=== PATIENT | male | born 1990 | race African-American/Black ===

== ENCOUNTER 2016-12-14 23:54 | Emergency (ER) | payer MEDICAID ==
[~2016-12-14] VITALS: Ht 175.3 cm; Wt 76.9 kg
[~2016-12-14 23:54] MED LIST: DEXA4TAB PO; NO ROUTINE MEDS; PROC-14 PO
--- OUTSIDE RECORDS SUMMARY | 2016-12-14 23:59 | XMS REPORT | Referral Summary ---
Author Author Via Organization Via Address Unknown Phone Unavailable Care Team Providers Care Student Records Specialist Name Role Phone No PCP, Pt States Primary Care Physician [phone] Encounter [facility] [id number] Date(s): 01/26/16 - 01/26/16 [address], [place] [address] Discharge Diagnosis: Achilles tendon injury Discharge Disposition: 01-Home or Self Care Attending Physician: Lon Corea DO Admitting Physician: Lon Corea DO Vital Signs Most recent to 1 oldest [Reference Range]: Temperature Temporal 36.3 degC Artery [36.3-37.8 (01/26/16 2:42 PM) degC] Peripheral Pulse 110 bpm Rate [60-100 bpm] *HI* (01/26/16 2:42 PM) Respiratory Rate 16 br/min [14-20 br/min] (01/26/16 2:42 PM) Blood Pressure 132/82 mmHg [90-140/60-90 mmHg] (01/26/16 2:42 PM) SpO2 96 % (01/26/16 2:42 PM) Problem List Condition Effective Dates Status Health Status Informant Acute Active pain(Confirmed) Alteration in Active nutrition(Confirmed) 1 At risk for Active falls(Confirmed)2 Bowel Active dysfunction(Confirme d)3 Chronic abdominal Active patient pain(Confirmed) Crohn's disease of Active large bowel (disorder)(Confirmed ) Fluid Active imbalance(Confirmed) 4 Hip fracture, Active patient right(Confirmed) History of bowel Active patient resection(Confirmed) Tobacco Active patient user(Confirmed) 1Problem added automatically by system based on initiation of Alteration in Nutrition Plan of Care 2This problem was added by Discern Expert. 3Problem added automatically by system based on initiation of Bowel Dysfunction Plan of Care 4Problem added automatically by system based on initiation of Fluid Volume Imbalance Plan of Care Allergies, Adverse Reactions, Alerts Substance Reaction Severity Status heparin Difficulty breathing at rest Severe Active HYDROcodone Active Levsin Hives Medium Active metoclopramide Adverse Reaction Medium Active Itchy, hives morphine Ichy, hives Severe Active Adverse Reaction Severe nabumetone Adverse Reaction Medium Active Toradol Hives Medium Active traMADol Itching Active Swelling Medications Crutches (DME) DME Item ankle pain left ankle weight bearing as tolerated, See Instructions, # 1 Each, 0 Refill(s), Supply Start Date: 01/24/16 Status: Ordered Crutches (DME) DME Item 4 weeks, See Instructions, # 1 Each, 0 Refill(s), Supply Start Date: 01/23/16 Status: Ordered Crutches (DME) DME Item Until cleared to stop by orthopedics., See Instructions, # 1 Each, 0 Refill(s), Supply Start Date: 01/22/16 Status: Ordered HYDROcodone-acetaminophen 5 mg-325 mg oral tablet 1 tabs, Oral, QID, Pain Moderate (4-6), # 30 tabs, 0 Refill(s) Start Date: 01/09/16 Status: Ordered Naprosyn 500 mg oral tablet 500 mg 1 tabs, Oral, BID, as needed for pain, # 20 tabs, 0 Refill(s) Start Date: 01/24/16 Status: Ordered Naprosyn 500 mg oral tablet 500 mg 1 tabs, Oral, BID, as needed for pain, # 20 tabs, 0 Refill(s) Start Date: 01/09/16 Status: Ordered ondansetron 4 mg oral tablet, disintegrating See Instructions, 1 tabs Oral q6-8hrs prn nausea/vomiting, # 12 tabs, 0 Refill(s ) Start Date: 01/07/16 Stop Date: 01/06/17 Status: Ordered Percocet 5/325 oral tablet 1 tabs, Oral, q4hr, as needed for pain, # 12 tabs, 0 Refill(s) Start Date: 01/12/16 Stop Date: 01/11/17 Status: Ordered Percocet 5/325 oral tablet 1 tabs, Oral, q6hr, as needed for pain, # 12 tabs, 0 Refill(s) Start Date: 01/09/16 Status: Ordered predniSONE 10 mg oral tablet See Instructions, 4 tabs daily X3d; 3tabs daily X3d, 2tabs daily X3; 1 tab daily X 3, # 40 tabs, 0 Refill(s) Start Date: 11/24/15 Status: Ordered Zofran 4 mg oral tablet 4 mg 1 tabs, Oral, Once, # 3 tabs, 0 Refill(s) Start Date: 11/13/15 Status: Ordered Results No data available for this section Immunizations Vaccine Date Refusal Reason tetanus-diphth toxoids (Td) adult/adol 11/30/02 Procedures Procedure Date Related Diagnosis Body Site Colonoscopy Biopsy1 05/18/14 Esophagogastroduodenoscopy Biopsy2 05/18/14 Bowel Resection 2012 Bowel care3 Hip joint operations4 1auto-populated from documented surgical case 2auto-populated from documented surgical case 3bowel resection 4right side Social History Social History Type Response Smoking Status Current every day smoker; Tobacco use per day: 1 Pack Assessment and Plan No data available for this section
--- OUTSIDE RECORDS SUMMARY | 2016-12-14 23:59 | XMS REPORT | Referral Summary ---
Author Author Via [facility] Organization Via [facility] Address Unknown Phone Unavailable Care Team Providers Care Glaze Maker Name Role Phone No PCP, Pt States Primary Care Physician [phone] Encounter [facility] [id number] Date(s): 07/11/16 - 07/11/16 Via [facility] [address] [place], [place] [address] Discharge Diagnosis: Tachycardia Discharge Diagnosis: Acute abdominal pain Discharge Diagnosis: Rectal bleeding Discharge Diagnosis: Dehydration Discharge Diagnosis: Crohn's disease Discharge Disposition: [facility] Attending Physician: Tulio Shahid MD Admitting Physician: Tulio Shahid MD Vital Signs Most recent to 1 oldest [Reference Range]: Temperature Oral 37.2 degC [35.8-37.3 degC] (07/11/16 12:52 PM) Peripheral Pulse 101 bpm Rate [60-100 bpm] *HI* (07/11/16 12:52 PM) Respiratory Rate 18 br/min [14-20 br/min] (07/11/16 12:52 PM) Blood Pressure 122/83 mmHg [90-140/60-90 mmHg] (07/11/16 12:52 PM) SpO2 96 % (07/11/16 12:52 PM) Problem List Condition Effective Dates Status Health Status Informant Acute Active pain(Confirmed) Alteration in Active nutrition(Confirmed) 1 At risk for Active falls(Confirmed)2 Bowel Active dysfunction(Confirme d)3 Chronic abdominal Active patient pain(Confirmed) Crohn's disease of Active large bowel (disorder)(Confirmed ) Fluid Active imbalance(Confirmed) 4 Hip fracture, Active patient right(Confirmed) History of bowel Active patient resection(Confirmed) Knowledge Active deficit(Confirmed)5 1Problem added automatically by system based on initiation of Alteration in Nutrition Plan of Care 2This problem was added by Discern Expert. 3Problem added automatically by system based on initiation of Bowel Dysfunction Plan of Care 4Problem added automatically by system based on initiation of Fluid Volume Imbalance Plan of Care 5Problem added automatically by system based on initiation of Knowledge Deficit Plan of Care Allergies, Adverse Reactions, Alerts Substance Reaction Severity Status heparin Difficulty breathing at rest Severe Active HYDROcodone Active Levsin Hives Medium Active metoclopramide Adverse Reaction Medium Active Itchy, hives morphine Ichy, hives Severe Active Adverse Reaction Severe nabumetone Adverse Reaction Medium Active Toradol Hives Medium Active traMADol Itching Active Swelling Medications amLODIPine 5 mg oral tablet 5 mg 1 tabs, Oral, Daily, # 30 tabs, 0 Refill(s), Pharmacy: [id number], 1 tabs Oral Daily Start Date: 05/19/16 Status: Ordered Percocet 5/325 oral tablet See Instructions, as needed for pain, 1 tabs Oral q4hr, # 12 tabs, 0 Refill(s) Start Date: 06/23/16 Stop Date: 06/23/17 Status: Ordered Results No data available for this section Immunizations Given and Recorded Vaccine Date Status Refusal Reason tetanus-diphth toxoids (Td) adult/adol 11/30/02 Given Procedures Procedure Date Related Diagnosis Body Site Colonoscopy Biopsy1 05/18/14 Esophagogastroduodenoscopy Biopsy2 05/18/14 Bowel Resection 2012 Bowel care3 Hip joint operations4 1auto-populated from documented surgical case 2auto-populated from documented surgical case 3bowel resection 4right side Social History Social History Type Response Smoking Status Current every day smoker; Tobacco use per day: 1/2 pack or more Assessment and Plan No data available for this section
--- OUTSIDE RECORDS SUMMARY | 2016-12-14 23:59 | XMS REPORT | Continuity of Care Document ---
Author Author [facility] Organization [facility] Address Unknown Phone Unavailable Care Team Providers Care Laminator Hand Name Role Phone VERONA ADAME MD Primary Care Physician [phone] Insurance Providers Guarantor Laura Echeverria Address [address] [place] [address] Email DENIED/NO [facility] Number [id number] Subscriber's Name Laura Echeverria Relationship 18 Self Effective Date 15 Expiration Date 15 Chief Complaint and Reason for Visit Chief Complaint Abdominal Pain Reason for Visit Exacerbation of Crohn's disease Problems Active Problems Medical Problem Onset Date Status Acute abdominal pain Unknown Acute Bloody diarrhea Unknown Acute Crohns disease Unknown Acute Dehydration Unknown Acute Ileitis Unknown Acute Inflammatory bowel disease Unknown Acute Microcytic anemia Unknown Chronic Opiate dependence Unknown Acute Recurrent abdominal pain Unknown Acute Recurrent vomiting Unknown Acute Past Problems Medical Problem Onset Date Diarrhea Unknown Exacerbation of Crohn's disease Unknown Nausea & vomiting Unknown Medications Current Home Medications Medication Dose Units Route Directions Days Qty Instructions Start Date Dexamethasone 4 Mg Tablet 1 Tab Oral Twice A Day 3 Days 8 Tablet No Routine Meds 11/29/15 Prochlorperazine Maleate (Compazine) 10 Mg Tablet 10 Mg Oral Four Times Daily for Nausea &/Or Vomiting 20 Tablet Take 1 tablet, by mouth, 4 times a day. 11/29/15 Past Home Medications Medication Directions Ordered Status Ciprofloxacin Hcl (Cipro) 500 Mg Tablet, 500 Mg Oral Before Meals Twice A Day 06/18/15 Discontinued Metronidazole (Flagyl) 500 Mg Tablet, 500 Mg Oral Three Times A Day 06/18/15 Discontinued Ondansetron (Zofran Odt) 4 Mg Tablet, 4 Mg Oral Every 4 Hours as needed for Nausea &/Or Vomiting 06/18/15 Discontinued Oxycodone Hcl (Roxicodone) 5 Mg Tablet, 30 Mg Oral Every 4 Hours 06/18/15 Discontinued Prednisone 5 Mg Tablet, 0 Oral Taper Qd 06/18/15 Discontinued Sulfasalazine 500 Mg Tablet, 1000 Mg Oral Three Times A Day 06/18/15 Discontinued Social History Social History Problem Response Recorded Date/Time Onset Date Status Hx Alcohol Use No 11/29/2015 8:39pm Not Applicable Not Applicable Has the pt used tobacco in the last 12 months Yes 06/16/2015 12:54am Not Applicable Not Applicable Tobacco Usage smoke 06/17/2015 5:40pm Not Applicable Not Applicable Query Response Start Date Stop Date Smoking Status Current every day smoker Hospital Discharge Instructions No hospital discharge instructions. Plan of Care Discharge Date 11/29/15 11:32pm Disposition 01 DISCHARGED HOME, SELF-CARE Condition at Discharge Stable Instructions/Education Provided Crohn's Disease Prescriptions See Medication Section Referrals VERONA ADAME MD Address: [address] [phone] Additional Instructions/Education Take dexamethasone 4mg twice daily with food for the next 3 days, take with food. Take compazine 10mg every 6 hours as needed for nausea and vomiting. You may take OTC Tylenol for additional pain. Follow with your PCP Wednesday for re-evaluation. [facility] for [facility]-evaluation. Follow treatment plan. Care Plan and Goals Physician Care Plan Problem: Crohn's Exacerbation Goal: Follow up with primary care provider Instructions: Take medications and follow care plan as discussed/written Functional Status No functional status results. Allergies, Adverse Reactions, Alerts Allergen Type Severity Reaction Status Last Updated Morphine Allergy Unknown HIVES, ITCHING Active 07/07/15 Hydrocodone Allergy Unknown Active 07/07/15 Metoclopramide Allergy Unknown ITCHING Active 07/07/15 Ketorolac Allergy Unknown DYSPNEA Active 07/07/15 heparin Allergy Unknown SWELLING Active 07/07/15 Immunizations Query Response on File Recorded Date/Time Hx Influenza Vaccination No 06/16/15 12:54am Hx Pneumococcal Vaccination No 06/16/15 12:54am Hx Influenza Vaccination No 06/16/15 12:54am Vital Signs Acute Vital Signs Vital Response Date/Time Temperature (Fahrenheit) 98.8 deg F (96.8 - 99.1) 11/29/2015 8:25pm Temperature (Calculated Celsius) 37.88466 degrees C (36.0 - 37.3) 11/29/2015 8:25pm Pulse Rate (adult) 71 bpm (60 - 100) 11/29/2015 11:32pm Respiratory Rate 16 breaths/min (10 - 20) 11/29/2015 11:32pm O2 Sat by Pulse Oximetry 99 % (90 - 100) 11/29/2015 11:32pm Blood Pressure 147/84 mm Hg 11/29/2015 11:32pm Height (Feet) 5 feet 11/29/2015 8:41pm Height (Inches) 9.00 inches 11/29/2015 8:41pm Weight (Kilograms) 77.900 kg 11/29/2015 8:41pm Body Mass Index (BMI) 25.0 11/29/2015 8:41pm Results Laboratory Results Test Name Result Units Flags Reference Collection Date/Time Result Date/ Time Comments White Blood Count 10.7 T/MM3 4.5-11.0 11/29/2015 9:36pm 11/29/2015 9: 45pm Red Blood Count 4.55 M/MM3 4.50-5.90 11/29/2015 9:36pm 11/29/2015 9: 45pm Hemoglobin 11.7 GM/DL L 13.5-17.5 11/29/2015 9:36pm 11/29/2015 9:45pm Hematocrit 35.5 % L 41-53 11/29/2015 9:36pm 11/29/2015 9:45pm Mean Corpuscular Volume 78.0 UM3 L 80-100 11/29/2015 9:36pm 11/29/2015 9 :45pm Mean Corpuscular Hemoglobin 25.7 UUG L 26-34 11/29/2015 9:36pm 2015 9:45pm Mean Corpuscular Hemoglobin Concent 33.0 GM/DL 31-37 11/29/2015 9:36pm 11/29/2015 9:45pm RDW Standard Deviation 45.8 FL 36.9-50.2 11/29/2015 9:36pm 11/29/2015 9 :45pm Platelet Count 310 T/MM3 130-400 11/29/2015 9:36pm 11/29/2015 9:45pm Mean Platelet Volume 11.0 UM3 9.4-12.4 11/29/2015 9:36pm 11/29/2015 9: 45pm Neutrophils (%) (Auto) 71.6 % H 33-66 11/29/2015 9:36pm 11/29/2015 9: 45pm Lymphocytes (%) (Auto) 19.6 % L 23-45 11/29/2015 9:36pm 11/29/2015 9: 45pm Monocytes (%) (Auto) 7.6 % 0-9.0 11/29/2015 9:36pm 11/29/2015 9:45pm Eosinophils (%) (Auto) 0.8 % 0-4 11/29/2015 9:36pm 11/29/2015 9:45pm Basophils (%) (Auto) 0.2 % 0-2 11/29/2015 9:36pm 11/29/2015 9:45pm Immature Granulocyte % (Auto) 0.2 % 0.0-0.5 11/29/2015 9:36pm 2015 9:45pm Absolute Neutrophils (auto) 7.7 T/MM3 1.8-7.7 11/29/2015 9:36pm 2015 9:45pm Absolute Lymphocytes (auto) 2.1 T/MM3 1-4.8 11/29/2015 9:36pm 2015 9:45pm Absolute Monocytes (auto) 0.8 T/MM3 0-0.8 11/29/2015 9:36pm 11/29/2015 9:45pm Absolute Eosinophils (auto) 0.1 T/MM3 0-0.5 11/29/2015 9:36pm 2015 9:45pm Absolute Basophils (auto) 0.0 T/MM3 0-0.2 11/29/2015 9:36pm 11/29/2015 9:45pm Absolute Immature Granulocyte (auto 0.02 T/MM3 0.00-0.03 11/29/2015 9: 36pm 11/29/2015 9:45pm Icterus Index < 2 0-7 11/29/2015 9:3611/29/2015 10:15pm Chemistry Specimen Hemolysis 55 H 0-25 11/29/2015 9:36pm 11/29/2015 10 :15pm 26-70: Specimen Exhibited Slight Hemolysis - can falsely elevate K (Potassium) and Urine Protein. Turbidity < 20 0-20 11/29/2015 9:36pm 11/29/2015 10:15pm Sodium Level 141 MEQ/L 134-144 11/29/2015 9:36pm 11/29/2015 10:15pm Potassium Level 3.9 MEQ/L 3.6-5 11/29/2015 9:36pm 11/29/2015 10:15pm Chloride Level 105 MEQ/L 98-107 11/29/2015 9:36pm 11/29/2015 10:15pm Carbon Dioxide Level 28 MEQ/L 22-30 11/29/2015 9:36pm 11/29/2015 10: 15pm Anion Gap 8 MEQ/L 5-15 11/29/2015 9:36pm 11/29/2015 10:15pm Blood Urea Nitrogen 7.0 MG/DL L 9-11/29/2015 9:36pm 11/29/2015 10: 15pm Creatinine 0.7 MG/DL L 0.8-1.5 11/29/2015 9:36pm 11/29/2015 10:15pm BUN/Creatinine Ratio 10 RATIO 6-11/29/2015 9:36pm 11/29/2015 10: 15pm Glomerular Filtration Rate Calc 135 11/29/2015 9:36pm 11/29/2015 10 :15pm Glucose Level 94 MG/DL 75-110 11/29/2015 9:36pm 11/29/2015 10:15pm Calculated Osmolality 269 MOSM/KG 261-280 11/29/2015 9:36pm 11/29/2015 10:15pm Calcium Level 8.9 MG/DL 8.4-10.2 11/29/2015 9:36pm 11/29/2015 10:15pm Total Bilirubin 0.30 MG/DL 0.20-1.30 11/29/2015 9:36pm 11/29/2015 10: 15pm Alkaline Phosphatase 93 U/L 38-126 11/29/2015 9:36pm 11/29/2015 10: 15pm Total Protein 6.1 G/DL L 6.3-8.2 11/29/2015 9:36pm 11/29/2015 10:15pm Albumin 3.4 G/DL L 3.5-5.0 11/29/2015 9:36pm 11/29/2015 10:15pm Globulin 2.7 G/DL 2.4-3.6 11/29/2015 9:36pm 11/29/2015 10:15pm Albumin/Globulin Ratio 1.3 RATIO 1.1-2.2 11/29/2015 9:36pm 11/29/2015 10:15pm Aspartate Amino Transf (AST/SGOT) 18 U/L 17-59 11/29/2015 9:36pm 2015 10:15pm Alanine Aminotransferase (ALT/SGPT) 21 U/L 21-72 11/29/2015 9:36pm 10:15pm C-Reactive Protein 17.0 MG/L H 0-9 11/29/2015 9:38pm 11/29/2015 10:25pm Lipase 33 U/L 23-300 11/29/2015 9:36pm 11/29/2015 10:15pm Urine Collection Type VOIDED-NOT CC-MIDSTR 11/29/2015 10:0511/28 10:15pm Urine Color YELLOW YELLOW 11/29/2015 10:05pm 11/29/2015 10:15pm Urine Turbidity CLEAR CLEAR 11/29/2015 10:05pm 11/29/2015 10:15pm Urine Specific [place] 1.015 1.015-1.025 11/29/2015 10:05pm 2015 10:15pm Urine pH 6.5 5.0-8.0 11/29/2015 10:05pm 11/29/2015 10:15pm Urine Leukocyte Esterase NEGATIVE NEGATIVE 11/29/2015 10:052015 10:15pm Urine Nitrite NEGATIVE NEGATIVE 11/29/2015 10:05pm 11/29/2015 10: 15pm Urine Protein NEGATIVE NEGATIVE 11/29/2015 10:05pm 11/29/2015 10: 15pm Urine Glucose (UA) NEGATIVE NEGATIVE 11/29/2015 10:05pm 11/29/2015 10 :15pm Urine Ketones NEGATIVE NEGATIVE 11/29/2015 10:05pm 11/29/2015 10: 15pm Urine Urobilinogen 0.2 EU/DL NORMAL 11/29/2015 10:05pm 11/29/2015 10: 15pm Urine Bilirubin NEGATIVE NEGATIVE 11/29/2015 10:05pm 11/29/2015 10: 15pm Urine Blood NEGATIVE NEGATIVE 11/29/2015 10:05pm 11/29/2015 10:15pm Urinalysis Comment MICROSCOPIC NOT IND. 11/29/2015 10:05pm 2015 10:15pm Procedures No known history of procedures. Encounters Encounter Location Arrival/Admit Date Discharge/Depart Date Attending Provider Departed Emergency Room [facility] 11/29/15 8:17pm 11/29/15 11: 32pm JIMMY RESENDEZ MD Recent Diagnosis
--- OUTSIDE RECORDS SUMMARY | 2016-12-14 23:59 | XMS REPORT | Referral Summary ---
Author Author Via [facility] Organization [facility] Address Unknown Phone Unavailable Care Team Providers Care 4Th Grade Teacher Name Role Phone No PCP, Pt States Primary Care Physician [phone] Encounter [facility] Date(s): 03/04/15 - 03/04/15 [facility] [address] [place] [address] [phone] Discharge Diagnosis: Medical non-compliance Discharge Diagnosis: Abdominal pain, chronic, epigastric Discharge Diagnosis: Vomiting Final: ABDOMINAL PAIN, EPIGASTRIC Final: Other chronic pain Final: DIARRHEA Final: VOMITING ALONE Final: PERSONAL HISTORY OF NONCOMPLIANCE WITH MEDICAL TREATMENT, PRESENTING HAZARDS TO HEALTH Discharge Diagnosis: Diarrhea Discharge Disposition: 01-Home or Self Care Attending Physician: Patrice Rankin JR, MD Admitting Physician: Patrice Rankin JR, MD Vital Signs Most recent to 1 oldest [Reference Range]: Temperature Oral 37.0 degC [35.8-37.3 degC] (03/04/15 5:52 PM) Peripheral Pulse 67 bpm Rate [60-100 bpm] (03/04/15 9:30 PM) Heart Rate Monitored 60 bpm [60-100 bpm] (03/04/15 11:00 PM) Respiratory Rate 18 br/min [14-20 br/min] (03/04/15 11:00 PM) Blood Pressure 147/91 mmHg [90-140/60-90 mmHg] *HI* (03/04/15 11:00 PM) Mean Arterial 115 mmHg Pressure, Cuff (03/04/15 11:00 PM) SpO2 100 % (03/04/15 11:00 PM) Problem List Condition Effective Dates Status [...] Adverse Reactions, Alerts Substance Reaction Severity Status acetaminophen Hives Active acetaminophen-HYDROcodone Adverse Reaction Medium Active heparin Difficulty breathing at rest Severe Active Levsin Hives Medium Active metoclopramide Adverse Reaction Medium Active Itchy, hives morphine Ichy, hives Active Adverse Reaction nabumetone Adverse Reaction Medium Active Toradol Hives Medium Active traMADol Itching Active Swelling Medications No data available for this section Results Hematology Most recent to 1 oldest [Reference Range]: WBC [4.8-10.8 7.4 10*3/uL 10*3/uL] (03/04/15 9:16 PM) RBC [4.60-6.20 4.34 10*6/uL 10*6/uL] *LOW* (03/04/15 9:16 PM) Hgb [14.0-18.0 11.2 gm/dL gm/dL] *LOW* (03/04/15 9:16 PM) Hct [42.0-52.0 %] 33.9 % *LOW* (03/04/15 9:16 PM) MCV [82.0-99.0 fL] 78.1 fL *LOW* (03/04/15 9:16 PM) MCH [27.0-32.0 pg] 25.8 pg *LOW* (03/04/15 9:16 PM) MCHC [32.0-36.0 33.0 gm/dL gm/dL] (03/04/15 9:16 PM) RDW [11.5-14.5 %] 16.1 % *HI* (03/04/15 9:16 PM) Platelet [150-400 306 10*3/uL 10*3/uL] (03/04/15 9:16 PM) MPV [9.4-12.3 fL] 10.5 fL (03/04/15 9:16 PM) Immature 0.1 % Granulocytes (03/04/15 9:16 PM) [0.0-1.0 %] Neutrophils [51-75 69 % %] (03/04/15 9:16 PM) Lymphocytes [20-46 21 % %] (03/04/15 9:16 PM) Monocytes [4-11 %] 8 % (03/04/15 9:16 PM) Eosinophils [0-4 %] 2 % (03/04/15 9:16 PM) Basophils [0-2 %] 0 % (03/04/15 9:16 PM) Neutro Absolute 5.08 10*3 [1.90-7.00 10*3] (03/04/15 9:16 PM) Lymph Absolute 1.58 10*3 [0.80-3.30 10*3] (03/04/15 9:16 PM) Nance Absolute 0.60 10*3 [0.30-1.00 10*3] (03/04/15:16 PM) Eos Absolute 0.12 10*3 [0.00-0.50 10*3] (03/04/15 9:16 PM) Baso Absolute 0.02 10*3 [0.00-0.20 10*3] (03/04/15 9:16 PM) Nucleated RBC 0.0 /100 WBC Automated [0 /100 (03/04/15 9:16 PM) WBC] Chemistry Most recent to 1 oldest [Reference Range]: Sodium Lvl [136-144 142 mEq/L mEq/L] (03/04/15 8:20 PM) Potassium Lvl 3.3 mEq/L 1 [3.6-5.1 mEq/L] *LOW* (03/04/15 8:20 PM) Chloride [99-109 107 mEq/L mEq/L] (03/04/15 8:20 PM) CO2 [22-32 mEq/L] 28 mEq/L (03/04/15 8:20 PM) AGAP [3-20] 7 (03/04/15 8:20 PM) BUN [4-20 mg/dL] 4 mg/dL (03/04/15 8:20 PM) Glucose Lvl [70-100 88 mg/dL mg/dL] (03/04/15 8:20 PM) Creatinine Lvl 0.78 mg/dL [0.64-1.27 mg/dL] (03/04/15 8:20 PM) eGFR [>60] >60 2 (03/04/15 8:20 PM) Calcium Lvl 8.4 mg/dL [8.6-10.0 mg/dL] *LOW* (03/04/15 8:20 PM) Albumin Lvl [3.5-4.8 3.4 gm/dL gm/dL] *LOW* (03/04/15 8:20 PM) Total Protein 6.4 gm/dL [6.1-7.9 gm/dL] (03/04/15 8:20 PM) Globulin [1.9-4.3 3.0 gm/dL gm/dL] (03/04/15 8:20 PM) ALT [17-63 U/L] 17 U/L (03/04/15 8:20 PM) AST [15-41 U/L] 19 U/L (03/04/15 8:20 PM) Alk Phos [26-104 156 U/L U/L] *HI* (03/04/15 8:20 PM) Bili Total [0.2-1.2 0.6 mg/dL 3 mg/dL] (03/04/15 8:20 PM) Lipase Lvl [8-48 26 U/L U/L] (03/04/15 8:20 PM) 1Result Comment: Hemolyzed specimen. The following tests may be affected: ALT, AST, Ammonia, Iron, Potassium, LDH, Amylase, CPK, and Total Bilirubin. 2Result Comment: Multiply eGFR results by 1.21 for race. 3Result Comment: Naproxen, specifically the metabolite O-desmethylnaproxen, may cause spurious elevation in Total Bilirubin levels. Toxicology Most recent to 1 oldest [Reference Range]: U Amphetamine Scrn Negative (03/04/15 10:00 PM) U Cocaine Scrn Negative (03/04/15 10:00 PM) U Cannab Scrn Negative (03/04/15 10:00 PM) U Opiate Scrn Positive *ABN* (03/04/15 10:00 PM) U PCP Scrn Negative (03/04/15 10:00 PM) U Benzodiazepine Negative Scrn (03/04/15 10:00 PM) U Barbiturate Scrn Negative (03/04/15 10:00 PM) Methadone Lvl Negative (03/04/15 10:00 PM) Tricyclics Not Detected 1 (03/04/15 10:00 PM) 1Result Comment: Cut-off concentrations: Amphetamines: 1000 ng/mL Cocaine: 300 ng/mL Cannabinoid: 50 ng/mL Opiate: 300 ng/mL Phencyclidine (PCP): 25 ng/mL Benzodiazepine: 200 ng/mL Barbiturate: 200 ng/mL Methadone: 300 ng/mL Tricyclic: 300 ng/mL The urine drug screen assays are qualitative screens. A more specific GC/MS method must be performed to obtain a confirmed analytical result. Unconfirmed screening results must not be used for non-medical purposes(e.g. employment or legal testing) Urinalysis Most recent to 1 oldest [Reference Range]: UA Color Lt Yellow (03/04/15 10:00 PM) UA Appear Clear (03/04/15 10:00 PM) UA pH [5.0-8.0] 6.5 (03/04/15 10:00 PM) UA Leuk Est Negative [Negative] (03/04/15 10:00 PM) UA Nitrite Negative [Negative] (03/04/15 10:00 PM) UA Protein Negative [Negative] (03/04/15 10:00 PM) UA Glucose Negative [Negative] (03/04/15 10:00 PM) UA Ketones Negative [Negative] (03/04/15 10:00 PM) UA Urobilinogen Negative [<1.0] (03/04/15 10:00 PM) UA Bili [Negative] Negative (03/04/15 10:00 PM) UA Blood [Negative] Negative (03/04/15 10:00 PM) UA Spec Grav 1.009 [1.003-1.030] (03/04/15 10:00 PM) Type Clean Catch (03/04/15 10:00 PM) Immunizations Vaccine Date Refusal Reason tetanus-diphth toxoids (Td) adult/adol 11/30/02 Procedures Procedure Date Related Diagnosis Body Site Colonoscopy Biopsy1 05/18/14 Esophagogastroduodenoscopy Biopsy2 10/31/14 Bowel Resection 2012 Bowel care3 Hip joint operations4 1auto-populated from documented surgical case 2auto-populated from documented surgical case 3bowel resection 4right side Social History Social History Type Response Smoking Status Current every day smoker; Tobacco use per day: 1 Pack Assessment and Plan No data available for this section
--- OUTSIDE RECORDS SUMMARY | 2016-12-14 23:59 | XMS REPORT | Referral Summary ---
Author Author [facility] Organization [facility] Address Unknown Phone Unavailable Care Team Providers Care Director Of Medical Staff Services Name Role Phone No PCP, Pt States Primary Care Physician [phone] Encounter VC Date(s): 01/30/16 - 01/30/16 [facility] [address] [place] [address] [phone] Discharge Diagnosis: Dental caries Discharge Disposition: 01-Home or Self Care Attending Physician: Tulio Shahid MD Admitting Physician: Tulio Shahid MD Vital Signs Most recent to 1 oldest [Reference Range]: Temperature Oral 36.9 degC [35.8-37.3 degC] (01/30/16 6:40 PM) Peripheral Pulse 82 bpm Rate [60-100 bpm] (01/30/16 6:40 PM) Respiratory Rate 14 br/min [14-20 br/min] (01/30/16 6:40 PM) Blood Pressure 127/81 mmHg [90-140/60-90 mmHg] (01/30/16 6:40 PM) SpO2 97 % (01/30/16 6:40 PM) Problem List Condition Effective Dates Status [...] Date: 01/07/16 Stop Date: 01/06/17 Status: Ordered penicillin V potassium 500 mg oral tablet 500 mg 1 tabs, Oral, BID, X 10 days, # 20 tabs, 0 Refill(s) Start Date: 01/30/16 Stop Date: 02/09/16 Status: Ordered Percocet 5/325 oral tablet 1 [...]
--- OUTSIDE RECORDS SUMMARY | 2016-12-14 23:59 | XMS REPORT | Referral Summary ---
Author Author [facility] Organization [facility] Address Unknown Phone Unavailable Care Team Providers Care Quenching Car Operator Name Role Phone No PCP, Pt States Primary Care Physician [phone] Encounter VC Date(s): 05/03/16 - 05/03/16 [facility] [address] [place], [place] [address] Discharge Diagnosis: Left against medical advice Discharge Diagnosis: Chronic abdominal pain Discharge Disposition: Attending Physician: Fuentes Amador MD Admitting Physician: Fuentes Amador MD Vital Signs Most recent to 1 oldest [Reference Range]: Temperature Oral 37 degC [35.8-37.3 degC] (05/03/16 9:34 PM) Peripheral Pulse 94 bpm Rate [60-100 bpm] (05/03/16 9:34 PM) Respiratory Rate 18 br/min [14-20 br/min] (05/03/16 9:34 PM) Blood Pressure 135/82 mmHg [90-140/60-90 mmHg] (05/03/16 9:34 PM) SpO2 97 % (05/03/16 9:34 PM) Problem List Condition Effective Dates Status Health Status Informant Acute Active pain(Confirmed) Alteration in Active nutrition(Confirmed) 1 At risk for Active falls(Confirmed)2 Bowel Active dysfunction(Confirme d)3 Chronic abdominal Active patient pain(Confirmed) Crohn's disease of Active large bowel (disorder)(Confirmed ) Fluid Active imbalance(Confirmed) 4 Hip fracture, Active patient right(Confirmed) History of bowel Active patient resection(Confirmed) Knowledge Active deficit(Confirmed)5 Tobacco Active patient user(Confirmed) 1Problem added automatically [...] Medium Active traMADol Itching Active Swelling Medications Benadryl 50 mg, Oral, Bedtime (once a day), 0 Refill(s) Start Date: 03/29/16 Status: Ordered Delzicol 400 mg oral delayed release capsule 800 mg 2 caps, Oral, TID, 0 Refill(s) Start Date: 03/29/16 Status: Ordered Medrol Dosepak 4 mg oral tablet 1 packets, Oral, Once, as directed on package labeling, # 21 tabs, 0 Refill(s) Start Date: 03/29/16 Status: Ordered Results No data available for [...]
--- OUTSIDE RECORDS SUMMARY | 2016-12-15 | XMS REPORT | Referral Summary ---
Author Author [facility] Organization [facility] Address Unknown Phone Unavailable Care Team Providers Care Restaurant Hostess Name Role Phone No PCP, Pt States Primary Care Physician [phone] Encounter VC Date(s): 05/09/16 - 05/09/[address] [facility] [address] [place] [address] Discharge Diagnosis: Chronic abdominal pain Discharge Disposition: 01-Home or Self Care Attending Physician: Tulio Shahid MD Admitting Physician: Tulio Shahid MD Vital Signs Most recent to 1 oldest [Reference Range]: Temperature Oral 37.3 degC [35.8-37.3 degC] (05/09/16 9:32 PM) Respiratory Rate 18 br/min [14-20 br/min] (05/09/16 9:32 PM) Blood Pressure 138/87 mmHg [90-140/60-90 mmHg] (05/09/16 9:32 PM) SpO2 98 % (05/09/16 9:32 PM) Problem List Condition Effective Dates Status [...] Refill(s) Start Date: 03/29/16 Status: Ordered Results Chemistry Most recent to 1 oldest [Reference Range]: Sodium Venous 140 mEq/L [136-144 mEq/L] (05/09/16 10:20 PM) Potassium Venous 4.1 mEq/L 1 [3.6-5.1 mEq/L] (05/09/16 10:20 PM) Calcium Ionized 1.15 mmol/L Venous [1.19-1.41 *LOW* mmol/L] (05/09/16 10:20 PM) Total CO2 Venous 26 mEq/L [25-29 mEq/L] (05/09/16 10:20 PM) HGB Venous NPT 13.6 gm/dL [14.0-16.0 gm/dL] *LOW* (05/09/16 10:20 PM) HCT Venous 40.0 % [42.0-52.0 %] *LOW* (05/09/16 10:20 PM) Glucose Venous 95 mg/dL [70-100 mg/dL] (05/09/16 10:20 PM) BUN Venous [4-20] 8 (05/09/16 10:20 PM) Creatinine Venous 0.9 mg/dL [0.7-1.2 mg/dL] (05/09/16 10:20 PM) Venous CL [99-109 104 mEq/L mEq/L] (05/09/16 10:20 PM) Anion Gap, Jt 10 [3-20] (05/09/16 10:20 PM) 1Result Comment: This test was performed on a whole blood specimen. The presence or absence of hemolysis cannot be assessed. Hemolysis can falsely elevate potassium levels. Normals are for venous specimens only. Immunizations Vaccine Date Refusal Reason tetanus-diphth toxoids [...]
--- OUTSIDE RECORDS SUMMARY | 2016-12-15 | XMS REPORT | Referral Summary ---
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 Final: ISSUE OF REPEAT PRESCRIPTIONS Discharge Diagnosis: Encounter for medication refill Discharge Diagnosis: Status post surgery Discharge Disposition: 01-Home or Self Care Attending Physician: Stefano Nicholas JR, MD Admitting Physician: Stefano Nicholas JR, MD Vital Signs Most recent to 1 oldest [Reference Range]: Temperature Oral 36.8 degC [35.8-37.3 degC] (03/10/15 6:49 PM) Peripheral Pulse 68 bpm Rate [60-100 bpm] (03/10/15 7:53 PM) Respiratory Rate 18 br/min [14-20 br/min] (03/10/15 7:53 PM) Blood Pressure 165/98 mmHg [90-140/60-90 mmHg] *HI* (03/10/15 7:53 PM) SpO2 97 % (03/10/15 7:53 PM) Problem List Condition Effective Dates Status [...] No data available for this section Results No data available for this section [...]
--- OUTSIDE RECORDS SUMMARY | 2016-12-15 | XMS REPORT | Referral Summary ---
Author Author [facility] Organization [facility] Address Unknown Phone Unavailable Care Team Providers Care Warm In Worker Name Role Phone No PCP, Pt States Primary Care Physician [phone] Encounter VC Date(s): 04/21/15 - 04/21/15 [facility] [address] [place] [address] Discharge Diagnosis: Crohn's disease Discharge Diagnosis: Diarrhea Discharge Diagnosis: Nausea Discharge Diagnosis: Vomiting Discharge Disposition: 01-Home or Self Care Attending Physician: Stefano Nicholas JR, MD Admitting Physician: Stefano Nicholas JR, MD Vital Signs Most recent to 1 oldest [Reference Range]: Temperature Oral 36.9 degC [35.8-37.3 degC] (04/21/15 9:07 PM) Peripheral Pulse 83 bpm Rate [60-100 bpm] (04/21/15 10:24 PM) Respiratory Rate 18 br/min [14-20 br/min] (04/21/15 10:24 PM) Blood Pressure 146/82 mmHg [90-140/60-90 mmHg] *HI* (04/21/15 10:24 PM) SpO2 95 % (04/21/15 10:24 PM) Problem List Condition Effective Dates Status Health Status Informant Acute Active pain(Confirmed) Alteration in Active nutrition(Confirmed) 1 At risk for Active falls(Confirmed)2 Bowel Active dysfunction(Confirme d)3 Chronic abdominal Active patient pain(Confirmed) Crohn's disease of Active large bowel (disorder)(Confirmed ) Fluid Active imbalance(Confirmed) 4 Hip fracture, Active patient right(Confirmed) Tobacco Active patient user(Confirmed) 1Problem added automatically by system based on initiation of Alteration in Nutrition Plan of Care 2This problem was added by Discern Expert. 3Problem added automatically by system based on initiation of Bowel Dysfunction Plan of Care 4Problem added automatically by system based on initiation of Fluid Volume Imbalance Plan of Care Allergies, Adverse Reactions, Alerts Substance Reaction Severity Status acetaminophen-HYDROcodone Adverse Reaction Medium Active heparin Difficulty breathing at rest Severe Active Levsin Hives Medium Active metoclopramide Adverse Reaction Medium Active Itchy, hives nabumetone Adverse Reaction Medium Active Toradol Hives Medium Active Medications Lomotil 2.5 mg-0.025 mg oral tablet 2 tabs, Oral, QID, as needed for loose stool, One after each loose stool ,8/24h , # 10 tabs, 0 Refill(s) Start Date: 04/21/15 Stop Date: 04/24/15 Status: Ordered Ultram 50 mg oral tablet 50 mg 1 tabs, Oral, q12hr, as needed for pain, # 12 tabs, 0 Refill(s), SUPERVISING PHYS. DR. ARNOLD Start Date: 03/04/15 Stop Date: 03/04/16 Status: Ordered Zofran ODT 4 mg oral tablet, disintegrating 4 mg 1 tabs, Oral, q8hr, as needed for nausea/vomiting, # 10 tabs, 0 Refill(s) Start Date: 04/21/15 Stop Date: 04/25/15 Status: Ordered Results Chemistry Most recent to 1 oldest [Reference Range]: Sodium Venous 139 mEq/L [136-144 mEq/L] (04/21/15 10:09 PM) Potassium Venous 3.7 mEq/L 1 [3.6-5.1 mEq/L] (04/21/15 10:09 PM) Calcium Ionized 1.22 mmol/L Venous [1.19-1.41 (04/21/15 10:09 PM) mmol/L] Total CO2 Venous 24 mEq/L [25-29 mEq/L] *LOW* (04/21/15 10:09 PM) HGB Venous NPT 11.9 gm/dL [14.0-18.0 gm/dL] *LOW* (04/21/15 10:09 PM) HCT Venous 35.0 % [42.0-52.0 %] *LOW* (04/21/15 10:09 PM) Glucose Venous 96 mg/dL [70-100 mg/dL] (04/21/15 10:09 PM) BUN Venous [4-20] 10 (04/21/15 10:09 PM) Creatinine Venous 0.8 mg/dL [0.7-1.2 mg/dL] (04/21/15 10:09 PM) Venous CL [99-109 103 mEq/L mEq/L] (04/21/15 10:09 PM) Anion Gap, Jt 12 [3-20] (04/21/15 10:09 PM) Occult Blood, Stool Negative NPT [Negative] (04/21/15 10:10 PM) 1Result Comment: This test was performed [...] History Social History Type Response Smoking Status Former smoker; Type: Cigarettes1 1"Quit 3-4 months ago" Assessment and Plan No data available for this section
--- OUTSIDE RECORDS SUMMARY | 2016-12-15 | XMS REPORT | Referral Summary ---
Author Author [facility] Organization [facility] Address Unknown Phone Unavailable Care Team Providers Care Mastic Floor Layer Name Role Phone No PCP, Pt States Primary Care Physician [phone] Encounter VC Date(s): 07/06/16 - 07/06/16 [facility] [address] [place], [place] [address] Discharge Diagnosis: Left against medical advice Discharge Diagnosis: Diffuse abdominal pain Discharge Diagnosis: History of Crohn's disease Discharge Disposition: 01-Home or Self Care Attending Physician: Sandeep Tyson MD Admitting Physician: Sandeep Tyson MD Vital Signs Most recent to 1 oldest [Reference Range]: Temperature Temporal 36.8 degC Artery [36.3-37.8 (07/06/16 2:24 PM) degC] Peripheral Pulse 112 bpm Rate [60-100 bpm] *HI* (07/06/16 2:24 PM) Respiratory Rate 16 br/min [14-20 br/min] (07/06/16 2:24 PM) Blood Pressure 137/84 mmHg [90-140/60-90 mmHg] (07/06/16 2:24 PM) SpO2 97 % (07/06/16 2:24 PM) Problem List Condition Effective Dates Status [...] Daily, # 30 tabs, 0 Refill(s), Pharmacy: [id number], 1 tabs Oral Daily Start Date: 05/19/16 Status: Ordered Percocet 5/325 oral tablet See Instructions, as needed for pain, 1 tabs Oral q4hr, # 12 tabs, 0 Refill(s) Start Date: 06/23/16 Stop Date: 06/23/17 Status: Ordered predniSONE 20 mg oral tablet 60 mg 3 tabs, Oral, Daily, take as directed in comments, X 3 days, # 18 tabs, 0 Refill(s) Start Date: 07/06/16 Stop Date: 07/09/16 Status: Ordered Results No data available for [...]
--- OUTSIDE RECORDS SUMMARY | 2016-12-15 | XMS REPORT | Referral Summary ---
Author Organization Unknown Address Unknown Phone Unavailable Care Team Providers Care Kitchen Stewardess Name Role Phone No PCP, [facility] Primary Care Physician [phone] Encounter VC Date(s): 09/20/14 - 09/20/14 [facility] [address] [place] [address] Final: Other chronic pain Final: ABDOMINAL PAIN, UNSPECIFIED SITE Final: PERSON FEIGNING ILLNESS Final: TOBACCO USE DISORDER Discharge Diagnosis: Drug-seeking behavior Discharge Diagnosis: Chronic abdominal pain Discharge Diagnosis: Chronic pain Discharge Disposition: Home or Self Care Attending Physician: Luis Del Angel DO Admitting Physician: Luis Del Angel DO Vital Signs Most recent to 1 oldest [Reference Range]: Temperature Oral 36.9 degC [35.8-37.3 degC] (09/20/14 1:31 AM) Peripheral Pulse 82 bpm Rate [60-100 bpm] (09/20/14 3:20 AM) Respiratory Rate 16 br/min [14-20 br/min] (09/20/14 3:20 AM) Blood Pressure 143/86 mmHg [90-140/60-90 mmHg] *HI* (09/20/14 3:20 AM) Most recent to 1 oldest [Reference Range]: SpO2 96 % (09/20/14 1:31 AM) Problem List Condition Effective Dates Status Health Status Informant Acute Active pain(Confirmed) Alteration in Active nutrition(Confirmed) 1 At risk for Active falls(Confirmed)2 Bowel Active dysfunction(Confirme d)3 Crohn's disease of Active large bowel (disorder)(Confirmed ) Fluid Active imbalance(Confirmed) 4 1Problem added automatically by system based on [...] Medium Active Toradol Hives Medium Active Medications Naprosyn 500 mg oral tablet 1 tabs, Oral, BID, as needed for pain, # 14 tabs, 0 Refill(s), Pharmacy: [facility], 1 tabs Oral BID,PRN:as needed for pain Start Date: 09/18/14 Status: Ordered predniSONE 10 mg oral tablet 1 tabs, Oral, Daily, 60 MG X 2 DAYS, 50 MG X2 DAYS, 40 MG X2 DAYS, 30 MG X 2 DAYS, 20 MG X 2 DAYS AND 10 MG X 2 DAYS, # 42 tabs, 0 Refill(s), SUPERVISING PHYSCarly CR Special Instructions: 60 MG X 2 DAYS, 50 MG X2 DAYS, 40 MG X2 DAYS, 30 MG X 2 DAYS, 20 MG X 2 DAYS AND 10 MG X 2 DAYS Start Date: 09/11/14 Stop Date: 10/15/14 Status: Ordered Results No data available for this section Immunizations Vaccine Date Refusal Reason tetanus-diphth toxoids (Td) adult/adol 11/30/02 Procedures Procedure Date Related Diagnosis Body Site Colonoscopy Biopsy1 05/18/14 Esophagogastroduodenoscopy Biopsy2 05/18/14 Bowel Resection 2012 Bowel care3 1auto-populated from documented surgical case 2auto-populated from documented surgical case 3bowel resection Social History Social History Type Response Smoking Status Current every day smoker Assessment and Plan No data available for this section
--- OUTSIDE RECORDS SUMMARY | 2016-12-15 | XMS REPORT ---
Author Author [facility] - Organization Unknown Address Unknown Phone Unavailable Allergies, Adverse Reactions, Alerts * Lortab causes Adverse Reaction and Unknown Adverse Reaction. * Reglan causes Adverse Reaction. * Toradol causes Adverse Reaction. * Heparin Agents causes Adverse Reaction. * Morphine causes Moderate Adverse Reaction. * No Latex Allergy. * No IV Contrast Allergy. Problems * Abdominal Pain* Status:Active. * Diarrhea* Status:Active. * Nausea & Vomiting* Status:Active. Procedures No relevant procedures performed. Medication Medication reconciliation has not been performed. Results LAB--CHEMISTRY from 01/21/2013 12:18 AMAnion Gap 11 (3-20 ) Albumin 4.3 g/dL (3.5-4.8 g/dL) Alkaline Phosphatase 116 U/L H (26-104 U/L) ALT (SGPT) 16 U/L L (17-63 U/L) AST (SGOT) 27 U/L (15-41 U/L) Bilirubin Total 1.0 mg/dL (0.2-1.2 mg/dL) BUN 9 mg/dL (4-20 mg/dL) Calcium 9.3 mg/dL (8.6-10.0 mg/dL) Chloride 101 mEq/L (99-109 mEq/L) CO2 26 mEq/L (22-32 mEq/L) Creatinine 0.96 mg/dL (0.64-1.27 mg/dL) eGFR >60 (>60- ) Globulin 2.8 g/dL (1.9-4.3 g/dL) Glucose 89 mg/dL (70-100 mg/dL) Potassium 3.1 mEq/L L (3.6-5.1 mEq/L) Sodium 138 mEq/L (136-144 mEq/L) Protein 7.1 g/dL (6.1-7.9 g/dL) Lipase 41 U/L (8-48 U/L) LAB--HEMATOLOGY from 01/21/2013 12:18 AMAbsolute Basophils 0.00 THOUS (0.00-0.20 THOUS) Absolute Eosinophils 0.25 THOUS (0.00-0.50 THOUS) Absolute Lymphocytes 1.89 THOUS (0.80-3.30 THOUS) Absolute Monocytes 0.57 THOUS (0.30-1.00 THOUS) Absolute Neutrophils 3.59 THOUS (1.90-7.00 THOUS) HCT 44.0 % (42.0-52.0 %) HGB 14.8 g/dl (14.0-18.0 g/dl) MCH 26.7 pg L (27.0-32.0 pg) MCHC 33.6 g/dL (32.0-36.0 g/dL) MCV 79.3 fL L (82.0-99.0 fL) MPV 10.8 fL (9.4-12.3 fL) Platelet Count 198 K/uL (150-400 K/uL) RBC 5.55 M/uL (4.60-6.20 M/uL) RDW 16.1 % H (11.5-14.5 %) WBC 6.3 K/uL (4.8-10.8 K/uL) Bands 2 % (0-8 %) Basophils 0 % (0-2 %) Eosinophils 4 % (0-4 %) Lymphocytes 30 % (20-46 %) Monocytes 9 % (4-11 %) Nucleated RBC Automated 0.0 /100 WBC (0 /100 WBC) Differential Scanned Slide Neutrophils 55 % (51-75 %)
--- OUTSIDE RECORDS SUMMARY | 2016-12-15 | XMS REPORT | Referral Summary ---
Author Author [facility] Organization [facility] Address Unknown Phone Unavailable Care Team Providers Care Doctor Of Radiology Name Role Phone No PCP, Pt States Primary Care Physician [phone] Encounter VC Date(s): 12/06/14 - 12/06/14 [facility] [address] [place], [place] [address] Discharge Diagnosis: Crohn's disease Discharge Diagnosis: Hypertension Final: REGIONAL ENTERITIS OF UNSPECIFIED SITE Final: UNSPECIFIED ESSENTIAL HYPERTENSION Final: TOBACCO USE DISORDER Discharge Disposition: 01-Home or Self Care Attending Physician: Wild Ladd MD Admitting Physician: Wild Ladd MD Vital Signs Most recent to 1 oldest [Reference Range]: Temperature Oral 36.4 degC [35.8-37.3 degC] (12/06/14 6:22 AM) Peripheral Pulse 79 bpm Rate [60-100 bpm] (12/06/14 6:22 AM) Heart Rate Monitored 77 bpm [60-100 bpm] (12/06/14 8:24 AM) Respiratory Rate 16 br/min [14-20 br/min] (12/06/14 8:24 AM) Blood Pressure 142/86 mmHg [90-140/60-90 mmHg] *HI* (12/06/14 8:24 AM) Mean Arterial 104 mmHg Pressure, Cuff (12/06/14 8:24 AM) SpO2 98 % (12/06/14 8:24 AM) Problem List Condition Effective Dates Status [...] Medium Active traMADol Itching Active Swelling Medications predniSONE 20 mg oral tablet 60 mg 3 tabs, Oral, Daily, X 7 days, # 21 tabs, 0 Refill(s) Start Date: 06/14/15 Stop Date: 06/21/15 Status: Ordered promethazine 25 mg oral tablet 25 mg 1 tabs, Oral, q4hr, as needed for nausea/vomiting, # 10 tabs, 0 Refill(s) Start Date: 06/14/15 Status: Ordered Ultram 50 mg oral tablet 50 mg 1 tabs, Oral, q4hr, as needed for pain, # 60 tabs, 0 Refill(s) Start Date: 06/14/15 Status: Ordered Results Chemistry Most recent to 1 oldest [Reference Range]: Sodium Venous 139 mEq/L [136-144 mEq/L] (12/06/14 7:42 AM) Potassium Venous 3.7 mEq/L 1 [3.6-5.1 mEq/L] (12/06/14 7:42 AM) Calcium Ionized 1.01 mmol/L Venous [1.19-1.41 *LOW* mmol/L] (12/06/14 7:42 AM) Total CO2 Venous 26 mEq/L [25-29 mEq/L] (12/06/14 7:42 AM) HGB Venous NPT 13.6 gm/dL [14.0-18.0 gm/dL] *LOW* (12/06/14 7:42 AM) HCT Venous 40.0 % [42.0-52.0 %] *LOW* (12/06/14 7:42 AM) Glucose Venous 91 mg/dL [70-100 mg/dL] (12/06/14 7:42 AM) BUN Venous [4-20] 9 (12/06/14 7:42 AM) Creatinine Venous 0.8 mg/dL [0.7-1.2 mg/dL] (12/06/14 7:42 AM) Venous CL [99-109 102 mEq/L mEq/L] (12/06/14 7:42 AM) Anion Gap, Jt 11 [3-20] (12/06/14 7:42 AM) 1Result Comment: This test was performed on [...]
--- OUTSIDE RECORDS SUMMARY | 2016-12-15 | XMS REPORT | Referral Summary ---
Author Author [facility] Organization [facility] Address Unknown Phone Unavailable Care Team Providers Care Fabrication Department Supervisor Name Role Phone No PCP, Pt States Primary Care Physician [phone] Encounter VC Date(s): 04/28/16 - 04/28/16 [facility] [address] [place], [place] [address] Discharge Diagnosis: Chronic abdominal pain Discharge Disposition: 01-Home or Self Care Attending Physician: Sandepe Tyson MD Admitting Physician: Sandeep Tyson MD Vital Signs Most recent to 1 oldest [Reference Range]: Temperature Oral 37.1 degC [35.8-37.3 degC] (04/28/16 1:37 AM) Peripheral Pulse 114 bpm Rate [60-100 bpm] *HI* (04/28/16 1:37 AM) Respiratory Rate 18 br/min [14-20 br/min] (04/28/16 1:37 AM) Blood Pressure 139/86 mmHg [90-140/60-90 mmHg] (04/28/16 1:37 AM) SpO2 94 % (04/28/16 1:37 AM) Problem List Condition Effective Dates Status [...] Refill(s) Start Date: 03/29/16 Status: Ordered Results Hematology Most recent to 1 oldest [Reference Range]: WBC [4.8-10.8 9.2 10*3/uL 10*3/uL] (04/28/16 2:53 AM) RBC [4.60-6.20] 4.67 (04/28/16 2:53 AM) Hgb [14.0-18.0 12.3 gm/dL gm/dL] *LOW* (04/28/16 2:53 AM) Hct [42.0-52.0 %] 36.2 % *LOW* (04/28/16 2:53 AM) MCV [82.0-99.0 fL] 77.5 fL *LOW* (04/28/16 2:53 AM) MCH [27.0-32.0 pg] 26.3 pg *LOW* (04/28/16 2:53 AM) MCHC [32.0-36.0 34.0 gm/dL gm/dL] (04/28/16 2:53 AM) RDW [11.5-14.5 %] 19.3 % *HI* (04/28/16 2:53 AM) Platelet [150-400 317 10*3/uL 10*3/uL] (04/28/16 2:53 AM) MPV [9.4-12.3 fL] 10.6 fL (04/28/16 2:53 AM) Immature 0.1 % Granulocytes (04/28/16 2:53 AM) [0.0-1.0 %] Neutrophils [51-75 65 % %] (04/28/16 2:53 AM) Lymphocytes [20-46 24 % %] (04/28/16 2:53 AM) Monocytes [4-11 %] 9 % (04/28/16 2:53 AM) Eosinophils [0-4 %] 2 % (04/28/16 2:53 AM) Basophils [0-2 %] 0 % (04/28/16 2:53 AM) Neutro Absolute 5.96 10*3 [1.90-7.00 10*3] (04/28/16 2:53 AM) Lymph Absolute 2.22 10*3 [0.80-3.30 10*3] (04/28/16 2:53 AM) [place] Absolute 0.81 10*3 [0.30-1.00 10*3] (04/28/16 2:53 AM) Eos Absolute 0.19 10*3 [0.00-0.50 10*3] (04/28/16 2:53 AM) Baso Absolute 0.04 10*3 [0.00-0.20 10*3] (04/28/16 2:53 AM) Chemistry Most recent to 1 oldest [Reference Range]: Sodium Lvl [136-144 137 mEq/L mEq/L] (04/28/16 2:53 AM) Potassium Lvl 3.4 mEq/L [3.6-5.1 mEq/L] *LOW* (04/28/16 2:53 AM) Chloride [99-109 102 mEq/L mEq/L] (04/28/16 2:53 AM) CO2 [22-32 mEq/L] 24 mEq/L (04/28/16 2:53 AM) AGAP [3-20] 11 (04/28/16 2:53 AM) BUN [4-20 mg/dL] 8 mg/dL (04/28/16 2:53 AM) Glucose Lvl [70-100 94 mg/dL mg/dL] (04/28/16 2:53 AM) Creatinine Lvl 1.01 mg/dL [0.64-1.27 mg/dL] (04/28/16 2:53 AM) eGFR [>60] >60 1 (04/28/16 2:53 AM) Calcium Lvl 8.7 mg/dL [8.6-10.0 mg/dL] (04/28/16 2:53 AM) Albumin Lvl [3.5-4.8 4.0 gm/dL gm/dL] (04/28/16 2:53 AM) Total Protein 6.9 gm/dL [6.1-7.9 gm/dL] (04/28/16 2:53 AM) Globulin [1.9-4.3 2.9 gm/dL gm/dL] (04/28/16 2:53 AM) ALT [17-63 U/L] 71 U/L *HI* (04/28/16 2:53 AM) AST [15-41 U/L] 46 U/L *HI* (04/28/16 2:53 AM) Alk Phos [26-104 82 U/L U/L] (04/28/16 2:53 AM) Bili Total [0.2-1.2 0.5 mg/dL 2 mg/dL] (04/28/16 2:53 AM) Lipase Lvl [8-48 29 U/L U/L] (04/28/16 2:53 AM) 1Result Comment: Multiply eGFR results by 1.21 for race. 2Result Comment: Naproxen, specifically the metabolite O-desmethylnaproxen, may cause spurious elevation in Total Bilirubin levels. Immunizations Vaccine Date Refusal Reason tetanus-diphth toxoids (Td) adult/adol 11/30/02 Procedures Procedure Date Related Diagnosis Body Site Colonoscopy Biopsy1 05/18/14 Esophagogastroduodenoscopy Biopsy2 05/18/14 Bowel Resection 2012 Bowel care3 Hip joint operations4 1auto-populated from documented surgical case 2auto-populated from documented surgical case 3bowel resection 4right side Social History Social History Type Response Smoking Status Former smoker; Tobacco use per day: 1 Pack1 1Quit 3 weeks ago Assessment and Plan No data available for this section
--- OUTSIDE RECORDS SUMMARY | 2016-12-15 | XMS REPORT | Referral Summary ---
Author Organization Unknown Address Unknown Phone Unavailable Care Team Providers Care Personal Injury Litigation Paralegal Name Role Phone No PCP, [facility] Primary Care Physician [phone] Encounter VC Date(s): 09/01/14 - 09/01/[address] [id number] Discharge Disposition: Left Against Medical Advice Attending Physician: Sam Mendiola MD Admitting Physician: Sam Mendiola MD Vital Signs Most recent to 1 oldest [Reference Range]: Temperature Oral 36.9 degC [35.8-37.3 degC] (09/01/14 2:22 AM) Peripheral Pulse 71 bpm Rate [60-100 bpm] (09/01/14 3:04 AM) Heart Rate Monitored 65 bpm [60-100 bpm] (09/01/14 3:44 AM) Respiratory Rate 16 br/min [14-20 br/min] (09/01/14 3:44 AM) Blood Pressure 130/80 mmHg [90-140/60-90 mmHg] (09/01/14 3:44 AM) Mean Arterial 100 mmHg Pressure, Cuff (09/01/14 3:44 AM) Most recent to 1 oldest [Reference Range]: SpO2 100 % (09/01/14 3:44 AM) Problem List Condition Effective Dates Status [...] Medium Active Toradol Hives Medium Active Medications Pentasa 250 mg oral capsule, extended release 4 caps, Oral, QID, # 30 caps, 0 Refill(s) Start Date: 08/30/14 Status: Ordered Zofran ODT 4 mg oral tablet, disintegrating 1 tabs, Oral, Once, # 20 tabs, 0 Refill(s) Start Date: 08/30/14 Status: Ordered Results No data available for [...]
--- OUTSIDE RECORDS SUMMARY | 2016-12-15 | XMS REPORT | Referral Summary ---
Author Author [facility] Organization [facility] Address Unknown Phone Unavailable Care Team Providers Care Concrete Panel Installer Name Role Phone No PCP, Pt States Primary Care Physician [phone] Encounter VC Date(s): 01/21/16 - 01/22/16 [facility] [address] [place] [address] Discharge Diagnosis: Achilles rupture Discharge Disposition: 01-Home or Self Care Attending Physician: Lon Corea DO Admitting Physician: Tulio Shahid MD Vital Signs Most recent to 1 oldest [Reference Range]: Temperature Oral 37.0 degC [35.8-37.3 degC] (01/21/16 9:08 PM) Peripheral Pulse 85 bpm Rate [60-100 bpm] (01/21/16 9:08 PM) Heart Rate Monitored 77 bpm [60-100 bpm] (01/22/16 2:50 AM) Respiratory Rate 18 br/min [14-20 br/min] (01/22/16 2:50 AM) Blood Pressure 132/88 mmHg [90-140/60-90 mmHg] (01/22/16 2:50 AM) Mean Arterial 110 mmHg Pressure, Cuff (01/22/16 2:49 AM) SpO2 97 % (01/22/16 2:50 AM) Problem List Condition Effective Dates Status [...] Active Swelling Medications Crutches (DME) DME Item Until cleared to [...]
--- OUTSIDE RECORDS SUMMARY | 2016-12-15 | XMS REPORT | Referral Summary ---
Author Organization Unknown Address Unknown Phone Unavailable Care Team Providers Care Card Puncher Name Role Phone No PCP, States Primary Care Physician [phone] Encounter VC Date(s): 09/11/14 - 09/11/14 [facility] [address] [place] [address] [phone] Discharge Diagnosis: Vomiting Final: REGIONAL ENTERITIS OF UNSPECIFIED SITE Final: TOBACCO USE DISORDER Discharge Diagnosis: Abdominal pain Discharge Diagnosis: Nausea Discharge Diagnosis: Crohns disease Discharge Disposition: Home or Self Care Attending Physician: Corey Tijerina MD Admitting Physician: Corey Tijerina MD Vital Signs Most recent to 1 oldest [Reference Range]: Temperature Oral 36.2 degC [35.8-37.3 degC] (09/11/14 1:41 AM) Peripheral Pulse 78 bpm Rate [60-100 bpm] (09/11/14 5:18 AM) Heart Rate Monitored 72 bpm [60-100 bpm] (09/11/14 5:15 AM) Respiratory Rate 20 br/min [14-20 br/min] (09/11/14 5:18 AM) Blood Pressure 127/78 mmHg [90-140/60-90 mmHg] (09/11/14 5:18 AM) Mean Arterial 121 mmHg Pressure, Cuff (09/11/14 5:15 AM) Most recent to 1 oldest [Reference Range]: SpO2 90 % (09/11/14 5:30 AM) Problem List Condition Effective Dates Status [...] Medium Active Toradol Hives Medium Active Medications predniSONE 10 mg oral tablet 1 tabs, [...] 09/11/14 Stop Date: 10/15/14 Status: Ordered Results Chemistry Most recent to 1 oldest [Reference Range]: Sodium Venous 141 mEq/L [136-144 mEq/L] (09/11/14 4:12 AM) Potassium Venous 4.3 mEq/L 1 [3.6-5.1 mEq/L] (09/11/14 4:12 AM) Calcium Ionized 1.06 mmol/L Venous [1.19-1.41 *LOW* mmol/L] (09/11/14 4:12 AM) Total CO2 Venous 23 mEq/L [25-29 mEq/L] *LOW* (09/11/14 4:12 AM) HGB Venous NPT 12.9 gm/dL [14.0-16.0 gm/dL] *LOW* (09/11/14 4:12 AM) HCT Venous 38.0 % [42.0-52.0 %] *LOW* (09/11/14 4:12 AM) Glucose Venous 83 mg/dL [70-100 mg/dL] (09/11/14 4:12 AM) BUN Venous [4-20] 9 (09/11/14 4:12 AM) Creatinine Venous 1.0 mg/dL [0.7-1.2 mg/dL] (09/11/14 4:12 AM) Venous CL [99-109 102 mEq/L mEq/L] (09/11/14 4:12 AM) Anion Gap, Jt 16 [3-20] (09/11/14 4:12 AM) 1Result Comment: This test was performed [...]
--- OUTSIDE RECORDS SUMMARY | 2016-12-15 | XMS REPORT | Referral Summary ---
Author Author [facility] Organization [facility] Address Unknown Phone Unavailable Care Team Providers Care Management Professor Name Role Phone No PCP, Pt States Primary Care Physician [phone] Encounter VC Date(s): 06/13/15 - 06/14/15 [facility] [address] [place] [address] [phone] Discharge Diagnosis: Chronic generalized abdominal pain Discharge Diagnosis: Crohn's disease Discharge Disposition: 01-Home or Self Care Attending Physician: Tulio Shahid MD Admitting Physician: Tulio Shahid MD Vital Signs Most recent to 1 oldest [Reference Range]: Temperature Oral 37.2 degC [35.8-37.3 degC] (06/13/15 10:39 PM) Peripheral Pulse 80 bpm Rate [60-100 bpm] (06/14/15 3:00 AM) Heart Rate Monitored 80 bpm [60-100 bpm] (06/14/15 3:30 AM) Respiratory Rate 24 br/min [14-20 br/min] *HI* (06/14/15 3:30 AM) Blood Pressure 138/85 mmHg [90-140/60-90 mmHg] (06/14/15 3:30 AM) Mean Arterial 92 mmHg Pressure, Cuff (06/14/15 2:30 AM) SpO2 99 % (06/14/15 3:30 AM) Problem List Condition Effective Dates Status [...] Refill(s) Start Date: 06/14/15 Status: Ordered Results Hematology Most recent to 1 oldest [Reference Range]: WBC [4.8-10.8 6.4 10*3/uL 10*3/uL] (06/13/15 10:45 PM) RBC [4.60-6.20] 4.38 *LOW* (06/13/15 10:45 PM) Hgb [14.0-18.0 11.3 gm/dL gm/dL] *LOW* (06/13/15 10:45 PM) Hct [42.0-52.0 %] 34.6 % *LOW* (06/13/15 10:45 PM) MCV [82.0-99.0 fL] 79.0 fL *LOW* (06/13/15 10:45 PM) MCH [27.0-32.0 pg] 25.8 pg *LOW* (06/13/15 10:45 PM) MCHC [32.0-36.0 32.7 gm/dL gm/dL] (06/13/15 10:45 PM) RDW [11.5-14.5 %] 16.3 % *HI* (06/13/15 10:45 PM) Platelet [150-400 269 10*3/uL 10*3/uL] (06/13/15 10:45 PM) MPV [9.4-12.3 fL] 10.9 fL (06/13/15 10:45 PM) Immature 0.3 % Granulocytes (06/13/15 10:45 PM) [0.0-1.0 %] Neutrophils [51-75 59 % %] (06/13/15 10:45 PM) Lymphocytes [20-46 30 % %] (06/13/15 10:45 PM) Monocytes [4-11 %] 8 % (06/13/15 10:45 PM) Eosinophils [0-4 %] 3 % (06/13/15 10:45 PM) Basophils [0-2 %] 0 % (06/13/15 10:45 PM) Neutro Absolute 3.74 10*3 [1.90-7.00 10*3] (06/13/15 10:45 PM) Lymph Absolute 1.90 10*3 [0.80-3.30 10*3] (06/13/15 10:45 PM) Avery Absolute 0.51 10*3 [0.30-1.00 10*3] (06/13/15 10:45 PM) Eos Absolute 0.20 10*3 [0.00-0.50 10*3] (06/13/15 10:45 PM) Baso Absolute 0.02 10*3 [0.00-0.20 10*3] (06/13/15 10:45 PM) Nucleated RBC 0.0 /100 WBC Automated [0 /100 (06/13/15 10:45 PM) WBC] Sed Rate [0-15] 28 *HI* (06/14/15 1:34 AM) Chemistry Most recent to 1 oldest [Reference Range]: Sodium Lvl [136-144 137 mEq/L mEq/L] (06/13/15 10:45 PM) Potassium Lvl 3.2 mEq/L [3.6-5.1 mEq/L] *LOW* (06/13/15 10:45 PM) Chloride [99-109 104 mEq/L mEq/L] (06/13/15 10:45 PM) CO2 [22-32 mEq/L] 25 mEq/L (06/13/15 10:45 PM) AGAP [3-20] 8 (06/13/15 10:45 PM) BUN [4-20 mg/dL] 7 mg/dL (06/13/15 10:45 PM) Glucose Lvl [70-100 90 mg/dL mg/dL] (06/13/15 10:45 PM) Creatinine Lvl 0.85 mg/dL [0.64-1.27 mg/dL] (06/13/15 10:45 PM) eGFR [>60] >60 1 (06/13/15 10:45 PM) Calcium Lvl 9.0 mg/dL [8.6-10.0 mg/dL] (06/13/15 10:45 PM) Albumin Lvl [3.5-4.8 3.7 gm/dL gm/dL] (06/13/15 10:45 PM) Total Protein 6.9 gm/dL [6.1-7.9 gm/dL] (06/13/15 10:45 PM) Globulin [1.9-4.3 3.2 gm/dL gm/dL] (06/13/15 10:45 PM) ALT [17-63 U/L] 13 U/L *LOW* (06/13/15 10:45 PM) AST [15-41 U/L] 15 U/L (06/13/15 10:45 PM) Alk Phos [26-104 111 U/L U/L] *HI* (06/13/15 10:45 PM) Bili Total [0.2-1.2 0.4 mg/dL 2 mg/dL] (06/13/15 10:45 PM) Lipase Lvl [8-48 29 U/L U/L] (06/13/15 10:45 PM) 1Result Comment: Multiply eGFR results by 1.21 for race. 2Result Comment: Naproxen, specifically the metabolite O-desmethylnaproxen, may cause spurious elevation in Total Bilirubin levels. Urinalysis Most recent to 1 oldest [Reference Range]: UA Color Yellow (06/14/15 1:34 AM) UA Appear Clear (06/14/15 1:34 AM) UA pH [5.0-8.0] 7.0 (06/14/15 1:34 AM) UA Leuk Est Negative [Negative] (06/14/15 1:34 AM) UA Nitrite Negative [Negative] (06/14/15 1:34 AM) UA Protein Negative [Negative] (06/14/15 1:34 AM) UA Glucose Negative [Negative] (06/14/15 1:34 AM) UA Ketones Negative [Negative] (06/14/15 1:34 AM) UA Urobilinogen Negative [<1.0] (06/14/15 1:34 AM) UA Bili [Negative] Negative (06/14/15 1:34 AM) UA Blood [Negative] Negative (06/14/15 1:34 AM) UA Spec Grav 1.010 [1.003-1.030] (06/14/15 1:34 AM) Type Catheter (06/14/15 1:34 AM) Immunizations Vaccine Date Refusal Reason tetanus-diphth toxoids [...]
--- OUTSIDE RECORDS SUMMARY | 2016-12-15 | XMS REPORT | Referral Summary ---
Author Author [facility] Organization [facility] Address Unknown Phone Unavailable Care Team Providers Care Refrigeration Person Name Role Phone No PCP, Pt States Primary Care Physician [phone] Encounter VC Date(s): 11/24/15 - 11/24/15 [facility] [address] [place] [address] [place] Discharge Diagnosis: Abdominal pain Discharge Diagnosis: Acute Crohn's disease Discharge Disposition: -Home or Self Care Attending Physician: Sandeep Tyson MD Admitting Physician: Sandeep Tyson MD Vital Signs Most recent to 1 oldest [Reference Range]: Temperature Oral 37.4 degC [35.8-37.3 degC] *HI* (11/24/15 1:26 AM) Peripheral Pulse 104 bpm Rate [60-100 bpm] *HI* (11/24/15 1:26 AM) Respiratory Rate 18 br/min [14-20 br/min] (11/24/15 1:26 AM) Blood Pressure 124/81 mmHg [90-140/60-90 mmHg] (11/24/15 1:26 AM) SpO2 97 % (11/24/15 1:26 AM) Problem List Condition Effective Dates Status [...] Active traMADol Itching Active Swelling Medications predniSONE 10 mg oral tablet See Instructions, 4 tabs daily X3d; 3tabs daily X3d, 2tabs daily X3; 1 tab daily X 3, # 40 tabs, 0 Refill(s) Start Date: 11/24/15 Status: Ordered Zofran 4 mg oral tablet 4 mg 1 tabs, Oral, Once, # 3 tabs, 0 Refill(s) Start Date: 11/13/15 Status: Ordered Results Hematology Most recent to 1 oldest [Reference Range]: WBC [4.8-10.8 14.0 10*3/uL 10*3/uL] *HI* (11/24/15 2:58 AM) RBC [4.60-6.20] 4.48 *LOW* (11/24/15 2:58 AM) Hgb [14.0-18.0 11.6 gm/dL gm/dL] *LOW* (11/24/15 2:58 AM) Hct [42.0-52.0 %] 35.4 % *LOW* (11/24/15 2:58 AM) MCV [82.0-99.0 fL] 79.0 fL *LOW* (11/24/15 2:58 AM) MCH [27.0-32.0 pg] 25.9 pg *LOW* (11/24/15 2:58 AM) MCHC [32.0-36.0 32.8 gm/dL gm/dL] (11/24/15 2:58 AM) RDW [11.5-14.5 %] 16.2 % *HI* (11/24/15 2:58 AM) Platelet [150-400 308 10*3/uL 10*3/uL] (11/24/15 2:58 AM) MPV [9.4-12.3 fL] 10.9 fL (11/24/15 2:58 AM) Immature 0.2 % Granulocytes (11/24/15 2:58 AM) [0.0-1.0 %] Neutrophils [51-75 93 % %] *HI* (11/24/15 2:58 AM) Lymphocytes [20-46 5 % %] *LOW* (11/24/15 2:58 AM) Monocytes [4-11 %] 2 % *LOW* (11/24/15 2:58 AM) Eosinophils [0-4 %] 0 % (11/24/15 2:58 AM) Basophils [0-2 %] 0 % (11/24/15 2:58 AM) Neutro Absolute 13.01 10*3 [1.90-7.00 10*3] *HI* (11/24/15 2:58 AM) Lymph Absolute 0.68 10*3 [0.80-3.30 10*3] *LOW* (11/24/15 2:58 AM) Wake Absolute 0.27 10*3 [0.30-1.00 10*3] *LOW* (11/24/15 2:58 AM) Eos Absolute 0.01 10*3 [0.00-0.50 10*3] (11/24/15 2:58 AM) Baso Absolute 0.02 10*3 [0.00-0.20 10*3] (11/24/15 2:58 AM) Nucleated RBC 0.0 /100 WBC Automated [0 /100 (11/24/15 2:58 AM) WBC] Differential Scanned Slide (11/24/15 2:58 AM) Chemistry Most recent to 1 oldest [Reference Range]: Sodium Lvl [136-144 138 mEq/L mEq/L] (11/24/15 2:58 AM) Potassium Lvl 3.4 mEq/L [3.6-5.1 mEq/L] *LOW* (11/24/15 2:58 AM) Chloride [99-109 104 mEq/L mEq/L] (11/24/15 2:58 AM) CO2 [22-32 mEq/L] 26 mEq/L (11/24/15 2:58 AM) AGAP [3-20] 8 (11/24/15 2:58 AM) BUN [4-20 mg/dL] 12 mg/dL (11/24/15 2:58 AM) Glucose Lvl [70-100 124 mg/dL mg/dL] *HI* (11/24/15 2:58 AM) Creatinine Lvl 0.89 mg/dL [0.64-1.27 mg/dL] (11/24/15 2:58 AM) eGFR [>60] >60 1 (11/24/15 2:58 AM) Calcium Lvl 8.8 mg/dL [8.6-10.0 mg/dL] (11/24/15 2:58 AM) Lipase Lvl [8-48 28 U/L U/L] (11/24/15 2:58 AM) 1Result Comment: Multiply eGFR results by 1.21 for race. Urinalysis Most recent to 1 oldest [Reference Range]: UA Color Yellow (11/24/15 2:59 AM) UA Appear Clear (11/24/15 2:59 AM) UA pH [5.0-8.0] 5.0 (11/24/15 2:59 AM) UA Leuk Est Negative [Negative] (11/24/15 2:59 AM) UA Nitrite Negative [Negative] (11/24/15 2:59 AM) UA Protein Negative [Negative] (11/24/15 2:59 AM) UA Glucose Negative [Negative] (11/24/15 2:59 AM) UA Ketones Negative [Negative] (11/24/15 2:59 AM) UA Urobilinogen 2.0 mg/dL [<1.0 mg/dL] *ABN* (11/24/15 2:59 AM) UA Bili [Negative] Negative (11/24/15 2:59 AM) UA Blood [Negative] Negative (11/24/15 2:59 AM) UA Spec Grav 1.030 [1.003-1.030] (11/24/15 2:59 AM) Type Clean Catch (11/24/15 2:59 AM) Immunizations Vaccine Date Refusal Reason tetanus-diphth [...]
--- OUTSIDE RECORDS SUMMARY | 2016-12-15 00:01 | XMS REPORT | Referral Summary ---
Author Author [facility] Organization [facility] Address Unknown Phone Unavailable Care Team Providers Care Doll Wig Maker Name Role Phone No PCP, Pt States Primary Care Physician [phone] Encounter [facility] [id number] Date(s): 09/12/15 - 09/12/15 [facility] [address] [place] [address] Discharge Diagnosis: Chronic abdominal pain Discharge Diagnosis: Drug-seeking behavior Discharge Diagnosis: Crohn disease by hx Discharge Disposition: 01-Home or Self Care Attending Physician: Vance Renteria MD Admitting Physician: Vance Renteria MD Vital Signs Most recent to 1 oldest [Reference Range]: Temperature Oral 37.2 degC [35.8-37.3 degC] (09/12/15 8:34 AM) Peripheral Pulse 88 bpm Rate [60-100 bpm] (09/12/15 8:48 AM) Heart Rate Monitored 81 bpm [60-100 bpm] (09/12/15 12:30 PM) Respiratory Rate 14 br/min [14-20 br/min] (09/12/15 8:48 AM) Blood Pressure 122/73 mmHg [90-140/60-90 mmHg] (09/12/15 12:30 PM) Mean Arterial 84 mmHg Pressure, Cuff (09/12/15 12:30 PM) SpO2 100 % (09/12/15 12:30 PM) Problem List Condition Effective Dates Status [...] to 1 oldest [Reference Range]: WBC [4.8-10.8 5.6 10*3/uL 10*3/uL] (09/12/15 9:55 AM) RBC [4.60-6.20] 4.65 (09/12/15 9:55 AM) Hgb [14.0-18.0 12.2 gm/dL gm/dL] *LOW* (09/12/15 9:55 AM) Hct [42.0-52.0 %] 36.6 % *LOW* (09/12/15 9:55 AM) MCV [82.0-99.0 fL] 78.7 fL *LOW* (09/12/15 9:55 AM) MCH [27.0-32.0 pg] 26.2 pg *LOW* (09/12/15 9:55 AM) MCHC [32.0-36.0 33.3 gm/dL gm/dL] (09/12/15 9:55 AM) RDW [11.5-14.5 %] 16.8 % *HI* (09/12/15 9:55 AM) Platelet [150-400 222 10*3/uL 10*3/uL] (09/12/15 9:55 AM) MPV [9.4-12.3 fL] 10.5 fL (09/12/15 9:55 AM) Immature 0.4 % Granulocytes (09/12/15 9:55 AM) [0.0-1.0 %] Neutrophils [51-75 71 % %] (09/12/15 9:55 AM) Lymphocytes [20-46 17 % %] *LOW* (2/25/16 9:55 AM) Monocytes [4-11 %] 9 % (09/12/15 9:55 AM) Eosinophils [0-4 %] 2 % (09/12/15 9:55 AM) Basophils [0-2 %] 0 % (09/12/15 9:55 AM) Neutro Absolute 3.95 10*3 [1.90-7.00 10*3] (09/12/15 9:55 AM) Lymph Absolute 0.95 10*3 [0.80-3.30 10*3] (09/12/15 9:55 AM) Taliaferro Absolute 0.51 10*3 [0.30-1.00 10*3] (09/12/15 9:55 AM) Eos Absolute 0.11 10*3 [0.00-0.50 10*3] (09/12/15 9:55 AM) Baso Absolute 0.01 10*3 [0.00-0.20 10*3] (09/12/15 9:55 AM) Nucleated RBC 0.0 /100 WBC Automated [0 /100 (09/12/15 9:55 AM) WBC] Sed Rate [0-15] 8 (09/12/15 9:55 AM) Chemistry Most recent to 1 oldest [Reference Range]: Sodium Lvl [136-144 139 mEq/L mEq/L] (09/12/15 9:55 AM) Potassium Lvl 3.5 mEq/L [3.6-5.1 mEq/L] *LOW* (09/12/15 9:55 AM) Chloride [99-109 103 mEq/L mEq/L] (09/12/15 9:55 AM) CO2 [22-32 mEq/L] 28 mEq/L (09/12/15 9:55 AM) AGAP [3-20] 8 (09/12/15 9:55 AM) BUN [4-20 mg/dL] 4 mg/dL (09/12/15 9:55 AM) Glucose Lvl [70-100 97 mg/dL mg/dL] (09/12/15 9:55 AM) Creatinine Lvl 0.66 mg/dL [0.64-1.27 mg/dL] (09/12/15 9:55 AM) eGFR [>60] >60 1 (09/12/15 9:55 AM) Calcium Lvl 8.9 mg/dL [8.6-10.0 mg/dL] (09/12/15 9:55 AM) Albumin Lvl [3.5-4.8 3.8 gm/dL gm/dL] (09/12/15 9:55 AM) Total Protein 6.9 gm/dL [6.1-7.9 gm/dL] (09/12/15 9:55 AM) Globulin [1.9-4.3 3.1 gm/dL gm/dL] (09/12/15 9:55 AM) ALT [17-63 U/L] 17 U/L (09/12/15 9:55 AM) AST [15-41 U/L] 16 U/L (09/12/15 9:55 AM) Alk Phos [26-104 93 U/L U/L] (09/12/15 9:55 AM) Bili Total [0.2-1.2 0.4 mg/dL 2 mg/dL] (09/12/15 9:55 AM) Lipase Lvl [8-48 25 U/L U/L] (09/12/15 9:55 AM) 1Result Comment: Multiply eGFR results by 1.21 for race. 2Result Comment: Naproxen, specifically the metabolite O-desmethylnaproxen, may cause spurious elevation in Total Bilirubin levels. Toxicology Most recent to 1 oldest [Reference Range]: U Amphetamine Scrn Negative (09/12/15 12:14 PM) U Cocaine Scrn Negative (09/12/15 12:14 PM) U Cannab Scrn Negative (09/12/15 12:14 PM) U Opiate Scrn Positive *ABN* (09/12/15 12:14 PM) U PCP Scrn Negative (09/12/15 12:14 PM) U Benzodiazepine Negative Scrn (09/12/15 12:14 PM) U Barbiturate Scrn Negative (09/12/15 12:14 PM) Methadone Lvl Negative (09/12/15 12:14 PM) Tricyclics Not Detected 1 (09/12/15 12:14 PM) 1Result Comment: Cut-off concentrations: Amphetamines: 1000 [...] 1 oldest [Reference Range]: UA Color Yellow (09/12/15 12:14 PM) UA Appear Clear (09/12/15 12:14 PM) UA pH [5.0-8.0] 8.0 (09/12/15 12:14 PM) UA Leuk Est Negative [Negative] (09/12/15 12:14 PM) UA Nitrite Negative [Negative] (09/12/15 12:14 PM) UA Protein Negative [Negative] (09/12/15 12:14 PM) UA Glucose Negative [Negative] (09/12/15 12:14 PM) UA Ketones Negative [Negative] (09/12/15 12:14 PM) UA Urobilinogen 2.0 mg/dL [<1.0 mg/dL] *ABN* (09/12/15 12:14 PM) UA Bili [Negative] Negative (09/12/15 12:14 PM) UA Blood [Negative] Negative (09/12/15 12:14 PM) UA Spec Grav 1.010 [1.003-1.030] (09/12/15 12:14 PM) Type Voided (09/12/15 12:14 PM) Immunizations Vaccine Date Refusal Reason tetanus-diphth [...]
--- OUTSIDE RECORDS SUMMARY | 2016-12-15 00:01 | XMS REPORT | Referral Summary ---
Author Author [facility] Organization [facility] Address Unknown Phone Unavailable Care Team Providers Care Final Finisher Name Role Phone No PCP, Pt States Primary Care Physician [phone] Encounter [facility] Date(s): 11/12/15 - 11/13/15 [facility] [address] [place] [address] Discharge Diagnosis: N&V (nausea and vomiting) Discharge Diagnosis: Chronic abdominal pain Discharge Diagnosis: Crohn's disease Discharge Disposition: 01-Home or Self Care Attending Physician: Tulio Shahid MD Admitting Physician: Tulio Shahid MD Vital Signs Most recent to 1 oldest [Reference Range]: Temperature Oral 37.3 degC [35.8-37.3 degC] (11/12/15 7:02 PM) Peripheral Pulse 94 bpm Rate [60-100 bpm] (11/12/15 7:02 PM) Heart Rate Monitored 70 bpm [60-100 bpm] (11/13/15 12:18 AM) Respiratory Rate 20 br/min [14-20 br/min] (11/13/15 12:18 AM) Blood Pressure 143/101 mmHg [90-140/60-90 mmHg] *HI* (11/13/15 12:18 AM) Mean Arterial 113 mmHg Pressure, Cuff (11/13/15 12:00 AM) SpO2 95 % (11/13/15 12:18 AM) Problem List Condition Effective Dates Status [...] Medium Active traMADol Itching Active Swelling Medications Percocet 5/325 oral tablet 1 tabs, Oral, q6hr, as needed for pain, X 3 days, # 12 tabs, 0 Refill(s) Start Date: 11/13/15 Stop Date: 11/16/15 Status: Ordered predniSONE 20 mg oral tablet 40 mg 2 tabs, Oral, Daily, X 5 days, # 10 tabs, 0 Refill(s) Start Date: 11/11/15 Stop Date: 11/16/15 Status: Ordered Zofran 4 mg oral tablet 4 mg 1 tabs, Oral, Once, # 3 tabs, 0 Refill(s) Start Date: 11/13/15 Status: Ordered Results Chemistry Most recent to 1 oldest [Reference Range]: Sodium Venous 142 mEq/L [136-144 mEq/L] (11/12/15 7:25 PM) Potassium Venous 4.6 mEq/L 1 [3.6-5.1 mEq/L] (11/12/15 7:25 PM) Calcium Ionized 1.09 mmol/L Venous [1.19-1.41 *LOW* mmol/L] (11/12/15 7:25 PM) Total CO2 Venous 23 mEq/L [25-29 mEq/L] *LOW* (11/12/15 7:25 PM) HGB Venous NPT 13.3 gm/dL [14.0-16.0 gm/dL] *LOW* (11/12/15 7:25 PM) HCT Venous 39.0 % [42.0-52.0 %] *LOW* (11/12/15 7:25 PM) Glucose Venous 78 mg/dL [70-100 mg/dL] (11/12/15 7:25 PM) BUN Venous [4-20] 11 (11/12/15 7:25 PM) Creatinine Venous 1.1 mg/dL [0.7-1.2 mg/dL] (11/12/15 7:25 PM) Venous CL [99-109 105 mEq/L mEq/L] (11/12/15 7:25 PM) Anion Gap, Jt 14 [3-20] (11/12/15 7:25 PM) 1Result Comment: This test was performed on a whole blood specimen. The presence or absence of hemolysis cannot be assessed. Hemolysis can falsely elevate potassium levels. Normals are for venous specimens only. Urinalysis Most recent to 1 oldest [Reference Range]: UA Color Yellow (11/12/15 10:08 PM) UA Appear Clear (11/12/15 10:08 PM) UA pH [5.0-8.0] 6.0 (11/12/15 10:08 PM) UA Leuk Est Negative [Negative] (11/12/15 10:08 PM) UA Nitrite Negative [Negative] (11/12/15 10:08 PM) UA Protein Negative [Negative] (11/12/15 10:08 PM) UA Glucose Negative [Negative] (11/12/15 10:08 PM) UA Ketones Negative [Negative] (11/12/15 10:08 PM) UA Urobilinogen >=4.0 mg/dL [<1.0 mg/dL] (11/12/15 10:08 PM) UA Bili [Negative] Negative (11/12/15 10:08 PM) UA Blood [Negative] Negative (11/12/15 10:08 PM) UA Spec Grav 1.025 [1.003-1.030] (11/12/15 10:08 PM) Type Clean Catch (11/12/15 10:08 PM) Immunizations Vaccine Date Refusal Reason tetanus-diphth [...]
--- OUTSIDE RECORDS SUMMARY | 2016-12-15 00:01 | XMS REPORT | Referral Summary ---
Author Author [facility] Organization [facility] Address Unknown Phone Unavailable Care Team Providers Care Clothes Wringer Name Role Phone No PCP, Pt States Primary Care Physician [phone] Encounter [facility] [id number] Date(s): 07/23/16 - 07/23/16 [facility] [address] [place], [place] [address] Discharge Diagnosis: Acute gastritis Discharge Diagnosis: Hypokalemia Discharge Diagnosis: Palpitations Discharge Disposition: 01-Home or Self Care Attending Physician: Ede Lopez DO Admitting Physician: Ede Lopez DO Referring Physician: Self Referred, X Vital Signs Most recent to 1 oldest [Reference Range]: Temperature Oral 36.6 degC [35.8-37.3 degC] (07/23/16 9:04 PM) Peripheral Pulse 83 bpm Rate [60-100 bpm] (07/23/16 9:04 PM) Respiratory Rate 14 br/min [14-20 br/min] (07/23/16 9:04 PM) Blood Pressure 138/96 mmHg [90-140/60-90 mmHg] (07/23/16 9:04 PM) SpO2 98 % (07/23/16 9:04 PM) Problem List Condition Effective Dates Status [...] Daily, # 30 tabs, 0 Refill(s), Pharmacy: [id number], 1 tabs Oral Daily Start Date: 05/19/16 Status: Ordered Percocet 5/325 oral tablet See Instructions, as needed for pain, 1 tabs Oral q4hr, # 12 tabs, 0 Refill(s) Start Date: 06/23/16 Stop Date: 06/23/17 Status: Ordered potassium chloride 20 mEq oral tablet, extended release 20 mEq 1 tabs, Oral, Daily, # 5 tabs, 0 Refill(s) Start Date: 07/23/16 Status: Ordered Protonix 40 mg oral delayed release tablet 40 mg 1 tabs, Oral, Daily, # 30 tabs, 0 Refill(s) Start Date: 07/23/16 Status: Ordered Results Hematology Most recent to 1 oldest [Reference Range]: WBC [4.8-10.8 8.3 10*3/uL 10*3/uL] (07/23/16 9:59 PM) RBC [4.60-6.20] 4.53 *LOW* (07/23/16 9:59 PM) Hgb [14.0-18.0 11.9 gm/dL gm/dL] *LOW* (07/23/16 9:59 PM) Hct [42.0-52.0 %] 35.5 % *LOW* (07/23/16 9:59 PM) MCV [82.0-99.0 fL] 78.4 fL *LOW* (07/23/16 9:59 PM) MCH [27.0-32.0 pg] 26.3 pg *LOW* (07/23/16 9:59 PM) MCHC [32.0-36.0 33.5 gm/dL gm/dL] (07/23/16 9:59 PM) RDW [11.5-14.5 %] 16.2 % *HI* (07/23/16 9:59 PM) Platelet [150-400 260 10*3/uL 10*3/uL] (07/23/16 9:59 PM) MPV [9.4-12.3 fL] 11.2 fL (07/23/16 9:59 PM) Immature 0.1 % Granulocytes (07/23/16 9:59 PM) [0.0-1.0 %] Neutrophils [51-75 64 % %] (07/23/16 9:59 PM) Lymphocytes [20-46 24 % %] (07/23/16 9:59 PM) Monocytes [4-11 %] 9 % (07/23/16 9:59 PM) Eosinophils [0-4 %] 2 % (07/23/16 9:59 PM) Basophils [0-2 %] 1 % (07/23/16 9:59 PM) Neutro Absolute 5.32 [1.90-7.00] (07/23/16 9:59 PM) Lymph Absolute 1.96 [0.80-3.30] (07/23/16 9:59 PM) [place] Absolute 0.74 [0.30-1.00] (07/23/16 9:59 PM) Eos Absolute 0.18 [0.00-0.50] (07/23/16 9:59 PM) Baso Absolute 0.05 [0.00-0.20] (07/23/16 9:59 PM) Chemistry Most recent to 1 oldest [Reference Range]: Sodium Lvl [136-144 139 mEq/L mEq/L] (07/23/16 9:59 PM) Potassium Lvl 3.0 mEq/L [3.6-5.1 mEq/L] *LOW* (07/23/16 9:59 PM) Chloride [99-109 103 mEq/L mEq/L] (07/23/16 9:59 PM) CO2 [22-32 mEq/L] 27 mEq/L (07/23/16 9:59 PM) AGAP [3-20] 9 (07/23/16 9:59 PM) BUN [4-20 mg/dL] 7 mg/dL (07/23/16 9:59 PM) Glucose Lvl [70-100 95 mg/dL mg/dL] (07/23/16 9:59 PM) Creatinine Lvl 0.84 mg/dL [0.64-1.27 mg/dL] (07/23/16 9:59 PM) eGFR [>60] >60 1 (07/23/16 9:59 PM) Calcium Lvl 8.7 mg/dL [8.6-10.0 mg/dL] (07/23/16 9:59 PM) Albumin Lvl [3.5-4.8 3.4 gm/dL gm/dL] *LOW* (07/23/16 9:59 PM) Total Protein 5.8 gm/dL [6.1-7.9 gm/dL] *LOW* (07/23/16 9:59 PM) Globulin [1.9-4.3 2.4 gm/dL gm/dL] (07/23/16 9:59 PM) ALT [17-63 U/L] 34 U/L (07/23/16 9:59 PM) AST [15-41 U/L] 23 U/L (07/23/16 9:59 PM) Alk Phos [26-104 88 U/L U/L] (07/23/16 9:59 PM) Bili Total [0.2-1.2 0.5 mg/dL 2 mg/dL] (07/23/16 9:59 PM) Troponin [<0.06 <0.05 ng/mL ng/mL] (07/23/16 9:59 PM) Lipase Lvl [8-48 20 U/L U/L] (07/23/16 9:59 PM) 1Result Comment: Multiply eGFR results by 1.21 for race. 2Result Comment: Naproxen, specifically the metabolite O-desmethylnaproxen, may cause spurious elevation in Total Bilirubin levels. Immunizations Given and Recorded Vaccine Date Status [...]
--- OUTSIDE RECORDS SUMMARY | 2016-12-15 00:01 | XMS REPORT | Referral Summary ---
Author Author [facility] Organization [facility] Address Unknown Phone Unavailable Care Team Providers Care Contract Post Office Clerk Name Role Phone No PCP, Pt States Primary Care Physician [phone] Encounter [facility] Date(s): 04/05/16 - 04/05/16 [facility] [address] [place], [place] [address] Discharge Diagnosis: Abdominal pain Discharge Diagnosis: Colitis Discharge Disposition: 01-Home or Self Care Attending Physician: Sameer Alvarado MD Admitting Physician: Sameer Alvarado MD Vital Signs Most recent to 1 oldest [Reference Range]: Temperature Oral 36.9 degC [35.8-37.3 degC] (04/05/16 12:36 AM) Peripheral Pulse 102 bpm Rate [60-100 bpm] *HI* (04/05/16 12:36 AM) Respiratory Rate 18 br/min [14-20 br/min] (04/05/16 12:36 AM) Blood Pressure 160/91 mmHg [90-140/60-90 mmHg] *HI* (04/05/16 12:36 AM) SpO2 97 % (04/05/16 12:36 AM) Problem List Condition Effective Dates Status [...] to 1 oldest [Reference Range]: WBC [4.8-10.8 15.0 10*3/uL 10*3/uL] *HI* (04/05/16 1:42 AM) RBC [4.60-6.20] 4.63 (04/05/16 1:42 AM) Hgb [14.0-18.0 12.0 gm/dL gm/dL] *LOW* (04/05/16 1:42 AM) Hct [42.0-52.0 %] 36.7 % *LOW* (04/05/16 1:42 AM) MCV [82.0-99.0 fL] 79.3 fL *LOW* (04/05/16 1:42 AM) MCH [27.0-32.0 pg] 25.9 pg *LOW* (04/05/16 1:42 AM) MCHC [32.0-36.0 32.7 gm/dL gm/dL] (04/05/16 1:42 AM) RDW [11.5-14.5 %] 20.2 % *HI* (04/05/16 1:42 AM) Platelet [150-400 365 10*3/uL 10*3/uL] (04/05/16 1:42 AM) MPV [9.4-12.3 fL] 10.7 fL (04/05/16 1:42 AM) Immature 0.4 % Granulocytes (04/05/16 1:42 AM) [0.0-1.0 %] Neutrophils [51-75 93 % %] *HI* (04/05/16 1:42 AM) Lymphocytes [20-46 5 % %] *LOW* (04/05/16 1:42 AM) Monocytes [4-11 %] 2 % *LOW* (04/05/16 1:42 AM) Eosinophils [0-4 %] 0 % (04/05/16 1:42 AM) Basophils [0-2 %] 0 % (04/05/16 1:42 AM) Neutro Absolute 13.95 10*3 [1.90-7.00 10*3] *HI* (04/05/16 1:42 AM) Lymph Absolute 0.71 10*3 [0.80-3.30 10*3] *LOW* (04/05/16 1:42 AM) [place] Absolute 0.32 10*3 [0.30-1.00 10*3] (04/05/16 1:42 AM) Eos Absolute 0.00 10*3 [0.00-0.50 10*3] (04/05/16 1:42 AM) Baso Absolute 0.00 10*3 [0.00-0.20 10*3] (04/05/16 1:42 AM) Polychrom Occasional *ABN* (04/05/16 1:42 AM) Microcyte Present *ABN* (04/05/16 1:42 AM) Macrocyte Present *ABN* (04/05/16 1:42 AM) Nucleated RBC 0.0 /100 WBC Automated [0 /100 (04/05/16 1:42 AM) WBC] Differential Scanned Slide (04/05/16 1:42 AM) Chemistry Most recent to 1 oldest [Reference Range]: Sodium Lvl [136-144 138 mEq/L mEq/L] (04/05/16 1:42 AM) Potassium Lvl 4.0 mEq/L [3.6-5.1 mEq/L] (04/05/16 1:42 AM) Chloride [99-109 102 mEq/L mEq/L] (04/05/16 1:42 AM) CO2 [22-32 mEq/L] 27 mEq/L (04/05/16 1:42 AM) AGAP [3-20] 9 (04/05/16 1:42 AM) BUN [4-20 mg/dL] 11 mg/dL (04/05/16 1:42 AM) Glucose Lvl [70-100 108 mg/dL mg/dL] *HI* (04/05/16 1:42 AM) Creatinine Lvl 0.80 mg/dL [0.64-1.27 mg/dL] (04/05/16 1:42 AM) eGFR [>60] >60 1 (04/05/16 1:42 AM) Calcium Lvl 8.7 mg/dL [8.6-10.0 mg/dL] (04/05/16 1:42 AM) Albumin Lvl [3.5-4.8 3.5 gm/dL gm/dL] (04/05/16 1:42 AM) Total Protein 6.1 gm/dL [6.1-7.9 gm/dL] (04/05/16 1:42 AM) Globulin [1.9-4.3 2.6 gm/dL gm/dL] (04/05/16 1:42 AM) ALT [17-63 U/L] 44 U/L (04/05/16 1:42 AM) AST [15-41 U/L] 28 U/L (04/05/16 1:42 AM) Alk Phos [26-104 67 U/L U/L] (04/05/16 1:42 AM) Bili Total [0.2-1.2 0.2 mg/dL 2 mg/dL] (04/05/16 1:42 AM) Lipase Lvl [8-48 64 U/L U/L] *HI* (04/05/16 1:42 AM) 1Result Comment: Multiply eGFR results by 1.21 for race. 2Result Comment: Naproxen, specifically the metabolite O-desmethylnaproxen, may cause spurious elevation in Total Bilirubin levels. Urinalysis Most recent to 1 oldest [Reference Range]: UA Color Straw (04/05/16 1:42 AM) UA Appear Clear (04/05/16 1:42 AM) UA pH [5.0-8.0] 7.0 (04/05/16 1:42 AM) UA Leuk Est Negative [Negative] (04/05/16 1:42 AM) UA Nitrite Negative [Negative] (04/05/16 1:42 AM) UA Protein Negative [Negative] (04/05/16 1:42 AM) UA Glucose Negative [Negative] (04/05/16 1:42 AM) UA Ketones Negative [Negative] (04/05/16 1:42 AM) UA Urobilinogen Negative [<1.0] (04/05/16 1:42 AM) UA Bili [Negative] Negative (04/05/16 1:42 AM) UA Blood [Negative] Negative (04/05/16 1:42 AM) UA Spec Grav 1.010 [1.003-1.030] (04/05/16 1:42 AM) Type Clean Catch (04/05/16 1:42 AM) Immunizations Vaccine Date Refusal Reason tetanus-diphth [...]
--- OUTSIDE RECORDS SUMMARY | 2016-12-15 00:02 | XMS REPORT ---
Author Author [facility], [facility] - Organization Unknown Address Unknown Phone Unavailable [...] Medication reconciliation has not been performed. Results LAB--BEDSIDE TESTING from 02/05/2013 8:25 PMOccult Blood, Stool NPT Negative ( Negative ) LAB--CHEMISTRY from 02/05/2013 8:24 PMAnion Gap 11 (3-20 ) Albumin 3.7 g/dL (3.5-4.8 g/dL) Alkaline Phosphatase 92 U/L (26-104 U/L) ALT (SGPT) 36 U/L (17-63 U/L) AST (SGOT) 32 U/L (15-41 U/L) Bilirubin Total 0.3 mg/dL (0.2-1.2 mg/dL) BUN 8 mg/dL (4-20 mg/dL) Calcium 8.6 mg/dL (8.6-10.0 mg/dL) Chloride 103 mEq/L (99-109 mEq/L) CO2 25 mEq/L (22-32 mEq/L) Creatinine 0.96 mg/dL (0.64-1.27 mg/dL) eGFR >60 (>60- ) Globulin 2.5 g/dL (1.9-4.3 g/dL) Glucose 94 mg/dL (70-100 mg/dL) Potassium 3.9 mEq/L (3.6-5.1 mEq/L) Sodium 139 mEq/L (136-144 mEq/L) Protein 6.2 g/dL (6.1-7.9 g/dL) Lipase 18 U/L (8-48 U/L) LAB--HEMATOLOGY from 02/05/2013 8:24 PMAbsolute Basophils 0.02 THOUS (0.00-0.20 THOUS) Absolute Eosinophils 0.10 THOUS (0.00-0.50 THOUS) Absolute Lymphocytes 1.44 THOUS (0.80-3.30 THOUS) Absolute Monocytes 0.40 THOUS (0.30-1.00 THOUS) Absolute Neutrophils 5.28 THOUS (1.90-7.00 THOUS) HCT 39.7 % L (42.0-52.0 %) HGB 13.2 g/dl L (14.0-18.0 g/dl) MCH 26.3 pg L (27.0-32.0 pg) MCHC 33.2 g/dL (32.0-36.0 g/dL) MCV 79.2 fL L (82.0-99.0 fL) MPV 10.7 fL (9.4-12.3 fL) Platelet Count 270 K/uL (150-400 K/uL) RBC 5.01 M/uL (4.60-6.20 M/uL) RDW 16.4 % H (11.5-14.5 %) WBC 7.2 K/uL (4.8-10.8 K/uL) Basophils 0 % (0-2 %) Eosinophils 1 % (0-4 %) Immature Granulocytes 0.0 % (0.0-1.0 %) Lymphocytes 20 % (20-46 %) Monocytes 6 % (4-11 %) Nucleated RBC Automated 0.0 /100 WBC (0 /100 WBC) Neutrophils 73 % (51-75 %)
--- OUTSIDE RECORDS SUMMARY | 2016-12-15 00:02 | XMS REPORT | Referral Summary ---
Author Author [facility] Organization [facility] Address Unknown Phone Unavailable Care Team Providers Care Plate Driller Name Role Phone No PCP, Pt States Primary Care Physician [phone] Encounter [facility] Date(s): 04/04/15 - 04/04/15 [facility] [address] [place] [address] Final: REGIONAL ENTERITIS OF UNSPECIFIED SITE Discharge Diagnosis: Abdominal pain Discharge Diagnosis: Crohn disease Discharge Disposition: 01-Home or Self Care Attending Physician: Leta Quiroga MD Admitting Physician: Leta Quiroga MD Vital Signs Most recent to 1 oldest [Reference Range]: Temperature Oral 37.0 degC [35.8-37.3 degC] (04/04/15 12:30 PM) Peripheral Pulse 78 bpm Rate [60-100 bpm] (04/04/15 1:42 PM) Respiratory Rate 18 br/min [14-20 br/min] (04/04/15 1:42 PM) Blood Pressure 128/76 mmHg [90-140/60-90 mmHg] (04/04/15 1:42 PM) SpO2 98 % (04/04/15 1:42 PM) Problem List Condition Effective Dates Status [...] Medium Active traMADol Itching Active Swelling Medications oxyCODONE-acetaminophen 5 mg-325 mg oral tablet 1 tabs, Oral, q6hr, Pain, # 10 tabs, 0 Refill(s) Start Date: 10/14/15 Stop Date: 10/16/15 Status: Ordered predniSONE 20 mg oral tablet 20 mg 1 tabs, Oral, Daily, X 10 days, # 10 tabs, 0 Refill(s) Start Date: 10/14/15 Stop Date: 10/24/15 Status: Ordered Results Urinalysis Most recent to 1 oldest [Reference Range]: UA Color Yellow (04/04/15 12:36 PM) UA Appear Clear (04/04/15 12:36 PM) UA pH [5.0-8.0] 6.5 (04/04/15 12:36 PM) UA Leuk Est Negative [Negative] (04/04/15 12:36 PM) UA Nitrite Negative [Negative] (04/04/15 12:36 PM) UA Protein Negative [Negative] (04/04/15 12:36 PM) UA Glucose Negative [Negative] (04/04/15 12:36 PM) UA Ketones Negative [Negative] (04/04/15 12:36 PM) UA Urobilinogen Negative [<1.0] (04/04/15 12:36 PM) UA Bili [Negative] Negative (04/04/15 12:36 PM) UA Blood [Negative] Negative (04/04/15 12:36 PM) UA Spec Grav 1.026 [1.003-1.030] (04/04/15 12:36 PM) Type Clean Catch (04/04/15 12:36 PM) Immunizations Vaccine Date Refusal Reason tetanus-diphth [...]
--- OUTSIDE RECORDS SUMMARY | 2016-12-15 00:02 | XMS REPORT | Referral Summary ---
Author Author [facility] Organization [facility] Address Unknown Phone Unavailable Care Team Providers Care Recreation Engineer Name Role Phone No PCP, Pt States Primary Care Physician [phone] Encounter [facility] Date(s): 09/21/15 - 09/22/15 [facility] [address] [place] [address] [phone] Discharge Diagnosis: Crohn disease Discharge Diagnosis: Abdominal pain Discharge Disposition: 01-Home or Self Care Attending Physician: Tulio Shahid MD Admitting Physician: Tulio Shahid MD Vital Signs Most recent to 1 oldest [Reference Range]: Temperature Oral 36.9 degC [35.8-37.3 degC] (09/22/15 3:26 AM) Peripheral Pulse 89 bpm Rate [60-100 bpm] (09/22/15 3:26 AM) Heart Rate Monitored 71 bpm [60-100 bpm] (09/22/15 3:00 AM) Respiratory Rate 18 br/min [14-20 br/min] (09/22/15 3:26 AM) Blood Pressure 132/76 mmHg [90-140/60-90 mmHg] (09/22/15 3:26 AM) Mean Arterial 97 mmHg Pressure, Cuff (09/22/15 3:00 AM) SpO2 99 % (09/22/15 3:26 AM) Problem List Condition Effective Dates Status [...] Oral, q6hr, as needed for pain, X 4 days, # 16 tabs, 0 Refill(s) Start Date: 09/22/15 Stop Date: 09/26/15 Status: Ordered Results Hematology Most recent to 1 oldest [Reference Range]: WBC [4.8-10.8 9.7 10*3/uL 10*3/uL] (09/22/15 12:19 AM) RBC [4.60-6.20] 4.58 *LOW* (09/22/15 12:19 AM) Hgb [14.0-18.0 12.0 gm/dL gm/dL] *LOW* (09/22/15 12:19 AM) Hct [42.0-52.0 %] 36.1 % *LOW* (09/22/15 12:19 AM) MCV [82.0-99.0 fL] 78.8 fL *LOW* (09/22/15 12:19 AM) MCH [27.0-32.0 pg] 26.2 pg *LOW* (09/22/15 12:19 AM) MCHC [32.0-36.0 33.2 gm/dL gm/dL] (09/22/15 12:19 AM) RDW [11.5-14.5 %] 16.9 % *HI* (09/22/15 12:19 AM) Platelet [150-400 304 10*3/uL 10*3/uL] (09/22/15 12:19 AM) MPV [9.4-12.3 fL] 10.5 fL (09/22/15 12:19 AM) Immature 0.1 % Granulocytes (3/6/16 12:19 AM) [0.0-1.0 %] Neutrophils [51-75 65 % %] (09/22/15) Lymphocytes [20-46 25 % %] (09/22/15) Monocytes [4-11 %] 8 % (09/22/15 AM) Eosinophils [0-4 %] 2 % (09/22/15) Basophils [0-2 %] 0 % (09/22/15) Neutro Absolute 6.35 10*3 [1.90-7.00 10*3] (09/22/15 AM) Lymph Absolute 2.40 10*3 [0.80-3.30 10*3] (09/22/15 AM) [place] Absolute 0.75 10*3 [0.30-1.00 10*3] (09/22/15 AM) Eos Absolute 0.20 10*3 [0.00-0.50 10*3] (09/22/15 AM) Baso Absolute 0.02 10*3 [0.00-0.20 10*3] (09/22/15 AM) Nucleated RBC 0.0 /100 WBC Automated [0 /100 (09/22/15) WBC] Chemistry Most recent to 1 oldest [Reference Range]: Sodium Lvl [136-144 136 mEq/L mEq/L] (09/22/15 AM) Potassium Lvl 3.3 mEq/L [3.6-5.1 mEq/L] *LOW* (09/22/15) Chloride [99-109 100 mEq/L mEq/L] (09/22/15 AM) CO2 [22-32 mEq/L] 29 mEq/L (09/22/15 AM) AGAP [3-20] 7 (09/22/15 AM) BUN [4-20 mg/dL] 7 mg/dL (09/22/15 AM) Glucose Lvl [70-100 93 mg/dL mg/dL] (09/22/15 AM) Creatinine Lvl 0.88 mg/dL [0.64-1.27 mg/dL] (09/22/15 12:19 AM) eGFR [>60] >60 1 (09/22/15 12:19 AM) Calcium Lvl 8.7 mg/dL [8.6-10.0 mg/dL] (09/22/15 12:19 AM) Albumin Lvl [3.5-4.8 3.7 gm/dL gm/dL] (09/22/15:19 AM) Total Protein 6.7 gm/dL [6.1-7.9 gm/dL] (09/22/15 12:19 AM) Globulin [1.9-4.3 3.0 gm/dL gm/dL] (09/22/15 12:19 AM) ALT [17-63 U/L] 22 U/L (09/22/15 12:19 AM) AST [15-41 U/L] 24 U/L (09/22/15 12:19 AM) Alk Phos [26-104 97 U/L U/L] (09/22/15 12:19 AM) Bili Total [0.2-1.2 0.4 mg/dL 2 mg/dL] (09/22/15 12:19 AM) Lipase Lvl [8-48 20 U/L U/L] (09/22/15 12:19 AM) 1Result Comment: Multiply eGFR results by [...]
--- OUTSIDE RECORDS SUMMARY | 2016-12-15 00:02 | XMS REPORT | Referral Summary ---
Author Author [facility] Organization [facility] Address Unknown Phone Unavailable Care Team Providers Care Electric Blanket Packer Name Role Phone No PCP, Pt States Primary Care Physician [phone] Encounter VC Date(s): 10/13/15 - 10/13/[address] [facility] [address] [place] [address] [phone] Discharge Disposition: 07-Left Without Being Seen Vital Signs No data available for this section Problem List Condition Effective Dates Status Health [...]
--- OUTSIDE RECORDS SUMMARY | 2016-12-15 00:02 | XMS REPORT | Referral Summary ---
Author Organization Unknown Address Unknown Phone Unavailable Care Team Providers Care Finance Assistant Name Role Phone No PCP, States Primary Care Physician [phone] Encounter VC Date(s): 07/31/14 - 07/31/14 [facility] [address] [place] [address] [phone] Discharge Diagnosis: Crohn's disease Discharge Diagnosis: Chronic generalized abdominal pain Discharge Disposition: Home or Self Care Attending Physician: Fuentes Amador MD Admitting Physician: Fuentes Amador MD Referring Physician: Self Referred, X Vital Signs Most recent to 1 oldest [Reference Range]: Temperature Oral 36.4 degC [35.8-37.3 degC] (07/31/14 10:33 AM) Peripheral Pulse 87 bpm Rate [60-100 bpm] (07/31/14 12:23 PM) Respiratory Rate 20 br/min [14-20 br/min] (07/31/14 10:33 AM) Blood Pressure 145/88 mmHg [90-140/60-90 mmHg] *HI* (07/31/14 12:23 PM) Most recent to 1 oldest [Reference Range]: SpO2 98 % (07/31/14 12:23 PM) Problem List Condition Effective Dates Status [...] Medium Active Toradol Hives Medium Active Medications lisinopril 5 mg oral tablet 1 tabs, Oral, Daily, # 30 tabs, 0 Refill(s), 1 tabs Oral Daily Start Date: 07/27/14 Status: Ordered LORazepam 1 mg, Oral, Bedtime (once a day) Start Date: 07/25/14 Status: Ordered Pentasa 250 mg oral capsule, extended release 4 caps, Oral, QID, # 480 caps, 0 Refill(s), 4 caps Oral QID Start Date: 07/27/14 Status: Ordered Zofran ODT 4 mg oral tablet, disintegrating 1 tabs, Oral, TID, Nausea, # 90 tabs, 0 Refill(s), 1 tabs Oral TID,x30 days,PRN: Nausea Start Date: 07/27/14 Stop Date: 08/26/14 Status: Ordered Results Hematology Most recent to 1 oldest [Reference Range]: WBC [4.8-10.8 K/uL] 7.2 K/uL (07/31/14 11:00 AM) RBC [4.60-6.20 M/uL] 4.71 M/uL (07/31/14 11:00 AM) Hgb [14.0-18.0 12.8 gm/dL gm/dL] *LOW* (07/31/14 11:00 AM) Hct [42.0-52.0 %] 38.5 % *LOW* (07/31/14 11:00 AM) MCV [82.0-99.0 fL] 81.7 fL *LOW* (07/31/14 11:00 AM) MCH [27.0-32.0 pg] 27.2 pg (07/31/14 11:00 AM) MCHC [32.0-36.0 33.2 gm/dL gm/dL] (07/31/14 11:00 AM) RDW [11.5-14.5 %] 16.2 % *HI* (07/31/14 11:00 AM) Platelet [150-400 223 K/uL K/uL] (07/31/14 11:00 AM) MPV [9.4-12.3 fL] 11.1 fL (07/31/14 11:00 AM) Immature 0.6 % Granulocytes (07/31/14: AM) [0.0-1.0 %] Neutrophils [51-75 55 % %] (07/31/14: AM) Lymphocytes [20-46 33 % %] (07/31/14 AM) Monocytes [4-11 %] 7 % (07/31/14 AM) Eosinophils [0-4 %] 5 % *HI* (07/31/14 AM) Basophils [0-2 %] 0 % (07/31/14: AM) Neutro Absolute 3.92 THOUS [1.90-7.00 THOUS] (07/31/14: AM) Lymph Absolute 2.37 THOUS [0.80-3.30 THOUS] (07/31/14: AM) [place] Absolute 0.50 THOUS [0.30-1.00 THOUS] (07/31/14: AM) Eos Absolute 0.32 THOUS [0.00-0.50 THOUS] (07/31/14:00 AM) Baso Absolute 0.03 THOUS [0.00-0.20 THOUS] (07/31/14: AM) Nucleated RBC 0.0 /100 WBC Automated [0 /100 (07/31/14: AM) WBC] Chemistry Most recent to 1 oldest [Reference Range]: Sodium Lvl [136-144 141 mEq/L mEq/L] (07/31/14 AM) Potassium Lvl 3.3 mEq/L [3.6-5.1 mEq/L] *LOW* (07/31/14: AM) Chloride [99-109 104 mEq/L mEq/L] (07/31/14: AM) CO2 [22-32 mEq/L] 30 mEq/L (07/31/14: AM) AGAP [3-20] 7 (07/31/14:00 AM) BUN [4-20 mg/dL] 9 mg/dL (07/31/14:00 AM) Glucose Lvl [70-100 90 mg/dL mg/dL] (1/13/15 11:00 AM) Creatinine Lvl 0.90 mg/dL [0.64-1.27 mg/dL] (07/31/14 11:00 AM) eGFR [>60] >60 2 (07/31/14 11:00 AM) Calcium Lvl 8.6 mg/dL [8.6-10.0 mg/dL] (07/31/14 11:00 AM) Albumin Lvl [3.5-4.8 3.7 gm/dL gm/dL] (07/31/14 11:00 AM) Total Protein 6.1 gm/dL [6.1-7.9 gm/dL] (07/31/14 11:00 AM) Globulin [1.9-4.3 2.4 gm/dL gm/dL] (07/31/14 11:00 AM) ALT [17-63 unit/L] 21 unit/L (07/31/14 11:00 AM) AST [15-41 unit/L] 18 unit/L (07/31/14 11:00 AM) Alk Phos [26-104 71 unit/L unit/L] (07/31/14 11:00 AM) Bili Total [0.2-1.2 0.8 mg/dL 1 mg/dL] (07/31/14 11:00 AM) Lipase Lvl [8-48 32 unit/L unit/L] (07/31/14 11:00 AM) 1Result Comment: Naproxen, specifically the metabolite O-desmethylnaproxen, may cause spurious elevation in Total Bilirubin levels. 2Result Comment: Multiply eGFR results by 1.21 for race. Immunizations Vaccine Date Refusal Reason tetanus-diphth toxoids [...]
--- OUTSIDE RECORDS SUMMARY | 2016-12-15 00:02 | XMS REPORT | Referral Summary ---
Author Author [facility] Organization [facility] Address Unknown Phone Unavailable Care Team Providers Care Home Office Claims Examiner Name Role Phone No PCP, Pt States Primary Care Physician [phone] Encounter VC Date(s): 12/22/14 - 12/22/14 [facility] [address] [place] [address] [phone] Final: ABDOMINAL PAIN, UNSPECIFIED SITE Discharge Diagnosis: Abdominal pain Discharge Disposition: 01-Home or Self Care Attending Physician: Rafael Azul MD Admitting Physician: Rafael Azul MD Vital Signs Most recent to 1 oldest [Reference Range]: Temperature Oral 36.9 degC [35.8-37.3 degC] (12/22/14 1:16 AM) Peripheral Pulse 89 bpm Rate [60-100 bpm] (12/22/14 6:08 AM) Respiratory Rate 17 br/min [14-20 br/min] (12/22/14 6:08 AM) Blood Pressure 149/96 mmHg [90-140/60-90 mmHg] *HI* (12/22/14 6:08 AM) SpO2 98 % (12/22/14 6:08 AM) Problem List Condition Effective Dates Status [...] Swelling Medications predniSONE 10 mg oral tablet 10 mg 1 tabs, Oral, Daily, # 30 tabs, 0 Refill(s) Start Date: 06/22/15 Status: Ordered promethazine 25 mg oral tablet 25 mg 1 tabs, Oral, q4hr, as needed for nausea/vomiting, # 10 tabs, 0 Refill(s) Start Date: 06/14/15 Status: Ordered Ultram 50 mg oral tablet 50 mg 1 tabs, Oral, q4hr, as needed for pain, # 60 tabs, 0 Refill(s) Start Date: 06/14/15 Status: Ordered Results Hematology Most recent to 1 oldest [Reference Range]: WBC [4.8-10.8 7.2 10*3/uL 10*3/uL] (12/22/14 3:53 AM) RBC [4.60-6.20 4.72 10*6/uL 10*6/uL] (12/22/14 3:53 AM) Hgb [14.0-18.0 12.5 gm/dL gm/dL] *LOW* (12/22/14 3:53 AM) Hct [42.0-52.0 %] 37.1 % *LOW* (12/22/14 3:53 AM) MCV [82.0-99.0 fL] 78.6 fL *LOW* (12/22/14 3:53 AM) MCH [27.0-32.0 pg] 26.5 pg *LOW* (12/22/14 3:53 AM) MCHC [32.0-36.0 33.7 gm/dL gm/dL] (12/22/14 3:53 AM) RDW [11.5-14.5 %] 15.8 % *HI* (12/22/14 3:53 AM) Platelet [150-400 250 10*3/uL 10*3/uL] (12/22/14 3:53 AM) MPV [9.4-12.3 fL] 10.9 fL (12/22/14 3:53 AM) Immature 1.1 % Granulocytes *HI* [0.0-1.0 %] (12/22/14 3:53 AM) Neutrophils [51-75 68 % %] (12/22/14 3:53 AM) Lymphocytes [20-46 21 % %] (12/22/14 3:53 AM) Monocytes [4-11 %] 7 % (12/22/14 3:53 AM) Eosinophils [0-4 %] 2 % (12/22/14 3:53 AM) Basophils [0-2 %] 1 % (12/22/14 3:53 AM) Neutro Absolute 5.07 10*3 [1.90-7.00 10*3] (12/22/14 3:53 AM) Lymph Absolute 1.60 10*3 [0.80-3.30 10*3] (12/22/14 3:53 AM) [place] Absolute 0.51 10*3 [0.30-1.00 10*3] (12/22/14 3:53 AM) Eos Absolute 0.17 10*3 [0.00-0.50 10*3] (12/22/14 3:53 AM) Baso Absolute 0.07 10*3 [0.00-0.20 10*3] (12/22/14 3:53 AM) Nucleated RBC 0.0 /100 WBC Automated [0 /100 (12/22/14 3:53 AM) WBC] Chemistry Most recent to 1 oldest [Reference Range]: Sodium Lvl [136-144 142 mEq/L mEq/L] (12/22/14 3:53 AM) Potassium Lvl 3.4 mEq/L [3.6-5.1 mEq/L] *LOW* (12/22/14 3:53 AM) Chloride [99-109 110 mEq/L mEq/L] *HI* (12/22/14 3:53 AM) CO2 [22-32 mEq/L] 24 mEq/L (12/22/14 3:53 AM) AGAP [3-20] 8 (12/22/14 3:53 AM) BUN [4-20 mg/dL] 6 mg/dL (12/22/14 3:53 AM) Glucose Lvl [70-100 90 mg/dL mg/dL] (12/22/14 3:53 AM) Creatinine Lvl 0.70 mg/dL [0.64-1.27 mg/dL] (12/22/14 3:53 AM) eGFR [>60] >60 1 (12/22/14 3:53 AM) Calcium Lvl 9.0 mg/dL [8.6-10.0 mg/dL] (12/22/14 3:53 AM) Albumin Lvl [3.5-4.8 3.8 gm/dL gm/dL] (12/22/14 3:53 AM) Total Protein 7.0 gm/dL [6.1-7.9 gm/dL] (12/22/14 3:53 AM) Globulin [1.9-4.3 3.2 gm/dL gm/dL] (12/22/14 3:53 AM) ALT [17-63 U/L] 16 U/L *LOW* (12/22/14 3:53 AM) AST [15-41 U/L] 12 U/L *LOW* (12/22/14 3:53 AM) Alk Phos [26-104 130 U/L U/L] *HI* (12/22/14 3:53 AM) Bili Total [0.2-1.2 0.4 mg/dL 2 mg/dL] (12/22/14 3:53 AM) Lipase Lvl [8-48 19 U/L U/L] (12/22/14 3:53 AM) 1Result Comment: Multiply eGFR results by [...]
--- OUTSIDE RECORDS SUMMARY | 2016-12-15 00:02 | XMS REPORT | Referral Summary ---
Author Organization Unknown Address Unknown Phone Unavailable Care Team Providers Care Survival Equipment Repairer Name Role Phone No PCP, States Primary Care Physician [phone] Encounter VC Date(s): 09/18/14 - 09/18/14 [facility]3] [address] [place] [address] Discharge Diagnosis: Abdominal pain Discharge Diagnosis: Crohn's disease Discharge Diagnosis: Abdominal pain Discharge Diagnosis: Crohn's disease Discharge Disposition: Home or Self Care Attending Physician: Wild Ladd MD Admitting Physician: Wild Ladd MD Referring Physician: Self Referred, X Vital Signs Most recent to 1 oldest [Reference Range]: Temperature Oral 36.6 degC [35.8-37.3 degC] (09/18/14 2:24 PM) Peripheral Pulse 104 bpm Rate [60-100 bpm] *HI* (09/18/14 2:24 PM) Heart Rate Monitored 83 bpm [60-100 bpm] (09/18/14 6:40 PM) Respiratory Rate 16 br/min [14-20 br/min] (09/18/14 6:40 PM) Blood Pressure 138/77 mmHg [90-140/60-90 mmHg] (09/18/14 6:40 PM) Mean Arterial 99 mmHg Pressure, Cuff (09/18/14 6:40 PM) Most recent to 1 oldest [Reference Range]: SpO2 98 % (09/18/14 6:40 PM) Problem List Condition Effective Dates [...] pain, # 14 tabs, 0 Refill(s), [id number], 1 tabs Oral BID,PRN:as needed for pain Start Date: 09/18/14 Status: Ordered predniSONE 10 mg oral tablet 1 tabs, Oral, Daily, 60 MG X 2 DAYS, 50 MG X2 DAYS, 40 MG X2 DAYS, 30 MG X 2 DAYS, 20 MG X 2 DAYS AND 10 MG X 2 DAYS, # 42 tabs, 0 Refill(s), SUPERVISING PHYS. DR. CR Special Instructions: 60 MG X 2 DAYS, 50 MG X2 DAYS, 40 MG X2 DAYS, 30 MG X 2 DAYS, 20 MG X 2 DAYS AND 10 MG X 2 DAYS Start Date: 09/11/14 Stop Date: 10/15/14 Status: Ordered Results Hematology Most recent to 1 oldest [Reference Range]: WBC [4.8-10.8 K/uL] 7.1 K/uL (09/18/14 3:14 PM) RBC [4.60-6.20 M/uL] 4.92 M/uL (09/18/14 3:14 PM) Hgb [14.0-18.0 13.4 gm/dL gm/dL] *LOW* (09/18/14 3:14 PM) Hct [42.0-52.0 %] 39.7 % *LOW* (09/18/14 3:14 PM) MCV [82.0-99.0 fL] 80.7 fL *LOW* (09/18/14 3:14 PM) MCH [27.0-32.0 pg] 27.2 pg (09/18/14 3:14 PM) MCHC [32.0-36.0 33.8 gm/dL gm/dL] (09/18/14 3:14 PM) RDW [11.5-14.5 %] 15.5 % *HI* (09/18/14 3: PM) Platelet [150-400 262 K/uL K/uL] (09/18/14 PM) MPV [9.4-12.3 fL] 11.2 fL (09/18/14 3 PM) Immature 0.3 % Granulocytes (09/18/14 PM) [0.0-1.0 %] Neutrophils [51-75 60 % %] (09/18/14 PM) Lymphocytes [20-46 28 % %] (09/18/14 PM) Monocytes [4-11 %] 7 % (09/18/14 PM) Eosinophils [0-4 %] 3 % (09/18/14 PM) Basophils [0-2 %] 1 % (09/18/14 PM) Neutro Absolute 4.24 THOUS [1.90-7.00 THOUS] (09/18/14 PM) Lymph Absolute 2.00 THOUS [0.80-3.30 THOUS] (09/18/14 PM) [place] Absolute 0.52 THOUS [0.30-1.00 THOUS] (09/18/14 PM) Eos Absolute 0.23 THOUS [0.00-0.50 THOUS] (09/18/14 PM) Baso Absolute 0.05 THOUS [0.00-0.20 THOUS] (09/18/14: PM) Nucleated RBC 0.0 /100 WBC Automated [0 /100 (09/18/14 PM) WBC] Chemistry Most recent to 1 oldest [Reference Range]: Sodium Lvl [136-144 139 mEq/L mEq/L] (09/18/14 PM) Potassium Lvl 3.3 mEq/L [3.6-5.1 mEq/L] *LOW* (09/18/14 PM) Chloride [99-109 107 mEq/L mEq/L] (09/18/14 3 PM) CO2 [22-32 mEq/L] 25 mEq/L (09/18/14 PM) AGAP [3-20] 7 (09/18/14 3:14 PM) BUN [4-20 mg/dL] 10 mg/dL (09/18/14 3:14 PM) Glucose Lvl [70-100 100 mg/dL mg/dL] (09/18/14 3:14 PM) Creatinine Lvl 0.72 mg/dL [0.64-1.27 mg/dL] (09/18/14 3:14 PM) eGFR [>60] >60 2 (09/18/14 3:14 PM) Calcium Lvl 9.1 mg/dL [8.6-10.0 mg/dL] (09/18/14 3:14 PM) Albumin Lvl [3.5-4.8 4.0 gm/dL gm/dL] (09/18/14 3:14 PM) Total Protein 6.7 gm/dL [6.1-7.9 gm/dL] (09/18/14 3:14 PM) Globulin [1.9-4.3 2.7 gm/dL gm/dL] (09/18/14 3:14 PM) ALT [17-63 unit/L] 16 unit/L *LOW* (09/18/14 3:14 PM) AST [15-41 unit/L] 22 unit/L (09/18/14 3:14 PM) Alk Phos [26-104 117 unit/L unit/L] *HI* (09/18/14 3:14 PM) Bili Total [0.2-1.2 0.5 mg/dL 1 mg/dL] (09/18/14 3:14 PM) Lipase Lvl [8-48 21 unit/L unit/L] (09/18/14 3:14 PM) 1Result Comment: Naproxen, specifically the metabolite O-desmethylnaproxen, may cause spurious elevation in Total Bilirubin levels. 2Result Comment: Multiply eGFR results by 1.21 for race. Urinalysis Most recent to 1 oldest [Reference Range]: UA Color Lt Yellow (09/18/14 3:14 PM) UA Appear Clear (09/18/14 3:14 PM) UA pH [5.0-8.0] 5.0 (09/18/14 3:14 PM) UA Leuk Est Negative [Negative] (09/18/14 3:14 PM) UA Nitrite Negative [Negative] (09/18/14 3:14 PM) UA Protein Negative [Negative] (09/18/14 3:14 PM) UA Glucose Negative [Negative] (09/18/14 3:14 PM) UA Ketones Negative [Negative] (09/18/14 3:14 PM) UA Urobilinogen Negative [<1.0] (09/18/14 3:14 PM) UA Bili [Negative] Negative (09/18/14 3:14 PM) UA Blood [Negative] Negative (09/18/14 3:14 PM) UA Spec Grav 1.007 [1.003-1.030] (09/18/14 3:14 PM) Type Clean Catch (09/18/14 3:14 PM) Immunizations Vaccine Date Refusal Reason tetanus-diphth [...]
--- OUTSIDE RECORDS SUMMARY | 2016-12-15 00:02 | XMS REPORT | Referral Summary ---
Author Author [facility] Organization [facility] Address Unknown Phone Unavailable Care Team Providers Care Stone Setter Name Role Phone No PCP, Pt States Primary Care Physician [phone] Encounter VC Date(s): 04/28/16 - 04/28/16 [facility] [address] [place] [address] Discharge Disposition: 07-Left Without Being Seen Vital [...]
--- OUTSIDE RECORDS SUMMARY | 2016-12-15 00:02 | XMS REPORT | Referral Summary ---
Author Author [facility] Organization [facility] Address Unknown Phone Unavailable Care Team Providers Care Final Inspector Name Role Phone No PCP, Pt States Primary Care Physician [phone] Encounter VC Date(s): 04/13/16 - 04/14/16 [facility] [address] [place] [address] Discharge Diagnosis: Chest pain Discharge Disposition: 01-Home or Self Care Attending Physician: Tulio Shahid MD Admitting Physician: Tulio Shahid MD Vital Signs Most recent to 1 oldest [Reference Range]: Peripheral Pulse 91 bpm Rate [60-100 bpm] (04/14/16 12:55 AM) Respiratory Rate 18 br/min [14-20 br/min] (04/14/16 12:55 AM) Blood Pressure 148/88 mmHg [90-140/60-90 mmHg] *HI* (04/14/16 12:55 AM) SpO2 96 % (04/14/16 12:55 AM) Problem List Condition Effective Dates Status [...] Most recent to 1 oldest [Reference Range]: Troponin-POC Negative (04/14/16 12:03 AM) Immunizations Vaccine Date Refusal Reason tetanus-diphth [...]
--- OUTSIDE RECORDS SUMMARY | 2016-12-15 00:02 | XMS REPORT | Referral Summary ---
Author Author [facility] Organization [facility] Address Unknown Phone Unavailable Care Team Providers Care Occupational Health And Safety Manager Name Role Phone No PCP, Pt States Primary Care Physician [phone] Encounter VC Date(s): 01/24/16 - 01/24/16 [facility] [address] [place] [address] [phone] Discharge Diagnosis: Left ankle pain Discharge Disposition: 01-Home or Self Care Attending Physician: Sirisha Gutierrez APRN Admitting Physician: Sirisha Gutierrez APRN Vital Signs Most recent to 1 oldest [Reference Range]: Temperature Oral 36.9 degC [35.8-37.3 degC] (01/24/16 12:07 PM) Peripheral Pulse 92 bpm Rate [60-100 bpm] (01/24/16 1:02 PM) Respiratory Rate 18 br/min [14-20 br/min] (01/24/16 1:02 PM) Systolic Blood 124 mmHg Pressure [90-140 (01/24/16 1:02 PM) mmHg] Diastolic Blood 68 mmHg Pressure [60-90 (01/24/16 1:02 PM) mmHg] SpO2 99 % (01/24/16 1:02 PM) Problem List Condition Effective Dates Status [...] Date: 01/07/16 Stop Date: 01/06/17 Status: Ordered oxyCODONE-acetaminophen 5 mg-325 mg oral tablet 1 tabs, Oral, q6hr, Pain, X 3 days, # 12 tabs, 0 Refill(s) Start Date: 01/23/16 Stop Date: 01/26/16 Status: Ordered Percocet 5/325 oral tablet 1 [...]
--- OUTSIDE RECORDS SUMMARY | 2016-12-15 00:02 | XMS REPORT | Referral Summary ---
Author Author Via [facility] Organization [facility] Address Unknown Phone Unavailable Care Team Providers Care Roller Picker Name Role Phone No PCP, Pt States Primary Care Physician [phone] Encounter VC Date(s): 05/12/16 - 05/19/16 [facility] [address] [place] [address] Discharge Disposition: 01-Home or Self Care Attending Physician: Tanja Boyd DO Admitting Physician: Tanja Boyd DO Vital Signs Most recent to 1 oldest [Reference Range]: Temperature Oral 36.8 degC [35.8-37.3 degC] (05/19/16 11:46 AM) Peripheral Pulse 100 bpm Rate [60-100 bpm] (05/19/16 11:46 AM) Heart Rate Monitored 89 bpm [60-100 bpm] (05/16/16 3:59 AM) Respiratory Rate 18 br/min [14-20 br/min] (05/19/16 11:46 AM) Blood Pressure 122/74 mmHg [90-140/60-90 mmHg] (05/19/16 11:46 AM) Mean Arterial 105 mmHg Pressure, Cuff (05/18/16 6:00 AM) SpO2 96 % (05/19/16 11:46 AM) Problem List Condition Effective Dates Status [...] Daily, # 30 tabs, 0 Refill(s), Pharmacy: [facility] [id number], 1 tabs Oral Daily Start Date: 05/19/16 Status: Ordered oxyCODONE-acetaminophen 10 mg-325 mg oral tablet 1 tabs, Oral, q4hr, Pain Moderate (4-6), # 30 tabs, 0 Refill(s), other reason ( Rx) Start Date: 05/19/16 Stop Date: 05/26/16 Status: Ordered predniSONE 20 mg oral tablet See Instructions, 2 tabs Oral Daily X 3 days, then 1 tab oral daily for 3 days, then stop., # 9 tabs, 0 Refill(s), Pharmacy: [facility] [id number], 2 tabs Oral Daily X 3 days, then 1 tab oral daily for 3 days, then stop. Start Date: 05/19/16 Stop Date: 05/25/16 Status: Ordered Results Hematology Most recent to 1 oldest [Reference Range]: WBC [4.8-10.8 14.2 10*3/uL 10*3/uL] *HI* (05/19/16 11:23 AM) RBC [4.60-6.20] 4.65 (05/19/16 11:23 AM) Hgb [14.0-18.0 12.2 gm/dL gm/dL] *LOW* (05/19/16 11:23 AM) Hct [42.0-52.0 %] 36.8 % *LOW* (05/19/16 11:23 AM) MCV [82.0-99.0 fL] 79.1 fL *LOW* (05/19/16 11:23 AM) MCH [27.0-32.0 pg] 26.2 pg *LOW* (05/19/16 11:23 AM) MCHC [32.0-36.0 33.2 gm/dL gm/dL] (05/19/16 11:23 AM) RDW [11.5-14.5 %] 18.9 % *HI* (05/19/16 11:23 AM) Platelet [150-400 261 10*3/uL 10*3/uL] (05/19/16 11:23 AM) MPV [9.4-12.3 fL] 10.2 fL (05/19/16 11:23 AM) Immature 1.3 % Granulocytes *HI* [0.0-1.0 %] (05/19/16 11:23 AM) Neutrophils [51-75 75 % %] (05/19/16 11:23 AM) Band Man [0-8 %] 5 % (05/15/16 5:43 AM) Lymphocytes [20-46 13 % %] *LOW* (05/19/16 11:23 AM) Abn Lymph Man 1 % (05/15/16 5:43 AM) Monocytes [4-11 %] 10 % (05/19/16 11:23 AM) Eosinophils [0-4 %] 1 % (05/19/16 11:23 AM) Basophils [0-2 %] 0 % (05/19/16 11:23 AM) Neutro Absolute 10.62 10*3 [1.90-7.00 10*3] *HI* (05/19/16 11:23 AM) Lymph Absolute 1.83 10*3 [0.80-3.30 10*3] (05/19/16 11:23 AM) [place] Absolute 1.35 10*3 [0.30-1.00 10*3] *HI* (05/19/16 11:23 AM) Eos Absolute 0.18 10*3 [0.00-0.50 10*3] (05/19/16 11:23 AM) Baso Absolute 0.01 10*3 [0.00-0.20 10*3] (05/19/16 11:23 AM) Giant Platelets Occasional *ABN* (05/15/16 5:43 AM) Hypochrom Occasional *ABN* (05/15/16 5:43 AM) Polychrom Occasional *ABN* (05/15/16 5:43 AM) Microcyte Present *ABN* (05/14/16 6:10 AM) Nucleated RBC 0.0 /100 WBC Automated [0 /100 (05/19/16 11:23 AM) WBC] Differential Reviewed (05/15/16 5:43 AM) Sedimentation Rate 6 Manual [0-20] (05/13/16 12:15 PM) Chemistry Most recent to 1 oldest [Reference Range]: Sodium Lvl [136-144 137 mEq/L mEq/L] (05/19/16 11:23 AM) Potassium Lvl 3.4 mEq/L 1 [3.6-5.1 mEq/L] *LOW* (05/19/16 11:23 AM) Chloride [99-109 98 mEq/L mEq/L] *LOW* (05/19/16 11:23 AM) CO2 [22-32 mEq/L] 31 mEq/L (05/19/16 11:23 AM) AGAP [3-20] 8 (05/19/16 11:23 AM) BUN [4-20 mg/dL] 15 mg/dL (05/19/16 11:23 AM) Glucose Lvl [70-100 117 mg/dL mg/dL] *HI* (05/19/16 11:23 AM) Creatinine Lvl 0.81 mg/dL [0.64-1.27 mg/dL] (05/19/16 11:23 AM) eGFR [>60] >60 2 (05/19/16 11:23 AM) Calcium Lvl 8.5 mg/dL [8.6-10.0 mg/dL] *LOW* (05/19/16 11:23 AM) Magnesium Lvl 1.9 mg/dL [1.8-2.5 mg/dL] (05/18/16 6:59 AM) Sodium Venous 142 mEq/L [136-144 mEq/L] (05/13/16 12:47 AM) Potassium Venous 3.3 mEq/L 3 [3.6-5.1 mEq/L] *LOW* (05/13/16 12:47 AM) Calcium Ionized 1.15 mmol/L Venous [1.19-1.41 *LOW* mmol/L] (05/13/16 12:47 AM) Total CO2 Venous 26 mEq/L [25-29 mEq/L] (05/13/16 12:47 AM) HGB Venous NPT 13.3 gm/dL [14.0-16.0 gm/dL] *LOW* (05/13/16 12:47 AM) HCT Venous 39.0 % [42.0-52.0 %] *LOW* (05/13/16 12:47 AM) Glucose Venous 110 mg/dL [70-100 mg/dL] *HI* (05/13/16 12:47 AM) BUN Venous [4-20] 11 (05/13/16 12:47 AM) Creatinine Venous 0.9 mg/dL [0.7-1.2 mg/dL] (05/13/16 12:47 AM) Venous CL [99-109 103 mEq/L mEq/L] (05/13/16 12:47 AM) Anion Gap, Jt 13 [3-20] (05/13/16 12:47 AM) 1Result Comment: Hemolyzed specimen. The following test may be affected: Potassium. 2Result Comment: Multiply eGFR results by 1.21 for race. 3Result Comment: This test was performed on a [...]
--- OUTSIDE RECORDS SUMMARY | 2016-12-15 00:03 | XMS REPORT | Referral Summary ---
Author Author [facility] Organization [facility] Address Unknown Phone Unavailable Care Team Providers Care Senior Site Manager Name Role Phone No PCP, Pt States Primary Care Physician [phone] Encounter VC Date(s): 12/12/14 - 12/12/14 [facility] [address] [place], [place] [address] Discharge Diagnosis: Colitis Final: OTHER AND UNSPECIFIED NONINFECTIOUS GASTROENTERITIS AND COLITIS Final: TOBACCO USE DISORDER Discharge Diagnosis: Abdominal pain Discharge Disposition: 01-Home or Self Care Attending Physician: Sameer Alvarado MD Admitting Physician: Sameer Alvarado MD Vital Signs Most recent to 1 oldest [Reference Range]: Temperature Oral 36.4 degC [35.8-37.3 degC] (12/12/14 1:42 AM) Peripheral Pulse 84 bpm Rate [60-100 bpm] (12/12/14 1:42 AM) Respiratory Rate 20 br/min [14-20 br/min] (12/12/14 1:42 AM) Blood Pressure 149/88 mmHg [90-140/60-90 mmHg] *HI* (12/12/14 1:42 AM) SpO2 98 % (12/12/14 1:42 AM) Problem List Condition Effective Dates Status [...] Refill(s) Start Date: 06/14/15 Status: Ordered Results No data available for [...]
--- OUTSIDE RECORDS SUMMARY | 2016-12-15 00:03 | XMS REPORT | Referral Summary ---
Author Author [facility] Organization [facility] Address Unknown Phone Unavailable Care Team Providers Care Stripper Cutter Machine Name Role Phone No PCP, Pt States Primary Care Physician [phone] Encounter [facility] [id number] Date(s): 05/11/16 - 05/12/16 [facility] [address] [place], [place] [address] Discharge Diagnosis: Abdominal pain Discharge Disposition: 01-Home or Self Care Attending Physician: Gopal Mahoney DO Admitting Physician: Gopal Mahoney DO Vital Signs Most recent to 1 oldest [Reference Range]: Temperature Oral 37.4 degC [35.8-37.3 degC] *HI* (05/11/16 6:31 PM) Peripheral Pulse 81 bpm Rate [60-100 bpm] (05/11/16 9:00 PM) Heart Rate Monitored 64 bpm [60-100 bpm] (05/12/16 12:00 AM) Respiratory Rate 18 br/min [14-20 br/min] (05/12/16 12:00 AM) Blood Pressure 138/77 mmHg [90-140/60-90 mmHg] (05/12/16 12:00 AM) Mean Arterial 97 mmHg Pressure, Cuff (05/12/16 12:00 AM) SpO2 98 % (05/12/16 12:00 AM) Problem List Condition Effective Dates Status [...] to 1 oldest [Reference Range]: WBC [4.8-10.8 12.8 10*3/uL 10*3/uL] *HI* (05/11/16 9:49 PM) RBC [4.60-6.20] 4.43 *LOW* (05/11/16 9:49 PM) Hgb [14.0-18.0 11.5 gm/dL gm/dL] *LOW* (05/11/16 9:49 PM) Hct [42.0-52.0 %] 34.5 % *LOW* (05/11/16 9:49 PM) MCV [82.0-99.0 fL] 77.9 fL *LOW* (05/11/16 9:49 PM) MCH [27.0-32.0 pg] 26.0 pg *LOW* (05/11/16 9:49 PM) MCHC [32.0-36.0 33.3 gm/dL gm/dL] (05/11/16 9:49 PM) RDW [11.5-14.5 %] 19.2 % *HI* (05/11/16 9:49 PM) Platelet [150-400 374 10*3/uL 10*3/uL] (05/11/16 9:49 PM) MPV [9.4-12.3 fL] 10.5 fL (05/11/16 9:49 PM) Immature 0.4 % Granulocytes (05/11/16 9:49 PM) [0.0-1.0 %] Neutrophils [51-75 93 % %] *HI* (05/11/16 9:49 PM) Lymphocytes [20-46 5 % %] *LOW* (05/11/16 9:49 PM) Monocytes [4-11 %] 2 % *LOW* (05/11/16 9:49 PM) Eosinophils [0-4 %] 0 % (05/11/16 9:49 PM) Basophils [0-2 %] 0 % (05/11/16 9:49 PM) Neutro Absolute 11.90 10*3 [1.90-7.00 10*3] *HI* (05/11/16 9:49 PM) Lymph Absolute 0.69 10*3 [0.80-3.30 10*3] *LOW* (05/11/16 9:49 PM) [place] Absolute 0.19 10*3 [0.30-1.00 10*3] *LOW* (05/11/16 9:49 PM) Eos Absolute 0.00 10*3 [0.00-0.50 10*3] (05/11/16 9:49 PM) Baso Absolute 0.02 10*3 [0.00-0.20 10*3] (05/11/16 9:49 PM) Differential Scanned Slide (05/11/16 9:49 PM) Chemistry Most recent to 1 oldest [Reference Range]: Sodium Lvl [136-144 138 mEq/L mEq/L] (05/11/16 9:49 PM) Potassium Lvl 4.1 mEq/L [3.6-5.1 mEq/L] (05/11/16 9:49 PM) Chloride [99-109 106 mEq/L mEq/L] (05/11/16 9:49 PM) CO2 [22-32 mEq/L] 25 mEq/L (05/11/16 9:49 PM) AGAP [3-20] 7 (05/11/16 9:49 PM) BUN [4-20 mg/dL] 8 mg/dL (05/11/16 9:49 PM) Glucose Lvl [70-100 123 mg/dL mg/dL] *HI* (05/11/16 9:49 PM) Creatinine Lvl 1.01 mg/dL [0.64-1.27 mg/dL] (05/11/16 9:49 PM) eGFR [>60] >60 1 (05/11/16 9:49 PM) Calcium Lvl 8.8 mg/dL [8.6-10.0 mg/dL] (05/11/16 9:49 PM) Albumin Lvl [3.5-4.8 3.5 gm/dL gm/dL] (05/11/16 9:49 PM) Total Protein 6.2 gm/dL [6.1-7.9 gm/dL] (05/11/16 9:49 PM) Globulin [1.9-4.3 2.7 gm/dL gm/dL] (05/11/16 9:49 PM) ALT [17-63 U/L] 27 U/L (05/11/16 9:49 PM) AST [15-41 U/L] 22 U/L (05/11/16 9:49 PM) Alk Phos [26-104 71 U/L U/L] (05/11/16 9:49 PM) Bili Total [0.2-1.2 0.3 mg/dL 2 mg/dL] (05/11/16 9:49 PM) Lipase Lvl [8-48 37 U/L U/L] (05/11/16 9:49 PM) Sodium Venous 140 mEq/L [136-144 mEq/L] (05/11/16 9:55 PM) Potassium Venous 4.1 mEq/L 3 [3.6-5.1 mEq/L] (05/11/16 9:55 PM) Calcium Ionized 1.18 mmol/L Venous [1.19-1.41 *LOW* mmol/L] (05/11/16 9:55 PM) Total CO2 Venous 24 mEq/L [25-29 mEq/L] *LOW* (05/11/16 9:55 PM) HGB Venous NPT 11.9 gm/dL [14.0-18.0 gm/dL] *LOW* (05/11/16 9:55 PM) HCT Venous 35.0 % [42.0-52.0 %] *LOW* (05/11/16 9:55 PM) Glucose Venous 121 mg/dL [70-100 mg/dL] *HI* (05/11/16 9:55 PM) BUN Venous [4-20] 9 (10/24/16 9:55 PM) Creatinine Venous 0.9 mg/dL [0.7-1.2 mg/dL] (05/11/16 9:55 PM) Venous CL [99-109 105 mEq/L mEq/L] (05/11/16 9:55 PM) Anion Gap, Jt 11 [3-20] (05/11/16 9:55 PM) 1Result Comment: Multiply eGFR results by 1.21 for race. 2Result Comment: Naproxen, specifically the metabolite O-desmethylnaproxen, may cause spurious elevation in Total Bilirubin levels. 3Result Comment: This test was performed on a whole blood specimen. The presence or absence of hemolysis cannot be assessed. Hemolysis can falsely elevate potassium levels. Normals are for venous specimens only. Immunizations Vaccine Date Refusal Reason tetanus-diphth toxoids (Td) adult/adol 11/30/02 Procedures Procedure Date Related Diagnosis Body Site Collection of venous blood by venipuncture 05/11/16 Colonoscopy Biopsy1 05/18/14 Esophagogastroduodenoscopy Biopsy2 05/18/14 Bowel [...]
--- OUTSIDE RECORDS SUMMARY | 2016-12-15 00:03 | XMS REPORT | Referral Summary ---
Author Author [facility] Organization [facility] Address Unknown Phone Unavailable Care Team Providers Care Translation Director Name Role Phone No PCP, Pt States Primary Care Physician [phone] Encounter VC Date(s): 10/14/15 - 10/14/15 [facility] [address] [place] [address]- [place] Discharge Diagnosis: Crohns disease of small intestine Discharge Diagnosis: Abdominal pain Discharge Disposition: -Home or Self Care Attending Physician: Madonna Jeter MD Admitting Physician: Madonna Jeter MD Vital Signs Most recent to 1 oldest [Reference Range]: Temperature Oral 37.3 degC [35.8-37.3 degC] (10/14/15 11:19 AM) Peripheral Pulse 64 bpm Rate [60-100 bpm] (10/14/15 2:42 PM) Heart Rate Monitored 90 bpm [60-100 bpm] (10/14/15 12:52 PM) Respiratory Rate 16 br/min [14-20 br/min] (10/14/15 2:42 PM) Blood Pressure 140/80 mmHg [90-140/60-90 mmHg] (10/14/15 2:42 PM) Mean Arterial 105 mmHg Pressure, Cuff (10/14/15 12:52 PM) SpO2 98 % (10/14/15 2:42 PM) Problem List Condition Effective Dates [...] 10/14/15 Stop Date: 10/24/15 Status: Ordered Results Hematology Most recent to 1 oldest [Reference Range]: WBC [4.8-10.8 8.1 10*3/uL 10*3/uL] (10/14/15 11:41 AM) RBC [4.60-6.20] 4.64 (10/14/15 11:41 AM) Hgb [14.0-18.0 12.4 gm/dL gm/dL] *LOW* (10/14/15 11:41 AM) Hct [42.0-52.0 %] 36.6 % *LOW* (10/14/15 11:41 AM) MCV [82.0-99.0 fL] 78.9 fL *LOW* (10/14/15 11:41 AM) MCH [27.0-32.0 pg] 26.7 pg *LOW* (10/14/15 11:41 AM) MCHC [32.0-36.0 33.9 gm/dL gm/dL] (10/14/15 11:41 AM) RDW [11.5-14.5 %] 16.7 % *HI* (10/14/15 11:41 AM) Platelet [150-400 324 10*3/uL 10*3/uL] (10/14/15 11:41 AM) MPV [9.4-12.3 fL] 10.6 fL (10/14/15 11:41 AM) Immature 0.1 % Granulocytes (10/14/1541 AM) [0.0-1.0 %] Neutrophils [51-75 67 % %] (10/14/15 11:41 AM) Lymphocytes [20-46 20 % %] (10/14/1541 AM) Monocytes [4-11 %] 11 % (10/14/15 11:41 AM) Eosinophils [0-4 %] 2 % (10/14/1541 AM) Basophils [0-2 %] 0 % (10/14/15:41 AM) Neutro Absolute 5.48 10*3 [1.90-7.00 10*3] (10/14/15:41 AM) Lymph Absolute 1.60 10*3 [0.80-3.30 10*3] (10/14/15:41 AM) [place] Absolute 0.86 10*3 [0.30-1.00 10*3] (10/14/15:41 AM) Eos Absolute 0.16 10*3 [0.00-0.50 10*3] (10/14/15 11:41 AM) Baso Absolute 0.03 10*3 [0.00-0.20 10*3] (10/14/15 11:41 AM) Chemistry Most recent to 1 oldest [Reference Range]: Sodium Lvl [136-144 139 mEq/L mEq/L] (10/14/15 AM) Potassium Lvl 3.7 mEq/L [3.6-5.1 mEq/L] (10/14/15:41 AM) Chloride [99-109 104 mEq/L mEq/L] (10/14/15:41 AM) CO2 [22-32 mEq/L] 25 mEq/L (10/14/1541 AM) AGAP [3-20] 10 (10/14/15 11:41 AM) BUN [4-20 mg/dL] 7 mg/dL (10/14/15:41 AM) Glucose Lvl [70-100 80 mg/dL mg/dL] (10/14/15 11:41 AM) Creatinine Lvl 0.87 mg/dL [0.64-1.27 mg/dL] (10/14/15 11:41 AM) eGFR [>60] >60 1 (10/14/15 11:41 AM) Calcium Lvl 9.1 mg/dL [8.6-10.0 mg/dL] (10/14/15 11:41 AM) Albumin Lvl [3.5-4.8 3.8 gm/dL gm/dL] (10/14/15 11:41 AM) Total Protein 6.6 gm/dL [6.1-7.9 gm/dL] (10/14/15 11:41 AM) Globulin [1.9-4.3 2.8 gm/dL gm/dL] (10/14/15 11:41 AM) ALT [17-63 U/L] 25 U/L (10/14/15 11:41 AM) AST [15-41 U/L] 20 U/L (10/14/15 11:41 AM) Alk Phos [26-104 118 U/L U/L] *HI* (10/14/15 11:41 AM) Bili Total [0.2-1.2 0.4 mg/dL 2 mg/dL] (10/14/15 11:41 AM) Lipase Lvl [8-48 25 U/L U/L] (10/14/15 11:41 AM) 1Result Comment: Multiply eGFR results by [...]
--- OUTSIDE RECORDS SUMMARY | 2016-12-15 00:03 | XMS REPORT | Referral Summary ---
Author Author [facility] Organization [facility] Address Unknown Phone Unavailable Care Team Providers Care Vtc Technician Name Role Phone No PCP, Pt States Primary Care Physician [phone] Encounter VC FELIPA [id number] Date(s): 09/17/15 - 09/18/[address] [facility] [address] [place] [address]- [place] Discharge Disposition: Left Against Medical Advice Vital Signs Most recent to 1 oldest [Reference Range]: Temperature Oral 37.0 degC [35.8-37.3 degC] (09/17/15 11:25 PM) Peripheral Pulse 104 bpm Rate [60-100 bpm] *HI* (09/17/15 11:25 PM) Respiratory Rate 14 br/min [14-20 br/min] (09/17/15 11:25 PM) Blood Pressure 139/73 mmHg [90-140/60-90 mmHg] (09/17/15 11:25 PM) SpO2 99 % (09/17/15 11:25 PM) Problem List Condition Effective Dates Status [...]
--- OUTSIDE RECORDS SUMMARY | 2016-12-15 00:03 | XMS REPORT | Referral Summary ---
Author Author [facility] Organization [facility] Address Unknown Phone Unavailable Care Team Providers Care Mental Health Coordinator Name Role Phone No PCP, Pt States Primary Care Physician [phone] Encounter VC Date(s): 03/22/16 - 03/22/[address] [facility] [address] [place] [address] [phone] Discharge Disposition: Against Medical Advice Attending Physician: Will Paul MD Admitting Physician: Will Paul MD Vital Signs Most recent to 1 oldest [Reference Range]: Temperature Oral 36.2 degC [35.8-37.3 degC] (03/22/16 10:26 PM) Peripheral Pulse 117 bpm Rate [60-100 bpm] *HI* (03/22/16 10:26 PM) Respiratory Rate 16 br/min [14-20 br/min] (03/22/16 10:26 PM) Blood Pressure 129/84 mmHg [90-140/60-90 mmHg] (03/22/16 10:26 PM) SpO2 97 % (03/22/16 10:26 PM) Problem List Condition Effective Dates Status [...] Medium Active traMADol Itching Active Swelling Medications Bentyl 10 mg oral capsule 10 mg 1 caps, Oral, QID, Abdominal Cramping, # 40 caps, 0 Refill(s), Pharmacy: [id number], 1 caps Oral QID,x10 days,PRN:Abdominal Cramping Start Date: 03/03/16 Stop Date: 03/13/16 Status: Ordered Norvasc 5 mg oral tablet 5 mg 1 tabs, Oral, Daily, 0 Refill(s) Start Date: 02/21/16 Status: Ordered oxyCODONE 15 mg oral tablet 30 mg 2 tabs, Oral, q6hr, Pain Severe (7-10), 0 Refill(s) Start Date: 02/21/16 Status: Ordered predniSONE 10 mg oral tablet 10 mg 1 tabs, Oral, Daily, 4 tabs po daily for 3 days, then 3 tabs po daily for 3 days, then 2 tabs po daily for 3 days, then 1 tab po daily for 3 days., # 20 tabs, 0 Refill(s), other reason (Rx) Start Date: 02/21/16 Status: Ordered Protonix 40 mg oral delayed release tablet 40 mg 1 tabs, Oral, Before Breakfast, 0 Refill(s) Start Date: 02/21/16 Status: Ordered Zofran 4 mg oral tablet 4 mg 1 tabs, Oral, q6hr, Nausea or Vomiting, 0 Refill(s) Start Date: 02/21/16 Status: Ordered Results No data available for [...]
--- OUTSIDE RECORDS SUMMARY | 2016-12-15 00:03 | XMS REPORT | Referral Summary ---
Author Author [facility] Organization [facility] Address Unknown Phone Unavailable Care Team Providers Care Quarrying Manager Name Role Phone No PCP, Pt States Primary Care Physician [phone] Encounter VC Date(s): 10/27/15 - 10/27/[address] [facility] [address] [place] [address]- [place] Discharge Diagnosis: Hypokalemia Discharge Diagnosis: Abdominal pain Discharge Disposition: 01-Home or Self Care Attending Physician: Skinny Bloom MD Admitting Physician: Sandeep Tyson MD Vital Signs Most recent to 1 oldest [Reference Range]: Temperature Oral 37.5 degC [35.8-37.3 degC] *HI* (10/27/15 3:43 PM) Peripheral Pulse 92 bpm Rate [60-100 bpm] (10/27/15 5:07 PM) Heart Rate Monitored 79 bpm [60-100 bpm] (10/27/15 5:25 PM) Respiratory Rate 18 br/min [14-20 br/min] (10/27/15 5:07 PM) Blood Pressure 137/71 mmHg [90-140/60-90 mmHg] (10/27/15 5:25 PM) Mean Arterial 90 mmHg Pressure, Cuff (10/27/15 5:25 PM) SpO2 98 % (10/27/15 5:07 PM) Problem List Condition Effective Dates Status [...] predniSONE 10 mg oral tablet See Instructions, Take 40 mg by mouth daily 4 days;then take 30 mg by mouth daily 2 days;then take 20 mg by mouth daily 2 days; then take 10 mg by mouth daily 2 days, # 28 tabs, 0 Refill(s) Start Date: 10/28/15 Stop Date: 11/06/15 Status: Ordered predniSONE 20 mg oral tablet 40 mg 2 tabs, Oral, Daily, X 3 days, # 6 tabs, 0 Refill(s), Pharmacy: [id number], 2 tabs Oral Daily,x3 days Start Date: 10/27/15 Stop Date: 10/30/15 Status: Ordered Results Chemistry Most recent to 1 oldest [Reference Range]: Sodium Lvl [136-144 140 mEq/L mEq/L] (10/27/15 4:02 PM) Potassium Lvl 3.3 mEq/L [3.6-5.1 mEq/L] *LOW* (10/27/15 4:02 PM) Chloride [99-109 105 mEq/L mEq/L] (10/27/15 4:02 PM) CO2 [22-32 mEq/L] 27 mEq/L (10/27/15 4:02 PM) AGAP [3-20] 8 (10/27/15 4:02 PM) BUN [4-20 mg/dL] 4 mg/dL (10/27/15 4:02 PM) Glucose Lvl [70-100 112 mg/dL mg/dL] *HI* (10/27/15 4:02 PM) Creatinine Lvl 0.90 mg/dL [0.64-1.27 mg/dL] (10/27/15 4:02 PM) eGFR [>60] >60 1 (10/27/15 4:02 PM) Calcium Lvl 9.1 mg/dL [8.6-10.0 mg/dL] (10/27/15 4:02 PM) Albumin Lvl [3.5-4.8 4.0 gm/dL gm/dL] (10/27/15 4:02 PM) Total Protein 7.1 gm/dL [6.1-7.9 gm/dL] (10/27/15 4:02 PM) Globulin [1.9-4.3 3.1 gm/dL gm/dL] (10/27/15 4:02 PM) ALT [17-63 U/L] 18 U/L (10/27/15 4:02 PM) AST [15-41 U/L] 15 U/L (10/27/15 4:02 PM) Alk Phos [26-104 125 U/L U/L] *HI* (10/27/15 4:02 PM) Bili Total [0.2-1.2 0.7 mg/dL 2 mg/dL] (10/27/15 4:02 PM) 1Result Comment: Multiply eGFR results by 1.21 for race. 2Result Comment: Naproxen, specifically the metabolite O-desmethylnaproxen, may cause spurious elevation in Total Bilirubin levels. Urinalysis Most recent to 1 oldest [Reference Range]: Type Venous (10/27/15 4:00 PM) Immunizations Vaccine Date Refusal Reason tetanus-diphth [...]
--- OUTSIDE RECORDS SUMMARY | 2016-12-15 00:03 | XMS REPORT | Referral Summary ---
Author Author [facility] Organization [facility] Address Unknown Phone Unavailable Care Team Providers Care Credit Union Examiner Name Role Phone No PCP, Pt States Primary Care Physician [phone] Encounter VC Date(s): 12/01/14 - 12/01/14 [facility] [address] [place], [place] [address] Final: ABDOMINAL PAIN, UNSPECIFIED SITE Discharge Diagnosis: Abdominal pain Discharge Disposition: 01-Home or Self Care Attending Physician: Corey Tijerina MD Admitting Physician: Corey Tijerina MD Referring Physician: Self Referred, X Vital Signs Most recent to 1 oldest [Reference Range]: Temperature Oral 37.4 degC [35.8-37.3 degC] *HI* (12/01/14 3:19 PM) Peripheral Pulse 110 bpm Rate [60-100 bpm] *HI* (12/01/14 7:48 PM) Respiratory Rate 18 br/min [14-20 br/min] (12/01/14 7:48 PM) Blood Pressure 140/86 mmHg [90-140/60-90 mmHg] (12/01/14 7:48 PM) SpO2 96 % (12/01/14 7:48 PM) Problem List Condition Effective Dates Status [...] Medium Active Toradol Hives Medium Active Medications Medrol Dosepak 4 mg oral tablet 1 packets, Oral, Once, as directed on package labeling, # 21 tabs, 0 Refill(s) Start Date: 06/08/15 Status: Ordered Percocet 2.5/325 oral tablet 1 tabs, Oral, q6hr, as needed for pain, # 24 tabs, 0 Refill(s) Start Date: 04/25/15 Stop Date: 04/26/16 Status: Ordered Percocet 5/325 oral tablet 1 tabs, Oral, q4hr, as needed for pain, # 12 tabs, 0 Refill(s) Start Date: 06/08/15 Status: Ordered predniSONE 20 mg oral tablet 40 mg 2 tabs, Oral, Daily, # 10 tabs, 0 Refill(s) Start Date: 04/25/15 Stop Date: 04/26/16 Status: Ordered Results Hematology Most recent to 1 oldest [Reference Range]: WBC [4.8-10.8 8.6 10*3/uL 10*3/uL] (12/01/14 6:33 PM) RBC [4.60-6.20 5.08 10*6/uL 10*6/uL] (12/01/14 6:33 PM) Hgb [14.0-18.0 13.6 gm/dL gm/dL] *LOW* (12/01/14 6:33 PM) Hct [42.0-52.0 %] 39.8 % *LOW* (12/01/14 6:33 PM) MCV [82.0-99.0 fL] 78.3 fL *LOW* (12/01/14 6:33 PM) MCH [27.0-32.0 pg] 26.8 pg *LOW* (12/01/14 6:33 PM) MCHC [32.0-36.0 34.2 gm/dL gm/dL] (12/01/14 6:33 PM) RDW [11.5-14.5 %] 16.1 % *HI* (12/01/14 6:33 PM) Platelet [150-400 286 10*3/uL 10*3/uL] (12/01/14 6:33 PM) MPV [9.4-12.3 fL] 11.7 fL (12/01/14 6:33 PM) Immature 0.2 % Granulocytes (12/01/14 6:33 PM) [0.0-1.0 %] Neutrophils [51-75 77 % %] *HI* (12/01/14 6:33 PM) Lymphocytes [20-46 16 % %] *LOW* (12/01/14 6:33 PM) Monocytes [4-11 %] 7 % (12/01/14 6:33 PM) Eosinophils [0-4 %] 0 % (12/01/14 6:33 PM) Basophils [0-2 %] 0 % (12/01/14 6:33 PM) Neutro Absolute 6.61 10*3 [1.90-7.00 10*3] (12/01/14 6:33 PM) Lymph Absolute 1.33 10*3 [0.80-3.30 10*3] (12/01/14 6:33 PM) [place] Absolute 0.57 10*3 [0.30-1.00 10*3] (12/01/14 6:33 PM) Eos Absolute 0.03 10*3 [0.00-0.50 10*3] (12/01/14 6:33 PM) Baso Absolute 0.02 10*3 [0.00-0.20 10*3] (12/01/14 6:33 PM) Chemistry Most recent to 1 oldest [Reference Range]: Sodium Lvl [136-144 141 mEq/L mEq/L] (12/01/14 6:33 PM) Potassium Lvl 3.6 mEq/L [3.6-5.1 mEq/L] (12/01/14 6:33 PM) Chloride [99-109 106 mEq/L mEq/L] (12/01/14 6:33 PM) CO2 [22-32 mEq/L] 25 mEq/L (12/01/14 6:33 PM) AGAP [3-20] 10 (12/01/14 6:33 PM) BUN [4-20 mg/dL] 9 mg/dL (12/01/14 6:33 PM) Glucose Lvl [70-100 88 mg/dL mg/dL] (12/01/14 6:33 PM) Creatinine Lvl 0.84 mg/dL [0.64-1.27 mg/dL] (12/01/14 6:33 PM) eGFR [>60] >60 1 (12/01/14 6:33 PM) Calcium Lvl 9.0 mg/dL [8.6-10.0 mg/dL] (12/01/14 6:33 PM) Albumin Lvl [3.5-4.8 4.1 gm/dL gm/dL] (12/01/14 6:33 PM) Total Protein 7.4 gm/dL [6.1-7.9 gm/dL] (12/01/14 6:33 PM) Globulin [1.9-4.3 3.3 gm/dL gm/dL] (12/01/14 6:33 PM) ALT [17-63 U/L] 25 U/L (12/01/14 6:33 PM) AST [15-41 U/L] 27 U/L (12/01/14 6:33 PM) Alk Phos [26-104 143 U/L U/L] *HI* (12/01/14 6:33 PM) Bili Total [0.2-1.2 0.7 mg/dL 2 mg/dL] (12/01/14 6:33 PM) Lipase Lvl [8-48 22 U/L U/L] (12/01/14 6:33 PM) Occult Blood, Stool Positive NPT [Negative] *ABN* (12/01/14 5:56 PM) 1Result Comment: Multiply eGFR results by 1.21 for race. 2Result Comment: Naproxen, specifically the metabolite O-desmethylnaproxen, may cause spurious elevation in Total Bilirubin levels. Urinalysis Most recent to 1 oldest [Reference Range]: UA Color Yellow (12/01/14 6:33 PM) UA Appear Clear (12/01/14 6:33 PM) UA pH [5.0-8.0] 7.0 (5/16/15 6:33 PM) UA Leuk Est Negative [Negative] (12/01/14 6:33 PM) UA Nitrite Negative [Negative] (12/01/14 6:33 PM) UA Protein Negative [Negative] (12/01/14 6:33 PM) UA Glucose Negative [Negative] (12/01/14 6:33 PM) UA Ketones Negative [Negative] (12/01/14 6:33 PM) UA Urobilinogen Negative [<1.0] (12/01/14 6:33 PM) UA Bili [Negative] Negative (12/01/14 6:33 PM) UA Blood [Negative] Negative (12/01/14 6:33 PM) UA Spec Grav 1.020 [1.003-1.030] (12/01/14 6:33 PM) Type Clean Catch (12/01/14 6:33 PM) Immunizations Vaccine Date Refusal Reason tetanus-diphth [...]
--- OUTSIDE RECORDS SUMMARY | 2016-12-15 00:03 | XMS REPORT | Referral Summary ---
Author Organization Unknown Address Unknown Phone Unavailable Care Team Providers Care Lowerator Operator Name Role Phone No PCP, States Primary Care Physician [phone] Encounter VC Date(s): 08/03/14 - 08/04/14 [facility] [address] [place] [address] Discharge Diagnosis: Vomiting Discharge Diagnosis: Diarrhea Discharge Diagnosis: Nausea Discharge Disposition: Home or Self Care Attending Physician: Will Paul MD Admitting Physician: Will Paul MD Vital Signs Most recent to 1 oldest [Reference Range]: Temperature Oral 36.6 degC [35.8-37.3 degC] (08/03/14 10:50 PM) Peripheral Pulse 90 bpm Rate [60-100 bpm] (08/04/14 4:45 AM) Heart Rate Monitored 88 bpm [60-100 bpm] (08/04/14 3:00 AM) Respiratory Rate 16 br/min [14-20 br/min] (08/03/14 10:50 PM) Blood Pressure 156/88 mmHg [90-140/60-90 mmHg] *HI* (08/04/14 4:45 AM) Mean Arterial 106 mmHg Pressure, Cuff (08/04/14 3:00 AM) Most recent to 1 oldest [Reference Range]: SpO2 98 % (08/04/14 4:45 AM) Problem List Condition Effective Dates Status [...] 1 oldest [Reference Range]: WBC [4.8-10.8 K/uL] 7.5 K/uL (08/04/14 3:28 AM) RBC [4.60-6.20 M/uL] 4.64 M/uL (08/04/14 3:28 AM) Hgb [14.0-18.0 12.9 gm/dL gm/dL] *LOW* (08/04/14 3:28 AM) Hct [42.0-52.0 %] 38.4 % *LOW* (08/04/14 3:28 AM) MCV [82.0-99.0 fL] 82.8 fL (08/04/14 3:28 AM) MCH [27.0-32.0 pg] 27.8 pg (08/04/14 3:28 AM) MCHC [32.0-36.0 33.6 gm/dL gm/dL] (08/04/14 3:28 AM) RDW [11.5-14.5 %] 16.8 % *HI* (08/04/14 3:28 AM) Platelet [150-400 205 K/uL K/uL] (08/04/14 3:28 AM) MPV [9.4-12.3 fL] 10.8 fL (08/04/14 3:28 AM) Immature 0.3 % Granulocytes (08/04/14 3:28 AM) [0.0-1.0 %] Neutrophils [51-75 63 % %] (08/04/14 3:28 AM) Lymphocytes [20-46 27 % %] (08/04/14 3:28 AM) Monocytes [4-11 %] 7 % (08/04/14 3:28 AM) Eosinophils [0-4 %] 2 % (08/04/14 3:28 AM) Basophils [0-2 %] 0 % (08/04/14 3:28 AM) Neutro Absolute 4.75 THOUS [1.90-7.00 THOUS] (08/04/14 3:28 AM) Lymph Absolute 2.02 THOUS [0.80-3.30 THOUS] (08/04/14 3:28 AM) [place] Absolute 0.52 THOUS [0.30-1.00 THOUS] (08/04/14 3:28 AM) Eos Absolute 0.15 THOUS [0.00-0.50 THOUS] (08/04/14 3:28 AM) Baso Absolute 0.02 THOUS [0.00-0.20 THOUS] (08/04/14 3:28 AM) Nucleated RBC 0.0 /100 WBC Automated [0 /100 (08/04/14 3:28 AM) WBC] Chemistry Most recent to 1 oldest [Reference Range]: Sodium Lvl [136-144 144 mEq/L mEq/L] (08/04/14 3:28 AM) Potassium Lvl 3.3 mEq/L [3.6-5.1 mEq/L] *LOW* (08/04/14 3:28 AM) Chloride [99-109 106 mEq/L mEq/L] (08/04/14 3:28 AM) CO2 [22-32 mEq/L] 30 mEq/L (08/04/14 3:28 AM) AGAP [3-20] 8 (08/04/14 3:28 AM) BUN [4-20 mg/dL] 5 mg/dL (08/04/14 3:28 AM) Glucose Lvl [70-100 86 mg/dL mg/dL] (08/04/14 3:28 AM) Creatinine Lvl 0.81 mg/dL [0.64-1.27 mg/dL] (08/04/14 3:28 AM) eGFR [>60] >60 2 (08/04/14 3:28 AM) Calcium Lvl 8.9 mg/dL [8.6-10.0 mg/dL] (08/04/14 3:28 AM) Albumin Lvl [3.5-4.8 3.7 gm/dL gm/dL] (08/04/14 3:28 AM) Total Protein 6.2 gm/dL [6.1-7.9 gm/dL] (08/04/14 3:28 AM) Globulin [1.9-4.3 2.5 gm/dL gm/dL] (08/04/14 3:28 AM) ALT [17-63 unit/L] 17 unit/L (08/04/14 3:28 AM) AST [15-41 unit/L] 16 unit/L (08/04/14 3:28 AM) Alk Phos [26-104 77 unit/L unit/L] (08/04/14 3:28 AM) Bili Total [0.2-1.2 0.6 mg/dL 1 mg/dL] (08/04/14 3:28 AM) Lipase Lvl [8-48 25 unit/L unit/L] (08/04/14 3:28 AM) 1Result Comment: Naproxen, specifically the metabolite O-desmethylnaproxen, may cause spurious elevation in Total Bilirubin levels. 2Result Comment: Multiply eGFR results by 1.21 for race. Urinalysis Most recent to 1 oldest [Reference Range]: UA Color Lt Yellow (08/04/14 3:28 AM) UA Appear Clear (08/04/14 3:28 AM) UA pH [5.0-8.0] 7.0 (08/04/14 3:28 AM) UA Leuk Est Negative [Negative] (08/04/14 3:28 AM) UA Nitrite Negative [Negative] (08/04/14 3:28 AM) UA Protein Negative [Negative] (08/04/14 3:28 AM) UA Glucose Negative [Negative] (08/04/14 3:28 AM) UA Ketones Negative [Negative] (08/04/14 3:28 AM) UA Urobilinogen Negative [<1.0] (08/04/14 3:28 AM) UA Bili [Negative] Negative (08/04/14 3:28 AM) UA Blood [Negative] Negative (08/04/14 3:28 AM) UA Spec Grav 1.011 [1.003-1.030] (08/04/14 3:28 AM) Type Clean Catch (08/04/14 3:28 AM) Immunizations Vaccine Date Refusal Reason tetanus-diphth [...]
--- OUTSIDE RECORDS SUMMARY | 2016-12-15 00:03 | XMS REPORT | Referral Summary ---
Author Author [facility] Organization [facility] Address Unknown Phone Unavailable Care Team Providers Care Smog Technician Name Role Phone No PCP, Pt States Primary Care Physician [phone] Encounter [facility] [id number] Date(s): 09/07/16 - 09/07/16 [facility] [address] [place], [place] [address] Discharge Diagnosis: Crohns disease Discharge Diagnosis: Chronic abdominal pain Discharge Disposition: 01-Home or Self Care Attending Physician: Ede Lopez DO Admitting Physician: Ede Lopez DO Referring Physician: Self Referred, X Vital Signs Most recent to 1 oldest [Reference Range]: Temperature Oral 36.7 degC [35.8-37.3 degC] (09/07/16 12:45 AM) Peripheral Pulse 61 bpm Rate [60-100 bpm] (09/07/16 4:19 AM) Heart Rate Monitored 66 bpm [60-100 bpm] (09/07/16 3:40 AM) Respiratory Rate 16 br/min [14-20 br/min] (09/07/16 4:19 AM) Blood Pressure 151/95 mmHg [90-140/60-90 mmHg] *HI* (09/07/16 4:19 AM) Mean Arterial 110 mmHg Pressure, Cuff (09/07/16 3:40 AM) SpO2 98 % (09/07/16 4:19 AM) Problem List Condition Effective Dates Status [...] Daily, # 30 tabs, 0 Refill(s), Pharmacy: [id number], 1 tabs Oral Daily Start Date: 05/19/16 Status: Ordered Percocet 5/325 oral tablet See Instructions, as needed for pain, 1 tabs Oral q4hr, # 12 tabs, 0 Refill(s) Start Date: 06/23/16 Stop Date: 06/23/17 Status: Ordered potassium chloride 20 mEq oral tablet, extended release 20 mEq 1 tabs, Oral, Daily, # 5 tabs, 0 Refill(s) Start Date: 07/23/16 Status: Ordered predniSONE 20 mg oral tablet See Instructions, 3 TABS FOR 2 DAYS, 2 TABS FOR 3 DAYS, 1 TAB FOR 3 DAYS, # 15 tabs, 0 Refill(s) Start Date: 09/07/16 Stop Date: 09/16/16 Status: Ordered Protonix 40 mg oral delayed release tablet 40 mg 1 tabs, Oral, Daily, # 30 tabs, 0 Refill(s) Start Date: 07/23/16 Status: Ordered Zofran ODT 4 mg oral tablet, disintegrating 4 mg 1 tabs, Oral, TID, as needed for nausea/vomiting, # 10 tabs, 0 Refill(s) Start Date: 09/07/16 Status: Ordered Results Hematology Most recent to 1 oldest [Reference Range]: WBC [4.8-10.8 8.2 10*3/uL 10*3/uL] (09/07/16 1:09 AM) RBC [4.60-6.20] 5.03 (09/07/16 1:09 AM) Hgb [14.0-18.0 13.2 gm/dL gm/dL] *LOW* (09/07/16:09 AM) Hct [42.0-52.0 %] 40.0 % *LOW* (09/07/16 1:09 AM) MCV [82.0-99.0 fL] 79.5 fL *LOW* (09/07/16: AM) MCH [27.0-32.0 pg] 26.2 pg *LOW* (09/07/16 1:09 AM) MCHC [32.0-36.0 33.0 gm/dL gm/dL] (09/07/16 1:09 AM) RDW [11.5-14.5 %] 17.3 % *HI* (09/07/16 1:09 AM) Platelet [150-400 299 10*3/uL 10*3/uL] (09/07/16 1:09 AM) MPV [9.4-12.3 fL] 11.6 fL (09/07/16 1:09 AM) Immature 0.2 % Granulocytes (09/07/16 1:09 AM) [0.0-1.0 %] Neutrophils [51-75 64 % %] (09/07/16 1:09 AM) Lymphocytes [20-46 23 % %] (09/07/16 1:09 AM) Monocytes [4-11 %] 9 % (09/07/16 1:09 AM) Eosinophils [0-4 %] 4 % (09/07/16 1:09 AM) Basophils [0-2 %] 0 % (09/07/16 1:09 AM) Neutro Absolute 5.21 [1.90-7.00] (09/07/16 1:09 AM) Lymph Absolute 1.90 [0.80-3.30] (09/07/16 1:09 AM) [place] Absolute 0.74 [0.30-1.00] (09/07/16 1:09 AM) Eos Absolute 0.31 [0.00-0.50] (09/07/16 1:09 AM) Baso Absolute 0.03 [0.00-0.20] (09/07/16 1:09 AM) Nucleated RBC 0.0 /100 WBC Automated [0 /100 (09/07/16 1:09 AM) WBC] Chemistry Most recent to 1 oldest [Reference Range]: Sodium Lvl [136-144 140 mEq/L mEq/L] (09/07/16 1:09 AM) Potassium Lvl 3.3 mEq/L [3.6-5.1 mEq/L] *LOW* (09/07/16 1:09 AM) Chloride [99-109 102 mEq/L mEq/L] (09/07/16 1:09 AM) CO2 [22-32 mEq/L] 28 mEq/L (09/07/16 1:09 AM) AGAP [3-20] 10 (09/07/16 1:09 AM) BUN [4-20 mg/dL] 9 mg/dL (09/07/16 1:09 AM) Glucose Lvl [70-100 89 mg/dL mg/dL] (09/07/16 1:09 AM) Creatinine Lvl 0.95 mg/dL [0.64-1.27 mg/dL] (09/07/16 1:09 AM) eGFR [>60] >60 1 (09/07/16 1:09 AM) Calcium Lvl 9.2 mg/dL [8.6-10.0 mg/dL] (09/07/16 1:09 AM) Albumin Lvl [3.5-4.8 3.9 gm/dL gm/dL] (09/07/16 1:09 AM) Total Protein 6.6 gm/dL [6.1-7.9 gm/dL] (09/07/16 1:09 AM) Globulin [1.9-4.3 2.7 gm/dL gm/dL] (09/07/16 1:09 AM) ALT [17-63 U/L] 23 U/L (09/07/16 1:09 AM) AST [15-41 U/L] 18 U/L (09/07/16 1:09 AM) Alk Phos [26-104 109 U/L U/L] *HI* (09/07/16 1:09 AM) Bili Total [0.2-1.2 0.5 mg/dL 2 mg/dL] (09/07/16 1:09 AM) Lipase Lvl [8-48 22 U/L U/L] (09/07/16 1:09 AM) 1Result Comment: Multiply eGFR results by 1.21 for race. 2Result Comment: Naproxen, specifically the metabolite O-desmethylnaproxen, may cause spurious elevation in Total Bilirubin levels. Urinalysis Most recent to 1 oldest [Reference Range]: UA Color Yellow (09/07/16 3:32 AM) UA Appear Clear (09/07/16 3:32 AM) UA pH [5.0-8.0] 6.0 (09/07/16 3:32 AM) UA Leuk Est Negative [Negative] (09/07/16 3:32 AM) UA Nitrite Negative [Negative] (09/07/16 3:32 AM) UA Protein Negative [Negative] (09/07/16 3:32 AM) UA Glucose Negative [Negative] (09/07/16 3:32 AM) UA Ketones Pos 1+ [Negative] *ABN* (09/07/16 3:32 AM) UA Urobilinogen Negative [<1.0] (09/07/16 3:32 AM) UA Bili [Negative] Negative (09/07/16 3:32 AM) UA Blood [Negative] Negative (09/07/16 3:32 AM) UA Spec Grav >=1.045 [1.003-1.030] *ABN* (09/07/16 3:32 AM) Type Clean Catch (09/07/16 3:32 AM) Immunizations Given and Recorded Vaccine Date Status [...]
--- OUTSIDE RECORDS SUMMARY | 2016-12-15 00:03 | XMS REPORT | Referral Summary ---
Author Author Via [facility] Organization Via [facility] Address Unknown Phone Unavailable Care Team Providers Care Excelsior Machine Tender Name Role Phone No PCP, Pt States Primary Care Physician [phone] Encounter VC Date(s): 12/04/15 - 12/04/15 [facility] [address] [place], [place] [address] Discharge Diagnosis: Crohn's disease Discharge Disposition: Attending Physician: Tulio Shahid MD Admitting Physician: Tulio Shahid MD Vital Signs Most recent to 1 oldest [Reference Range]: Temperature Oral 37.2 degC [35.8-37.3 degC] (12/04/15 2:20 AM) Peripheral Pulse 93 bpm Rate [60-100 bpm] (12/04/15 2:20 AM) Respiratory Rate 16 br/min [14-20 br/min] (12/04/15 2:20 AM) Blood Pressure 156/91 mmHg [90-140/60-90 mmHg] *HI* (12/04/15 2:20 AM) SpO2 97 % (12/04/15 2:20 AM) Problem List Condition Effective Dates Status [...]
--- OUTSIDE RECORDS SUMMARY | 2016-12-15 00:04 | XMS REPORT | Referral Summary ---
Author Author Via [facility] Organization Via [facility] Address Unknown Phone Unavailable Care Team Providers Care Planning And Analysis Manager Name Role Phone No PCP, States Primary Care Physician [phone] Encounter VC Date(s): 02/13/16 - 02/13/[address] [facility] [address], [place] [address] Discharge Diagnosis: Achilles tendon tear Discharge Disposition: 01-Home or Self Care Attending Physician: Fuentes Castro MD Admitting Physician: Fuentes Castro MD Vital Signs Most recent to 1 oldest [Reference Range]: Temperature Oral 37.5 degC [35.8-37.3 degC] *HI* (02/13/16 8:40 AM) Peripheral Pulse 80 bpm Rate [60-100 bpm] (02/13/16 8:40 AM) Respiratory Rate 20 br/min [14-20 br/min] (02/13/16 8:40 AM) Blood Pressure 138/78 mmHg [90-140/60-90 mmHg] (02/13/16 8:40 AM) Problem List Condition Effective Dates Status [...] 0 Refill(s) Start Date: 11/24/15 Status: Ordered traMADol 50 mg oral tablet 50 mg 1 tabs, Oral, q6hr, as needed for pain, # 90 tabs, 0 Refill(s) Start Date: 02/13/16 Stop Date: 02/13/17 Status: Ordered Results No data available for this section Immunizations Vaccine Date Refusal Reason tetanus-diphth toxoids (Td) adult/adol 11/30/02 Procedures Procedure Date Related Diagnosis Body Site Application of short leg cast (below knee to 02/13/16 toes); Colonoscopy Biopsy1 05/18/14 Esophagogastroduodenoscopy Biopsy2 05/18/14 Bowel Resection 2012 Bowel care3 Hip joint operations4 1auto-populated from documented surgical case 2auto-populated from documented surgical case 3bowel resection 4right side Social History Social History Type Response Smoking Status Current every day smoker; Tobacco use per day: 1 Pack Assessment and Plan No data available for this section
--- OUTSIDE RECORDS SUMMARY | 2016-12-15 00:04 | XMS REPORT | Referral Summary ---
Author Author [facility] Organization [facility] Address Unknown Phone Unavailable Care Team Providers Care Cashier Name Role Phone No PCP, Pt States Primary Care Physician [phone] Encounter VC Date(s): 08/26/15 - 08/26/15 [facility] [address] [place], [place] [address] Discharge Diagnosis: Abdominal pain Discharge Diagnosis: GI bleed Discharge Diagnosis: Crohn's disease Discharge Disposition: 01-Home or Self Care Attending Physician: Rafael Azul MD Admitting Physician: Rafael Azul MD Referring Physician: Self Referred, X Vital Signs Most recent to 1 2 oldest [Reference Range]: Temperature Temporal 36.5 degC 36.5 degC Artery [36.3-37.8 (08/26/15 7:07 PM) (08/26/15 7:07 PM) degC] Peripheral Pulse 95 bpm Rate [60-100 bpm] (08/26/15 7:07 PM) Heart Rate Monitored 95 bpm [60-100 bpm] (08/26/15 7:07 PM) Respiratory Rate 16 br/min 16 br/min [14-20 br/min] (08/26/15 7:07 PM) (08/26/15 7:07 PM) Blood Pressure 140/88 mmHg 140/88 mmHg [90-140/60-90 mmHg] (08/26/15 7:07 PM) (08/26/15 7:07 PM) Mean Arterial 98 mmHg Pressure, Cuff (08/26/15 7:07 PM) SpO2 99 % 99 % (08/26/15 7:07 PM) (08/26/15 7:07 PM) Problem List Condition Effective Dates Status [...] # 12 tabs, 0 Refill(s) Start Date: 08/26/15 Stop Date: 08/29/15 Status: Ordered Results Hematology Most recent to 1 oldest [Reference Range]: WBC [4.8-10.8 9.0 10*3/uL 10*3/uL] (08/26/15 5:24 PM) RBC [4.60-6.20] 5.28 (08/26/15 5:24 PM) Hgb [14.0-18.0 13.6 gm/dL gm/dL] *LOW* (08/26/15 5:24 PM) Hct [42.0-52.0 %] 40.8 % *LOW* (08/26/15 5:24 PM) MCV [82.0-99.0 fL] 77.3 fL *LOW* (08/26/15 5:24 PM) MCH [27.0-32.0 pg] 25.8 pg *LOW* (08/26/15 5:24 PM) MCHC [32.0-36.0 33.3 gm/dL gm/dL] (08/26/15 5:24 PM) RDW [11.5-14.5 %] 16.6 % *HI* (08/26/15 5:24 PM) Platelet [150-400 331 10*3/uL 10*3/uL] (08/26/15 5:24 PM) MPV [9.4-12.3 fL] 11.6 fL (08/26/15 5:24 PM) Immature 0.3 % Granulocytes (08/26/15 5:24 PM) [0.0-1.0 %] Neutrophils [51-75 73 % %] (08/26/15 5:24 PM) Lymphocytes [20-46 17 % %] *LOW* (08/26/15 5:24 PM) Monocytes [4-11 %] 8 % (08/26/15 5:24 PM) Eosinophils [0-4 %] 2 % (08/26/15 5:24 PM) Basophils [0-2 %] 0 % (08/26/15 5:24 PM) Neutro Absolute 6.53 10*3 [1.90-7.00 10*3] (08/26/15 5:24 PM) Lymph Absolute 1.56 10*3 [0.80-3.30 10*3] (08/26/15 5:24 PM) Perkins Absolute 0.67 10*3 [0.30-1.00 10*3] (08/26/15 5:24 PM) Eos Absolute 0.15 10*3 [0.00-0.50 10*3] (08/26/15 5:24 PM) Baso Absolute 0.03 10*3 [0.00-0.20 10*3] (08/26/15 5:24 PM) Chemistry Most recent to 1 oldest [Reference Range]: Sodium Lvl [136-144 143 mEq/L mEq/L] (08/26/15 5:24 PM) Potassium Lvl 4.1 mEq/L [3.6-5.1 mEq/L] (08/26/15 5:24 PM) Chloride [99-109 105 mEq/L mEq/L] (08/26/15 5:24 PM) CO2 [22-32 mEq/L] 27 mEq/L (08/26/15 5:24 PM) AGAP [3-20] 11 (08/26/15 5:24 PM) BUN [4-20 mg/dL] 14 mg/dL (08/26/15 5:24 PM) Glucose Lvl [70-100 99 mg/dL mg/dL] (08/26/15 5:24 PM) Creatinine Lvl 0.84 mg/dL [0.64-1.27 mg/dL] (08/26/15 5:24 PM) eGFR [>60] >60 1 (08/26/15 5:24 PM) Calcium Lvl 9.9 mg/dL [8.6-10.0 mg/dL] (08/26/15 5:24 PM) Albumin Lvl [3.5-4.8 4.0 gm/dL gm/dL] (08/26/15 5:24 PM) Total Protein 7.3 gm/dL [6.1-7.9 gm/dL] (08/26/15 5:24 PM) Globulin [1.9-4.3 3.3 gm/dL gm/dL] (08/26/15 5:24 PM) ALT [17-63 U/L] 25 U/L (08/26/15 5:24 PM) AST [15-41 U/L] 18 U/L (08/26/15 5:24 PM) Alk Phos [26-104 96 U/L U/L] (08/26/15 5:24 PM) Bili Total [0.2-1.2 0.5 mg/dL 2 mg/dL] (08/26/15 5:24 PM) Lipase Lvl [8-48 22 U/L U/L] (08/26/15 5:24 PM) 1Result Comment: Multiply eGFR results by 1.21 for race. 2Result Comment: Naproxen, specifically the metabolite O-desmethylnaproxen, may cause spurious elevation in Total Bilirubin levels. Urinalysis Most recent to 1 oldest [Reference Range]: UA Color Yellow (08/26/15 5:24 PM) UA Appear Clear (08/26/15 5:24 PM) UA pH [5.0-8.0] 5.0 (08/26/15 5:24 PM) UA Leuk Est Trace [Negative] *ABN* (08/26/15 5:24 PM) UA Nitrite Negative [Negative] (08/26/15 5:24 PM) UA Protein Negative [Negative] (08/26/15 5:24 PM) UA Glucose Negative [Negative] (08/26/15 5:24 PM) UA Ketones Negative [Negative] (08/26/15 5:24 PM) UA Urobilinogen Negative [<1.0] (08/26/15 5:24 PM) UA Bili [Negative] Negative (08/26/15 5:24 PM) UA Blood [Negative] Negative (08/26/15 5:24 PM) UA Spec Grav 1.025 [1.003-1.030] (08/26/15 5:24 PM) Type Clean Catch (08/26/15 5:24 PM) UA WBC [0-4] 2-5 (08/26/15 5:24 PM) UA RBC [0-2] 0-2 (08/26/15 5:24 PM) Epithelial Cells 0-2 (08/26/15 5:24 PM) UA Mucous Present (08/26/15 5:24 PM) Immunizations Vaccine Date Refusal Reason tetanus-diphth [...]
--- OUTSIDE RECORDS SUMMARY | 2016-12-15 00:04 | XMS REPORT | Referral Summary ---
Author Author [facility] Organization [facility] Address Unknown Phone Unavailable Care Team Providers Care Loader Demolder Name Role Phone No PCP, Pt States Primary Care Physician [phone] Encounter [facility] [id number] Date(s): 04/25/15 - 04/25/15 [facility] [address] [place] [address] Discharge Diagnosis: Crohn disease Discharge Diagnosis: Acute abdominal pain Discharge Disposition: 01-Home or Self Care Attending Physician: Miriam Jaimes DO Admitting Physician: Miriam Jaimes DO Vital Signs Most recent to 1 oldest [Reference Range]: Temperature Oral 37.0 degC [35.8-37.3 degC] (04/25/15 2:18 AM) Peripheral Pulse 74 bpm Rate [60-100 bpm] (04/25/15 6:57 AM) Heart Rate Monitored 74 bpm [60-100 bpm] (04/25/15 5:33 AM) Respiratory Rate 18 br/min [14-20 br/min] (04/25/15 6:57 AM) Blood Pressure 128/78 mmHg [90-140/60-90 mmHg] (04/25/15 6:57 AM) SpO2 99 % (04/25/15 6:57 AM) Problem List Condition Effective Dates Status [...] Medium Active Toradol Hives Medium Active Medications Cipro 500 mg oral tablet 500 mg 1 tabs, Oral, q12hr, X 10 days, # 20 tabs, 0 Refill(s) Start Date: 04/25/15 Stop Date: 05/05/15 Status: Ordered Percocet 2.5/325 oral tablet 1 tabs, Oral, q6hr, as needed for pain, # 24 tabs, 0 Refill(s) Start Date: 04/25/15 Stop Date: 04/26/16 Status: Ordered predniSONE 20 mg oral tablet 40 mg 2 tabs, Oral, Daily, # 10 tabs, 0 Refill(s) Start Date: 04/25/15 Stop Date: 04/26/16 Status: Ordered Results Hematology Most recent to 1 oldest [Reference Range]: WBC [4.8-10.8 8.4 10*3/uL 10*3/uL] (04/25/15 3:32 AM) RBC [4.60-6.20] 4.25 *LOW* (04/25/15 3:32 AM) Hgb [14.0-18.0 11.0 gm/dL gm/dL] *LOW* (04/25/15 3:32 AM) Hct [42.0-52.0 %] 33.4 % *LOW* (04/25/15 3:32 AM) MCV [82.0-99.0 fL] 78.6 fL *LOW* (04/25/15 3:32 AM) MCH [27.0-32.0 pg] 25.9 pg *LOW* (04/25/15 3:32 AM) MCHC [32.0-36.0 32.9 gm/dL gm/dL] (04/25/15 3:32 AM) RDW [11.5-14.5 %] 16.6 % *HI* (04/25/15 3:32 AM) Platelet [150-400 298 10*3/uL 10*3/uL] (04/25/15 3:32 AM) MPV [9.4-12.3 fL] 10.8 fL (04/25/15 3:32 AM) Immature 0.1 % Granulocytes (04/25/15 3:32 AM) [0.0-1.0 %] Neutrophils [51-75 60 % %] (04/25/15 3:32 AM) Lymphocytes [20-46 28 % %] (04/25/15 3:32 AM) Monocytes [4-11 %] 9 % (04/25/15 3:32 AM) Eosinophils [0-4 %] 4 % (04/25/15 3:32 AM) Basophils [0-2 %] 0 % (04/25/15 3:32 AM) Neutro Absolute 5.03 10*3 [1.90-7.00 10*3] (04/25/15 3:32 AM) Lymph Absolute 2.32 10*3 [0.80-3.30 10*3] (04/25/15 3:32 AM) Mills Absolute 0.75 10*3 [0.30-1.00 10*3] (04/25/15 3:32 AM) Eos Absolute 0.30 10*3 [0.00-0.50 10*3] (04/25/15 3:32 AM) Baso Absolute 0.01 10*3 [0.00-0.20 10*3] (04/25/15 3:32 AM) Nucleated RBC 0.0 /100 WBC Automated [0 /100 (04/25/15 3:32 AM) WBC] Chemistry Most recent to 1 oldest [Reference Range]: Sodium Lvl [136-144 139 mEq/L mEq/L] (04/25/15 3:32 AM) Potassium Lvl 3.9 mEq/L 1 [3.6-5.1 mEq/L] (04/25/15 3:32 AM) Chloride [99-109 108 mEq/L mEq/L] (04/25/15 3:32 AM) CO2 [22-32 mEq/L] 28 mEq/L (04/25/15 3:32 AM) AGAP [3-20] 3 (04/25/15 3:32 AM) BUN [4-20 mg/dL] 6 mg/dL (04/25/15 3:32 AM) Glucose Lvl [70-100 90 mg/dL mg/dL] (04/25/15 3:32 AM) Creatinine Lvl 0.96 mg/dL [0.64-1.27 mg/dL] (04/25/15 3:32 AM) eGFR [>60] >60 2 (04/25/15 3:32 AM) Calcium Lvl 8.4 mg/dL [8.6-10.0 mg/dL] *LOW* (04/25/15 3:32 AM) Albumin Lvl [3.5-4.8 3.5 gm/dL gm/dL] (04/25/15 3:32 AM) Total Protein 6.4 gm/dL [6.1-7.9 gm/dL] (04/25/15 3:32 AM) Globulin [1.9-4.3 2.9 gm/dL gm/dL] (04/25/15 3:32 AM) ALT [17-63 U/L] 36 U/L (04/25/15 3:32 AM) AST [15-41 U/L] 33 U/L (04/25/15 3:32 AM) Alk Phos [26-104 135 U/L U/L] *HI* (04/25/15 3:32 AM) Bili Total [0.2-1.2 0.9 mg/dL 3 mg/dL] (04/25/15 3:32 AM) 1Result Comment: Specimen is grossly hemolyzed. All results should be interpreted with caution. 2Result Comment: Multiply eGFR results by 1.21 [...]
--- OUTSIDE RECORDS SUMMARY | 2016-12-15 00:04 | XMS REPORT | Referral Summary ---
Author Author Via [facility] Organization [facility] Address Unknown Phone Unavailable Care Team Providers Care Nurse Advisor Name Role Phone No PCP, Pt States Primary Care Physician [phone] Encounter VC Date(s): 12/26/15 - 12/27/15 [facility] [address] [place] [address] Discharge Diagnosis: Crohn's disease Discharge Diagnosis: Acute abdominal pain Discharge Disposition: Attending Physician: Wild Ladd MD Admitting Physician: Wild Ladd MD Vital Signs Most recent to 1 oldest [Reference Range]: Temperature Oral 36.8 degC [35.8-37.3 degC] (12/26/15 11:18 PM) Peripheral Pulse 84 bpm Rate [60-100 bpm] (12/27/15 12:41 AM) Respiratory Rate 16 br/min [14-20 br/min] (12/27/15 12:41 AM) Blood Pressure 110/75 mmHg [90-140/60-90 mmHg] (12/27/15 12:41 AM) SpO2 99 % (12/27/15 12:41 AM) Problem List Condition Effective Dates Status [...]
--- OUTSIDE RECORDS SUMMARY | 2016-12-15 00:04 | XMS REPORT | Referral Summary ---
Author Author Via [facility] Organization [facility] Address Unknown Phone Unavailable Care Team Providers Care Drawing Supervisor Name Role Phone No PCP, Pt States Primary Care Physician [phone] Encounter [facility] [id number] Date(s): 04/25/15 - 04/25/15 [facility] [address] [place] [address] Final: Crohn's disease, unspecified, without complications Final: Acute abdomen Discharge Diagnosis: Crohn disease Discharge Diagnosis: Acute [...] Date: 10/28/15 Stop Date: 11/06/15 Status: Ordered Results Hematology Most recent to [...] 2.32 10*3 [0.80-3.30 10*3] (04/25/15 3:32 AM) Henry Absolute 0.75 10*3 [0.30-1.00 10*3] (04/25/15 3:32 [...]
--- OUTSIDE RECORDS SUMMARY | 2016-12-15 00:04 | XMS REPORT | Referral Summary ---
Author Author [facility] Organization [facility] Address Unknown Phone Unavailable Care Team Providers Care Grocery Stocker Name Role Phone No PCP, Pt States Primary Care Physician [phone] Encounter VC Date(s): 06/08/15 - 06/08/15 [facility] [address] [place], [place] [address] Discharge Diagnosis: Crohn's disease Discharge Diagnosis: Chronic abdominal pain Discharge Disposition: 01-Home or Self Care Attending Physician: Tulio Shahid MD Admitting Physician: Tulio Shahid MD Vital Signs Most recent to 1 oldest [Reference Range]: Temperature Oral 37.3 degC [35.8-37.3 degC] (06/08/15 10:12 AM) Peripheral Pulse 86 bpm Rate [60-100 bpm] (06/08/15 12:56 PM) Respiratory Rate 18 br/min [14-20 br/min] (06/08/15 12:56 PM) Blood Pressure 148/71 mmHg [90-140/60-90 mmHg] *HI* (06/08/15 12:56 PM) SpO2 99 % (06/08/15 12:56 PM) Problem List Condition Effective Dates Status [...] 04/25/15 Stop Date: 04/26/16 Status: Ordered Results Chemistry Most recent to 1 oldest [Reference Range]: Sodium Venous 142 mEq/L [136-144 mEq/L] (06/08/15 10:34 AM) Potassium Venous 3.6 mEq/L 1 [3.6-5.1 mEq/L] (06/08/15 10:34 AM) Calcium Ionized 1.18 mmol/L Venous [1.19-1.41 *LOW* mmol/L] (06/08/15 10:34 AM) Total CO2 Venous 26 mEq/L [25-29 mEq/L] (06/08/15 10:34 AM) HGB Venous NPT 14.3 gm/dL [14.0-18.0 gm/dL] (06/08/15 10:34 AM) HCT Venous 42.0 % [42.0-52.0 %] (06/08/15 10:34 AM) Glucose Venous 103 mg/dL [70-100 mg/dL] *HI* (06/08/15 10:34 AM) BUN Venous [4-20] 3 *LOW* (06/08/15 10:34 AM) Creatinine Venous 0.7 mg/dL [0.7-1.2 mg/dL] (06/08/15 10:34 AM) Venous CL [99-109 102 mEq/L mEq/L] (06/08/15 10:34 AM) Anion Gap, Jt 14 [3-20] (06/08/15 10:34 AM) 1Result Comment: This test was performed on a whole blood specimen. The presence or absence of hemolysis cannot be assessed. Hemolysis can falsely elevate potassium levels. Normals are for venous specimens only. Urinalysis Most recent to 1 oldest [Reference Range]: Type Venous (06/08/15 10:20 AM) Immunizations Vaccine Date Refusal Reason tetanus-diphth [...]
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
--- OUTSIDE RECORDS SUMMARY | 2016-12-15 00:04 | XMS REPORT | Referral Summary ---
Author Author Via [facility] Organization [facility] Address Unknown Phone Unavailable Care Team Providers Care Core Dipper Name Role Phone No PCP, Pt States Primary Care Physician [phone] Encounter VC Date(s): 06/25/15 - 06/25/15 [facility] [address] [place] [address] Discharge Diagnosis: Crohns disease Discharge Diagnosis: Left against medical advice Discharge Diagnosis: Chronic abdominal pain Discharge Disposition: Left Against Medical Advice Attending Physician: Fuentes Amador MD Admitting Physician: Fuentes Amador MD Vital Signs Most recent to 1 oldest [Reference Range]: Temperature Oral 37.0 degC [35.8-37.3 degC] (06/25/15 8:57 AM) Peripheral Pulse 97 bpm Rate [60-100 bpm] (06/25/15 8:57 AM) Respiratory Rate 18 br/min [14-20 br/min] (06/25/15 8:57 AM) Blood Pressure 139/89 mmHg [90-140/60-90 mmHg] (06/25/15 8:57 AM) SpO2 98 % (06/25/15 8:57 AM) Problem List Condition Effective Dates Status [...]
--- OUTSIDE RECORDS SUMMARY | 2016-12-15 00:04 | XMS REPORT | Referral Summary ---
Author Organization Unknown Address Unknown Phone Unavailable Care Team Providers Care Soap Maker Name Role Phone No PCP, [facility] Primary Care Physician [phone] Encounter VC Date(s): 08/30/14 - 08/30/14 [facility] [address] [place] [address] Discharge Diagnosis: Crohn's disease Discharge Diagnosis: Chronic abdominal pain Final: REGIONAL ENTERITIS OF UNSPECIFIED SITE Final: Other chronic pain Final: TOBACCO USE DISORDER Discharge Disposition: Home or Self Care Attending Physician: Luis Del Angel DO Admitting Physician: Luis Del Angel DO Vital Signs Most recent to 1 oldest [Reference Range]: Temperature Oral 37 degC [35.8-37.3 degC] (08/30/14 2:47 AM) Peripheral Pulse 96 bpm Rate [60-100 bpm] (08/30/14 3:20 AM) Heart Rate Monitored 89 bpm [60-100 bpm] (08/30/14 4:30 AM) Respiratory Rate 18 br/min [14-20 br/min] (08/30/14 4:30 AM) Blood Pressure 140/83 mmHg [90-140/60-90 mmHg] (08/30/14 4:30 AM) Mean Arterial 112 mmHg Pressure, Cuff (08/30/14 4:30 AM) Most recent to 1 oldest [Reference Range]: SpO2 100 % (08/30/14 4:30 AM) Problem List Condition Effective Dates Status [...] Refill(s) Start Date: 08/30/14 Status: Ordered Results Hematology Most recent to 1 oldest [Reference Range]: WBC [4.8-10.8 K/uL] 7.0 K/uL (08/30/14 3:40 AM) RBC [4.60-6.20 M/uL] 4.84 M/uL (08/30/14 3:40 AM) Hgb [14.0-18.0 13.1 gm/dL gm/dL] *LOW* (08/30/14 3:40 AM) Hct [42.0-52.0 %] 39.2 % *LOW* (08/30/14 3:40 AM) MCV [82.0-99.0 fL] 81.0 fL *LOW* (08/30/14 3:40 AM) MCH [27.0-32.0 pg] 27.1 pg (08/30/14 3:40 AM) MCHC [32.0-36.0 33.4 gm/dL gm/dL] (08/30/14 3:40 AM) RDW [11.5-14.5 %] 15.6 % *HI* (08/30/14 3:40 AM) Platelet [150-400 214 K/uL K/uL] (08/30/14 3:40 AM) MPV [9.4-12.3 fL] 11.4 fL (08/30/14 3:40 AM) Immature 0.3 % Granulocytes (08/30/14 3:40 AM) [0.0-1.0 %] Neutrophils [51-75 62 % %] (08/30/14 3:40 AM) Lymphocytes [20-46 26 % %] (08/30/14 3:40 AM) Monocytes [4-11 %] 10 % (08/30/14 3:40 AM) Eosinophils [0-4 %] 2 % (08/30/14 3:40 AM) Basophils [0-2 %] 1 % (08/30/14 3:40 AM) Neutro Absolute 4.32 THOUS [1.90-7.00 THOUS] (08/30/14 3:40 AM) Lymph Absolute 1.80 THOUS [0.80-3.30 THOUS] (08/30/14 3:40 AM) Hitchcock Absolute 0.73 THOUS [0.30-1.00 THOUS] (08/30/14 3:40 AM) Eos Absolute 0.11 THOUS [0.00-0.50 THOUS] (08/30/14 3:40 AM) Baso Absolute 0.04 THOUS [0.00-0.20 THOUS] (08/30/14 3:40 AM) Chemistry Most recent to 1 oldest [Reference Range]: Sodium Lvl [136-144 139 mEq/L mEq/L] (08/30/14 3:40 AM) Potassium Lvl 3.7 mEq/L [3.6-5.1 mEq/L] (08/30/14 3:40 AM) Chloride [99-109 108 mEq/L mEq/L] (08/30/14 3:40 AM) CO2 [22-32 mEq/L] 23 mEq/L (08/30/14 3:40 AM) AGAP [3-20] 8 (08/30/14 3:40 AM) BUN [4-20 mg/dL] 8 mg/dL (08/30/14 3:40 AM) Glucose Lvl [70-100 82 mg/dL mg/dL] (08/30/14 3:40 AM) Creatinine Lvl 0.83 mg/dL [0.64-1.27 mg/dL] (08/30/14 3:40 AM) eGFR [>60] >60 2 (08/30/14 3:40 AM) Calcium Lvl 9.0 mg/dL [8.6-10.0 mg/dL] (08/30/14 3:40 AM) Albumin Lvl [3.5-4.8 3.8 gm/dL gm/dL] (08/30/14 3:40 AM) Total Protein 6.4 gm/dL [6.1-7.9 gm/dL] (08/30/14 3:40 AM) Globulin [1.9-4.3 2.6 gm/dL gm/dL] (08/30/14 3:40 AM) ALT [17-63 unit/L] 14 unit/L *LOW* (08/30/14 3:40 AM) AST [15-41 unit/L] 19 unit/L (08/30/14 3:40 AM) Alk Phos [26-104 100 unit/L unit/L] (08/30/14 3:40 AM) Bili Total [0.2-1.2 0.3 mg/dL 1 mg/dL] (08/30/14 3:40 AM) Lipase Lvl [8-48 20 unit/L unit/L] (08/30/14 3:40 AM) 1Result Comment: Naproxen, specifically the metabolite [...]
--- OUTSIDE RECORDS SUMMARY | 2016-12-15 00:04 | XMS REPORT ---
Author Author GENERATED, SYSTEM Organization Unknown Address Unknown Phone Unavailable Care Team Providers Care Decorating And Assembly Supervisor Name Role Phone UNASSIGNED DOCTOR MD WOJCIECH DOCTOR PP [phone] Reason For Visit Reason for Visit from 06/28/2015 5:22 PM:* Pt Stated Reason for Adm : abd pain Chief Complaint PARTIAL SMALL BOWEL OBSTRUCTION, HISTORY,OR BOWEL RESECTION. Social History Social History from 07/03/2015 3:56 PM:* Tobacco Use? : Current Everyday Smoker Social History from 06/28/2015 5:22 PM:* Tobacco Use? : Current Everyday Smoker Functional Status Functional Status from 07/03/2015 8:36 AM:* LOC : Alert * Oriented To : Person,Place,Time * Weight Bearing Status : Full * Assist Level : Independent * # Assists : Independent Functional Status from 07/02/2015 8:27 PM:* LOC : Alert * Oriented To : Person,Place,Time,Event * Weight Bearing Status : Full * Assist Level : Independent * # Assists : Independent Functional Status from 07/02/2015 1:17 PM:* LOC : Alert Functional Status from 07/02/2015 1:08 PM:* LOC : Alert Functional Status from 07/02/2015 8:30 AM:* LOC : Alert * Oriented To : Person,Place,Time,Event * Weight Bearing Status : Full * Assist Level : Independent * # Assists : Independent Functional Status from 07/02/2015 12:26 AM:* LOC : Alert * Oriented To : Person,Place,Time,Event * Weight Bearing Status : Full * Assist Level : Independent * # Assists : Independent Functional Status from 07/01/2015 8:56 PM:* # Assists : Independent Functional Status from 07/01/2015 7:58 PM:* # Assists : Independent Functional Status from 07/01/2015 8:58 AM:* LOC : Alert * Oriented To : Person,Place,Time,Event * Weight Bearing Status : Full * Assist Level : Independent * # Assists : Independent Functional Status from 06/30/2015 8:45 PM:* LOC : Alert * Oriented To : Person,Place,Time,Event * Weight Bearing Status : Full * Assist Level : Independent * # Assists : 1 Functional Status from 06/30/2015 7:55 AM:* LOC : Alert * Oriented To : Person,Place,Time,Event * Weight Bearing Status : Full * Assist Level : Independent * # Assists : Independent Functional Status from 06/29/2015 8:47 PM:* LOC : Alert * Oriented To : Person,Place,Time,Event * Weight Bearing Status : Full * Assist Level : Partial * # Assists : 1 Functional Status from 06/29/2015 8:05 AM:* LOC : Alert * Oriented To : Person,Place,Time,Event * Weight Bearing Status : Full * Assist Level : Independent * # Assists : Independent Functional Status from 06/28/2015 8:02 PM:* LOC : Alert * Oriented To : Person,Place,Time,Event * Weight Bearing Status : Full * Assist Level : Independent * # Assists : Independent Functional Status from 06/28/2015 5:22 PM:* LOC : Alert * Oriented To : Person,Place,Time * Weight Bearing Status : Full * Assist Level : Independent * # Assists : Independent Vital Signs Hospital Vital Signs from 07/03/2015 3:29 PM:* Height : 5/9 ft,in * Temperature : 97.3 F * Pulse : 84 * Respirations : 18 * BP : 152/84 Hospital Vital Signs from 07/03/2015 11:20 AM:* Weight : 80.5/ kg * Height : 5/9 ft,in Hospital Vital Signs from 07/03/2015 10:18 AM:* Height : 5/9 ft,in * Temperature : 97.8 F * Pulse : 76 * Respirations : 18 * BP : 134/79 Hospital Vital Signs from 07/03/2015 6:29 AM:* Height : 5/9 ft,in * Temperature : 97.3 F * Pulse : 65 * Respirations : 18 * BP : 148/98 Hospital Vital Signs from 07/02/2015 10:14 PM:* Height : 5/9 ft,in * Temperature : 98.4 F * Pulse : 56 * Respirations : 18 * BP : 165/94 Hospital Vital Signs from 07/02/2015 6:54 PM:* Height : 5/9 ft,in * Temperature : 97.3 F * Pulse : 79 * Respirations : 18 * BP : 172/109 Hospital Vital Signs from 07/02/2015 3:07 PM:* Height : 5/9 ft,in * Temperature : 98.3 F * Pulse : 87 * Respirations : 18 * BP : 146/69 Hospital Vital Signs from 07/02/2015 1:15 PM:* Heart Rate : 78 * Resp Rate : 11 * Systolic BP (mmHg) : 154 * Diastolic BP (mmHg) : 93 * Mean BP (mmHg) : 120 * O2 Saturation (%) : 98 Hospital Vital Signs from 07/02/2015 1:10 PM:* Temp : 98 * Heart Rate : 64 * Resp Rate : 11 * Systolic BP (mmHg) : 154 * Diastolic BP (mmHg) : 84 * Mean BP (mmHg) : 101 * O2 Saturation (%) : 99 Hospital Vital Signs from 07/02/2015 1:05 PM:* Heart Rate : 73 * Resp Rate : 14 * Systolic BP (mmHg) : 153 * Diastolic BP (mmHg) : 99 * Mean BP (mmHg) : 123 * O2 Saturation (%) : 100 Hospital Vital Signs from 07/02/2015 1:00 PM:* Heart Rate : 76 * Resp Rate : 13 * Systolic BP (mmHg) : 112 * Diastolic BP (mmHg) : 86 * Mean BP (mmHg) : 100 * O2 Saturation (%) : 100 Hospital Vital Signs from 07/02/2015 12:56 PM:* Temp : 98.8 * Heart Rate : 75 * Resp Rate : 18 * Systolic BP (mmHg) : 147 * Diastolic BP (mmHg) : 100 * Mean BP (mmHg) : 120 * O2 Saturation (%) : 100 Hospital Vital Signs from 07/02/2015 11:34 AM:* Height : 5/9 ft,in * Temperature : 98.2 F * Pulse : 71 * Respirations : 18 * BP : 166/116 Hospital Vital Signs from 07/02/2015 10:12 AM:* Height : 5/9 ft,in * Temperature : 97.2 F * Pulse : 74 * Respirations : 18 * BP : 158/84 Hospital Vital Signs from 07/02/2015 6:17 AM:* Height : 5/9 ft,in * Temperature : 97.3 F * Pulse : 71 * Respirations : 18 * BP : 143/78 Hospital Vital Signs from 07/02/2015 3:57 AM:* Height : 5/9 ft,in * Temperature : 97.2 F * Pulse : 74 * Respirations : 18 * BP : 169/82 Hospital Vital Signs from 07/01/2015 9:35 PM:* Height : 5/9 ft,in * Temperature : 97 F * Pulse : 63 * Respirations : 18 * BP : 154/89 Hospital Vital Signs from 07/01/2015 6:20 PM:* Height : 5/9 ft,in * Temperature : 98.2 F * Pulse : 74 * Respirations : 18 * BP : 137/76 Hospital Vital Signs from 07/01/2015 3:40 PM:* Height : 5/9 ft,in * Temperature : 97.5 F * Pulse : 84 * Respirations : 18 * BP : 135/77 Hospital Vital Signs from 07/01/2015 10:52 AM:* Height : 5/9 ft,in * Temperature : 97.6 F * Pulse : 60 * Respirations : 18 * BP : 167/86 Hospital Vital Signs from 07/01/2015 8:59 AM:* Weight : 80.5/ kg * Height : 5/9 ft,in Hospital Vital Signs from 07/01/2015 6:01 AM:* Height : 5/9 ft,in * Temperature : 97.8 F * Pulse : 66 * Respirations : 18 * BP : 150/96 Hospital Vital Signs from 06/30/2015 10:14 PM:* Height : 5/9 ft,in * Temperature : 97.4 F * Pulse : 65 * Respirations : 18 * BP : 149/98 Hospital Vital Signs from 06/30/2015 7:20 PM:* Height : 5/9 ft,in * Temperature : 97.3 F * Pulse : 74 * Respirations : 20 * BP : 134/85 Hospital Vital Signs from 06/30/2015 3:36 PM:* Height : 5/9 ft,in * Temperature : 97.4 F * Pulse : 77 * Respirations : 18 * BP : 151/79 Hospital Vital Signs from 06/30/2015 11:19 AM:* Height : 5/9 ft,in * Temperature : 97.4 F * Pulse : 81 * Respirations : 18 * BP : 135/60 Hospital Vital Signs from 06/30/2015 7:12 AM:* Height : 5/9 ft,in * Temperature : 96.6 F * Pulse : 72 * Respirations : 18 * BP : 178/98 Hospital Vital Signs from 06/30/2015 2:58 AM:* Height : 5/9 ft,in * Temperature : 96.9 F * Pulse : 70 * Respirations : 18 * BP : 167/95 Hospital Vital Signs from 06/29/2015 10:10 PM:* Height : 5/9 ft,in * Temperature : 97.2 F * Pulse : 98 * Respirations : 18 * BP : 163/88 Hospital Vital Signs from 06/29/2015 7:09 PM:* Height : 5/9 ft,in * Temperature : 96.7 F * Pulse : 77 * Respirations : 18 * BP : 152/70 Hospital Vital Signs from 06/29/2015 10:43 AM:* Height : 5/9 ft,in * Temperature : 98.0 F * Pulse : 88 * Respirations : 16 * BP : 154/71 Hospital Vital Signs from 06/29/2015 7:40 AM:* Height : 5/9 ft,in * Temperature : 97.7 F * Pulse : 79 * Respirations : 16 * BP : 152/92 Hospital Vital Signs from 06/29/2015 4:22 AM:* Height : 5/9 ft,in * Temperature : 97.6 F * Pulse : 86 * Respirations : 16 * BP : 136/75 Hospital Vital Signs from 06/28/2015 10:07 PM:* Height : 5/9 ft,in * Temperature : 98.1 F * Pulse : 75 * Respirations : 20 * BP : 134/82 Hospital Vital Signs from 06/28/2015 6:52 PM:* Height : 5/9 ft,in * Temperature : 99 F * Pulse : 88 * Respirations : 20 * BP : 141/80 Hospital Vital Signs from 06/28/2015 5:22 PM:* Weight : 80.5/ kg * Height : 5/9 ft,in Hospital Vital Signs from 06/28/2015 4:37 PM:* Height : 5/9 ft,in * Temperature : 99.2 F * Pulse : 66 * Respirations : 20 * BP : 148/96 Results Chemistry from 07/03/2015 5:49 AMSODIUM 138 MMOL/L (136-145 MMOL/L) POTASSIUM 3.3 MMOL/L L (3.5-5.1 MMOL/L) CHLORIDE 103 MMOL/L (98-107 MMOL/L) TCO2 29.8 MMOL/L (21.0-32.0 MMOL/L) *ANION GAP 5.2 MMOL/L L (8.0-16.0 MMOL/L) BUN 11 MG/DL (7-18 MG/DL) CREATININE 0.88 MG/DL (0.70-1.30 MG/DL) *BUN/CREATININE RATIO 12.5 (9.1-17.0 ) GLUCOSE 97 MG/DL (65-99 MG/DL) *GFR EST NON AFR INDONESIAN >90 ML/MIN *GFRA EST AFR AMER >90 ML/MIN CALCIUM 7.7 MG/DL L (8.5-10.1 MG/DL) Chemistry from 07/01/2015 6:37 AMSODIUM 142 MMOL/L (136-145 MMOL/L) POTASSIUM 3.0 MMOL/L L (3.5-5.1 MMOL/L) CHLORIDE 105 MMOL/L (98-107 MMOL/L) TCO2 28.6 MMOL/L (21.0-32.0 MMOL/L) *ANION GAP 8.4 MMOL/L (8.0-16.0 MMOL/L) BUN 3 MG/DL L (7-18 MG/DL) CREATININE 0.87 MG/DL (0.70-1.30 MG/DL) *BUN/CREATININE RATIO 3.4 L (9.1-17.0 ) GLUCOSE 84 MG/DL (65-99 MG/DL) *GFR EST NON AFR INDONESIAN >90 ML/MIN *GFRA EST AFR AMER >90 ML/MIN CALCIUM 8.1 MG/DL L (8.5-10.1 MG/DL) Chemistry from 06/30/2015 5:22 AMSODIUM 139 MMOL/L (136-145 MMOL/L) POTASSIUM 3.5 MMOL/L (3.5-5.1 MMOL/L) CHLORIDE 105 MMOL/L (98-107 MMOL/L) TCO2 28.3 MMOL/L (21.0-32.0 MMOL/L) *ANION GAP 5.7 MMOL/L L (8.0-16.0 MMOL/L) BUN 7 MG/DL (7-18 MG/DL) CREATININE 0.82 MG/DL (0.70-1.30 MG/DL) *BUN/CREATININE RATIO 8.5 L (9.1-17.0 ) GLUCOSE 97 MG/DL (65-99 MG/DL) *GFR EST NON AFR INDONESIAN >90 ML/MIN *GFRA EST AFR AMER >90 ML/MIN CALCIUM 8.3 MG/DL L (8.5-10.1 MG/DL) MAGNESIUM 2.0 MG/DL (1.8-2.4 MG/DL) PHOSPHORUS 4.3 MG/DL (2.6-4.7 MG/DL) Chemistry from 06/29/2015 9:00 AMSODIUM 138 MMOL/L (136-145 MMOL/L) POTASSIUM 3.9 MMOL/L (3.5-5.1 MMOL/L) CHLORIDE 105 MMOL/L (98-107 MMOL/L) TCO2 26.6 MMOL/L (21.0-32.0 MMOL/L) *ANION GAP 6.4 MMOL/L L (8.0-16.0 MMOL/L) BUN 11 MG/DL (7-18 MG/DL) CREATININE 0.79 MG/DL (0.70-1.30 MG/DL) *BUN/CREATININE RATIO 13.9 (9.1-17.0 ) GLUCOSE 120 MG/DL H (65-99 MG/DL) *GFR EST NON AFR INDONESIAN >90 ML/MIN *GFRA EST AFR AMER >90 ML/MIN CALCIUM 8.7 MG/DL (8.5-10.1 MG/DL) BILIRUBIN TOTAL 0.53 MG/DL (0.20-1.00 MG/DL) TOTAL PROTEIN 6.9 GM/DL (6.4-8.2 GM/DL) ALBUMIN 3.4 GM/DL (3.4-5.0 GM/DL) *GLOBULIN 3.5 GM/DL (2.3-3.5 GM/DL) *A/G RATIO 1.0 MG/DL L (1.5-2.2 MG/DL) ALK PHOS 117 U/L H (46-116 U/L) ALT (SGPT) 39 U/L (14-59 U/L) AST (SGOT) 15 U/L (15-37 U/L) MAGNESIUM 1.8 MG/DL (1.8-2.4 MG/DL) PHOSPHORUS 3.3 MG/DL (2.6-4.7 MG/DL) Chemistry from 06/28/2015 7:20 PMLACTIC ACID 1.10 MMOL/L (0.40-2.00 MMOL/L) Hematology from 07/03/2015 6:46 AMWBC 10.6 X10e3/UL (3.6-11.2 X10e3/UL) RBC 4.42 X10e6/UL (4.06-5.63 X10e6/UL) HEMOGLOBIN 11.3 G/DL L (12.5-16.3 G/DL) HEMATOCRIT 35.1 % L (36.7-47.1 %) *MCV 79.4 FL L (80.0-100.0 FL) *MCH 25.6 PG L (27.0-33.0 PG) *MCHC 32.3 G/DL (32.0-36.0 G/DL) *RDW 17.2 % H (12.3-17.0 %) *RDWSD 47.7 (37.1-47.8 ) PLATELET 229 X10e3/UL (159-386 X10e3/UL) *MPV 8.7 FL (7.4-10.4 FL) AUTOMATED DIFF PERFORMED SEGS 76.9 % *LYMPHOCYTES 15.6 % *MONOCYTES 6.7 % *EOSINOPHILS 0.4 % *BASOPHILS 0.4 % *ABSOLUTE NEUTROPHILS 8.10 X10e3/UL H (1.80-7.80 X10e3/UL) *ABSOLUTE LYMPHOCYTES 1.60 X10e3/UL (1.00-3.00 X10e3/UL) *ABSOLUTE MONOCYTES 0.70 X10e3/UL (0.30-1.00 X10e3/UL) *ABSOLUTE EOSINOPHILS 0.00 X10e3/UL (0.00-0.50 X10e3/UL) *ABSOLUTE BASOPHILS 0.00 X10e3/UL (0.00-0.20 X10e3/UL) Hematology from 07/01/2015 6:38 AMWBC 15.1 X10e3/UL H (3.6-11.2 X10e3/UL) RBC 4.57 X10e6/UL (4.06-5.63 X10e6/UL) HEMOGLOBIN 11.7 G/DL L (12.5-16.3 G/DL) HEMATOCRIT 36.7 % (36.7-47.1 %) *MCV 80.2 FL (80.0-100.0 FL) *MCH 25.7 PG L (27.0-33.0 PG) *MCHC 32.0 G/DL (32.0-36.0 G/DL) *RDW 18.0 % H (12.3-17.0 %) *RDWSD 50.3 H (37.1-47.8 ) PLATELET 222 X10e3/UL (159-386 X10e3/UL) *MPV 9.5 FL (7.4-10.4 FL) AUTOMATED DIFF PERFORMED SEGS 82.6 % *LYMPHOCYTES 10.3 % *MONOCYTES 6.9 % *EOSINOPHILS 0.1 % *BASOPHILS 0.1 % *ABSOLUTE NEUTROPHILS 12.50 X10e3/UL H (1.80-7.80 X10e3/UL) *ABSOLUTE LYMPHOCYTES 1.60 X10e3/UL (1.00-3.00 X10e3/UL) *ABSOLUTE MONOCYTES 1.00 X10e3/UL (0.30-1.00 X10e3/UL) *ABSOLUTE EOSINOPHILS 0.00 X10e3/UL (0.00-0.50 X10e3/UL) *ABSOLUTE BASOPHILS 0.00 X10e3/UL (0.00-0.20 X10e3/UL) Hematology from 06/30/2015 5:22 AMWBC 17.2 X10e3/UL H (3.6-11.2 X10e3/UL) RBC 4.27 X10e6/UL (4.06-5.63 X10e6/UL) HEMOGLOBIN 11.1 G/DL L (12.5-16.3 G/DL) HEMATOCRIT 34.2 % L (36.7-47.1 %) *MCV 80.0 FL (80.0-100.0 FL) *MCH 25.9 PG L (27.0-33.0 PG) *MCHC 32.4 G/DL (32.0-36.0 G/DL) *RDW 17.5 % H (12.3-17.0 %) *RDWSD 48.6 H (37.1-47.8 ) PLATELET 233 X10e3/UL (159-386 X10e3/UL) *MPV 9.7 FL (7.4-10.4 FL) *MANUAL DIFF PERFORMED SEGS 90.0 % *BANDS 4.0 % *LYMPHOCYTES 3.0 % *MONOCYTES 3.0 % *EOSINOPHILS 0.0 % *BASOPHILS 0.0 % *ABSOLUTE NEUTROPHILS 16.17 X10e3/UL H (1.80-7.80 X10e3/UL) *ABSOLUTE LYMPHOCYTES 0.52 X10e3/UL L (1.00-3.00 X10e3/UL) *ABSOLUTE MONOCYTES 0.52 X10e3/UL (0.30-1.00 X10e3/UL) *ABSOLUTE EOSINOPHILS 0.00 X10e3/UL (0.00-0.50 X10e3/UL) *ABSOLUTE BASOPHILS 0.00 X10e3/UL (0.00-0.20 X10e3/UL) *POLYCHROMASIA 1+ Hematology from 06/29/2015 9:00 AMWBC 12.3 X10e3/UL H (3.6-11.2 X10e3/UL) RBC 4.90 X10e6/UL (4.06-5.63 X10e6/UL) HEMOGLOBIN 12.5 G/DL (12.5-16.3 G/DL) HEMATOCRIT 38.9 % (36.7-47.1 %) *MCV 79.4 FL L (80.0-100.0 FL) *MCH 25.6 PG L (27.0-33.0 PG) *MCHC 32.2 G/DL (32.0-36.0 G/DL) *RDW 17.2 % H (12.3-17.0 %) *RDWSD 48.1 H (37.1-47.8 ) PLATELET 273 X10e3/UL (159-386 X10e3/UL) *MPV 9.2 FL (7.4-10.4 FL) *MANUAL DIFF PERFORMED SEGS 91.0 % *BANDS 5.0 % *LYMPHOCYTES 4.0 % *MONOCYTES 0.0 % *EOSINOPHILS 0.0 % *BASOPHILS 0.0 % *ABSOLUTE NEUTROPHILS 11.81 X10e3/UL H (1.80-7.80 X10e3/UL) *ABSOLUTE LYMPHOCYTES 0.49 X10e3/UL L (1.00-3.00 X10e3/UL) *ABSOLUTE MONOCYTES 0.00 X10e3/UL L (0.30-1.00 X10e3/UL) *ABSOLUTE EOSINOPHILS 0.00 X10e3/UL (0.00-0.50 X10e3/UL) *ABSOLUTE BASOPHILS 0.00 X10e3/UL (0.00-0.20 X10e3/UL) *POLYCHROMASIA 1+ MICROCYTIC 1+ PAPPENHEIMER BODIES 1+ DX Radiology from 06/30/2015 6:25 AMOBSTRUCTIVE SERIES History: Abdominal pain. Technique: 2 view abdomen Priors: 1 day prior Findings: There has been interval passage of colonic contrast. The bowel gas pattern is nonobstructive. No abnormal calcifications are identified. The visualized lung bases are clear. Impression: No evidence of bowel obstruction. Electronically signed by: SOHAIL ESCAMILLA Dictated: 06/30/2015 07:41 DX Radiology from 06/29/2015 8:55 AMOBSTRUCTIVE SERIES History: Abdominal Pain . Technique: 2 view abdomen Priors: CT abdomen/ pelvis from 1 day prior Findings: Contrast opacifies the normal caliber colon. No distended small bowel loops are identified. No abnormal calcifications are seen. Visualized lower lungs are clear. Impression: No evidence of bowel obstruction. Electronically signed by: SOHAIL ESCAMILLA Dictated: 06/30/2015 07:17 Problems Encounter Diagnosis * Abdominal Pain Status:Active. * Acute Pain Status:Active. * Crohn's Disease Status:Active. * Nutritional Deficiency Status:Active. * Small Bowel Obstruction Status:Active. Encounters Encounter Diagnosis * Abdominal Pain Status:Active. * Acute Pain Status:Active. * Crohn's Disease Status:Active. * Nutritional Deficiency Status:Active. * Small Bowel Obstruction Status:Active. Plan of Care Follow-up Appointments from 07/03/2015 3:56 PM:* #1 Office appointment: : Conrado Steele PA-C * #1 Date/Time : 07/30/2015 10:45 AM * Address # 1 : [facility]: [address] [place]- [phone] or Treatment Plan from 07/01/2015 3:38 PM:* Care Management Note : Patient remains on medical floor. Patient is currently being treated with bowel prep, KCl PO x2 , Solu-Medrol IV daily, NS@100, Flagyl IV every 8hrs, Cipro IV every 12hrs, Full liquid diet, NPO after midnight, and plans for colonoscopy with biopsies in AM. Abnormal labs: K- 3.0, Bun- 3, Ca- 8.1, Wbc- 15.1, Anc- 12.50. VSS on RA at this time. Plan at this time is to continue work up for possible Crohn's with colonoscopy in AM and continue IV treatments. Care Management will continue to follow. SW aware of plan. Treatment Plan from 06/30/2015 3:11 PM:* Care Management Note : CT shows no evidence of bowel obstruction. He has had a BM today. Plan is to continue IVF 100 hr, IV antibiotics, begin steroid taper, advance to full liquid diet, add PRAVIN-1 d/t hypertension. Surgery is following for recommendations regarding bowel obstruction with indication that obstruction is due to Crohn's disease. Will continue to follow. Treatment Plan from 06/29/2015 3:21 PM:* Care Management Note : Patient is Inpatient status in a medical bed at this time. Patient was seen in ER with complaints of abdominal pain and was found to have a partial small bowel obstruction and possible Crohn's disease. Patient is currently being treated with protonix IV BID, Home medications restarted, NS@150, NG Tube placement, Flagyl IV every 8hrs, Cipro IV every 12hrs, and consults for surgery and GI. Abnormal labs: Glu- 120, Ca- 8.3, Alk Phos- 117, Wbc- 17.2, Anc- 16.17. VSS on RA at this time. Plan is to recheck obstruction series in AM and await consult input. Procedures * Completed Colonoscopy, by MD LIDA KHANH, on 07/02/2015 12:43 PM Immunizations No immunizations administered or ordered. Hospital Course Hospital Discharge Instructions How to care for yourself at home from 07/03/2015 3:56 PM:* Discharge Activity : Activity as tolerated * Discharge Diet : Diet as tolerated * Call your doctor if: : Fever over 101 F or severe chills,Chest pain or other unexplained symptoms,Tingling or numbness develops,A sudden increase or decrease in weight,You have persistent or worsening symptoms,If you have Heart Failure and you gain 3 pounds within 1 week or your symptoms worsen. (Weigh at home tomorrow morning) * Specific Discharge Teaching Instructions provided: : No * Discharge on Warfarin : No Allergies, Adverse Reactions, Alerts * Toradol causes Hives. * Reglan causes Hives. * Lortab causes Hives. * No Latex Allergy. * No IV Contrast Allergy. Medication It is the responsibility of the patient or patient community health program representative to confirm the list of medications with either the patient's personal care provider or the patient's follow-up care provider to ensure the patient has an appropriate list of medications to take at home. Discharge medications New medications* ondansetron (ZOFRAN ODT) 4 mg tablet,disintegrating, Ordered By : BRYAN LUND APRN Directions: 1 tablet oral every six hours PRN nausea or vomiting * metroNIDAZOLE (Flagyl) 500 mg Tablet, Ordered By: BRYAN LUND APRN Directions: 1 tablet oral three times a day Additional Instructions: x 5 days * predniSONE 10 mg Tablet, Ordered By: BRYAN LUND APRN Directions: 60 mg daily x 14 d, then 50 mg x 14 days taper oral daily * oxyCODONE 10 mg Tablet, Ordered By: BRYAN LUND APRN Directions: 1 tablet oral every four hours PRN pain Stopped medications* None
--- OUTSIDE RECORDS SUMMARY | 2016-12-15 00:04 | XMS REPORT | Referral Summary ---
Author Organization Unknown Address Unknown Phone Unavailable Care Team Providers Care Slip Caster Name Role Phone No PCP, States Primary Care Physician [phone] Encounter VC Date(s): 09/10/14 - 09/10/14 [facility] [address] [place] [address] [phone] Discharge Diagnosis: Chronic abdominal pain Discharge Diagnosis: Crohn's disease Discharge Diagnosis: Chronic abdominal pain Discharge Diagnosis: Crohn's disease Discharge Disposition: Home or Self Care Attending Physician: Jonathan Baldwin MD Admitting Physician: Jonathan Baldwin MD Vital Signs Most recent to 1 2 oldest [Reference Range]: Temperature Oral 36.3 degC [35.8-37.3 degC] (09/10/14 10:58 AM) Peripheral Pulse 67 bpm Rate [60-100 bpm] (09/10/14 12:44 PM) Heart Rate Monitored 67 bpm [60-100 bpm] (09/10/14 12:44 PM) Respiratory Rate 18 br/min 20 br/min [14-20 br/min] (09/10/14 12:44 PM) (09/10/14 12:44 PM) Blood Pressure 171/100 mmHg [90-140/60-90 mmHg] *HI* (09/10/14 12:44 PM) Systolic Blood 171 mmHg Pressure [90-140 *HI* mmHg] (09/10/14 12:44 PM) Diastolic Blood 100 mmHg Pressure [60-90 *HI* mmHg] (09/10/14 12:44 PM) Mean Arterial 115 mmHg Pressure, Cuff (09/10/14 12:44 PM) Most recent to 1 2 oldest [Reference Range]: SpO2 99 % 99 % (09/10/14 12:44 PM) (09/10/14 12:44 PM) Problem List Condition Effective Dates Status [...] Medium Active Toradol Hives Medium Active Medications No data available for this section Results Hematology Most recent to 1 oldest [Reference Range]: WBC [4.8-10.8 K/uL] 5.8 K/uL (09/10/14: AM) RBC [4.60-6.20 M/uL] 5.23 M/uL (09/10/14: AM) Hgb [14.0-18.0 14.4 gm/dL gm/dL] (09/10/14: AM) Hct [42.0-52.0 %] 42.4 % (09/10/14 AM) MCV [82.0-99.0 fL] 81.1 fL *LOW* (09/10/14 AM) MCH [27.0-32.0 pg] 27.5 pg (09/10/14 AM) MCHC [32.0-36.0 34.0 gm/dL gm/dL] (09/10/14 AM) RDW [11.5-14.5 %] 15.1 % *HI* (09/10/14) Platelet [150-400 228 K/uL K/uL] (09/10/14 AM) MPV [9.4-12.3 fL] 11.5 fL (09/10/14: AM) Immature 0.3 % Granulocytes (09/10/14) [0.0-1.0 %] Neutrophils [51-75 67 % %] (09/10/14) Lymphocytes [20-46 24 % %] (09/10/14) Monocytes [4-11 %] 6 % (09/10/14) Eosinophils [0-4 %] 2 % (09/10/14) Basophils [0-2 %] 0 % (09/10/14) Neutro Absolute 3.91 THOUS [1.90-7.00 THOUS] (09/10/14) Lymph Absolute 1.39 THOUS [0.80-3.30 THOUS] (09/10/14) Snyder Absolute 0.34 THOUS [0.30-1.00 THOUS] (09/10/14) Eos Absolute 0.13 THOUS [0.00-0.50 THOUS] (09/10/14) Baso Absolute 0.02 THOUS [0.00-0.20 THOUS] (09/10/14) Nucleated RBC 0.0 /100 WBC Automated [0 /100 (09/10/14) WBC] Chemistry Most recent to 1 oldest [Reference Range]: Sodium Lvl [136-144 140 mEq/L mEq/L] (09/10/14) Potassium Lvl 3.6 mEq/L [3.6-5.1 mEq/L] (09/10/14) Chloride [99-109 105 mEq/L mEq/L] (09/10/14) CO2 [22-32 mEq/L] 27 mEq/L (09/10/14) AGAP [3-20] 8 (09/10/14 AM) BUN [4-20 mg/dL] 7 mg/dL (09/10/14) Glucose Lvl [70-100 95 mg/dL mg/dL] (09/10/14) Creatinine Lvl 0.94 mg/dL [0.64-1.27 mg/dL] (09/10/14) eGFR [>60] >60 2 (09/10/14) Calcium Lvl 9.4 mg/dL [8.6-10.0 mg/dL] (09/10/14 11:19 AM) Albumin Lvl [3.5-4.8 4.2 gm/dL gm/dL] (09/10/14 11:19 AM) Total Protein 7.3 gm/dL [6.1-7.9 gm/dL] (09/10/14 11:19 AM) Globulin [1.9-4.3 3.1 gm/dL gm/dL] (09/10/14 11:19 AM) ALT [17-63 unit/L] 13 unit/L *LOW* (09/10/14 11: AM) AST [15-41 unit/L] 21 unit/L (09/10/14 11: AM) Alk Phos [26-104 139 unit/L unit/L] *HI* (09/10/14 11:19 AM) Bili Total [0.2-1.2 0.8 mg/dL 1 mg/dL] (09/10/14 11: AM) Lipase Lvl [8-48 20 unit/L unit/L] (09/10/14 11:19 AM) 1Result Comment: Naproxen, specifically the metabolite [...]
--- OUTSIDE RECORDS SUMMARY | 2016-12-15 00:05 | XMS REPORT | Referral Summary ---
Author Author [facility] Organization [facility] Address Unknown Phone Unavailable Care Team Providers Care Scrap Preparation Supervisor Name Role Phone No PCP, Pt States Primary Care Physician [phone] Encounter VC Date(s): 06/04/15 - 06/04/[address] [facility] [address] [place] [address] [phone] Discharge Diagnosis: Chronic abdominal pain Discharge Disposition: 01-Home or Self Care Attending Physician: Jonathan Baldwin MD Admitting Physician: Jonathan Baldwin MD Vital Signs Most recent to 1 oldest [Reference Range]: Temperature Oral 37 degC [35.8-37.3 degC] (06/04/15 9:56 AM) Peripheral Pulse 77 bpm Rate [60-100 bpm] (06/04/15 12:10 PM) Respiratory Rate 16 br/min [14-20 br/min] (06/04/15 12:10 PM) Blood Pressure 143/90 mmHg [90-140/60-90 mmHg] *HI* (06/04/15 12:10 PM) SpO2 95 % (06/04/15 9:56 AM) Problem List Condition Effective Dates Status [...] Medium Active Toradol Hives Medium Active Medications Percocet 2.5/325 oral tablet 1 tabs, Oral, q6hr, as needed for pain, # 24 tabs, 0 Refill(s) Start Date: 04/25/15 Stop Date: 04/26/16 Status: Ordered predniSONE 20 mg oral tablet 40 mg 2 tabs, Oral, Daily, # 10 tabs, 0 Refill(s) Start Date: 04/25/15 Stop Date: 04/26/16 Status: Ordered Results Urinalysis Most recent to 1 oldest [Reference Range]: UA Color Yellow (06/04/15 11:08 AM) UA Appear Clear (06/04/15 11:08 AM) UA pH [5.0-8.0] 7.0 (06/04/15 11:08 AM) UA Leuk Est Negative [Negative] (06/04/15 11:08 AM) UA Nitrite Negative [Negative] (06/04/15 11:08 AM) UA Protein Negative [Negative] (06/04/15 11:08 AM) UA Glucose Negative [Negative] (06/04/15 11:08 AM) UA Ketones Negative [Negative] (06/04/15 11:08 AM) UA Urobilinogen Negative [<1.0] (06/04/15 11:08 AM) UA Bili [Negative] Negative (06/04/15 11:08 AM) UA Blood [Negative] Negative (06/04/15 11:08 AM) UA Spec Grav 1.014 [1.003-1.030] (06/04/15 11:08 AM) Type Clean Catch (06/04/15 11:08 AM) Immunizations Vaccine Date Refusal Reason tetanus-diphth [...]
--- OUTSIDE RECORDS SUMMARY | 2016-12-15 00:05 | XMS REPORT | Referral Summary ---
Author Author [facility] Organization [facility] Address Unknown Phone Unavailable Care Team Providers Care Beauty Culturist Apprentice Name Role Phone No PCP, Pt States Primary Care Physician [phone] Encounter Date(s): 08/30/16 - 08/30/16 [facility] [address] [place] [address] [phone] Discharge Diagnosis: Abdominal pain Discharge Disposition: 01-Home or Self Care Attending Physician: Rafael Azul MD Admitting Physician: Rafael Azul MD Vital Signs Most recent to 1 oldest [Reference Range]: Temperature Oral 37.1 degC [35.8-37.3 degC] (08/30/16 6:12 PM) Peripheral Pulse 76 bpm Rate [60-100 bpm] (08/30/16 10:19 PM) Heart Rate Monitored 71 bpm [60-100 bpm] (08/30/16 10:04 PM) Respiratory Rate 17 br/min [14-20 br/min] (08/30/16 10:19 PM) Blood Pressure 145/84 mmHg [90-140/60-90 mmHg] *HI* (08/30/16 10:19 PM) Mean Arterial 97 mmHg Pressure, Cuff (08/30/16 10:04 PM) SpO2 100 % (08/30/16 10:19 PM) Problem List Condition Effective Dates Status [...] Daily, # 30 tabs, 0 Refill(s), Pharmacy: [id number], 1 tabs Oral Daily Start Date: 05/19/16 Status: Ordered HYDROcodone-acetaminophen 5 mg-325 mg oral tablet 1 tabs, Oral, q4hr, Pain Moderate (4-6), X 3 days, # 12 tabs, 0 Refill(s) Start Date: 08/30/16 Stop Date: 09/02/16 Status: Ordered Percocet 5/325 oral tablet See Instructions, as needed for pain, 1 tabs Oral q4hr, # 12 tabs, 0 Refill(s) Start Date: 06/23/16 Stop Date: 06/23/17 Status: Ordered Percocet 5/325 oral tablet 1 tabs, Oral, q4hr, as needed for pain, X 3 days, # 12 tabs, 0 Refill(s) Start Date: 08/30/16 Stop Date: 09/02/16 Status: Ordered potassium chloride 20 mEq oral tablet, extended release 20 mEq 1 tabs, Oral, Daily, # 5 tabs, 0 Refill(s) Start Date: 07/23/16 Status: Ordered Protonix 40 mg oral delayed release tablet 40 mg 1 tabs, Oral, Daily, # 30 tabs, 0 Refill(s) Start Date: 07/23/16 Status: Ordered Results Hematology Most recent to 1 oldest [Reference Range]: WBC [4.8-10.8 9.7 10*3/uL 10*3/uL] (08/30/16 8:42 PM) RBC [4.60-6.20] 5.01 (08/30/16 8:42 PM) Hgb [14.0-18.0 12.9 gm/dL gm/dL] *LOW* (08/30/16 8:42 PM) Hct [42.0-52.0 %] 39.0 % *LOW* (08/30/16 8:42 PM) MCV [82.0-99.0 fL] 77.8 fL *LOW* (08/30/16 8:42 PM) MCH [27.0-32.0 pg] 25.7 pg *LOW* (08/30/16 8:42 PM) MCHC [32.0-36.0 33.1 gm/dL gm/dL] (08/30/16 8:42 PM) RDW [11.5-14.5 %] 16.6 % *HI* (08/30/16 8:42 PM) Platelet [150-400 334 10*3/uL 10*3/uL] (08/30/16 8:42 PM) MPV [9.4-12.3 fL] 11.2 fL (08/30/16 8:42 PM) Immature 0.2 % Granulocytes (08/30/16 8:42 PM) [0.0-1.0 %] Neutrophils [51-75 88 % %] *HI* (08/30/16 8:42 PM) Lymphocytes [20-46 9 % %] *LOW* (08/30/16 8:42 PM) Monocytes [4-11 %] 2 % *LOW* (08/30/16 8:42 PM) Eosinophils [0-4 %] 1 % (08/30/16 8:42 PM) Basophils [0-2 %] 0 % (08/30/16 8:42 PM) Neutro Absolute 8.57 [1.90-7.00] *HI* (08/30/16 8:42 PM) Lymph Absolute 0.82 [0.80-3.30] (08/30/16 8:42 PM) [place] Absolute 0.21 [0.30-1.00] *LOW* (08/30/16 8:42 PM) Eos Absolute 0.05 [0.00-0.50] (08/30/16 8:42 PM) Baso Absolute 0.02 [0.00-0.20] (08/30/16 8:42 PM) Nucleated RBC 0.0 /100 WBC Automated [0 /100 (08/30/16 8:42 PM) WBC] Chemistry Most recent to 1 oldest [Reference Range]: Sodium Lvl [136-144 140 mEq/L mEq/L] (08/30/16 8:42 PM) Potassium Lvl 3.7 mEq/L [3.6-5.1 mEq/L] (08/30/16 8:42 PM) Chloride [99-109 104 mEq/L mEq/L] (08/30/16 8:42 PM) CO2 [22-32 mEq/L] 27 mEq/L (08/30/16 8:42 PM) AGAP [3-20] 9 (08/30/16 8:42 PM) BUN [4-20 mg/dL] 5 mg/dL (08/30/16 8:42 PM) Glucose Lvl [70-100 97 mg/dL mg/dL] (08/30/16 8:42 PM) Creatinine Lvl 0.77 mg/dL [0.64-1.27 mg/dL] (08/30/16 8:42 PM) eGFR [>60] >60 1 (08/30/16 8:42 PM) Calcium Lvl 9.3 mg/dL [8.6-10.0 mg/dL] (08/30/16 8:42 PM) Albumin Lvl [3.5-4.8 4.0 gm/dL gm/dL] (08/30/16 8:42 PM) Total Protein 7.0 gm/dL [6.1-7.9 gm/dL] (08/30/16 8:42 PM) Globulin [1.9-4.3 3.0 gm/dL gm/dL] (08/30/16 8:42 PM) ALT [17-63 U/L] 30 U/L (08/30/16 8:42 PM) AST [15-41 U/L] 21 U/L (08/30/16 8:42 PM) Alk Phos [26-104 108 U/L U/L] *HI* (08/30/16 8:42 PM) Bili Total [0.2-1.2 0.4 mg/dL 2 mg/dL] (08/30/16 8:42 PM) Lipase Lvl [8-48 32 U/L U/L] (08/30/16 8:42 PM) 1Result Comment: Multiply eGFR results by 1.21 for race. 2Result Comment: Naproxen, specifically the metabolite O-desmethylnaproxen, may cause spurious elevation in Total Bilirubin levels. Urinalysis Most recent to 1 oldest [Reference Range]: UA Color Yellow (08/30/16 9:53 PM) UA Appear Clear (08/30/16 9:53 PM) UA pH [5.0-8.0] 8.0 (08/30/16 9:53 PM) UA Leuk Est Negative [Negative] (08/30/16 9:53 PM) UA Nitrite Negative [Negative] (08/30/16 9:53 PM) UA Protein Negative [Negative] (08/30/16 9:53 PM) UA Glucose Negative [Negative] (08/30/16 9:53 PM) UA Ketones Pos 1+ [Negative] *ABN* (08/30/16 9:53 PM) UA Urobilinogen 2.0 mg/dL [<1.0 mg/dL] *ABN* (08/30/16 9:53 PM) UA Bili [Negative] Negative (08/30/16 9:53 PM) UA Blood [Negative] Negative (08/30/16 9:53 PM) UA Spec Grav 1.015 [1.003-1.030] (08/30/16 9:53 PM) Type Catheter (08/30/16 9:53 PM) Immunizations Given and Recorded Vaccine Date Status [...]
--- OUTSIDE RECORDS SUMMARY | 2016-12-15 00:05 | XMS REPORT | Referral Summary ---
Author Author [facility] Organization [facility] Address Unknown Phone Unavailable Care Team Providers Care Wash Tank Tender Name Role Phone No PCP, Pt States Primary Care Physician [phone] Encounter VC Date(s): 12/07/14 - 12/07/[address] [facility] [address] [place], [place] [address] Discharge Diagnosis: Abdominal pain Final: ABDOMINAL PAIN, UNSPECIFIED SITE Final: TOBACCO USE DISORDER Discharge Disposition: 01-Home or Self Care Attending Physician: Rafael Azul MD Admitting Physician: Rafael Azul MD Vital Signs Most recent to 1 oldest [Reference Range]: Temperature Oral 37.1 degC [35.8-37.3 degC] (12/07/14 6:44 AM) Peripheral Pulse 83 bpm Rate [60-100 bpm] (12/07/14 7:21 AM) Respiratory Rate 16 br/min [14-20 br/min] (12/07/14 7:21 AM) Blood Pressure 18/101 mmHg [90-140/60-90 mmHg] *LOW* (12/07/14 7:21 AM) SpO2 100 % (12/07/14 7:21 AM) Problem List Condition Effective Dates Status [...]
--- OUTSIDE RECORDS SUMMARY | 2016-12-15 00:05 | XMS REPORT | Referral Summary ---
Author Organization Unknown Address Unknown Phone Unavailable Care Team Providers Care Insurance Underwriter Name Role Phone No PCP, States Primary Care Physician [phone] Encounter VC FELIPA [id number] Date(s): 08/17/14 - 08/17/14 [facility] [address] [place] [address] [phone] Discharge Diagnosis: Chronic abdominal pain Discharge Disposition: Home or Self Care Attending Physician: Sam Mendiola MD Admitting Physician: Sam Mendiola MD Vital Signs Most recent to 1 oldest [Reference Range]: Temperature Oral 36.4 degC [35.8-37.3 degC] (08/17/14 8:36 AM) Peripheral Pulse 92 bpm Rate [60-100 bpm] (08/17/14 8:36 AM) Respiratory Rate 78 br/min [14-20 br/min] *HI* (08/17/14 8:36 AM) Blood Pressure 141/97 mmHg [90-140/60-90 mmHg] *HI* (08/17/14 8:36 AM) Most recent to 1 oldest [Reference Range]: SpO2 98 % (08/17/14 8:36 AM) Problem List Condition Effective Dates Status [...] 07/27/14 Stop Date: 08/26/14 Status: Ordered Results No data available for [...]
--- OUTSIDE RECORDS SUMMARY | 2016-12-15 00:05 | XMS REPORT | Referral Summary ---
Author Author [facility] Organization [facility] Address Unknown Phone Unavailable Care Team Providers Care Drug Counselor Name Role Phone No PCP, Pt States Primary Care Physician [phone] Encounter VC Date(s): 06/25/15 - 06/25/15 [facility] [address] [place] [address] Discharge Diagnosis: Gastroenteritis Discharge Diagnosis: Crohn's disease of large bowel Discharge Disposition: 01-Home or Self Care Attending Physician: Leta Quiroga MD Admitting Physician: Leta Quiroga MD Vital Signs Most recent to 1 oldest [Reference Range]: Temperature Oral 37.2 degC [35.8-37.3 degC] (06/25/15 4:17 PM) Apical Heart Rate 111 bpm [60-100 bpm] *HI* (06/25/15 4:17 PM) Respiratory Rate 16 br/min [14-20 br/min] (06/25/15 4:17 PM) Systolic Blood 164 mmHg Pressure [90-140 *HI* mmHg] (06/25/15 4:23 PM) Diastolic Blood 98 mmHg Pressure [60-90 *HI* mmHg] (06/25/15 4:23 PM) SpO2 97 % (06/25/15 4:17 PM) Problem List Condition Effective Dates Status [...] to 1 oldest [Reference Range]: WBC [4.8-10.8 11.4 10*3/uL 10*3/uL] *HI* (06/25/15 4:53 PM) RBC [4.60-6.20] 4.79 (06/25/15 4:53 PM) Hgb [14.0-18.0 12.5 gm/dL gm/dL] *LOW* (06/25/15 4:53 PM) Hct [42.0-52.0 %] 36.9 % *LOW* (06/25/15 4:53 PM) MCV [82.0-99.0 fL] 77.0 fL *LOW* (06/25/15 4:53 PM) MCH [27.0-32.0 pg] 26.1 pg *LOW* (06/25/15 4:53 PM) MCHC [32.0-36.0 33.9 gm/dL gm/dL] (06/25/15 4:53 PM) RDW [11.5-14.5 %] 16.7 % *HI* (06/25/15 4:53 PM) Platelet [150-400 294 10*3/uL 10*3/uL] (06/25/15 4:53 PM) MPV [9.4-12.3 fL] 10.9 fL (06/25/15 4:53 PM) Chemistry Most recent to 1 oldest [Reference Range]: Sodium Lvl [136-144 141 mEq/L mEq/L] (06/25/15 4:53 PM) Potassium Lvl 3.7 mEq/L [3.6-5.1 mEq/L] (06/25/15 4:53 PM) Chloride [99-109 107 mEq/L mEq/L] (06/25/15 4:53 PM) CO2 [22-32 mEq/L] 26 mEq/L (06/25/15 4:53 PM) AGAP [3-20] 8 (06/25/15 4:53 PM) BUN [4-20 mg/dL] 9 mg/dL (06/25/15 4:53 PM) Glucose Lvl [70-100 132 mg/dL mg/dL] *HI* (06/25/15 4:53 PM) Creatinine Lvl 0.85 mg/dL [0.64-1.27 mg/dL] (06/25/15 4:53 PM) eGFR [>60] >60 1 (06/25/15 4:53 PM) Calcium Lvl 9.1 mg/dL [8.6-10.0 mg/dL] (06/25/15 4:53 PM) Albumin Lvl [3.5-4.8 3.8 gm/dL gm/dL] (06/25/15 4:53 PM) Total Protein 7.3 gm/dL [6.1-7.9 gm/dL] (06/25/15 4:53 PM) Globulin [1.9-4.3 3.5 gm/dL gm/dL] (06/25/15 4:53 PM) ALT [17-63 U/L] 23 U/L (06/25/15 4:53 PM) AST [15-41 U/L] 20 U/L (06/25/15 4:53 PM) Alk Phos [26-104 101 U/L U/L] (06/25/15 4:53 PM) Bili Total [0.2-1.2 0.5 mg/dL 2 mg/dL] (06/25/15 4:53 PM) Lipase Lvl [8-48 26 U/L U/L] (06/25/15 4:53 PM) 1Result Comment: Multiply eGFR results by 1.21 for race. 2Result Comment: Naproxen, specifically the metabolite O-desmethylnaproxen, may cause spurious elevation in Total Bilirubin levels. Toxicology Most recent to 1 oldest [Reference Range]: U Amphetamine Scrn Negative (06/25/15 4:53 PM) U Cocaine Scrn Negative (06/25/15 4:53 PM) U Cannab Scrn Negative (06/25/15 4:53 PM) U Opiate Scrn Negative (06/25/15 4:53 PM) U PCP Scrn Negative (06/25/15 4:53 PM) U Benzodiazepine Negative Scrn (06/25/15 4:53 PM) U Barbiturate Scrn Negative (06/25/15 4:53 PM) Methadone Lvl Negative (06/25/15 4:53 PM) Tricyclics Negative 1 (06/25/15 4:53 PM) 1Result Comment: Cut-off concentrations: Amphetamines: 1000 [...] oldest [Reference Range]: UA Color Lt Yellow (06/25/15 4:53 PM) UA Appear Clear (06/25/15 4:53 PM) UA pH [5.0-8.0] 6.5 (06/25/15 4:53 PM) UA Leuk Est Negative [Negative] (06/25/15 4:53 PM) UA Nitrite Negative [Negative] (06/25/15 4:53 PM) UA Protein Negative [Negative] (06/25/15 4:53 PM) UA Glucose Pos 2+ [Negative] *ABN* (06/25/15 4:53 PM) UA Ketones Negative [Negative] (06/25/15 4:53 PM) UA Urobilinogen Negative [<1.0] (06/25/15 4:53 PM) UA Bili [Negative] Negative (06/25/15 4:53 PM) UA Blood [Negative] Negative (06/25/15 4:53 PM) UA Spec Grav 1.025 [1.003-1.030] (06/25/15 4:53 PM) Type Clean Catch (06/25/15 4:53 PM) Immunizations Vaccine Date Refusal Reason tetanus-diphth [...]
--- OUTSIDE RECORDS SUMMARY | 2016-12-15 00:05 | XMS REPORT | Referral Summary ---
Author Author [facility]3] Organization [facility]] Address Unknown Phone Unavailable Care Team Providers Care Brush Cleaner Name Role Phone No PCP, Pt States Primary Care Physician [phone] Encounter VC Date(s): 06/22/16 - 06/23/16 [facility]3] [address] [place] [address] Final: Crohn's disease, unspecified, without complications Discharge Diagnosis: Crohns disease Discharge Diagnosis: Chronic abdominal pain Discharge Disposition: 01-Home or Self Care Attending Physician: Tulio Shahid MD Admitting Physician: Tulio Shahid MD Vital Signs Most recent to 1 oldest [Reference Range]: Temperature Oral 36.8 degC [35.8-37.3 degC] (06/22/16 9:35 PM) Peripheral Pulse 75 bpm Rate [60-100 bpm] (06/23/16 3:18 AM) Respiratory Rate 18 br/min [14-20 br/min] (06/23/16 3:18 AM) Blood Pressure 131/85 mmHg [90-140/60-90 mmHg] (06/23/16 3:18 AM) SpO2 98 % (06/23/16 3:18 AM) Problem List Condition Effective Dates Status [...] Daily, # 30 tabs, 0 Refill(s), Pharmacy: [id number], 1 tabs Oral Daily Start Date: 05/19/16 Status: Ordered Percocet 5/325 oral tablet See Instructions, as needed for pain, 1 tabs Oral q4hr, # 12 tabs, 0 Refill(s) Start Date: 06/23/16 Stop Date: 06/23/17 Status: Ordered Results Chemistry Most recent to 1 oldest [Reference Range]: Sodium Venous 139 mEq/L [136-144 mEq/L] (06/22/16 10:49 PM) Potassium Venous 3.5 mEq/L 1 [3.6-5.1 mEq/L] *LOW* (06/22/16 10:49 PM) Calcium Ionized 1.04 mmol/L Venous [1.19-1.41 *LOW* mmol/L] (06/22/16 10:49 PM) Total CO2 Venous 24 mEq/L [25-29 mEq/L] *LOW* (06/22/16 10:49 PM) HGB Venous NPT 13.9 gm/dL [14.0-16.0 gm/dL] *LOW* (06/22/16 10:49 PM) HCT Venous 41.0 % [42.0-52.0 %] *LOW* (06/22/16 10:49 PM) Glucose Venous 88 mg/dL [70-100 mg/dL] (06/22/16 10:49 PM) BUN Venous [4-20] 8 (06/22/16 10:49 PM) Creatinine Venous 0.6 mg/dL [0.7-1.2 mg/dL] *LOW* (06/22/16 10:49 PM) Venous CL [99-109 102 mEq/L mEq/L] (06/22/16 10:49 PM) Anion Gap, Jt 13 [3-20] (06/22/16 10:49 PM) 1Result Comment: This test was performed on a whole blood specimen. The presence or absence of hemolysis cannot be assessed. Hemolysis can falsely elevate potassium levels. Normals are for venous specimens only. Urinalysis Most recent to 1 oldest [Reference Range]: Type Venous (06/22/16 10:51 PM) Immunizations Vaccine Date Refusal Reason tetanus-diphth [...]
--- OUTSIDE RECORDS SUMMARY | 2016-12-15 00:05 | XMS REPORT | Referral Summary ---
Author Author [facility] Organization [facility] Address Unknown Phone Unavailable Care Team Providers Care Placement Coordinator Name Role Phone No PCP, Pt States Primary Care Physician [phone] Encounter VC Date(s): 04/09/15 - 04/09/15 [facility] [address] [place] [address] Discharge Diagnosis: Exacerbation of Crohn's disease Discharge Diagnosis: Abdominal pain Final: REGIONAL ENTERITIS OF UNSPECIFIED SITE Discharge Disposition: 01-Home or Self Care Attending Physician: Tulio Shahid MD Admitting Physician: Tulio Shahid MD Vital Signs Most recent to 1 oldest [Reference Range]: Temperature Oral 36.9 degC [35.8-37.3 degC] (04/09/15 10:22 AM) Peripheral Pulse 71 bpm Rate [60-100 bpm] (04/09/15 1:20 PM) Heart Rate Monitored 71 bpm [60-100 bpm] (04/09/15 1:18 PM) Respiratory Rate 20 br/min [14-20 br/min] (04/09/15 1:20 PM) Blood Pressure 137/89 mmHg [90-140/60-90 mmHg] (04/09/15 1:20 PM) Mean Arterial 103 mmHg Pressure, Cuff (04/09/15 1:18 PM) SpO2 99 % (04/09/15 1:18 PM) Problem List Condition Effective Dates Status [...] Swelling Medications predniSONE 20 mg oral tablet 20 mg 1 tabs, Oral, Daily, X 10 days, # 10 tabs, 0 Refill(s) Start Date: 10/14/15 Stop Date: 10/24/15 Status: Ordered Results Hematology Most recent to 1 oldest [Reference Range]: WBC [4.8-10.8 8.6 10*3/uL 10*3/uL] (04/09/15 10:43 AM) RBC [4.60-6.20] 4.85 (04/09/15 10:43 AM) Hgb [14.0-18.0 12.5 gm/dL gm/dL] *LOW* (04/09/15 10:43 AM) Hct [42.0-52.0 %] 38.5 % *LOW* (04/09/15 10:43 AM) MCV [82.0-99.0 fL] 79.4 fL *LOW* (04/09/15 10:43 AM) MCH [27.0-32.0 pg] 25.8 pg *LOW* (04/09/15 10:43 AM) MCHC [32.0-36.0 32.5 gm/dL gm/dL] (04/09/15 10:43 AM) RDW [11.5-14.5 %] 16.5 % *HI* (04/09/15 10:43 AM) Platelet [150-400 299 10*3/uL 10*3/uL] (04/09/15 10:43 AM) MPV [9.4-12.3 fL] 10.4 fL (04/09/15 10:43 AM) Immature 0.1 % Granulocytes (04/09/15 10:43 AM) [0.0-1.0 %] Neutrophils [51-75 67 % %] (04/09/15 10:43 AM) Lymphocytes [20-46 25 % %] (04/09/15 10:43 AM) Monocytes [4-11 %] 5 % (04/09/15 10:43 AM) Eosinophils [0-4 %] 3 % (04/09/15 10:43 AM) Basophils [0-2 %] 0 % (04/09/15 10:43 AM) Neutro Absolute 5.76 10*3 [1.90-7.00 10*3] (04/09/15 10:43 AM) Lymph Absolute 2.19 10*3 [0.80-3.30 10*3] (04/09/15 10:43 AM) [place] Absolute 0.45 10*3 [0.30-1.00 10*3] (04/09/15 10:43 AM) Eos Absolute 0.23 10*3 [0.00-0.50 10*3] (04/09/15 10:43 AM) Baso Absolute 0.01 10*3 [0.00-0.20 10*3] (04/09/15 10:43 AM) Nucleated RBC 0.0 /100 WBC Automated [0 /100 (04/09/15:43 AM) WBC] Chemistry Most recent to 1 oldest [Reference Range]: Sodium Lvl [136-144 140 mEq/L mEq/L] (04/09/15 10:43 AM) Potassium Lvl 3.6 mEq/L [3.6-5.1 mEq/L] (04/09/15 10:43 AM) Chloride [99-109 105 mEq/L mEq/L] (04/09/15 10:43 AM) CO2 [22-32 mEq/L] 26 mEq/L (04/09/15 10:43 AM) AGAP [3-20] 9 (04/09/15 10:43 AM) BUN [4-20 mg/dL] 6 mg/dL (04/09/15 10:43 AM) Glucose Lvl [70-100 103 mg/dL mg/dL] *HI* (04/09/15 10:43 AM) Creatinine Lvl 1.09 mg/dL [0.64-1.27 mg/dL] (04/09/15 10:43 AM) eGFR [>60] >60 1 (04/09/15 10:43 AM) Calcium Lvl 9.0 mg/dL [8.6-10.0 mg/dL] (04/09/15 10:43 AM) Albumin Lvl [3.5-4.8 3.7 gm/dL gm/dL] (04/09/15 10:43 AM) Total Protein 6.6 gm/dL [6.1-7.9 gm/dL] (04/09/15 10:43 AM) Globulin [1.9-4.3 2.9 gm/dL gm/dL] (04/09/15 10:43 AM) ALT [17-63 U/L] 16 U/L *LOW* (04/09/15 10:43 AM) AST [15-41 U/L] 16 U/L (04/09/15 10:43 AM) Alk Phos [26-104 138 U/L U/L] *HI* (04/09/15 10:43 AM) Bili Total [0.2-1.2 0.4 mg/dL 2 mg/dL] (04/09/15 10:43 AM) Lipase Lvl [8-48 17 U/L U/L] (04/09/15 10:43 AM) 1Result Comment: Multiply eGFR results by [...]
--- OUTSIDE RECORDS SUMMARY | 2016-12-15 00:05 | XMS REPORT | Referral Summary ---
Author Author [facility] Organization [facility] Address Unknown Phone Unavailable Care Team Providers Care Food And Beverage Checker Name Role Phone No PCP, Pt States Primary Care Physician [phone] Encounter VC Date(s): 11/10/15 - 11/11/15 [facility] [address] [place] [address] Discharge Diagnosis: Crohn's disease Discharge Diagnosis: Chronic abdominal pain Discharge Disposition: 01-Home or Self Care Attending Physician: Fuentes Amador MD Admitting Physician: Fuentes Amador MD Vital Signs Most recent to 1 oldest [Reference Range]: Temperature Oral 36.8 degC [35.8-37.3 degC] (11/10/15 9:46 PM) Peripheral Pulse 65 bpm Rate [60-100 bpm] (11/11/15 1:25 AM) Respiratory Rate 18 br/min [14-20 br/min] (11/11/15 1:25 AM) Blood Pressure 120/74 mmHg [90-140/60-90 mmHg] (11/11/15 1:25 AM) SpO2 98 % (11/11/15 1:25 AM) Problem List Condition Effective Dates Status [...] Swelling Medications predniSONE 20 mg oral tablet 40 mg 2 tabs, Oral, Daily, X 5 days, # 10 tabs, 0 Refill(s) Start Date: 11/11/15 Stop Date: 11/16/15 Status: Ordered Results No data available for [...]
--- OUTSIDE RECORDS SUMMARY | 2016-12-15 00:05 | XMS REPORT | Referral Summary ---
Author Author [facility] Organization [facility] Address Unknown Phone Unavailable Care Team Providers [facility] [place] Worker Name Role Phone No PCP, Pt States Primary Care Physician [phone] Encounter VC Date(s): 06/13/15 - 06/13/15 [facility] [address] [place], [place] [address] Discharge Disposition: 01-Home or Self Care Attending Physician: Sandeep Tyson MD Admitting Physician: Sandeep Tyson MD Vital Signs Most recent to 1 oldest [Reference Range]: Temperature Oral 37.0 degC [35.8-37.3 degC] (06/13/15 9:33 AM) Peripheral Pulse 94 bpm Rate [60-100 bpm] (06/13/15 9:33 AM) Respiratory Rate 20 br/min [14-20 br/min] (06/13/15 9:33 AM) Blood Pressure 146/89 mmHg [90-140/60-90 mmHg] *HI* (06/13/15 9:33 AM) SpO2 97 % (06/13/15 9:33 AM) Problem List Condition Effective Dates Status [...] Active Toradol Hives Medium Active Medications No Known Medications Results No data available for this section [...]
--- OUTSIDE RECORDS SUMMARY | 2016-12-15 00:05 | XMS REPORT | Referral Summary ---
Author Author [facility] Organization [facility] Address Unknown Phone Unavailable Care Team Providers Care Septic Technician Name Role Phone No PCP, Pt States Primary Care Physician [phone] Encounter [facility] [id number] Date(s): 07/12/15 - 07/12/15 [facility] [address] [place] [address] [phone] Discharge Diagnosis: Chronic generalized abdominal pain Discharge Disposition: 01-Home or Self Care Attending Physician: Tulio Shahid MD Admitting Physician: Tulio Shahid MD Referring Physician: Self Referred, X Vital Signs Most recent to 1 oldest [Reference Range]: Temperature Oral 37.2 degC [35.8-37.3 degC] (07/12/15 12:03 PM) Peripheral Pulse 72 bpm Rate [60-100 bpm] (07/12/15 2:12 PM) Respiratory Rate 18 br/min [14-20 br/min] (07/12/15 2:12 PM) Blood Pressure 153/97 mmHg [90-140/60-90 mmHg] *HI* (07/12/15 2:12 PM) SpO2 99 % (07/12/15 12:03 PM) Problem List Condition Effective Dates Status [...] Medium Active traMADol Itching Active Swelling Medications oxyCODONE 5 mg oral capsule 5 mg 1 caps, Oral, q6hr, X 3 days, # 12 caps, 0 Refill(s) Start Date: 07/12/15 Stop Date: 07/15/15 Status: Ordered predniSONE 10 mg oral tablet [...] to 1 oldest [Reference Range]: WBC [4.8-10.8 10.4 10*3/uL 10*3/uL] (07/12/15 12:21 PM) RBC [4.60-6.20] 5.39 (07/12/15 12:21 PM) Hgb [14.0-18.0 14.4 gm/dL gm/dL] (07/12/15 12:21 PM) Hct [42.0-52.0 %] 42.6 % (07/12/15 12:21 PM) MCV [82.0-99.0 fL] 79.0 fL *LOW* (07/12/15 12:21 PM) MCH [27.0-32.0 pg] 26.7 pg *LOW* (07/12/15 12:21 PM) MCHC [32.0-36.0 33.8 gm/dL gm/dL] (07/12/15 12:21 PM) RDW [11.5-14.5 %] 16.8 % *HI* (07/12/15 12:21 PM) Platelet [150-400 281 10*3/uL 10*3/uL] (07/12/15 12:21 PM) MPV [9.4-12.3 fL] 10.9 fL (07/12/15: PM) Immature 0.1 % Granulocytes (07/12/15: PM) [0.0-1.0 %] Neutrophils [51-75 87 % %] *HI* (07/12/15 PM) Lymphocytes [20-46 9 % %] *LOW* (07/12/15) Monocytes [4-11 %] 4 % (07/12/15: PM) Eosinophils [0-4 %] 0 % (07/12/15 PM) Basophils [0-2 %] 0 % (07/12/15 PM) Neutro Absolute 9.00 10*3 [1.90-7.00 10*3] *HI* (07/12/15: PM) Lymph Absolute 0.92 10*3 [0.80-3.30 10*3] (07/12/15: PM) [place] Absolute 0.46 10*3 [0.30-1.00 10*3] (07/12/15: PM) Eos Absolute 0.00 10*3 [0.00-0.50 10*3] (07/12/15: PM) Baso Absolute 0.00 10*3 [0.00-0.20 10*3] (07/12/15: PM) Nucleated RBC 0.0 /100 WBC Automated [0 /100 (07/12/15: PM) WBC] Chemistry Most recent to 1 oldest [Reference Range]: Sodium Lvl [136-144 138 mEq/L mEq/L] (07/12/15: PM) Potassium Lvl 4.6 mEq/L [3.6-5.1 mEq/L] (07/12/15 12: PM) Chloride [99-109 105 mEq/L mEq/L] (07/12/15 12: PM) CO2 [22-32 mEq/L] 24 mEq/L (07/12/15: PM) AGAP [3-20] 9 (07/12/15 12:21 PM) BUN [4-20 mg/dL] 10 mg/dL (07/12/15 12:21 PM) Glucose Lvl [70-100 135 mg/dL mg/dL] *HI* (07/12/15 12:21 PM) Creatinine Lvl 0.95 mg/dL [0.64-1.27 mg/dL] (07/12/15 12:21 PM) eGFR [>60] >60 1 (07/12/15 12:21 PM) Calcium Lvl 9.6 mg/dL [8.6-10.0 mg/dL] (07/12/15 12:21 PM) Albumin Lvl [3.5-4.8 4.2 gm/dL gm/dL] (07/12/15 12:21 PM) Total Protein 8.1 gm/dL [6.1-7.9 gm/dL] *HI* (07/12/15 12:21 PM) Globulin [1.9-4.3 3.9 gm/dL gm/dL] (07/12/15 12:21 PM) ALT [17-63 U/L] 26 U/L (07/12/15 12:21 PM) AST [15-41 U/L] 27 U/L (07/12/15 12:21 PM) Alk Phos [26-104 109 U/L U/L] *HI* (07/12/15 12:21 PM) Bili Total [0.2-1.2 0.4 mg/dL 2 mg/dL] (07/12/15 12:21 PM) Troponin [<0.06 <0.05 ng/mL ng/mL] (07/12/15 12:21 PM) Lipase Lvl [8-48 27 U/L U/L] (07/12/15 12:21 PM) 1Result Comment: Multiply eGFR results by 1.21 for race. 2Result Comment: Naproxen, specifically the metabolite O-desmethylnaproxen, may cause spurious elevation in Total Bilirubin levels. Urinalysis Most recent to 1 oldest [Reference Range]: UA Color Yellow (07/12/15 1:40 PM) UA Appear Clear (07/12/15 1:40 PM) UA pH [5.0-8.0] 7.0 (07/12/15 1:40 PM) UA Leuk Est Negative [Negative] (07/12/15 1:40 PM) UA Nitrite Negative [Negative] (07/12/15 1:40 PM) UA Protein Negative [Negative] (07/12/15 1:40 PM) UA Glucose Negative [Negative] (07/12/15 1:40 PM) UA Ketones Negative [Negative] (07/12/15 1:40 PM) UA Urobilinogen Negative [<1.0] (07/12/15 1:40 PM) UA Bili [Negative] Negative (07/12/15 1:40 PM) UA Blood [Negative] Negative (07/12/15 1:40 PM) UA Spec Grav 1.015 [1.003-1.030] (07/12/15 1:40 PM) Type Clean Catch (07/12/15 1:40 PM) Immunizations Vaccine Date Refusal Reason tetanus-diphth [...]
--- OUTSIDE RECORDS SUMMARY | 2016-12-15 00:05 | XMS REPORT | Referral Summary ---
Author Author [facility] Organization [facility] Address Unknown Phone Unavailable Care Team Providers Care Primary Health Care Nurse Name Role Phone No PCP, Pt States Primary Care Physician [phone] Encounter [facility] Date(s): 12/11/14 - 12/11/14 [facility] [address] [place] [address] Discharge Diagnosis: Left against medical advice Final: ABDOMINAL PAIN, OTHER SPECIFIED SITE; MULTIPLE SITES Discharge Disposition: Left Against Medical Advice Attending Physician: Gopal Mahoney DO Admitting Physician: Gopal Mahoney DO Vital Signs Most recent to 1 oldest [Reference Range]: Temperature Oral 36.6 degC [35.8-37.3 degC] (12/11/14 7:53 AM) Peripheral Pulse 88 bpm Rate [60-100 bpm] (12/11/14 7:53 AM) Respiratory Rate 16 br/min [14-20 br/min] (12/11/14 7:53 AM) Blood Pressure 125/85 mmHg [90-140/60-90 mmHg] (12/11/14 7:53 AM) SpO2 96 % (12/11/14 7:53 AM) Problem List Condition Effective Dates Status [...]
--- OUTSIDE RECORDS SUMMARY | 2016-12-15 00:05 | XMS REPORT | Referral Summary ---
Author Author [facility] Organization [facility] Address Unknown Phone Unavailable Care Team Providers Care Fire Observer Name Role Phone No PCP, Pt States Primary Care Physician [phone] Encounter [facility] Date(s): 07/06/15 - 07/06/15 [facility] [address] [place] [address] Discharge Diagnosis: Abdominal pain Discharge Diagnosis: Exacerbation of Crohn's disease Discharge Disposition: Against Medical Advice Attending Physician: Ede Lopez DO Admitting Physician: Ede Lopez DO Vital Signs Most recent to 1 oldest [Reference Range]: Temperature Oral 36.7 degC [35.8-37.3 degC] (07/06/15 4:22 PM) Peripheral Pulse 111 bpm Rate [60-100 bpm] *HI* (07/06/15 4:22 PM) Heart Rate Monitored 85 bpm [60-100 bpm] (07/06/15 5:30 PM) Respiratory Rate 16 br/min [14-20 br/min] (07/06/15 4:22 PM) Blood Pressure 146/100 mmHg [90-140/60-90 mmHg] *HI* (07/06/15 5:30 PM) Mean Arterial 120 mmHg Pressure, Cuff (07/06/15 5:30 PM) SpO2 100 % (07/06/15 5:30 PM) Problem List Condition Effective Dates Status [...]
--- OUTSIDE RECORDS SUMMARY | 2016-12-15 00:06 | XMS REPORT | Referral Summary ---
Author Author [facility] Organization [facility] Address Unknown Phone Unavailable Care Team Providers Care Forklift Driver Name Role Phone No PCP, Pt States Primary Care Physician [phone] Encounter [facility] Date(s): 12/22/14 - 12/22/14 [facility] [address] [place], [place] [address] Final: OTHER UNKNOWN AND UNSPECIFIED CAUSE OF MORBIDITY OR MORTALITY Discharge Disposition: Without Being Seen Attending Physician: Fuentes Amador MD Admitting Physician: Fuentes Amador MD Vital Signs No data available for this [...] Procedures Procedure Date Related Diagnosis Body Site 12/22/14 Colonoscopy Biopsy1 05/18/14 Esophagogastroduodenoscopy Biopsy2 05/18/14 Bowel Resection 2012 Bowel care3 Hip joint operations4 1auto-populated from documented surgical case 2auto-populated from documented surgical case 3bowel resection 4right side Social History Social History Type Response Smoking Status Current every day smoker; Tobacco use per day: 1 Pack Assessment and Plan No data available for this section
--- OUTSIDE RECORDS SUMMARY | 2016-12-15 00:06 | XMS REPORT | Referral Summary ---
Author Author [facility] Organization [facility] Address Unknown Phone Unavailable Care Team Providers Care Stitch Separator Name Role Phone No PCP, Pt States Primary Care Physician [phone] Encounter [facility] Date(s): 06/08/16 - 06/08/16 [facility] [address] [place] [address]- Discharge Diagnosis: Abdominal pain Discharge Disposition: 01-Home or Self Care Attending Physician: Gopal Mahoney DO Admitting Physician: Gopal Mahoney DO Vital Signs Most recent to 1 oldest [Reference Range]: Temperature Oral 37.4 degC [35.8-37.3 degC] *HI* (06/08/16 5:01 PM) Peripheral Pulse 78 bpm Rate [60-100 bpm] (06/08/16 5:01 PM) Respiratory Rate 20 br/min [14-20 br/min] (06/08/16 5:01 PM) Blood Pressure 152/93 mmHg [90-140/60-90 mmHg] *HI* (06/08/16 5:01 PM) SpO2 97 % (06/08/16 5:01 PM) Problem List Condition Effective Dates Status [...] Daily, # 30 tabs, 0 Refill(s), Pharmacy: [email or web address], 1 tabs Oral Daily Start Date: 05/19/16 Status: Ordered Results Hematology Most recent to 1 oldest [Reference Range]: WBC [4.8-10.8 10.0 10*3/uL 10*3/uL] (06/08/16 7:12 PM) RBC [4.60-6.20] 5.80 (06/08/16 7:12 PM) Hgb [14.0-18.0 15.2 gm/dL gm/dL] (06/08/16 7:12 PM) Hct [42.0-52.0 %] 45.9 % (06/08/16 7:12 PM) MCV [82.0-99.0 fL] 79.1 fL *LOW* (06/08/16 7:12 PM) MCH [27.0-32.0 pg] 26.2 pg *LOW* (06/08/16 7:12 PM) MCHC [32.0-36.0 33.1 gm/dL gm/dL] (06/08/16 7:12 PM) RDW [11.5-14.5 %] 18.7 % *HI* (06/08/16 7:12 PM) Platelet [150-400 293 10*3/uL 10*3/uL] (06/08/16 7:12 PM) MPV [9.4-12.3 fL] 10.5 fL (06/08/16 7:12 PM) Immature 0.3 % Granulocytes (06/08/16 7:12 PM) [0.0-1.0 %] Neutrophils [51-75 85 % %] *HI* (06/08/16 7:12 PM) Lymphocytes [20-46 8 % %] *LOW* (06/08/16 7:12 PM) Monocytes [4-11 %] 6 % (06/08/16 7:12 PM) Eosinophils [0-4 %] 1 % (06/08/16 7:12 PM) Basophils [0-2 %] 0 % (06/08/16 7:12 PM) Neutro Absolute 8.53 10*3 [1.90-7.00 10*3] *HI* (06/08/16 7:12 PM) Lymph Absolute 0.75 10*3 [0.80-3.30 10*3] *LOW* (06/08/16 7:12 PM) [place] Absolute 0.59 10*3 [0.30-1.00 10*3] (06/08/16 7:12 PM) Eos Absolute 0.06 10*3 [0.00-0.50 10*3] (06/08/16 7:12 PM) Baso Absolute 0.03 10*3 [0.00-0.20 10*3] (06/08/16 7:12 PM) Chemistry Most recent to 1 oldest [Reference Range]: Sodium Lvl [136-144 139 mEq/L mEq/L] (06/08/16 7:12 PM) Potassium Lvl 3.6 mEq/L [3.6-5.1 mEq/L] (06/08/16 7:12 PM) Chloride [99-109 100 mEq/L mEq/L] (06/08/16 7:12 PM) CO2 [22-32 mEq/L] 30 mEq/L (06/08/16 7:12 PM) AGAP [3-20] 9 (06/08/16 7:12 PM) BUN [4-20 mg/dL] 3 mg/dL *LOW* (06/08/16 7:12 PM) Glucose Lvl [70-100 116 mg/dL mg/dL] *HI* (06/08/16 7:12 PM) Creatinine Lvl 0.95 mg/dL [0.64-1.27 mg/dL] (06/08/16 7:12 PM) eGFR [>60] >60 1 (06/08/16 7:12 PM) Calcium Lvl 9.4 mg/dL [8.6-10.0 mg/dL] (06/08/16 7:12 PM) Albumin Lvl [3.5-4.8 4.0 gm/dL gm/dL] (06/08/16 7:12 PM) Total Protein 7.4 gm/dL [6.1-7.9 gm/dL] (06/08/16 7:12 PM) Globulin [1.9-4.3 3.4 gm/dL gm/dL] (06/08/16 7:12 PM) ALT [17-63 U/L] 24 U/L (06/08/16 7:12 PM) AST [15-41 U/L] 20 U/L (06/08/16 7:12 PM) Alk Phos [26-104 78 U/L U/L] (06/08/16 7:12 PM) Bili Total [0.2-1.2 0.6 mg/dL 2 mg/dL] (06/08/16 7:12 PM) Lipase Lvl [8-48 55 U/L U/L] *HI* (06/08/16 7:12 PM) 1Result Comment: Multiply eGFR results by 1.21 for race. 2Result Comment: Naproxen, specifically the metabolite O-desmethylnaproxen, may cause spurious elevation in Total Bilirubin levels. Urinalysis Most recent to 1 oldest [Reference Range]: UA Color Yellow (06/08/16 7:12 PM) UA Appear Sl Cloudy (06/08/16 7:12 PM) UA pH [5.0-8.0] 6.0 (06/08/16 7:12 PM) UA Leuk Est Negative [Negative] (06/08/16 7:12 PM) UA Nitrite Negative [Negative] (06/08/16 7:12 PM) UA Protein Negative [Negative] (06/08/16 7:12 PM) UA Glucose Negative [Negative] (06/08/16 7:12 PM) UA Ketones Negative [Negative] (06/08/16 7:12 PM) UA Urobilinogen Negative [<1.0] (06/08/16 7:12 PM) UA Bili [Negative] Negative (06/08/16 7:12 PM) UA Blood [Negative] Negative (06/08/16 7:12 PM) UA Spec Grav 1.010 [1.003-1.030] (06/08/16 7:12 PM) Type Catheter (06/08/16 7:12 PM) Immunizations Vaccine Date Refusal Reason tetanus-diphth [...]
--- OUTSIDE RECORDS SUMMARY | 2016-12-15 00:06 | XMS REPORT | Referral Summary ---
Author Author [facility] Organization [facility] Address Unknown Phone Unavailable Care Team Providers Care Life Skills Trainer Name Role Phone No PCP, Pt States Primary Care Physician [phone] Encounter [facility] Date(s): 03/18/16 - 03/18/16 [facility] [address] [place] [address] [phone] Discharge Disposition: Against Medical Advice Attending Physician: Gabby Salvador MD Admitting Physician: Tulio Shahid MD Vital Signs Most recent to 1 oldest [Reference Range]: Temperature Oral 37.1 degC [35.8-37.3 degC] (03/18/16 3:04 AM) Peripheral Pulse 80 bpm Rate [60-100 bpm] (03/18/16 3:04 AM) Respiratory Rate 20 br/min [14-20 br/min] (03/18/16 3:04 AM) Blood Pressure 133/83 mmHg [90-140/60-90 mmHg] (03/18/16 3:04 AM) SpO2 100 % (03/18/16 3:04 AM) Problem List Condition Effective Dates Status [...] Cramping, # 40 caps, 0 Refill(s), Pharmacy: [email or web address], 1 caps Oral QID,x10 days,PRN:Abdominal Cramping Start [...]
--- OUTSIDE RECORDS SUMMARY | 2016-12-15 00:06 | XMS REPORT | CCD ---
Author Author [place], [facility] - Organization Unknown Address Unknown Phone Unavailable [...] not been performed. Results LAB--BEDSIDE TESTING from 03/28/2013 9:09 AMCreatinine Venous NPT 1.1 mg/dL (0.7- 1.2 mg/dL) LAB--BEDSIDE TESTING from 03/28/2013 9:17 AMOccult Blood, Stool NPT Negative ( Negative ) LAB--CHEMISTRY from 03/28/2013 9:13 AMAnion Gap 10 (3-20 ) Albumin 3.6 g/dL (3.5-4.8 g/dL) Alkaline Phosphatase 87 U/L (26-104 U/L) ALT (SGPT) 13 U/L L (17-63 U/L) AST (SGOT) 19 U/L (15-41 U/L) Bilirubin Total 0.3 mg/dL (0.2-1.2 mg/dL) BUN 7 mg/dL (4-20 mg/dL) Calcium 8.7 mg/dL (8.6-10.0 mg/dL) Chloride 104 mEq/L (99-109 mEq/L) CO2 26 mEq/L (22-32 mEq/L) Creatinine 0.97 mg/dL (0.64-1.27 mg/dL) eGFR >60 (>60- ) Globulin 2.4 g/dL (1.9-4.3 g/dL) Glucose 87 mg/dL (70-100 mg/dL) Potassium 3.2 mEq/L L (3.6-5.1 mEq/L) Sodium 140 mEq/L (136-144 mEq/L) Protein 6.0 g/dL L (6.1-7.9 g/dL) Lipase 19 U/L (8-48 U/L) LAB--HEMATOLOGY from 03/28/2013 9:13 AMAbsolute Basophils 0.02 THOUS (0.00-0.20 THOUS) Absolute Eosinophils 0.17 THOUS (0.00-0.50 THOUS) Absolute Lymphocytes 1.50 THOUS (0.80-3.30 THOUS) Absolute Monocytes 0.47 THOUS (0.30-1.00 THOUS) Absolute Neutrophils 3.42 THOUS (1.90-7.00 THOUS) HCT 36.5 % L (42.0-52.0 %) HGB 12.0 g/dl L (14.0-18.0 g/dl) MCH 26.4 pg L (27.0-32.0 pg) MCHC 32.9 g/dL (32.0-36.0 g/dL) MCV 80.2 fL L (82.0-99.0 fL) MPV 10.6 fL (9.4-12.3 fL) Platelet Count 220 K/uL (150-400 K/uL) RBC 4.55 M/uL L (4.60-6.20 M/uL) RDW 17.0 % H (11.5-14.5 %) WBC 5.6 K/uL (4.8-10.8 K/uL) Basophils 0 % (0-2 %) Eosinophils 3 % (0-4 %) Immature Granulocytes 0.2 % (0.0-1.0 %) Lymphocytes 27 % (20-46 %) Monocytes 8 % (4-11 %) Nucleated RBC Automated 0.0 /100 WBC (0 /100 WBC) Neutrophils 61 % (51-75 %) LAB--URINE TESTS from 03/28/2013 9:13 AMAppearance Clear Bilirubin Negative (Negative ) Blood Negative (Negative ) Color Lt Yellow Glucose Negative (Negative ) Ketones, Urine Negative (Negative ) Leukocytes Esterase Negative (Negative ) Nitrites Negative (Negative ) pH, Urine 7.0 (5.0-8.0 ) Protein Negative (Negative ) Specific [place] 1.013 (1.003-1.030 ) Collection Type: Clean Catch Urobilinogen Negative mg/dL (-<1.0 mg/dL)
--- OUTSIDE RECORDS SUMMARY | 2016-12-15 00:06 | XMS REPORT ---
Author Author [place], Via [facility] - Organization Unknown Address Unknown [...] * Nausea & Vomiting* Status:Active. Procedures No Procedures Documented. Medication Medication reconciliation has not been performed. Results LAB--CHEMISTRY from 11/06/2012 11:47 AMAnion Gap 7 (3-20 ) Albumin 3.7 g/dL (3.5-4.8 g/dL) Alkaline Phosphatase 85 U/L (26-104 U/L) ALT (SGPT) 14 U/L L (17-63 U/L) AST (SGOT) 18 U/L (15-41 U/L) Bilirubin Total 0.6 mg/dL (0.2-1.2 mg/dL) BUN 8 mg/dL (4-20 mg/dL) Calcium 8.7 mg/dL (8.6-10.0 mg/dL) Chloride 107 mEq/L (99-109 mEq/L) CO2 25 mEq/L (22-32 mEq/L) Creatinine 0.87 mg/dL (0.64-1.27 mg/dL) eGFR >60 (>60- ) Globulin 2.7 g/dL (1.9-4.3 g/dL) Glucose 90 mg/dL (70-100 mg/dL) Potassium 3.3 mEq/L L (3.6-5.1 mEq/L) Sodium 139 mEq/L (136-144 mEq/L) Protein 6.4 g/dL (6.1-7.9 g/dL) Lipase 20 U/L (8-48 U/L) LAB--HEMATOLOGY from 11/06/2012 11:47 AMAbsolute Basophils 0.01 THOUS (0.00-0.20 THOUS) Absolute Eosinophils 0.17 THOUS (0.00-0.50 THOUS) Absolute Lymphocytes 1.18 THOUS (0.80-3.30 THOUS) Absolute Monocytes 0.57 THOUS (0.30-1.00 THOUS) Absolute Neutrophils 4.00 THOUS (1.90-7.00 THOUS) HCT 37.9 % L (42.0-52.0 %) HGB 12.8 g/dl L (14.0-18.0 g/dl) MCH 27.2 pg (27.0-32.0 pg) MCHC 33.8 g/dL (32.0-36.0 g/dL) MCV 80.5 fL L (82.0-99.0 fL) MPV 10.5 fL (9.4-12.3 fL) Platelet Count 234 K/uL (150-400 K/uL) RBC 4.71 M/uL (4.60-6.20 M/uL) RDW 14.4 % (11.5-14.5 %) WBC 5.9 K/uL (4.8-10.8 K/uL) Basophils 0 % (0-2 %) Eosinophils 3 % (0-4 %) Immature Granulocytes 0.2 % (0.0-1.0 %) Lymphocytes 20 % (20-46 %) Monocytes 10 % (4-11 %) Nucleated RBC Automated 0.0 /100 WBC (0 /100 WBC) Neutrophils 67 % (51-75 %) LAB--URINE TESTS from 11/06/2012 1:15 PMAppearance Clear Bilirubin Negative (Negative ) Blood Negative (Negative ) Color Lt Yellow Glucose Negative (Negative ) Ketones, Urine Trace A (Negative ) Leukocytes Esterase Negative (Negative ) Nitrites Negative (Negative ) pH, Urine 7.0 (5.0-8.0 ) Protein Negative (Negative ) Specific [place] 1.014 (1.003-1.030 ) Collection Type: Clean Catch Urobilinogen Negative mg/dL (-<1.0 mg/dL)
--- OUTSIDE RECORDS SUMMARY | 2016-12-15 00:06 | XMS REPORT | Referral Summary ---
Author Author Via [facility] Organization [facility] Address Unknown Phone Unavailable Care Team Providers Care Direct Marketing Manager Name Role Phone No PCP, Pt States Primary Care Physician [phone] Encounter [facility] [id number] Date(s): 12/30/14 - 12/30/14 [facility] [address] [place], [place] [address] Final: TOBACCO USE DISORDER Final: ABDOMINAL PAIN, OTHER SPECIFIED SITE; MULTIPLE SITES Discharge Disposition: Against Medical Advice Attending Physician: Gopal Mahoney DO Admitting Physician: Gopal Mahoney DO Vital Signs Most recent to 1 oldest [Reference Range]: Temperature Oral 37.1 degC [35.8-37.3 degC] (12/30/14 3:24 PM) Peripheral Pulse 90 bpm Rate [60-100 bpm] (12/30/14 3:24 PM) Respiratory Rate 18 br/min [14-20 br/min] (12/30/14 3:24 PM) Blood Pressure 139/87 mmHg [90-140/60-90 mmHg] (12/30/14 3:24 PM) SpO2 99 % (12/30/14 3:24 PM) Problem List Condition Effective Dates Status [...] to 1 oldest [Reference Range]: WBC [4.8-10.8 8.7 10*3/uL 10*3/uL] (12/30/14 4:18 PM) RBC [4.60-6.20 5.21 10*6/uL 10*6/uL] (12/30/14 4:18 PM) Hgb [14.0-18.0 13.8 gm/dL gm/dL] *LOW* (12/30/14 4:18 PM) Hct [42.0-52.0 %] 40.7 % *LOW* (12/30/14 4:18 PM) MCV [82.0-99.0 fL] 78.1 fL *LOW* (12/30/14 4:18 PM) MCH [27.0-32.0 pg] 26.5 pg *LOW* (12/30/14 4:18 PM) MCHC [32.0-36.0 33.9 gm/dL gm/dL] (12/30/14 4:18 PM) RDW [11.5-14.5 %] 15.9 % *HI* (12/30/14 4:18 PM) Platelet [150-400 273 10*3/uL 10*3/uL] (12/30/14 4:18 PM) MPV [9.4-12.3 fL] 10.8 fL (12/30/14 4:18 PM) Immature 0.1 % Granulocytes (12/30/14:18 PM) [0.0-1.0 %] Neutrophils [51-75 72 % %] (12/30/14 4:18 PM) Lymphocytes [20-46 19 % %] *LOW* (12/30/14:18 PM) Monocytes [4-11 %] 7 % (12/30/14 4:18 PM) Eosinophils [0-4 %] 2 % (12/30/14 4:18 PM) Basophils [0-2 %] 1 % (12/30/14 4:18 PM) Neutro Absolute 6.25 10*3 [1.90-7.00 10*3] (12/30/14:18 PM) Lymph Absolute 1.67 10*3 [0.80-3.30 10*3] (12/30/14 4:18 PM) [place] Absolute 0.60 10*3 [0.30-1.00 10*3] (12/30/14 4:18 PM) Eos Absolute 0.16 10*3 [0.00-0.50 10*3] (12/30/14 4:18 PM) Baso Absolute 0.05 10*3 [0.00-0.20 10*3] (12/30/14 4:18 PM) Chemistry Most recent to 1 oldest [Reference Range]: Sodium Lvl [136-144 139 mEq/L mEq/L] (12/30/14:18 PM) Potassium Lvl 3.3 mEq/L [3.6-5.1 mEq/L] *LOW* (12/30/14:18 PM) Chloride [99-109 105 mEq/L mEq/L] (12/30/14 4:18 PM) CO2 [22-32 mEq/L] 27 mEq/L (12/30/14:18 PM) AGAP [3-20] 7 (12/30/14 4:18 PM) BUN [4-20 mg/dL] 7 mg/dL (12/30/14 4:18 PM) Glucose Lvl [70-100 117 mg/dL mg/dL] *HI* (12/30/14 4:18 PM) Creatinine Lvl 0.90 mg/dL [0.64-1.27 mg/dL] (12/30/14 4:18 PM) eGFR [>60] >60 1 (12/30/14 4:18 PM) Calcium Lvl 9.0 mg/dL [8.6-10.0 mg/dL] (12/30/14 4:18 PM) Albumin Lvl [3.5-4.8 3.8 gm/dL gm/dL] (12/30/14 4:18 PM) Total Protein 7.1 gm/dL [6.1-7.9 gm/dL] (12/30/14 4:18 PM) Globulin [1.9-4.3 3.3 gm/dL gm/dL] (12/30/14 4:18 PM) ALT [17-63 U/L] 18 U/L (12/30/14 4:18 PM) AST [15-41 U/L] 22 U/L (12/30/14 4:18 PM) Alk Phos [26-104 168 U/L U/L] *HI* (12/30/14 4:18 PM) Bili Total [0.2-1.2 0.5 mg/dL 2 mg/dL] (12/30/14 4:18 PM) Lipase Lvl [8-48 20 U/L U/L] (12/30/14 4:18 PM) 1Result Comment: Multiply eGFR results by [...]
--- OUTSIDE RECORDS SUMMARY | 2016-12-15 00:06 | XMS REPORT | Referral Summary ---
Author Author [facility] Organization [facility] Address Unknown Phone Unavailable Care Team Providers Care Fluid Power Mechanic Name Role Phone No PCP, Pt States Primary Care Physician [phone] Encounter VC Date(s): 10/27/15 - 10/27/15 [facility] [address] [place] [address]- [place] Discharge Diagnosis: Chronic abdominal pain Discharge Diagnosis: Crohn's colitis Discharge Disposition: -Home or Self Care Attending Physician: Fuentes Amador MD Admitting Physician: Fuentes Amador MD Vital Signs Most recent to 1 oldest [Reference Range]: Temperature Oral 37.0 degC [35.8-37.3 degC] (10/27/15 5:49 AM) Peripheral Pulse 87 bpm Rate [60-100 bpm] (10/27/15 7:44 AM) Respiratory Rate 18 br/min [14-20 br/min] (10/27/15 7:44 AM) Blood Pressure 148/88 mmHg [90-140/60-90 mmHg] *HI* (10/27/15 7:44 AM) SpO2 99 % (10/27/15 7:44 AM) Problem List Condition Effective Dates Status [...] days, # 6 tabs, 0 Refill(s), Pharmacy: [facility] [id number], 2 tabs Oral Daily,x3 days Start Date: 10/27/15 Stop Date: 10/30/15 Status: Ordered Results No data available for [...]
--- OUTSIDE RECORDS SUMMARY | 2016-12-15 00:06 | XMS REPORT | Referral Summary ---
Author Author [facility] Organization [facility] Address Unknown Phone Unavailable Care Team Providers Care Waterproofing Mixer Name Role Phone No PCP, Pt States Primary Care Physician [phone] Encounter VC Date(s): 12/15/15 - 12/15/15 [facility] [address] [place] [address] [phone] Discharge Disposition: Attending Physician: Lon Corea DO Admitting Physician: Tulio Shahid MD Vital Signs Most recent to 1 oldest [Reference Range]: Temperature Oral 37.5 degC [35.8-37.3 degC] *HI* (12/15/15 4:29 PM) Peripheral Pulse 121 bpm Rate [60-100 bpm] *HI* (12/15/15 4:29 PM) Heart Rate Monitored 92 bpm [60-100 bpm] (12/15/15 7:30 PM) Respiratory Rate 18 br/min [14-20 br/min] (12/15/15 7:30 PM) Blood Pressure 130/90 mmHg [90-140/60-90 mmHg] (12/15/15 7:30 PM) Mean Arterial 110 mmHg Pressure, Cuff (12/15/15 6:30 PM) SpO2 96 % (12/15/15 7:30 PM) Problem List Condition Effective Dates Status [...] to 1 oldest [Reference Range]: WBC [4.8-10.8 9.9 10*3/uL 10*3/uL] (12/15/15 4:53 PM) RBC [4.60-6.20] 4.71 (12/15/15 4:53 PM) Hgb [14.0-18.0 12.3 gm/dL gm/dL] *LOW* (12/15/15 4:53 PM) Hct [42.0-52.0 %] 36.4 % *LOW* (12/15/15 4:53 PM) MCV [82.0-99.0 fL] 77.3 fL *LOW* (12/15/15 4:53 PM) MCH [27.0-32.0 pg] 26.1 pg *LOW* (12/15/15 4:53 PM) MCHC [32.0-36.0 33.8 gm/dL gm/dL] (12/15/15 4:53 PM) RDW [11.5-14.5 %] 16.9 % *HI* (12/15/15 4:53 PM) Platelet [150-400 327 10*3/uL 10*3/uL] (12/15/15 4:53 PM) MPV [9.4-12.3 fL] 10.4 fL (12/15/15 4:53 PM) Immature 0.2 % Granulocytes (12/15/15 4:53 PM) [0.0-1.0 %] Neutrophils [51-75 73 % %] (12/15/15 4:53 PM) Lymphocytes [20-46 19 % %] *LOW* (12/15/15 4:53 PM) Monocytes [4-11 %] 6 % (12/15/15 4:53 PM) Eosinophils [0-4 %] 1 % (12/15/15 4:53 PM) Basophils [0-2 %] 0 % (12/15/15 4:53 PM) Neutro Absolute 7.20 10*3 [1.90-7.00 10*3] *HI* (12/15/15 4:53 PM) Lymph Absolute 1.91 10*3 [0.80-3.30 10*3] (12/15/15 4:53 PM) [place] Absolute 0.61 10*3 [0.30-1.00 10*3] (12/15/15 4:53 PM) Eos Absolute 0.10 10*3 [0.00-0.50 10*3] (12/15/15 4:53 PM) Baso Absolute 0.03 10*3 [0.00-0.20 10*3] (12/15/15 4:53 PM) Nucleated RBC 0.0 /100 WBC Automated [0 /100 (12/15/15 4:53 PM) WBC] Chemistry Most recent to 1 oldest [Reference Range]: Sodium Lvl [136-144 142 mEq/L mEq/L] (12/15/15 4:53 PM) Potassium Lvl 3.4 mEq/L [3.6-5.1 mEq/L] *LOW* (12/15/15 4:53 PM) Chloride [99-109 110 mEq/L mEq/L] *HI* (12/15/15 4:53 PM) CO2 [22-32 mEq/L] 22 mEq/L (12/15/15 4:53 PM) AGAP [3-20] 10 (12/15/15 4:53 PM) BUN [4-20 mg/dL] 5 mg/dL (12/15/15 4:53 PM) Glucose Lvl [70-100 100 mg/dL mg/dL] (12/15/15 4:53 PM) Creatinine Lvl 0.84 mg/dL [0.64-1.27 mg/dL] (12/15/15 4:53 PM) eGFR [>60] >60 1 (12/15/15 4:53 PM) Calcium Lvl 8.9 mg/dL [8.6-10.0 mg/dL] (12/15/15 4:53 PM) Albumin Lvl [3.5-4.8 3.7 gm/dL gm/dL] (12/15/15 4:53 PM) Total Protein 6.8 gm/dL [6.1-7.9 gm/dL] (12/15/15 4:53 PM) Globulin [1.9-4.3 3.1 gm/dL gm/dL] (12/15/15 4:53 PM) ALT [17-63 U/L] 23 U/L (12/15/15 4:53 PM) AST [15-41 U/L] 22 U/L (12/15/15 4:53 PM) Alk Phos [26-104 121 U/L U/L] *HI* (12/15/15 4:53 PM) Bili Total [0.2-1.2 0.4 mg/dL 2 mg/dL] (12/15/15 4:53 PM) Lipase Lvl [8-48 29 U/L U/L] (12/15/15 4:53 PM) 1Result Comment: Multiply eGFR results [...]
--- OUTSIDE RECORDS SUMMARY | 2016-12-15 00:06 | XMS REPORT | Referral Summary ---
Author Author [facility] Organization [facility] Address Unknown Phone Unavailable Care Team Providers Care Shank Archer Name Role Phone No PCP, Pt States Primary Care Physician [phone] Encounter VC Date(s): 04/21/15 - 04/21/15 [facility] [address] [place] [address] [phone] Discharge Diagnosis: Crohn's disease Discharge Diagnosis: Diarrhea Discharge Diagnosis: Nausea Final: Crohn's disease, unspecified, without complications Final: Nausea with vomiting, unspecified Discharge Diagnosis: Vomiting Discharge Disposition: 01-Home or [...] 10/28/15 Stop Date: 11/06/15 Status: Ordered Results Chemistry Most recent to [...]
--- OUTSIDE RECORDS SUMMARY | 2016-12-15 00:06 | XMS REPORT | Referral Summary ---
Author Author [facility] Organization [facility] Address Unknown Phone Unavailable Care Team Providers Care Head Of Precision Targeting Name Role Phone No PCP, Pt States Primary Care Physician [phone] Encounter VC Date(s): 10/22/15 - 10/23/15 [facility] [address] [place] [address] [phone] Discharge Diagnosis: Abdominal pain Discharge Disposition: 01-Home or Self Care Attending Physician: Lon Corea DO Admitting Physician: Lon Corea DO Vital Signs Most recent to 1 oldest [Reference Range]: Temperature Oral 36.8 degC [35.8-37.3 degC] (10/22/15 9:35 PM) Peripheral Pulse 86 bpm Rate [60-100 bpm] (10/22/15 9:35 PM) Heart Rate Monitored 66 bpm [60-100 bpm] (10/23/15 1:00 AM) Respiratory Rate 16 br/min [14-20 br/min] (10/23/15 12:00 AM) Blood Pressure 168/96 mmHg [90-140/60-90 mmHg] *HI* (10/23/15 1:00 AM) Mean Arterial 112 mmHg Pressure, Cuff (10/23/15 1:00 AM) SpO2 100 % (10/23/15 1:00 AM) Problem List Condition Effective Dates Status [...] Active traMADol Itching Active Swelling Medications Percocet 7.5/325 oral tablet 1 tabs, Oral, q4hr, as needed for pain, X 2 days, # 12 tabs, 0 Refill(s) Start Date: 10/23/15 Stop Date: 10/25/15 Status: Ordered predniSONE 20 mg oral tablet 20 mg 1 tabs, Oral, Daily, X 10 days, # 10 tabs, 0 Refill(s) Start Date: 10/14/15 Stop Date: 10/24/15 Status: Ordered Zofran ODT 4 mg oral tablet, disintegrating 4 mg 1 tabs, Oral, q4hr, Nausea or Vomiting | as needed for nausea/vomiting, X 2 days, # 12 tabs, 0 Refill(s) Start Date: 10/23/15 Stop Date: 10/25/15 Status: Ordered Results Hematology Most recent to 1 oldest [Reference Range]: WBC [4.8-10.8 9.2 10*3/uL 10*3/uL] (10/22/15 9:37 PM) RBC [4.60-6.20] 4.49 *LOW* (10/22/15 9:37 PM) Hgb [14.0-18.0 11.7 gm/dL gm/dL] *LOW* (10/22/15 9:37 PM) Hct [42.0-52.0 %] 35.8 % *LOW* (10/22/15 9:37 PM) MCV [82.0-99.0 fL] 79.7 fL *LOW* (10/22/15 9:37 PM) MCH [27.0-32.0 pg] 26.1 pg *LOW* (10/22/15 9:37 PM) MCHC [32.0-36.0 32.7 gm/dL gm/dL] (10/22/15 9:37 PM) RDW [11.5-14.5 %] 16.7 % *HI* (10/22/15 9:37 PM) Platelet [150-400 244 10*3/uL 10*3/uL] (10/22/15 9:37 PM) MPV [9.4-12.3 fL] 10.3 fL (10/22/15 9:37 PM) Immature 0.3 % Granulocytes (10/22/15 9:37 PM) [0.0-1.0 %] Neutrophils [51-75 76 % %] *HI* (10/22/15 9:37 PM) Lymphocytes [20-46 17 % %] *LOW* (10/22/15 9:37 PM) Monocytes [4-11 %] 5 % (10/22/15 9:37 PM) Eosinophils [0-4 %] 2 % (10/22/15 9:37 PM) Basophils [0-2 %] 0 % (10/22/15 9:37 PM) Neutro Absolute 6.94 10*3 [1.90-7.00 10*3] (10/22/15 9:37 PM) Lymph Absolute 1.56 10*3 [0.80-3.30 10*3] (10/22/15 9:37 PM) [place] Absolute 0.43 10*3 [0.30-1.00 10*3] (10/22/15 9:37 PM) Eos Absolute 0.19 10*3 [0.00-0.50 10*3] (10/22/15 9:37 PM) Baso Absolute 0.04 10*3 [0.00-0.20 10*3] (10/22/15 9:37 PM) Nucleated RBC 0.0 /100 WBC Automated [0 /100 (10/22/15 9:37 PM) WBC] Chemistry Most recent to 1 oldest [Reference Range]: Sodium Lvl [136-144 140 mEq/L mEq/L] (10/22/15 9:37 PM) Potassium Lvl 3.6 mEq/L [3.6-5.1 mEq/L] (10/22/15 9:37 PM) Chloride [99-109 105 mEq/L mEq/L] (10/22/15 9:37 PM) CO2 [22-32 mEq/L] 25 mEq/L (10/22/15 9:37 PM) AGAP [3-20] 10 (10/22/15 9:37 PM) BUN [4-20 mg/dL] 6 mg/dL (10/22/15 9:37 PM) Glucose Lvl [70-100 97 mg/dL mg/dL] (10/22/15 9:37 PM) Creatinine Lvl 0.93 mg/dL [0.64-1.27 mg/dL] (10/22/15 9:37 PM) eGFR [>60] >60 1 (10/22/15 9:37 PM) Calcium Lvl 8.7 mg/dL [8.6-10.0 mg/dL] (10/22/15 9:37 PM) Albumin Lvl [3.5-4.8 3.7 gm/dL gm/dL] (10/22/15 9:37 PM) Total Protein 6.4 gm/dL [6.1-7.9 gm/dL] (10/22/15 9:37 PM) Globulin [1.9-4.3 2.7 gm/dL gm/dL] (10/22/15 9:37 PM) ALT [17-63 U/L] 20 U/L (10/22/15 9:37 PM) AST [15-41 U/L] 17 U/L (10/22/15 9:37 PM) Alk Phos [26-104 103 U/L U/L] (10/22/15 9:37 PM) Bili Total [0.2-1.2 0.6 mg/dL 2 mg/dL] (10/22/15 9:37 PM) Lipase Lvl [8-48 22 U/L U/L] (10/22/15 9:37 PM) 1Result Comment: Multiply eGFR results by 1.21 for race. 2Result Comment: Naproxen, specifically the metabolite O-desmethylnaproxen, may cause spurious elevation in Total Bilirubin levels. Urinalysis Most recent to 1 oldest [Reference Range]: UA Color Straw (10/23/15 1:16 AM) UA Appear Clear (10/23/15 1:16 AM) UA pH [5.0-8.0] 6.0 (10/23/15 1:16 AM) UA Leuk Est Negative [Negative] (10/23/15 1:16 AM) UA Nitrite Negative [Negative] (10/23/15 1:16 AM) UA Protein Negative [Negative] (10/23/15 1:16 AM) UA Glucose Negative [Negative] (10/23/15 1:16 AM) UA Ketones Negative [Negative] (10/23/15 1:16 AM) UA Urobilinogen 2.0 mg/dL [<1.0 mg/dL] *ABN* (10/23/15 1:16 AM) UA Bili [Negative] Negative (10/23/15 1:16 AM) UA Blood [Negative] Negative (10/23/15 1:16 AM) UA Spec Grav >=1.045 [1.003-1.030] *ABN* (10/23/15 1:16 AM) Type Clean Catch (10/23/15 1:16 AM) Immunizations Vaccine Date Refusal Reason tetanus-diphth [...] and Plan No data available for this section"
--- OUTSIDE RECORDS SUMMARY | 2016-12-15 00:06 | XMS REPORT | Referral Summary ---
Author Organization Unknown Address Unknown Phone Unavailable Care Team Providers Care Gas Cutter Name Role Phone No PCP, States Primary Care Physician [phone] Encounter VC [facility]IP[facility] [id number] Date(s): 09/03/14 - 09/03/[address] [address] Discharge Diagnosis: Crohns disease Discharge Diagnosis: Abdominal pain Discharge Diagnosis: Nausea Discharge Disposition: Home or Self Care Attending Physician: Wild Ladd MD Admitting Physician: Wild Ladd MD Vital Signs Most recent to 1 oldest [Reference Range]: Temperature Temporal 36.7 degC Artery [36.3-37.8 (09/03/14 11:09 AM) degC] Peripheral Pulse 68 bpm Rate [60-100 bpm] (09/03/14 1:30 PM) Respiratory Rate 16 br/min [14-20 br/min] (09/03/14 1:30 PM) Blood Pressure 165/99 mmHg [90-140/60-90 mmHg] *HI* (09/03/14 1:30 PM) Most recent to 1 oldest [Reference Range]: SpO2 99 % (09/03/14 1:30 PM) Problem List Condition Effective Dates Status [...] 1 oldest [Reference Range]: WBC [4.8-10.8 K/uL] 8.0 K/uL (09/03/14 11:55 AM) RBC [4.60-6.20 M/uL] 5.29 M/uL (09/03/14 11:55 AM) Hgb [14.0-18.0 14.7 gm/dL gm/dL] (09/03/14 11:55 AM) Hct [42.0-52.0 %] 42.7 % (09/03/14 11:55 AM) MCV [82.0-99.0 fL] 80.7 fL *LOW* (09/03/14 11:55 AM) MCH [27.0-32.0 pg] 27.8 pg (09/03/14 11:55 AM) MCHC [32.0-36.0 34.4 gm/dL gm/dL] (09/03/14 11:55 AM) RDW [11.5-14.5 %] 15.5 % *HI* (09/03/14 11:55 AM) Platelet [150-400 305 K/uL K/uL] (09/03/14 11:55 AM) MPV [9.4-12.3 fL] 11.4 fL (09/03/14 11:55 AM) Immature 0.1 % Granulocytes (09/03/14 11:55 AM) [0.0-1.0 %] Neutrophils [51-75 76 % %] *HI* (09/03/14 11:55 AM) Lymphocytes [20-46 15 % %] *LOW* (09/03/14 11:55 AM) Monocytes [4-11 %] 8 % (2/16/15 11:55 AM) Eosinophils [0-4 %] 1 % (09/03/1455 AM) Basophils [0-2 %] 0 % (09/03/14) Neutro Absolute 6.10 THOUS [1.90-7.00 THOUS] (09/03/1455 AM) Lymph Absolute 1.18 THOUS [0.80-3.30 THOUS] (09/03/14 AM) [place] Absolute 0.63 THOUS [0.30-1.00 THOUS] (09/03/14:55 AM) Eos Absolute 0.04 THOUS [0.00-0.50 THOUS] (09/03/14:55 AM) Baso Absolute 0.02 THOUS [0.00-0.20 THOUS] (09/03/14 AM) Nucleated RBC 0.0 /100 WBC Automated [0 /100 (09/03/14:) WBC] Chemistry Most recent to 1 oldest [Reference Range]: Sodium Lvl [136-144 141 mEq/L mEq/L] (09/03/14: AM) Potassium Lvl 4.0 mEq/L [3.6-5.1 mEq/L] (09/03/14:55 AM) Chloride [99-109 105 mEq/L mEq/L] (09/03/14 AM) CO2 [22-32 mEq/L] 27 mEq/L (09/03/14: AM) AGAP [3-20] 9 (09/03/14:55 AM) BUN [4-20 mg/dL] 9 mg/dL (09/03/14:55 AM) Glucose Lvl [70-100 101 mg/dL mg/dL] *HI* (09/03/14:55 AM) Creatinine Lvl 0.88 mg/dL [0.64-1.27 mg/dL] (09/03/14: AM) eGFR [>60] >60 2 (09/03/14:55 AM) Calcium Lvl 9.5 mg/dL [8.6-10.0 mg/dL] (09/03/14:55 AM) Albumin Lvl [3.5-4.8 4.4 gm/dL gm/dL] (09/03/14 11:55 AM) Total Protein 7.4 gm/dL [6.1-7.9 gm/dL] (09/03/14 11:55 AM) Globulin [1.9-4.3 3.0 gm/dL gm/dL] (09/03/14 11:55 AM) ALT [17-63 unit/L] 15 unit/L *LOW* (09/03/14 11:55 AM) AST [15-41 unit/L] 22 unit/L (09/03/14 11:55 AM) Alk Phos [26-104 116 unit/L unit/L] *HI* (09/03/14 11:55 AM) Bili Total [0.2-1.2 0.5 mg/dL 1 mg/dL] (09/03/14 11:55 AM) Lipase Lvl [8-48 25 unit/L unit/L] (09/03/14 11:55 AM) 1Result Comment: Naproxen, specifically the metabolite [...]
--- OUTSIDE RECORDS SUMMARY | 2016-12-15 00:07 | XMS REPORT | Referral Summary ---
Author Author [facility] Organization [facility] Address Unknown Phone Unavailable Care Team Providers Care Stock Digger Name Role Phone No PCP, Pt States Primary Care Physician [phone] Encounter VC Date(s): 05/26/15 - 05/27/[address] [facility] [address] [place], [place] [address] Discharge Diagnosis: Acute Crohn's disease Discharge Disposition: 01-Home or Self Care Attending Physician: Arianne House MD Admitting Physician: Arianne House MD Vital Signs Most recent to 1 oldest [Reference Range]: Temperature Oral 37.4 degC [35.8-37.3 degC] *HI* (05/26/15 8:42 PM) Peripheral Pulse 81 bpm Rate [60-100 bpm] (05/26/15 8:42 PM) Heart Rate Monitored 102 bpm [60-100 bpm] *HI* (05/26/15 11:49 PM) Respiratory Rate 16 br/min [14-20 br/min] (05/26/15 8:42 PM) Blood Pressure 130/83 mmHg [90-140/60-90 mmHg] (05/26/15 11:49 PM) Mean Arterial 101 mmHg Pressure, Cuff (05/26/15 11:49 PM) SpO2 98 % (05/26/15 11:49 PM) Problem List Condition Effective Dates Status [...] 500 mg 1 tabs, Oral, q12hr, X 7 days, # 14 tabs, 0 Refill(s) Start Date: 05/26/15 Stop Date: 06/02/15 Status: Ordered Percocet 2.5/325 oral tablet 1 tabs, Oral, q6hr, as needed for pain, # 24 tabs, 0 Refill(s) Start Date: 04/25/15 Stop Date: 04/26/16 Status: Ordered Percocet 5/325 oral tablet 1 tabs, Oral, q4hr, as needed for pain, X 4 days, # 24 tabs, 0 Refill(s) Start Date: 05/26/15 Stop Date: 05/30/15 Status: Ordered predniSONE 10 mg oral tablet See Instructions, take four tabs daily for 3 days, then take two tabs daily for 3 days, then take one tab daily for 3 days, # 21 tabs, 0 Refill(s) Start Date: 05/26/15 Stop Date: 06/04/15 Status: Ordered predniSONE 20 mg oral tablet 40 mg 2 tabs, Oral, Daily, # 10 tabs, 0 Refill(s) Start Date: 04/25/15 Stop Date: 04/26/16 Status: Ordered Zofran 4 mg oral tablet 4 mg 1 tabs, Oral, q8hr, as needed for nausea/vomiting, X 3 days, # 9 tabs, 0 Refill(s) Start Date: 05/26/15 Stop Date: 05/29/15 Status: Ordered Results Hematology Most recent to 1 oldest [Reference Range]: WBC [4.8-10.8 7.6 10*3/uL 10*3/uL] (05/26/15 9:00 PM) RBC [4.60-6.20] 5.54 (05/26/15:00 PM) Hgb [14.0-18.0 14.6 gm/dL gm/dL] (05/26/15:00 PM) Hct [42.0-52.0 %] 42.3 % (05/26/15: PM) MCV [82.0-99.0 fL] 76.4 fL *LOW* (05/26/15: PM) MCH [27.0-32.0 pg] 26.4 pg *LOW* (05/26/15: PM) MCHC [32.0-36.0 34.5 gm/dL gm/dL] (05/26/15:00 PM) RDW [11.5-14.5 %] 18.4 % *HI* (05/26/15: PM) Platelet [150-400 327 10*3/uL 10*3/uL] (05/26/15:00 PM) MPV [9.4-12.3 fL] 11.0 fL (05/26/15:00 PM) Immature 0.7 % Granulocytes (05/26/15 PM) [0.0-1.0 %] Neutrophils [51-75 64 % %] (05/26/15:00 PM) Lymphocytes [20-46 26 % %] (05/26/15:00 PM) Monocytes [4-11 %] 8 % (05/26/15:00 PM) Eosinophils [0-4 %] 2 % (05/26/15:00 PM) Basophils [0-2 %] 0 % (05/26/15:00 PM) Neutro Absolute 4.86 10*3 [1.90-7.00 10*3] (05/26/15 9:00 PM) Lymph Absolute 1.95 10*3 [0.80-3.30 10*3] (05/26/15 9:00 PM) [place] Absolute 0.60 10*3 [0.30-1.00 10*3] (05/26/15 9:00 PM) Eos Absolute 0.12 10*3 [0.00-0.50 10*3] (05/26/15:00 PM) Baso Absolute 0.02 10*3 [0.00-0.20 10*3] (05/26/15 9:00 PM) Chemistry Most recent to 1 oldest [Reference Range]: Sodium Lvl [136-144 135 mEq/L mEq/L] *LOW* (05/26/15 9:00 PM) Potassium Lvl 5.0 mEq/L 1 [3.6-5.1 mEq/L] (05/26/15 9:00 PM) Chloride [99-109 100 mEq/L mEq/L] (05/26/15:00 PM) CO2 [22-32 mEq/L] 26 mEq/L (05/26/15 9:00 PM) AGAP [3-20] 9 (05/26/15:00 PM) BUN [4-20 mg/dL] 12 mg/dL (05/26/15:00 PM) Glucose Lvl [70-100 121 mg/dL mg/dL] *HI* (05/26/15 9:00 PM) Creatinine Lvl 0.96 mg/dL [0.64-1.27 mg/dL] (05/26/15 9:00 PM) eGFR [>60] >60 2 (05/26/15 9:00 PM) Calcium Lvl 9.4 mg/dL [8.6-10.0 mg/dL] (05/26/15 9:00 PM) Albumin Lvl [3.5-4.8 4.5 gm/dL gm/dL] (05/26/15 9:00 PM) Total Protein 8.5 gm/dL [6.1-7.9 gm/dL] *HI* (05/26/15 9:00 PM) Globulin [1.9-4.3 4.0 gm/dL gm/dL] (05/26/15 9:00 PM) ALT [17-63 U/L] 112 U/L *HI* (05/26/15 9:00 PM) AST [15-41 U/L] 76 U/L *HI* (05/26/15 9:00 PM) Alk Phos [26-104 147 U/L U/L] *HI* (05/26/15 9:00 PM) Bili Total [0.2-1.2 1.0 mg/dL 3 mg/dL] (11/8/15 9:00 PM) Lipase Lvl [8-48 29 U/L U/L] (05/26/15 9:00 PM) 1Result Comment: Hemolyzed specimen. The following tests may be affected: ALT, AST, Ammonia, Iron, Potassium, LDH, Amylase, CPK, and Total Bilirubin. 2Result Comment: Multiply eGFR results by 1.21 for race. 3Result Comment: Naproxen, specifically the metabolite O-desmethylnaproxen, may cause spurious elevation in Total Bilirubin levels. Urinalysis Most recent to 1 oldest [Reference Range]: UA Color Juli *ABN* (05/26/15 9:00 PM) UA Appear Clear (05/26/15 9:00 PM) UA pH [5.0-8.0] 7.0 (05/26/15 9:00 PM) UA Leuk Est Negative [Negative] (05/26/15 9:00 PM) UA Nitrite Negative [Negative] (05/26/15 9:00 PM) UA Protein Pos 1+ [Negative] *ABN* (05/26/15 9:00 PM) UA Glucose Negative [Negative] (05/26/15 9:00 PM) UA Ketones Negative [Negative] (05/26/15 9:00 PM) UA Urobilinogen 1.0 mg/dL [<1.0 mg/dL] (05/26/15 9:00 PM) UA Bili [Negative] Positive *ABN* (05/26/15 9:00 PM) UA Blood [Negative] Trace *ABN* (05/26/15 9:00 PM) UA Spec Grav 1.043 [1.003-1.030] *HI* (05/26/15 9:00 PM) Type Clean Catch (05/26/15 9:00 PM) UA WBC [0-4] 0-2 (05/26/15 9:00 PM) UA RBC [0-2] 0-2 (05/26/15 9:00 PM) Epithelial Cells 0-2 (05/26/15 9:00 PM) UA Bacteria Rare (05/26/15 9:00 PM) UA Hyal Cast [0-3] 1-3 (05/26/15 9:00 PM) UA Mucous Present (05/26/15 9:00 PM) Immunizations Vaccine Date Refusal Reason tetanus-diphth [...]
--- OUTSIDE RECORDS SUMMARY | 2016-12-15 00:07 | XMS REPORT | Referral Summary ---
Author Author [facility] Organization [facility] Address Unknown Phone Unavailable Care Team Providers Care Boiler Repair Supervisor Name Role Phone No PCP, Pt States Primary Care Physician [phone] Encounter VC Date(s): 01/23/16 - 01/23/16 [facility] [address] [place] [address]- Discharge Disposition: 01-Home or Self Care Attending Physician: Sandeep Tyson MD Admitting Physician: Sandeep Tyson MD Vital Signs Most recent to 1 oldest [Reference Range]: Temperature Oral 37.4 degC [35.8-37.3 degC] *HI* (01/23/16 12:25 PM) Peripheral Pulse 94 bpm Rate [60-100 bpm] (01/23/16 12:25 PM) Respiratory Rate 16 br/min [14-20 br/min] (01/23/16 12:25 PM) Blood Pressure 127/77 mmHg [90-140/60-90 mmHg] (01/23/16 12:25 PM) SpO2 98 % (01/23/16 12:25 PM) Problem List Condition Effective Dates [...] Active Swelling Medications Crutches (DME) DME Item 4 weeks, See [...]
--- OUTSIDE RECORDS SUMMARY | 2016-12-15 00:07 | XMS REPORT | Referral Summary ---
Author Author [facility] Organization [facility] Address Unknown Phone Unavailable Care Team Providers Care Tool Supervisor Name Role Phone No PCP, Pt States Primary Care Physician [phone] Encounter [facility] [id number] Date(s): 11/24/14 - 11/25/14 [facility] [address] [place] [address] Final: ABDOMINAL PAIN, OTHER SPECIFIED SITE; MULTIPLE SITES Final: Other chronic pain Discharge Diagnosis: Chronic abdominal pain Discharge Disposition: 01-Home or Self Care Attending Physician: Sameer Alvarado MD Admitting Physician: Sameer Alvarado MD Vital Signs Most recent to 1 oldest [Reference Range]: Temperature Oral 36.7 degC [35.8-37.3 degC] (11/24/14 10:42 PM) Peripheral Pulse 89 bpm Rate [60-100 bpm] (11/25/14 3:31 AM) Respiratory Rate 16 br/min [14-20 br/min] (11/25/14 3:31 AM) Blood Pressure 156/95 mmHg [90-140/60-90 mmHg] *HI* (11/25/14 3:31 AM) SpO2 98 % (11/25/14 3:31 AM) Problem List Condition Effective Dates Status [...] Range]: Sodium Venous 141 mEq/L [136-144 mEq/L] (11/25/14 2:39 AM) Potassium Venous 3.6 mEq/L 1 [3.6-5.1 mEq/L] (11/25/14 2:39 AM) Calcium Ionized 1.20 mmol/L Venous [1.19-1.41 (11/25/14 2:39 AM) mmol/L] Total CO2 Venous 25 mEq/L [25-29 mEq/L] (11/25/14 2:39 AM) HGB Venous NPT 12.2 gm/dL [14.0-16.0 gm/dL] *LOW* (11/25/14 2:39 AM) HCT Venous 36.0 % [42.0-52.0 %] *LOW* (11/25/14 2:39 AM) Glucose Venous 91 mg/dL [70-100 mg/dL] (11/25/14 2:39 AM) BUN Venous [4-20] 10 (11/25/14 2:39 AM) Creatinine Venous 1.0 mg/dL [0.7-1.2 mg/dL] (11/25/14 2:39 AM) Venous CL [99-109 101 mEq/L mEq/L] (11/25/14 2:39 AM) Anion Gap, Jt 15 [3-20] (11/25/14 2:39 AM) 1Result Comment: This test was performed [...]
--- OUTSIDE RECORDS SUMMARY | 2016-12-15 00:07 | XMS REPORT | Referral Summary ---
Author Author [facility] Organization [facility] Address Unknown Phone Unavailable Encounter [facility] [id number] Date(s): 03/04/16 - 03/04/16 [facility] [address] [place] [address]- Discharge Disposition: Against Medical Advice Attending Physician: Sandeep Tyson MD Admitting Physician: Sandeep Tyson MD Vital Signs Most recent to 1 oldest [Reference Range]: Temperature Oral 37 degC [35.8-37.3 degC] (03/04/16 12:29 AM) Peripheral Pulse 89 bpm Rate [60-100 bpm] (03/04/16 12:29 AM) Respiratory Rate 14 br/min [14-20 br/min] (03/04/16 12:29 AM) Blood Pressure 138/73 mmHg [90-140/60-90 mmHg] (03/04/16 12:29 AM) SpO2 98 % (03/04/16 12:29 AM) Problem List Condition Effective Dates Status [...] Cramping, # 40 caps, 0 Refill(s), Pharmacy: [id number], 1 caps Oral QID,x10 days,PRN:Abdominal Cramping Start [...]
--- OUTSIDE RECORDS SUMMARY | 2016-12-15 00:07 | XMS REPORT | Referral Summary ---
Author Author [facility] Organization [facility] Address Unknown Phone Unavailable Care Team Providers Care Chrome Tanner Name Role Phone No PCP, Pt States Primary Care Physician [phone] Encounter [facility] Date(s): 11/19/14 - 11/19/14 [facility] [address] [place] [address] Discharge Diagnosis: Abdominal pain Discharge Diagnosis: Crohn disease Final: REGIONAL ENTERITIS OF UNSPECIFIED SITE Discharge Disposition: 01-Home or Self Care Attending Physician: Patrice Rankin JR, MD Admitting Physician: Patrice Rankin JR, MD Vital Signs Most recent to 1 oldest [Reference Range]: Temperature Oral 37.2 degC [35.8-37.3 degC] (11/19/14 1:22 PM) Peripheral Pulse 75 bpm Rate [60-100 bpm] (11/19/14 6:14 PM) Heart Rate Monitored 85 bpm [60-100 bpm] (11/19/14 9:07 PM) Respiratory Rate 17 br/min [14-20 br/min] (11/19/14 9:07 PM) Blood Pressure 126/68 mmHg [90-140/60-90 mmHg] (11/19/14 9:07 PM) Mean Arterial 100 mmHg Pressure, Cuff (11/19/14 8:40 PM) SpO2 98 % (11/19/14 9:07 PM) Problem List Condition Effective Dates Status [...] 04/25/15 Stop Date: 04/26/16 Status: Ordered predniSONE 10 mg oral tablet [...] [Reference Range]: WBC [4.8-10.8 8.3 10*3/uL 10*3/uL] (11/19/14 6:05 PM) RBC [4.60-6.20 5.02 10*6/uL 10*6/uL] (11/19/14 6:05 PM) Hgb [14.0-18.0 13.4 gm/dL gm/dL] *LOW* (11/19/14 6:05 PM) Hct [42.0-52.0 %] 39.7 % *LOW* (11/19/14 6:05 PM) MCV [82.0-99.0 fL] 79.1 fL *LOW* (11/19/14 6:05 PM) MCH [27.0-32.0 pg] 26.7 pg *LOW* (11/19/14 6:05 PM) MCHC [32.0-36.0 33.8 gm/dL gm/dL] (11/19/14 6:05 PM) RDW [11.5-14.5 %] 15.4 % *HI* (11/19/14 6:05 PM) Platelet [150-400 286 10*3/uL 10*3/uL] (11/19/14 6:05 PM) MPV [9.4-12.3 fL] 10.8 fL (11/19/14 6:05 PM) Immature 0.1 % Granulocytes (11/19/14:05 PM) [0.0-1.0 %] Neutrophils [51-75 74 % %] (11/19/14 6:05 PM) Lymphocytes [20-46 18 % %] *LOW* (11/19/14 6:05 PM) Monocytes [4-11 %] 5 % (11/19/14 6:05 PM) Eosinophils [0-4 %] 2 % (11/19/14 6:05 PM) Basophils [0-2 %] 0 % (11/19/14 6:05 PM) Neutro Absolute 6.12 THOUS [1.90-7.00 THOUS] (11/19/14 6:05 PM) Lymph Absolute 1.51 THOUS [0.80-3.30 THOUS] (11/19/14 6:05 PM) Crisp Absolute 0.45 THOUS [0.30-1.00 THOUS] (11/19/14 6:05 PM) Eos Absolute 0.16 THOUS [0.00-0.50 THOUS] (11/19/14 6:05 PM) Baso Absolute 0.02 THOUS [0.00-0.20 THOUS] (11/19/14 6:05 PM) Nucleated RBC 0.0 /100 WBC Automated [0 /100 (11/19/14:05 PM) WBC] Chemistry Most recent to 1 oldest [Reference Range]: Sodium Lvl [136-144 141 mEq/L mEq/L] (11/19/14 6:05 PM) Potassium Lvl 3.4 mEq/L [3.6-5.1 mEq/L] *LOW* (11/19/14 6:05 PM) Chloride [99-109 105 mEq/L mEq/L] (11/19/14:05 PM) CO2 [22-32 mEq/L] 29 mEq/L (11/19/14:05 PM) AGAP [3-20] 7 (11/19/14:05 PM) BUN [4-20 mg/dL] 3 mg/dL *LOW* (11/19/1405 PM) Glucose Lvl [70-100 96 mg/dL mg/dL] (11/19/14:05 PM) Creatinine Lvl 0.87 mg/dL [0.64-1.27 mg/dL] (11/19/14:05 PM) eGFR [>60] >60 1 (11/19/14:05 PM) Calcium Lvl 8.9 mg/dL [8.6-10.0 mg/dL] (11/19/14:05 PM) Albumin Lvl [3.5-4.8 3.8 gm/dL gm/dL] (11/19/14:05 PM) Total Protein 7.0 gm/dL [6.1-7.9 gm/dL] (11/19/14 6:05 PM) Globulin [1.9-4.3 3.2 gm/dL gm/dL] (11/19/14:05 PM) ALT [17-63 U/L] 14 U/L *LOW* (11/19/14:05 PM) AST [15-41 U/L] 17 U/L (11/19/14:05 PM) Alk Phos [26-104 142 U/L U/L] *HI* (11/19/14:05 PM) Bili Total [0.2-1.2 0.5 mg/dL 2 mg/dL] (11/19/14:05 PM) Lipase Lvl [8-48 20 U/L U/L] (11/19/14:05 PM) 1Result Comment: Multiply eGFR results by 1.21 for race. 2Result Comment: Naproxen, specifically the metabolite O-desmethylnaproxen, may cause spurious elevation in Total Bilirubin levels. Urinalysis Most recent to 1 oldest [Reference Range]: UA Color Lt Yellow (11/19/14 6:05 PM) UA Appear Clear (11/19/14 6:05 PM) UA pH [5.0-8.0] 8.0 (11/19/14 6:05 PM) UA Leuk Est Negative [Negative] (11/19/14 6:05 PM) UA Nitrite Negative [Negative] (11/19/14 6:05 PM) UA Protein Negative [Negative] (11/19/14 6:05 PM) UA Glucose Negative [Negative] (11/19/14 6:05 PM) UA Ketones Negative [Negative] (11/19/14 6:05 PM) UA Urobilinogen Negative [<1.0] (11/19/14 6:05 PM) UA Bili [Negative] Negative (11/19/14 6:05 PM) UA Blood [Negative] Negative (11/19/14 6:05 PM) UA Spec Grav 1.009 [1.003-1.030] (11/19/14 6:05 PM) Type Clean Catch (11/19/14 6:05 PM) Immunizations Vaccine Date Refusal Reason tetanus-diphth [...]
--- OUTSIDE RECORDS SUMMARY | 2016-12-15 00:07 | XMS REPORT ---
Author Author [place]/[facility], [facility] - Organization Unknown Address Unknown Phone Unavailable [...] has not been performed. Results LAB--CHEMISTRY from 02/15/2013 4:26 PMAnion Gap 15 (3-20 ) Albumin 4.1 g/dL (3.5-4.8 g/dL) Alkaline Phosphatase 109 U/L H (26-104 U/L) ALT (SGPT) 20 U/L (17-63 U/L) AST (SGOT) 24 U/L (15-41 U/L) Bilirubin Total 1.1 mg/dL (0.2-1.2 mg/dL) BUN 10 mg/dL (4-20 mg/dL) Calcium 9.7 mg/dL (8.6-10.0 mg/dL) Chloride 104 mEq/L (99-109 mEq/L) CO2 23 mEq/L (22-32 mEq/L) Creatinine 1.63 mg/dL H (0.64-1.27 mg/dL) eGFR 52 A (>60- ) Globulin 3.6 g/dL (1.9-4.3 g/dL) Glucose 111 mg/dL H (70-100 mg/dL) Potassium 3.8 mEq/L (3.6-5.1 mEq/L) Sodium 142 mEq/L (136-144 mEq/L) Protein 7.7 g/dL (6.1-7.9 g/dL) Lipase 17 U/L (8-48 U/L) LAB--HEMATOLOGY from 02/15/2013 4:26 PMAbsolute Basophils 0.01 THOUS (0.00-0.20 THOUS) Absolute Eosinophils 0.00 THOUS (0.00-0.50 THOUS) Absolute Lymphocytes 1.06 THOUS (0.80-3.30 THOUS) Absolute Monocytes 0.60 THOUS (0.30-1.00 THOUS) Absolute Neutrophils 11.97 THOUS H (1.90-7.00 THOUS) HCT 42.9 % (42.0-52.0 %) HGB 14.9 g/dl (14.0-18.0 g/dl) MCH 26.8 pg L (27.0-32.0 pg) MCHC 34.7 g/dL (32.0-36.0 g/dL) MCV 77.0 fL L (82.0-99.0 fL) MPV 10.6 fL (9.4-12.3 fL) Platelet Count 309 K/uL (150-400 K/uL) RBC 5.57 M/uL (4.60-6.20 M/uL) RDW 16.6 % H (11.5-14.5 %) WBC 13.7 K/uL H (4.8-10.8 K/uL) Basophils 0 % (0-2 %) Eosinophils 0 % (0-4 %) Immature Granulocytes 0.3 % (0.0-1.0 %) Lymphocytes 8 % L (20-46 %) Monocytes 4 % (4-11 %) Nucleated RBC Automated 0.0 /100 WBC (0 /100 WBC) Neutrophils 88 % H (51-75 %)
--- OUTSIDE RECORDS SUMMARY | 2016-12-15 00:07 | XMS REPORT | Referral Summary ---
Author Author [facility] Organization [facility] Address Unknown Phone Unavailable Care Team Providers Care Base Brander Name Role Phone No PCP, Pt States Primary Care Physician [phone] Encounter Date(s): 03/29/16 - 03/30/16 [facility] [address] [place], [place] [address] Discharge Diagnosis: Exacerbation of Crohn's disease Discharge Disposition: 01-Home or Self Care Attending Physician: Philipp Brooks MD Admitting Physician: Philipp Brooks MD Vital Signs Most recent to 1 oldest [Reference Range]: Temperature Oral 36.5 degC [35.8-37.3 degC] (03/30/16 8:00 AM) Peripheral Pulse 81 bpm Rate [60-100 bpm] (03/30/16 8:00 AM) Heart Rate Monitored 90 bpm [60-100 bpm] (03/29/16 8:15 AM) Respiratory Rate 16 br/min [14-20 br/min] (03/30/16 8:00 AM) Blood Pressure 117/69 mmHg [90-140/60-90 mmHg] (03/30/16 8:00 AM) SpO2 98 % (03/30/16 8:00 AM) Problem List Condition Effective Dates Status [...] to 1 oldest [Reference Range]: WBC [4.8-10.8 14.8 10*3/uL 10*3/uL] *HI* (03/30/16 8:15 AM) RBC [4.60-6.20] 4.41 *LOW* (03/30/16 8:15 AM) Hgb [14.0-18.0 11.5 gm/dL gm/dL] *LOW* (03/30/16 8:15 AM) Hct [42.0-52.0 %] 34.6 % *LOW* (03/30/16 8:15 AM) MCV [82.0-99.0 fL] 78.5 fL *LOW* (03/30/16 8:15 AM) MCH [27.0-32.0 pg] 26.1 pg *LOW* (03/30/16 8:15 AM) MCHC [32.0-36.0 33.2 gm/dL gm/dL] (03/30/16 8:15 AM) RDW [11.5-14.5 %] 19.8 % *HI* (03/30/16 8:15 AM) Platelet [150-400 312 10*3/uL 10*3/uL] (03/30/16 8:15 AM) MPV [9.4-12.3 fL] 10.8 fL (03/30/16 8:15 AM) Immature 0.3 % Granulocytes (03/30/16 8:15 AM) [0.0-1.0 %] Neutrophils [51-75 76 % %] *HI* (03/30/16 8:15 AM) Lymphocytes [20-46 15 % %] *LOW* (03/30/16 8:15 AM) Monocytes [4-11 %] 8 % (03/30/16 8:15 AM) Eosinophils [0-4 %] 0 % (03/30/16 8:15 AM) Basophils [0-2 %] 0 % (03/30/16 8:15 AM) Neutro Absolute 11.27 10*3 [1.90-7.00 10*3] *HI* (03/30/16 8:15 AM) Lymph Absolute 2.16 10*3 [0.80-3.30 10*3] (03/30/16 8:15 AM) Mchenry Absolute 1.24 10*3 [0.30-1.00 10*3] *HI* (03/30/16 8:15 AM) Eos Absolute 0.05 10*3 [0.00-0.50 10*3] (03/30/16 8:15 AM) Baso Absolute 0.01 10*3 [0.00-0.20 10*3] (03/30/16 8:15 AM) Nucleated RBC 0.0 /100 WBC Automated [0 /100 (03/30/16 8:15 AM) WBC] Sed Rate [0-15] 10 (03/30/16 8:15 AM) Immunizations Vaccine Date Refusal Reason tetanus-diphth [...]
--- OUTSIDE RECORDS SUMMARY | 2016-12-15 00:07 | XMS REPORT | Referral Summary ---
Author Author [facility] Organization [facility] Address Unknown Phone Unavailable Care Team Providers Care Field Assessor Name Role Phone No PCP, Pt States Primary Care Physician [phone] Encounter VC Date(s): 12/07/14 - 12/08/14 [facility] [address], [place] [address] Discharge Diagnosis: Acute abdominal pain Discharge Diagnosis: Crohn's disease Final: REGIONAL ENTERITIS OF UNSPECIFIED SITE Discharge Disposition: 01-Home or Self Care Attending Physician: Ede Lopez DO Admitting Physician: Ede Lopez DO Vital Signs Most recent to 1 oldest [Reference Range]: Temperature Oral 36.8 degC [35.8-37.3 degC] (12/07/14 11:14 PM) Peripheral Pulse 76 bpm Rate [60-100 bpm] (12/08/14 2:48 AM) Respiratory Rate 18 br/min [14-20 br/min] (12/07/14 11:14 PM) Blood Pressure 139/99 mmHg [90-140/60-90 mmHg] (12/08/14 2:48 AM) SpO2 97 % (12/08/14 2:48 AM) Problem List Condition Effective Dates Status [...] to 1 oldest [Reference Range]: WBC [4.8-10.8 10.3 10*3/uL 10*3/uL] (12/08/14 1:20 AM) RBC [4.60-6.20 4.73 10*6/uL 10*6/uL] (12/08/14 1:20 AM) Hgb [14.0-18.0 12.5 gm/dL gm/dL] *LOW* (12/08/14 1:20 AM) Hct [42.0-52.0 %] 37.0 % *LOW* (12/08/14 1:20 AM) MCV [82.0-99.0 fL] 78.2 fL *LOW* (12/08/14 1:20 AM) MCH [27.0-32.0 pg] 26.4 pg *LOW* (12/08/14 1:20 AM) MCHC [32.0-36.0 33.8 gm/dL gm/dL] (12/08/14 1:20 AM) RDW [11.5-14.5 %] 16.5 % *HI* (12/08/14 1:20 AM) Platelet [150-400 155 10*3/uL 10*3/uL] (12/08/14 1:20 AM) MPV [9.4-12.3 fL] 11.7 fL (12/08/14 1:20 AM) Immature 0.4 % Granulocytes (12/08/14:20 AM) [0.0-1.0 %] Neutrophils [51-75 78 % %] *HI* (12/08/14 1:20 AM) Lymphocytes [20-46 11 % %] *LOW* (12/08/14 1: AM) Monocytes [4-11 %] 9 % (12/08/14 1:20 AM) Eosinophils [0-4 %] 2 % (12/08/14 1: AM) Basophils [0-2 %] 0 % (12/08/14 1: AM) Neutro Absolute 7.96 10*3 [1.90-7.00 10*3] *HI* (12/08/14 1:20 AM) Lymph Absolute 1.14 10*3 [0.80-3.30 10*3] (12/08/14 1:20 AM) [place] Absolute 0.90 10*3 [0.30-1.00 10*3] (12/08/14 1:20 AM) Eos Absolute 0.22 10*3 [0.00-0.50 10*3] (12/08/14 1:20 AM) Baso Absolute 0.01 10*3 [0.00-0.20 10*3] (12/08/14 1:20 AM) Chemistry Most recent to 1 oldest [Reference Range]: Sodium Lvl [136-144 137 mEq/L mEq/L] (12/08/14 1:20 AM) Potassium Lvl 3.8 mEq/L 1 [3.6-5.1 mEq/L] (12/08/14 1:20 AM) Chloride [99-109 105 mEq/L mEq/L] (12/08/14 1:20 AM) CO2 [22-32 mEq/L] 27 mEq/L (12/08/14 1:20 AM) AGAP [3-20] 5 (12/08/14 1:20 AM) BUN [4-20 mg/dL] 3 mg/dL *LOW* (12/08/14 1:20 AM) Glucose Lvl [70-100 99 mg/dL mg/dL] (12/08/14 1:20 AM) Creatinine Lvl 0.84 mg/dL [0.64-1.27 mg/dL] (12/08/14 1:20 AM) eGFR [>60] >60 2 (12/08/14 1:20 AM) Calcium Lvl 8.8 mg/dL [8.6-10.0 mg/dL] (12/08/14 1:20 AM) Albumin Lvl [3.5-4.8 3.8 gm/dL gm/dL] (12/08/14 1:20 AM) Total Protein 6.5 gm/dL [6.1-7.9 gm/dL] (12/08/14 1:20 AM) Globulin [1.9-4.3 2.7 gm/dL gm/dL] (12/08/14 1:20 AM) ALT [17-63 U/L] 21 U/L (12/08/14 1:20 AM) AST [15-41 U/L] 23 U/L (12/08/14 1:20 AM) Alk Phos [26-104 129 U/L U/L] *HI* (12/08/14 1:20 AM) Bili Total [0.2-1.2 0.8 mg/dL 3 mg/dL] (12/08/14 1:20 AM) 1Result Comment: Hemolyzed specimen. The following tests [...]
--- OUTSIDE RECORDS SUMMARY | 2016-12-15 00:07 | XMS REPORT | Referral Summary ---
Author Author [facility] Organization [facility] Address Unknown Phone Unavailable Care Team Providers Care Electronic Equipment Trades Worker Name Role Phone No PCP, Pt States Primary Care Physician [phone] Encounter [facility] [id number] Date(s): 06/22/15 - 06/22/15 [facility] [address] [place], [place] [address] Discharge Diagnosis: Abdominal pain Discharge Diagnosis: Crohns disease Discharge Disposition: 01-Home or Self Care Attending Physician: Sandeep Tyson MD Admitting Physician: Sandeep Tyson MD Vital Signs Most recent to 1 oldest [Reference Range]: Temperature Axillary 37.1 degC [35.2-36.7 degC] *HI* (06/22/15 3:24 PM) Temperature Oral 37 degC [35.8-37.3 degC] (06/22/15 2:49 PM) Peripheral Pulse 90 bpm Rate [60-100 bpm] (06/22/15 3:24 PM) Respiratory Rate 16 br/min [14-20 br/min] (06/22/15 3:24 PM) Blood Pressure 148/57 mmHg [90-140/60-90 mmHg] *HI* (06/22/15 5:40 PM) SpO2 98 % (06/22/15 5:40 PM) Problem List Condition Effective Dates Status [...] [Reference Range]: WBC [4.8-10.8 8.3 10*3/uL 10*3/uL] (06/22/15 4:34 PM) RBC [4.60-6.20] 4.62 (06/22/15 4:34 PM) Hgb [14.0-18.0 12.0 gm/dL gm/dL] *LOW* (06/22/15 4:34 PM) Hct [42.0-52.0 %] 35.8 % *LOW* (06/22/15 4:34 PM) MCV [82.0-99.0 fL] 77.5 fL *LOW* (06/22/15 4:34 PM) MCH [27.0-32.0 pg] 26.0 pg *LOW* (06/22/15 4:34 PM) MCHC [32.0-36.0 33.5 gm/dL gm/dL] (06/22/15 4:34 PM) RDW [11.5-14.5 %] 16.7 % *HI* (06/22/15 4:34 PM) Platelet [150-400 222 10*3/uL 10*3/uL] (06/22/15 4:34 PM) MPV [9.4-12.3 fL] 10.8 fL (06/22/15 4:34 PM) Immature 0.6 % Granulocytes (06/22/15 4:34 PM) [0.0-1.0 %] Neutrophils [51-75 63 % %] (06/22/15 4:34 PM) Lymphocytes [20-46 26 % %] (06/22/15 4:34 PM) Monocytes [4-11 %] 9 % (06/22/15 4:34 PM) Eosinophils [0-4 %] 2 % (06/22/15 4:34 PM) Basophils [0-2 %] 0 % (06/22/15 4:34 PM) Neutro Absolute 5.19 10*3 [1.90-7.00 10*3] (06/22/15 4:34 PM) Lymph Absolute 2.15 10*3 [0.80-3.30 10*3] (06/22/15 4:34 PM) [place] Absolute 0.73 10*3 [0.30-1.00 10*3] (06/22/15 4:34 PM) Eos Absolute 0.16 10*3 [0.00-0.50 10*3] (06/22/15 4:34 PM) Baso Absolute 0.01 10*3 [0.00-0.20 10*3] (06/22/15 4:34 PM) Giant Platelets Occasional *ABN* (06/22/15 4:34 PM) Polychrom Occasional *ABN* (06/22/15 4:34 PM) Nucleated RBC 0.0 /100 WBC Automated [0 /100 (06/22/15 4:34 PM) WBC] Differential Scanned Slide (06/22/15 4:34 PM) Chemistry Most recent to 1 oldest [Reference Range]: Sodium Lvl [136-144 136 mEq/L mEq/L] (06/22/15 4:34 PM) Potassium Lvl 3.2 mEq/L [3.6-5.1 mEq/L] *LOW* (06/22/15 4:34 PM) Chloride [99-109 101 mEq/L mEq/L] (06/22/15 4:34 PM) CO2 [22-32 mEq/L] 30 mEq/L (06/22/15 4:34 PM) AGAP [3-20] 5 (06/22/15 4:34 PM) BUN [4-20 mg/dL] 10 mg/dL (06/22/15 4:34 PM) Glucose Lvl [70-100 91 mg/dL mg/dL] (06/22/15 4:34 PM) Creatinine Lvl 0.71 mg/dL [0.64-1.27 mg/dL] (06/22/15 4:34 PM) eGFR [>60] >60 1 (06/22/15 4:34 PM) Calcium Lvl 8.4 mg/dL [8.6-10.0 mg/dL] *LOW* (06/22/15 4:34 PM) Albumin Lvl [3.5-4.8 3.3 gm/dL gm/dL] *LOW* (06/22/15 4:34 PM) Total Protein 5.9 gm/dL [6.1-7.9 gm/dL] *LOW* (06/22/15 4:34 PM) Globulin [1.9-4.3 2.6 gm/dL gm/dL] (06/22/15 4:34 PM) ALT [17-63 U/L] 25 U/L (06/22/15 4:34 PM) AST [15-41 U/L] 15 U/L (06/22/15 4:34 PM) Alk Phos [26-104 85 U/L U/L] (06/22/15 4:34 PM) Bili Total [0.2-1.2 0.4 mg/dL 2 mg/dL] (06/22/15 4:34 PM) Lipase Lvl [8-48 24 U/L U/L] (06/22/15 4:34 PM) 1Result Comment: Multiply eGFR results by 1.21 for race. 2Result Comment: Naproxen, specifically the metabolite O-desmethylnaproxen, may cause spurious elevation in Total Bilirubin levels. Urinalysis Most recent to 1 oldest [Reference Range]: UA Color Lt Yellow (06/22/15 4:49 PM) UA Appear Clear (06/22/15 4:49 PM) UA pH [5.0-8.0] 7.0 (06/22/15 4:49 PM) UA Leuk Est Negative [Negative] (06/22/15 4:49 PM) UA Nitrite Negative [Negative] (06/22/15 4:49 PM) UA Protein Negative [Negative] (06/22/15 4:49 PM) UA Glucose Negative [Negative] (06/22/15 4:49 PM) UA Ketones Negative [Negative] (06/22/15 4:49 PM) UA Urobilinogen Negative [<1.0] (06/22/15 4:49 PM) UA Bili [Negative] Negative (06/22/15 4:49 PM) UA Blood [Negative] Negative (06/22/15 4:49 PM) UA Spec Grav 1.013 [1.003-1.030] (06/22/15 4:49 PM) Type Clean Catch (06/22/15 4:49 PM) Immunizations Vaccine Date Refusal Reason tetanus-diphth [...]
--- OUTSIDE RECORDS SUMMARY | 2016-12-15 00:07 | XMS REPORT ---
Author Author [place], [facility] - Organization Unknown Address Unknown [...] not been performed. Results LAB--BEDSIDE TESTING from 01/06/2013 7:41 PMCreatinine Venous NPT 1.0 mg/dL (0.7- 1.2 mg/dL) LAB--CHEMISTRY from 01/06/2013 7:33 PMAnion Gap 7 (3-20 ) Albumin 3.9 g/dL (3.5-4.8 g/dL) Alkaline Phosphatase 114 U/L H (26-104 U/L) ALT (SGPT) 20 U/L (17-63 U/L) AST (SGOT) 20 U/L (15-41 U/L) Bilirubin Total 0.6 mg/dL (0.2-1.2 mg/dL) BUN 6 mg/dL (4-20 mg/dL) Calcium 9.3 mg/dL (8.6-10.0 mg/dL) Chloride 109 mEq/L (99-109 mEq/L) CO2 28 mEq/L (22-32 mEq/L) Creatinine 1.09 mg/dL (0.64-1.27 mg/dL) eGFR >60 (>60- ) Globulin 2.8 g/dL (1.9-4.3 g/dL) Glucose 88 mg/dL (70-100 mg/dL) Potassium 3.4 mEq/L L (3.6-5.1 mEq/L) Sodium 144 mEq/L (136-144 mEq/L) Protein 6.7 g/dL (6.1-7.9 g/dL) Lipase 26 U/L (8-48 U/L) LAB--HEMATOLOGY from 01/06/2013 7:33 PMAbsolute Basophils 0.03 THOUS (0.00-0.20 THOUS) Absolute Eosinophils 0.18 THOUS (0.00-0.50 THOUS) Absolute Lymphocytes 1.59 THOUS (0.80-3.30 THOUS) Absolute Monocytes 0.87 THOUS (0.30-1.00 THOUS) Absolute Neutrophils 5.36 THOUS (1.90-7.00 THOUS) HCT 39.8 % L (42.0-52.0 %) HGB 13.3 g/dl L (14.0-18.0 g/dl) MCH 26.5 pg L (27.0-32.0 pg) MCHC 33.4 g/dL (32.0-36.0 g/dL) MCV 79.4 fL L (82.0-99.0 fL) MPV 11.3 fL (9.4-12.3 fL) Platelet Count 260 K/uL (150-400 K/uL) RBC 5.01 M/uL (4.60-6.20 M/uL) RDW 16.0 % H (11.5-14.5 %) WBC 8.0 K/uL (4.8-10.8 K/uL) Basophils 0 % (0-2 %) Eosinophils 2 % (0-4 %) Immature Granulocytes 0.1 % (0.0-1.0 %) Lymphocytes 20 % (20-46 %) Monocytes 11 % (4-11 %) Nucleated RBC Automated 0.0 /100 WBC (0 /100 WBC) Neutrophils 67 % (51-75 %) LAB--URINE TESTS from 01/06/2013 9:31 PMAppearance Clear Bilirubin Negative (Negative ) Blood Negative (Negative ) Color Dk Yellow Glucose Negative (Negative ) Ketones, Urine Negative (Negative ) Leukocytes Esterase Negative (Negative ) Nitrites Negative (Negative ) pH, Urine 7.0 (5.0-8.0 ) Protein Negative (Negative ) Specific Lilly >=1.045 A (1.003-1.030 ) Collection Type: Clean Catch Urobilinogen 4.0 mg/dL A (-<1.0 mg/dL)
--- OUTSIDE RECORDS SUMMARY | 2016-12-15 00:07 | XMS REPORT | Referral Summary ---
Author Author [facility] Organization [facility] Address Unknown Phone Unavailable Encounter VC LEO [id number] Date(s): 02/14/16 - 02/21/16 [facility] [address] [place] [address] [phone] Discharge Disposition: 01-Home or Self Care Attending Physician: Juana Adame MD Admitting Physician: Tia Negron DO Vital Signs Most recent to 1 oldest [Reference Range]: Temperature Oral 37.0 degC [35.8-37.3 degC] (02/21/16 1:45 PM) Peripheral Pulse 90 bpm Rate [60-100 bpm] (02/21/16 1:45 PM) Heart Rate Monitored 72 bpm [60-100 bpm] (02/15/16 4:00 PM) Respiratory Rate 18 br/min [14-20 br/min] (02/21/16 1:45 PM) Blood Pressure 140/89 mmHg [90-140/60-90 mmHg] (02/21/16 1:45 PM) Mean Arterial 96 mmHg Pressure, Cuff (02/14/16 11:30 PM) SpO2 97 % (02/21/16 1:45 PM) Remote Telemetry Ongoing (02/19/16 8:00 PM) Problem List Condition Effective Dates Status [...] Medium Active traMADol Itching Active Swelling Medications Norvasc 5 mg oral tablet 5 mg [...] Refill(s) Start Date: 02/21/16 Status: Ordered Results Hematology Most recent to 1 oldest [Reference Range]: WBC [4.8-10.8 13.8 10*3/uL 10*3/uL] *HI* (02/21/16 5:17 AM) RBC [4.60-6.20] 4.76 (02/21/16 5:17 AM) Hgb [14.0-18.0 12.2 gm/dL gm/dL] *LOW* (02/21/16 5:17 AM) Hct [42.0-52.0 %] 37.0 % *LOW* (02/21/16 5:17 AM) MCV [82.0-99.0 fL] 77.7 fL *LOW* (02/21/16 5:17 AM) MCH [27.0-32.0 pg] 25.6 pg *LOW* (02/21/16 5:17 AM) MCHC [32.0-36.0 33.0 gm/dL gm/dL] (02/21/16 5:17 AM) RDW [11.5-14.5 %] 16.5 % *HI* (02/21/16 5:17 AM) Platelet [150-400 226 10*3/uL 10*3/uL] (02/21/16 5:17 AM) MPV [9.4-12.3 fL] 11.0 fL (02/21/16 5:17 AM) Immature 0.5 % Granulocytes (02/19/16 9:29 AM) [0.0-1.0 %] Neutrophils [51-75 81 % %] *HI* (02/21/16:17 AM) Band Man [0-8 %] 1 % (02/21/16 5:17 AM) Cotton Man [0-1 %] 1 % (02/21/16: AM) Lymphocytes [20-46 9 % %] *LOW* (02/21/16 5:17 AM) Monocytes [4-11 %] 8 % (02/21/16 5:17 AM) Eosinophils [0-4 %] 0 % (02/21/16 5:17 AM) Basophils [0-2 %] 0 % (02/21/16 5:17 AM) Neutro Absolute 11.32 10*3 [1.90-7.00 10*3] *HI* (02/21/16 5:17 AM) Lymph Absolute 1.24 10*3 [0.80-3.30 10*3] (02/21/16 5:17 AM) Clarke Absolute 1.10 10*3 [0.30-1.00 10*3] *HI* (02/21/16 5:17 AM) Eos Absolute 0.02 10*3 [0.00-0.50 10*3] (02/21/16 5:17 AM) Baso Absolute 0.01 10*3 [0.00-0.20 10*3] (02/21/16 5:17 AM) Microcyte Present *ABN* (8/4/16 8:43 AM) Nucleated RBC 0.0 /100 WBC Automated [0 /100 (02/21/16 5:17 AM) WBC] Differential Reviewed (02/21/16:17 AM) Chemistry Most recent to 1 oldest [Reference Range]: Sodium Lvl [136-144 135 mEq/L mEq/L] *LOW* (02/21/16 5:17 AM) Potassium Lvl 3.2 mEq/L [3.6-5.1 mEq/L] *LOW* (02/21/16:17 AM) Chloride [99-109 95 mEq/L mEq/L] *LOW* (02/21/16:17 AM) CO2 [22-32 mEq/L] 33 mEq/L *HI* (02/21/16: AM) AGAP [3-20] 7 (02/21/16:17 AM) BUN [4-20 mg/dL] 14 mg/dL (02/21/16 5:17 AM) Glucose Lvl [70-100 99 mg/dL mg/dL] (02/21/16:17 AM) Creatinine Lvl 0.80 mg/dL [0.64-1.27 mg/dL] (02/21/16 5:17 AM) eGFR [>60] >60 1 (02/21/16:17 AM) Calcium Lvl 8.3 mg/dL [8.6-10.0 mg/dL] *LOW* (02/21/16:17 AM) Albumin Lvl [3.5-4.8 2.9 gm/dL gm/dL] *LOW* (02/21/16 5:17 AM) Total Protein 7.0 gm/dL [6.1-7.9 gm/dL] (02/14/16 4:57 PM) Globulin [1.9-4.3 3.1 gm/dL gm/dL] (02/14/16 4:57 PM) ALT [17-63 U/L] 16 U/L *LOW* (02/14/16 4:57 PM) AST [15-41 U/L] 17 U/L (02/14/16 4:57 PM) Alk Phos [26-104 97 U/L U/L] (02/14/16 4:57 PM) Bili Total [0.2-1.2 0.7 mg/dL 2 mg/dL] (02/14/16 4:57 PM) Magnesium Lvl 1.9 mg/dL [1.8-2.5 mg/dL] (02/21/16 5:17 AM) Phosphorus [2.4-4.7 3.9 mg/dL 3 mg/dL] (02/21/16 5:17 AM) Troponin [<0.06 <0.05 ng/mL ng/mL] (02/17/16 6:46 PM) Lipase Lvl [8-48 23 U/L U/L] (02/14/16 4:57 PM) 1Result Comment: Multiply eGFR results by 1.21 for race. 2Result Comment: Naproxen, specifically the metabolite O-desmethylnaproxen, may cause spurious elevation in Total Bilirubin levels. 3Result Comment: High dosages of liposomal Amphotericin B (AmBisome) therapy or other drug preparations that use a liposomal envelope to facilitate drug delivery may cause falsely elevated results for phosphorus. Immunizations Vaccine Date Refusal Reason tetanus-diphth toxoids [...]
--- OUTSIDE RECORDS SUMMARY | 2016-12-15 00:08 | XMS REPORT | Referral Summary ---
Author Author [facility] Organization [facility] Address Unknown Phone Unavailable Care Team Providers Care Aegis Operations Specialist Name Role Phone No PCP, Pt States Primary Care Physician [phone] Encounter VC Date(s): 12/09/15 - 12/09/15 [facility] [address] [place] [address] Discharge Diagnosis: Abdominal pain Discharge Disposition: -Home or Self Care Attending Physician: Rafael Azul MD Admitting Physician: Rafael Azul MD Vital Signs Most recent to 1 oldest [Reference Range]: Temperature Oral 36.7 degC [35.8-37.3 degC] (12/09/15 1:44 AM) Peripheral Pulse 92 bpm Rate [60-100 bpm] (12/09/15 1:44 AM) Heart Rate Monitored 89 bpm [60-100 bpm] (12/09/15 3:58 AM) Respiratory Rate 18 br/min [14-20 br/min] (12/09/15 3:58 AM) Blood Pressure 142/82 mmHg [90-140/60-90 mmHg] *HI* (12/09/15 3:58 AM) Mean Arterial 86 mmHg Pressure, Cuff (12/09/15 3:00 AM) SpO2 100 % (12/09/15 3:58 AM) Problem List Condition Effective Dates Status [...] to 1 oldest [Reference Range]: WBC [4.8-10.8 6.6 10*3/uL 10*3/uL] (12/09/15 2:41 AM) RBC [4.60-6.20] 4.18 *LOW* (12/09/15 2:41 AM) Hgb [14.0-18.0 10.9 gm/dL gm/dL] *LOW* (12/09/15 2:41 AM) Hct [42.0-52.0 %] 33.2 % *LOW* (12/09/15 2:41 AM) MCV [82.0-99.0 fL] 79.4 fL *LOW* (12/09/15 2:41 AM) MCH [27.0-32.0 pg] 26.1 pg *LOW* (12/09/15 2:41 AM) MCHC [32.0-36.0 32.8 gm/dL gm/dL] (12/09/15 2:41 AM) RDW [11.5-14.5 %] 16.6 % *HI* (12/09/15 2:41 AM) Platelet [150-400 247 10*3/uL 10*3/uL] (12/09/15 2:41 AM) MPV [9.4-12.3 fL] 10.3 fL (12/09/15 2:41 AM) Immature 0.2 % Granulocytes (12/09/15 2:41 AM) [0.0-1.0 %] Neutrophils [51-75 61 % %] (12/09/15 2:41 AM) Lymphocytes [20-46 30 % %] (12/09/15 2:41 AM) Monocytes [4-11 %] 7 % (12/09/15 2:41 AM) Eosinophils [0-4 %] 3 % (12/09/15 2:41 AM) Basophils [0-2 %] 1 % (12/09/15 2:41 AM) Neutro Absolute 4.00 10*3 [1.90-7.00 10*3] (12/09/15 2:41 AM) Lymph Absolute 1.95 10*3 [0.80-3.30 10*3] (12/09/15 2:41 AM) [place] Absolute 0.44 10*3 [0.30-1.00 10*3] (12/09/15 2:41 AM) Eos Absolute 0.17 10*3 [0.00-0.50 10*3] (12/09/15 2:41 AM) Baso Absolute 0.03 10*3 [0.00-0.20 10*3] (12/09/15 2:41 AM) Nucleated RBC 0.0 /100 WBC Automated [0 /100 (12/09/15 2:41 AM) WBC] Chemistry Most recent to 1 oldest [Reference Range]: Sodium Lvl [136-144 140 mEq/L mEq/L] (12/09/15 2:41 AM) Potassium Lvl 3.1 mEq/L [3.6-5.1 mEq/L] *LOW* (12/09/15 2:41 AM) Chloride [99-109 105 mEq/L mEq/L] (12/09/15 2:41 AM) CO2 [22-32 mEq/L] 25 mEq/L (12/09/15 2:41 AM) AGAP [3-20] 10 (12/09/15 2:41 AM) BUN [4-20 mg/dL] 7 mg/dL (12/09/15 2:41 AM) Glucose Lvl [70-100 94 mg/dL mg/dL] (12/09/15 2:41 AM) Creatinine Lvl 0.82 mg/dL [0.64-1.27 mg/dL] (12/09/15 2:41 AM) eGFR [>60] >60 1 (12/09/15 2:41 AM) Calcium Lvl 8.6 mg/dL [8.6-10.0 mg/dL] (12/09/15 2:41 AM) Albumin Lvl [3.5-4.8 3.3 gm/dL gm/dL] *LOW* (12/09/15 2:41 AM) Total Protein 6.1 gm/dL [6.1-7.9 gm/dL] (12/09/15 2:41 AM) Globulin [1.9-4.3 2.8 gm/dL gm/dL] (12/09/15 2:41 AM) ALT [17-63 U/L] 15 U/L *LOW* (12/09/15 2:41 AM) AST [15-41 U/L] 12 U/L *LOW* (12/09/15 2:41 AM) Alk Phos [26-104 87 U/L U/L] (12/09/15 2:41 AM) Bili Total [0.2-1.2 0.3 mg/dL 2 mg/dL] (12/09/15 2:41 AM) Lipase Lvl [8-48 20 U/L U/L] (12/09/15 2:41 AM) 1Result Comment: Multiply eGFR results by [...]
--- OUTSIDE RECORDS SUMMARY | 2016-12-15 00:08 | XMS REPORT | Referral Summary ---
Author Organization Unknown Address Unknown Phone Unavailable Care Team Providers Care Logging Tractor Operator Name Role Phone No PCP, States Primary Care Physician [phone] Encounter VC Date(s): 10/06/14 - 10/06/[address] [place] [id number] Discharge Diagnosis: Chronic pain Discharge Diagnosis: Crohn disease Discharge Diagnosis: Abdominal pain Discharge Disposition: Home or Self Care Attending Physician: Rafael Azul MD Admitting Physician: Wild Ladd MD Referring Physician: Self Referred, X Vital Signs Most recent to 1 oldest [Reference Range]: Temperature Oral 37.5 degC [35.8-37.3 degC] *HI* (10/06/14 8:04 PM) Peripheral Pulse 109 bpm Rate [60-100 bpm] *HI* (10/06/14 8:04 PM) Heart Rate Monitored 79 bpm [60-100 bpm] (10/06/14 11:30 PM) Respiratory Rate 16 br/min [14-20 br/min] (10/06/14 8:04 PM) Blood Pressure 138/88 mmHg [90-140/60-90 mmHg] (10/06/14 11:30 PM) Mean Arterial 108 mmHg Pressure, Cuff (10/06/14 11:30 PM) Most recent to 1 oldest [Reference Range]: SpO2 94 % (10/06/14 8:04 PM) Problem List Condition Effective Dates Status [...] pain, # 14 tabs, 0 Refill(s), Pharmacy: [id number] [id number], 1 tabs Oral BID,PRN:as needed for pain Start Date: 09/18/14 Status: Ordered oxyCODONE-acetaminophen 5 mg-325 mg oral tablet 1 tabs, Oral, q6hr, Pain, X 2 days, # 8 tabs, 0 Refill(s) Start Date: 10/06/14 Stop Date: 10/08/14 Status: Ordered predniSONE 10 mg oral tablet [...] Date: 09/11/14 Stop Date: 10/15/14 Status: Ordered Zofran ODT 4 mg oral tablet, disintegrating 1 tabs, Oral, q8hr, Nausea or Vomiting | as needed for nausea/vomiting, allow tablet to dissolve on tongue, X 3 days, # 9 tabs, 0 Refill(s) Special Instructions: allow tablet to dissolve on tongue Start Date: 10/06/14 Stop Date: 10/09/14 Status: Ordered Results Hematology Most recent to 1 oldest [Reference Range]: WBC [4.8-10.8 K/uL] 12.1 K/uL *HI* (10/06/14 9:37 PM) RBC [4.60-6.20 M/uL] 5.29 M/uL (10/06/14 9:37 PM) Hgb [14.0-18.0 14.2 gm/dL gm/dL] (10/06/14 9:37 PM) Hct [42.0-52.0 %] 41.7 % *LOW* (10/06/14:37 PM) MCV [82.0-99.0 fL] 78.8 fL *LOW* (10/06/14:37 PM) MCH [27.0-32.0 pg] 26.8 pg *LOW* (10/06/14:37 PM) MCHC [32.0-36.0 34.1 gm/dL gm/dL] (10/06/14 9:37 PM) RDW [11.5-14.5 %] 15.8 % *HI* (10/06/14:37 PM) Platelet [150-400 296 K/uL K/uL] (10/06/14 9:37 PM) MPV [9.4-12.3 fL] 11.4 fL (10/06/14:37 PM) Immature 0.2 % Granulocytes (10/06/14:37 PM) [0.0-1.0 %] Neutrophils [51-75 85 % %] *HI* (10/06/14:37 PM) Lymphocytes [20-46 11 % %] *LOW* (10/06/14:37 PM) Monocytes [4-11 %] 5 % (10/06/14 9:37 PM) Eosinophils [0-4 %] 0 % (10/06/14:37 PM) Basophils [0-2 %] 0 % (10/06/14:37 PM) Neutro Absolute 10.26 THOUS [1.90-7.00 THOUS] *HI* (10/06/14:37 PM) Lymph Absolute 1.27 THOUS [0.80-3.30 THOUS] (10/06/14 9:37 PM) [place] Absolute 0.54 THOUS [0.30-1.00 THOUS] (10/06/14 9:37 PM) Eos Absolute 0.00 THOUS [0.00-0.50 THOUS] (10/06/14 9:37 PM) Baso Absolute 0.02 THOUS [0.00-0.20 THOUS] (10/06/14 9:37 PM) Chemistry Most recent to 1 oldest [Reference Range]: Sodium Lvl [136-144 141 mEq/L mEq/L] (10/06/14 9:37 PM) Potassium Lvl 3.5 mEq/L [3.6-5.1 mEq/L] *LOW* (10/06/14 9:37 PM) Chloride [99-109 106 mEq/L mEq/L] (10/06/14 9:37 PM) CO2 [22-32 mEq/L] 24 mEq/L (10/06/14:37 PM) AGAP [3-20] 11 (10/06/14 9:37 PM) BUN [4-20 mg/dL] 6 mg/dL (10/06/14 9:37 PM) Glucose Lvl [70-100 96 mg/dL mg/dL] (10/06/14:37 PM) Creatinine Lvl 0.83 mg/dL [0.64-1.27 mg/dL] (10/06/14 9:37 PM) eGFR [>60] >60 2 (10/06/14:37 PM) Calcium Lvl 9.2 mg/dL [8.6-10.0 mg/dL] (10/06/14 9:37 PM) Albumin Lvl [3.5-4.8 4.3 gm/dL gm/dL] (10/06/14 9:37 PM) Total Protein 7.7 gm/dL [6.1-7.9 gm/dL] (10/06/14 9:37 PM) Globulin [1.9-4.3 3.4 gm/dL gm/dL] (10/06/14 9:37 PM) ALT [17-63 unit/L] 48 unit/L (10/06/14 9:37 PM) AST [15-41 unit/L] 40 unit/L (10/06/14 9:37 PM) Alk Phos [26-104 128 unit/L unit/L] *HI* (10/06/14 9:37 PM) Bili Total [0.2-1.2 0.5 mg/dL 1 mg/dL] (10/06/14 9:37 PM) Lipase Lvl [8-48 23 unit/L unit/L] (10/06/14 9:37 PM) 1Result Comment: Naproxen, specifically the metabolite [...]
--- OUTSIDE RECORDS SUMMARY | 2016-12-15 00:08 | XMS REPORT | Referral Summary ---
Author Organization Unknown Address Unknown Phone Unavailable Care Team Providers Care Consulting Practice Director Name Role Phone No PCP, States Primary Care Physician [phone] Encounter VC FELIPA [id number] Date(s): 08/22/14 - 08/22/14 [facility] [address] [place] [address] Discharge Diagnosis: Abdominal pain Discharge Disposition: Home or Self Care Attending Physician: Vance Renteria MD Admitting Physician: Vance Renteria MD Vital Signs Most recent to 1 oldest [Reference Range]: Temperature Oral 36.6 degC [35.8-37.3 degC] (08/22/14 6:32 PM) Peripheral Pulse 87 bpm Rate [60-100 bpm] (08/22/14 10:30 PM) Heart Rate Monitored 87 bpm [60-100 bpm] (08/22/14 10:45 PM) Respiratory Rate 20 br/min [14-20 br/min] (08/22/14 10:30 PM) Blood Pressure 137/96 mmHg [90-140/60-90 mmHg] (08/22/14 10:30 PM) Systolic Blood 137 mmHg Pressure [90-140 (08/22/14 10:30 PM) mmHg] Diastolic Blood 96 mmHg Pressure [60-90 *HI* mmHg] (08/22/14 10:30 PM) Mean Arterial 112 mmHg Pressure, Cuff (08/22/14 10:45 PM) Most recent to 1 oldest [Reference Range]: SpO2 95 % (08/22/14 10:45 PM) Problem List Condition Effective Dates Status [...] Active Toradol Hives Medium Active Medications predniSONE 50 mg oral tablet 1 tabs, Oral, Daily, X 7 days, # 7 tabs, 0 Refill(s), SUPERVISING PHYSCarly CR Start Date: 08/22/14 Stop Date: 08/29/14 Status: Ordered Results Chemistry Most recent to 1 oldest [Reference Range]: Sodium Venous 141 mEq/L [136-144 mEq/L] (08/22/14 9:32 PM) Potassium Venous 3.8 mEq/L 1 [3.6-5.1 mEq/L] (08/22/14 9:32 PM) Calcium Ionized 1.18 mmol/L Venous [1.19-1.41 *LOW* mmol/L] (08/22/14 9:32 PM) Total CO2 Venous 23 mEq/L [25-29 mEq/L] *LOW* (08/22/14 9:32 PM) HGB Venous NPT 15.0 gm/dL [14.0-16.0 gm/dL] (08/22/14 9:32 PM) HCT Venous 44.0 % [42.0-52.0 %] (08/22/14 9:32 PM) Glucose Venous 82 mg/dL [70-100 mg/dL] (08/22/14 9:32 PM) BUN Venous [4-20] 6 (08/22/14 9:32 PM) Creatinine Venous 0.8 mg/dL [0.7-1.2 mg/dL] (08/22/14 9:32 PM) Venous CL [99-109 101 mEq/L mEq/L] (08/22/14 9:32 PM) Anion Gap, Jt 17 [3-20] (08/22/14 9:32 PM) 1Result Comment: This test was performed on a whole blood specimen. The presence or absence of hemolysis cannot be assessed. Hemolysis can falsely elevate potassium levels. Normals are for venous specimens only. Urinalysis Most recent to 1 oldest [Reference Range]: UA Color Lt Yellow (08/22/14 9:19 PM) UA Appear Clear (08/22/14 9:19 PM) UA pH [5.0-8.0] 6.0 (08/22/14 9:19 PM) UA Leuk Est Negative [Negative] (08/22/14 9:19 PM) UA Nitrite Negative [Negative] (08/22/14 9:19 PM) UA Protein Negative [Negative] (08/22/14 9:19 PM) UA Glucose Negative [Negative] (08/22/14 9:19 PM) UA Ketones Pos 2+ [Negative] *ABN* (08/22/14 9:19 PM) UA Urobilinogen Negative [<1.0] (08/22/14 9:19 PM) UA Bili [Negative] Negative (08/22/14 9:19 PM) UA Blood [Negative] Negative (08/22/14 9:19 PM) UA Spec Grav 1.024 [1.003-1.030] (08/22/14 9:19 PM) Type Voided (08/22/14 9:19 PM) Immunizations Vaccine Date Refusal Reason tetanus-diphth [...]
--- OUTSIDE RECORDS SUMMARY | 2016-12-15 00:08 | XMS REPORT | Referral Summary ---
Author Author [facility] Organization [facility] Address Unknown Phone Unavailable Care Team Providers Care Licensing Court Magistrate Name Role Phone No PCP, Pt States Primary Care Physician [phone] Encounter VC Date(s): 04/23/16 - 04/23/16 [facility] [address] [place] [address] Discharge Disposition: Left Without Being Seen Vital Signs No data [...]
--- OUTSIDE RECORDS SUMMARY | 2016-12-15 00:08 | XMS REPORT ---
Author Author GENERATED, SYSTEM Organization Unknown Address Unknown Phone Unavailable Care Team Providers Care Building Maintenance Mechanic Name Role Phone UNASSIGNED DOCTOR , DOCTOR PP [phone] Reason For Visit Chief Complaint ABD PAIN Social History Functional Status Vital Signs Results Chemistry from 09/02/2015 12:11 AMSODIUM 142 MMOL/L (136-145 MMOL/L) POTASSIUM 3.4 MMOL/L L (3.5-5.1 MMOL/L) CHLORIDE 105 MMOL/L (98-107 MMOL/L) TCO2 29.5 MMOL/L (21.0-32.0 MMOL/L) *ANION GAP 7.5 MMOL/L L (8.0-16.0 MMOL/L) BUN 13 MG/DL (7-18 MG/DL) CREATININE 0.68 MG/DL L (0.70-1.30 MG/DL) *BUN/CREATININE RATIO 19.1 H (9.1-17.0 ) GLUCOSE 94 MG/DL (65-99 MG/DL) *GFR EST NON AFR NORWEGIAN >90 ML/MIN *GFRA EST AFR AMER >90 ML/MIN CALCIUM 9.0 MG/DL (8.5-10.1 MG/DL) BILIRUBIN TOTAL 0.40 MG/DL (0.20-1.00 MG/DL) TOTAL PROTEIN 6.9 GM/DL (6.4-8.2 GM/DL) ALBUMIN 3.5 GM/DL (3.4-5.0 GM/DL) *GLOBULIN 3.4 GM/DL (2.3-3.5 GM/DL) *A/G RATIO 1.0 MG/DL L (1.5-2.2 MG/DL) ALK PHOS 103 U/L (46-116 U/L) ALT (SGPT) 32 U/L (14-59 U/L) AST (SGOT) 12 U/L L (15-37 U/L) AMYLASE 90 U/L (25-115 U/L) LIPASE 158 U/L (73-393 U/L) Chemistry from 09/01/2015 11:10 PM*COCAINE NEGATIVE (NEG <150 ) *PCP NEGATIVE (NEG <25 ) *OXYCODONE POSITIVE A (NEG <100 ) *PROPOXYPHENE (NORPROPOXYPHENE) NEGATIVE (NEG <300 ) *CANNABINOIDS NEGATIVE (NEG <50 ) *BENZODIAZEINE NEGATIVE (NEG <150 ) *AMPHETAMINE NEGATIVE (NEG <500 ) *BARBITURATES NEGATIVE (NEG <200 ) *METHAMPHETAMINES NEGATIVE (NEG <500 ) *METHADONE (UR) NEGATIVE (NEG <200 ) *OPIATES NEGATIVE (NEG <100 ) *TRICYCLICS NEGATIVE (NEG <300 ) Hematology from 09/02/2015 12:11 AMWBC 9.7 X10e3/UL (3.6-11.2 X10e3/UL) RBC 4.56 X10e6/UL (4.06-5.63 X10e6/UL) HEMOGLOBIN 11.6 G/DL L (12.5-16.3 G/DL) HEMATOCRIT 36.3 % L (36.7-47.1 %) *MCV 79.6 FL L (80.0-100.0 FL) *MCH 25.6 PG L (27.0-33.0 PG) *MCHC 32.1 G/DL (32.0-36.0 G/DL) *RDW 17.3 % H (12.3-17.0 %) PLATELET 282 X10e3/UL (159-386 X10e3/UL) *MPV 9.0 FL (7.4-10.4 FL) AUTOMATED DIFF PERFORMED SEGS 69.0 % *LYMPHOCYTES 19.8 % *MONOCYTES 5.7 % *EOSINOPHILS 2.2 % *BASOPHILS 3.3 % *ABSOLUTE NEUTROPHILS 6.70 X10e3/UL (1.80-7.80 X10e3/UL) *ABSOLUTE LYMPHOCYTES 1.90 X10e3/UL (1.00-3.00 X10e3/UL) *ABSOLUTE MONOCYTES 0.60 X10e3/UL (0.30-1.00 X10e3/UL) *ABSOLUTE EOSINOPHILS 0.20 X10e3/UL (0.00-0.50 X10e3/UL) *ABSOLUTE BASOPHILS 0.30 X10e3/UL H (0.00-0.20 X10e3/UL) Urinalysis from 09/01/2015 11:10 PM*URINE COLOR STRAW (STRAW/YELL/DK YELL ) *URINE APPEARANCE CLEAR (CLEAR ) URINE PH 7.5 (5.0-8.0 ) URINE SPECIFIC GRAVITY 1.015 (<=1.005->=1.030 ) *URINE GLUCOSE NEGATIVE MG/DL (NEGATIVE MG/DL) *URINE BILIRUBIN NEGATIVE (NEGATIVE ) *URINE KETONES NEGATIVE MG/DL (NEGATIVE MG/DL) *URINE BLOOD NEGATIVE (NEGATIVE ) *URINE PROTEIN NEGATIVE MG/DL (NEGATIVE MG/DL) *URINE UROBILINOGEN 0.2 EU/DL (0.2-1.0 EU/DL) *URINE NITRITES NEGATIVE (NEGATIVE ) *URINE LEUKOCYTES NEGATIVE (NEGATIVE ) CT Scan from 09/02/2015 12:34 AMCT ABD/PELVIS W/O CONTRAST History: abdominal pain . History of Crohn's disease. Priors: 06/28/15 Findings: Abdomen Lung bases: Clear Liver: Normal density. No definable mass. Spleen: Normal. Pancreas: No discrete mass or inflammatory process. Gallbladder and biliary tract: No radiodense calculus or dilation. Adrenal glands: Normal. Kidneys: No nephrolithiasis. No Hydronephrosis. Urinary Bladder: Normal. Aorta: Normal in caliber. No periaortic lymphadenopathy. Bowel and Mesentery: There postoperative changes in the region the cecum. There is a moderate of stool seen throughout the colon. The distal ileum demonstrates mild circumferential wall thickening, similar to the prior study. Again, disc proximal to this area of thickening, there is a short segment of small bowel which is mildly dilated. There are minimal adjacent strandy changes near the wall thickening. The remainder the bowel is unremarkable. No findings of appendicitis. Ascites: None. Pelvis Lymphadenopathy: None. Reproductive: Unremarkable. Osseous Structures: No suspicious findings. Impression: Circumferential wall thickening of the distal ileum with minimal adjacent strandy changes. This most likely represents a patient's reported Crohn's disease. Other inflammatory infectious processes are not excluded. Constipation. Electronically signed by: Jacky Benoit MD Dictated: 09/02/2015 10:03 Problems Encounter Diagnosis No relevant problems exist. Additional Problems * Abdominal Pain Comment:Problem resolved by [facility] Workflow upon Discharge, Status:Resolved. * Acute Pain Comment:Problem resolved by [facility] Workflow upon Discharge, Status :Resolved. * Crohn's Disease Comment:Problem resolved by [facility] Workflow upon Discharge, Status:Resolved. * Nutritional Deficiency Comment:Problem resolved by [facility] Workflow upon Discharge, Status:Resolved. * Small Bowel Obstruction Comment:Problem resolved by [facility] Workflow upon Discharge, Status:Resolved. Encounters Encounter Diagnosis No relevant problems exist. Plan of Care Procedures * Completed Colonoscopy, by MD KHANH HILTON, on 07/02/2015 12:43 PM * Completed Procedure Code: [id number] Procedure Name: not valued, on 07/02/2015 12:00 AM * Completed Procedure Code: [id number] Procedure Name: not valued, on 06/28/2015 12:00 AM Immunizations No immunizations administered or ordered. Hospital Course Hospital Discharge Instructions Allergies, Adverse Reactions, Alerts * Toradol causes Hives. * Reglan causes Hives. * Lortab causes Hives. * Latex Allergy has not been assessed. * IV Contrast Allergy has not been assessed. Medication Medication reconciliation has not been performed.
--- OUTSIDE RECORDS SUMMARY | 2016-12-15 00:08 | XMS REPORT | Referral Summary ---
Author Author [facility] Organization [facility] Address Unknown Phone Unavailable Care Team Providers Care Hr Coordinator Name Role Phone No PCP, Pt States Primary Care Physician [phone] Encounter VC Date(s): 01/14/16 - 01/14/16 [facility] [address] [place] [address] Discharge Diagnosis: Achilles tendon pain Discharge Disposition: 01-Home or Self Care Attending Physician: Tulio Shahid MD Admitting Physician: Tulio Shahid MD Vital Signs Most recent to 1 oldest [Reference Range]: Temperature Oral 37.0 degC [35.8-37.3 degC] (01/14/16 12:53 PM) Peripheral Pulse 100 bpm Rate [60-100 bpm] (01/14/16 1:05 PM) Respiratory Rate 18 br/min [14-20 br/min] (01/14/16 1:05 PM) Blood Pressure 145/92 mmHg [90-140/60-90 mmHg] *HI* (01/14/16 1:05 PM) SpO2 99 % (01/14/16 1:05 PM) Problem List Condition Effective Dates Status [...] Medium Active traMADol Itching Active Swelling Medications HYDROcodone-acetaminophen 5 mg-325 mg oral tablet 1 [...] 0 Refill(s) Start Date: 01/09/16 Status: Ordered Percocet 5/325 oral tablet See Instructions, as needed for pain, 1-2 tabs po every [address] Shahid supervising physician, # 15 tabs, 0 Refill(s) Start Date: 01/14/16 Stop Date: 01/16/16 Status: Ordered predniSONE 10 mg oral tablet [...]
--- OUTSIDE RECORDS SUMMARY | 2016-12-15 00:08 | XMS REPORT | Referral Summary ---
Author Author [facility] Organization [facility] Address Unknown Phone Unavailable Care Team Providers Care Mini Lab Operator Name Role Phone No PCP, Pt States Primary Care Physician [phone] Encounter VC Date(s): 03/28/16 - 03/29/16 [facility] [address] [place] [address] Discharge Diagnosis: Abdominal pain Discharge Diagnosis: Crohns disease Discharge Diagnosis: Constipation Discharge Disposition: 01-Home or Self Care Attending Physician: Tulio Shahid MD Admitting Physician: Tulio Shahid MD Vital Signs Most recent to 1 oldest [Reference Range]: Temperature Oral 37.1 degC [35.8-37.3 degC] (03/28/16 11:16 PM) Peripheral Pulse 71 bpm Rate [60-100 bpm] (03/29/16 1:35 AM) Respiratory Rate 16 br/min [14-20 br/min] (03/29/16 1:35 AM) Blood Pressure 113/74 mmHg [90-140/60-90 mmHg] (03/29/16 1:35 AM) SpO2 97 % (03/29/16 1:35 AM) Problem List Condition Effective Dates Status [...] to 1 oldest [Reference Range]: WBC [4.8-10.8 14.6 10*3/uL 10*3/uL] *HI* (03/29/16 12:04 AM) RBC [4.60-6.20] 4.20 *LOW* (03/29/16 12:04 AM) Hgb [14.0-18.0 10.9 gm/dL gm/dL] *LOW* (03/29/16 12:04 AM) Hct [42.0-52.0 %] 32.6 % *LOW* (03/29/16 12:04 AM) MCV [82.0-99.0 fL] 77.6 fL *LOW* (03/29/16 12:04 AM) MCH [27.0-32.0 pg] 26.0 pg *LOW* (03/29/16 12:04 AM) MCHC [32.0-36.0 33.4 gm/dL gm/dL] (03/29/16 12:04 AM) RDW [11.5-14.5 %] 19.4 % *HI* (03/29/16 12:04 AM) Platelet [150-400 297 10*3/uL 10*3/uL] (03/29/16 12:04 AM) MPV [9.4-12.3 fL] 10.7 fL (03/29/16:04 AM) Immature 0.4 % Granulocytes (03/29/1604 AM) [0.0-1.0 %] Neutrophils [51-75 84 % %] *HI* (03/29/16:04 AM) Lymphocytes [20-46 10 % %] *LOW* (03/29/16 AM) Monocytes [4-11 %] 6 % (03/29/16:04 AM) Eosinophils [0-4 %] 0 % (03/29/16:04 AM) Basophils [0-2 %] 0 % (03/29/16:04 AM) Neutro Absolute 12.20 10*3 [1.90-7.00 10*3] *HI* (03/29/16:04 AM) Lymph Absolute 1.40 10*3 [0.80-3.30 10*3] (03/29/16:04 AM) [place] Absolute 0.90 10*3 [0.30-1.00 10*3] (03/29/16:04 AM) Eos Absolute 0.01 10*3 [0.00-0.50 10*3] (03/29/16:04 AM) Baso Absolute 0.01 10*3 [0.00-0.20 10*3] (03/29/16:04 AM) Nucleated RBC 0.0 /100 WBC Automated [0 /100 (03/29/16: AM) WBC] Chemistry Most recent to 1 oldest [Reference Range]: Sodium Lvl [136-144 136 mEq/L mEq/L] (03/29/16:04 AM) Potassium Lvl 4.2 mEq/L 1 [3.6-5.1 mEq/L] (03/29/16:04 AM) Chloride [99-109 102 mEq/L mEq/L] (03/29/16 AM) CO2 [22-32 mEq/L] 26 mEq/L (03/29/1604 AM) AGAP [3-20] 8 (03/29/16:04 AM) BUN [4-20 mg/dL] 10 mg/dL (03/29/16 12:04 AM) Glucose Lvl [70-100 93 mg/dL mg/dL] (03/29/16 12:04 AM) Creatinine Lvl 0.79 mg/dL [0.64-1.27 mg/dL] (03/29/16 12:04 AM) eGFR [>60] >60 2 (03/29/16 12:04 AM) Calcium Lvl 8.8 mg/dL [8.6-10.0 mg/dL] (03/29/16 12:04 AM) Albumin Lvl [3.5-4.8 3.3 gm/dL gm/dL] *LOW* (03/29/16 12:04 AM) Total Protein 5.9 gm/dL [6.1-7.9 gm/dL] *LOW* (03/29/16 12:04 AM) Globulin [1.9-4.3 2.6 gm/dL gm/dL] (03/29/16 12:04 AM) ALT [17-63 U/L] 56 U/L (03/29/16 12:04 AM) AST [15-41 U/L] 32 U/L (03/29/16 12:04 AM) Alk Phos [26-104 72 U/L U/L] (03/29/16 12:04 AM) Bili Total [0.2-1.2 0.4 mg/dL 3 mg/dL] (03/29/16 12:04 AM) Lipase Lvl [8-48 17 U/L U/L] (03/29/16 12:04 AM) 1Result Comment: Hemolyzed specimen. The following tests may be affected: ALT, AST, Potassium, and Total Bilirubin. 2Result Comment: Multiply eGFR [...]
--- OUTSIDE RECORDS SUMMARY | 2016-12-15 00:08 | XMS REPORT | Referral Summary ---
Author Author [facility] Organization [facility] Address Unknown Phone Unavailable Care Team Providers Care Skirt Clipper Name Role Phone No PCP, Pt States Primary Care Physician [phone] Encounter VC Date(s): 06/12/16 - 06/12/[address] [facility] [address] [place] [address]- Final: Left against medical advice Final: Chronic abdominal pain Discharge Disposition: 01-Home or Self Care Attending Physician: Sandeep Tyson MD Admitting Physician: Sandeep Tyson MD Vital Signs Most recent to 1 oldest [Reference Range]: Temperature Temporal 36.5 degC Artery [36.3-37.8 (06/12/16 11:04 AM) degC] Peripheral Pulse 92 bpm Rate [60-100 bpm] (06/12/16 11:04 AM) Respiratory Rate 16 br/min [14-20 br/min] (06/12/16 11:04 AM) Blood Pressure 161/95 mmHg [90-140/60-90 mmHg] *HI* (06/12/16 11:04 AM) SpO2 100 % (06/12/16 11:04 AM) Problem List Condition Effective Dates Status [...] 0 Refill(s), Pharmacy: [id number], 1 tabs Oral Daily Start Date: 05/19/16 Status: Ordered Results No data available for [...]
--- OUTSIDE RECORDS SUMMARY | 2016-12-15 00:08 | XMS REPORT ---
Author Author [place], [facility] Unknown Address Unknown Phone Unavailable Allergies, Adverse Reactions, Alerts * Lortab causes Adverse Reaction and Unknown Adverse Reaction. * Reglan causes Adverse Reaction. * Toradol causes Adverse Reaction. * Heparin Agents causes Adverse Reaction. * Morphine causes Moderate Adverse Reaction. * No Latex Allergy. * No IV Contrast Allergy. Problems * Abdominal Pain* Status:Resolved. * Diarrhea* Status:Active. * Inflammatory Bowel Disease* Status:Active. * Nausea & Vomiting* Status:Active. Procedures No relevant procedures performed. Medication It is the responsibility of the patient or patient community engagement representative to confirm the list of medications with either the patient's personal care provider or the patient's follow-up care provider to ensure the patient has an appropriate list of medications to take at home. Discharge medications* acetaminophen (Mapap (acetaminophen)) 325 mg Tablet, Ordered By: Zhanna Castroitar Directions: 1 tablet oral every six hours PRN pain * amLODIPine 2.5 mg Tablet, Ordered By: Zhanna Talavera Remitar Directions: 1 tablet oral daily * aspirin 325 mg Tablet, Ordered By: Zhanna Castroitar Directions: 1 tablet oral Daily at 8 AM _ * azaTHIOprine 50 mg Tablet, Ordered By: Zhanna Talavera Remitar Directions: 1 tablet oral daily * carvedilol (Coreg) 25 mg Tablet, Ordered By: Zhanna Talavera Remitar Directions: 1 tablet oral twice a day during meal * cloNIDine (Qoftbaar-RDC-6) 0.2 mg/24 hour Patch Weekly, Ordered By: Zhanna Castroitar Directions: 1 each topical Q7 DAYS * diphenhydrAMINE HCl (Banophen) 25 mg Tablet, Ordered By: Zhanna Talavera Remitar Directions: 1 tablet oral four times daily * lisinopril 30 mg Tablet, Ordered By: Zhanna Hylton Directions: 1 tablet oral daily * omeprazole 20 mg capsule,delayed release(/EC), Ordered By: Zhanna Hylton Directions: 1 capsule oral daily before breakfast Additional Instructions: FORMULARY SUB FOR PROTONIX 40 MG/DAY * oxyCODONE-acetaminophen 10 mg-325 mg Tablet, Ordered By: Zhanna Hylton Directions: 1-2 TABS oral every four hours PRN ORAL MED FOR SEVERE PAIN * potassium chloride (Klor-Con M20) 20 mEq tablet,ER particles/crystals, Ordered By: Zhanna Hylton Directions: 1 tablet oral Daily at 8 AM _ Additional Instructions: GIVE WITH MEALS OR FOOD * predniSONE 20 mg Tablet, Ordered By: Zhanna Hylton Directions: 2 tablet oral Daily at 8 AM _ Additional Instructions: decrease 5mg every week- see RX * ondansetron HCl 4 mg Tablet Directions: 1 tablet oral every six hours PRN nausea or vomiting * Follow up with Dr. Rome Patricia in 1- 2 weeks ([phone]) * Follow up with Dr. Whipple in 2 weeks * Diet: full liquid to soft diet as tolerated. No regular diet yet until seen by Dr. Whipple * Activity: as tolertaed Stopped medications* None Results LAB--BEDSIDE TESTING from 04/20/2013 11:40 AMGlucose NPT 107 mg/dL H (70-100 mg/ dL) LAB--BEDSIDE TESTING from 04/21/2013 11:59 AMGlucose NPT 149 mg/dL H (70-100 mg/ dL) LAB--CHEMISTRY from 04/17/2013 6:37 AMBUN 1 mg/dL L (4-20 mg/dL) Calcium 8.9 mg/dL (8.6-10.0 mg/dL) Chloride 106 mEq/L (99-109 mEq/L) CO2 27 mEq/L (22-32 mEq/L) Creatinine 0.76 mg/dL (0.64-1.27 mg/dL) eGFR >60 (>60- ) Globulin 2.8 g/dL (1.9-4.3 g/dL) Glucose 111 mg/dL H (70-100 mg/dL) Potassium 3.7 mEq/L (3.6-5.1 mEq/L) Sodium 140 mEq/L (136-144 mEq/L) Bilirubin Total 0.7 mg/dL (0.2-1.2 mg/dL) AST (SGOT) 36 U/L (15-41 U/L) ALT (SGPT) 18 U/L (17-63 U/L) Alkaline Phosphatase 92 U/L (26-104 U/L) Albumin 3.5 g/dL (3.5-4.8 g/dL) Anion Gap 7 (3-20 ) Protein 6.3 g/dL (6.1-7.9 g/dL) C-Reactive Protein (CRP) LT mg/dL (0.0-0.9 mg/dL) LAB--CHEMISTRY from 04/18/2013 5:38 AMBUN <1 mg/dL L (4-20 mg/dL) Calcium 8.3 mg/dL L (8.6-10.0 mg/dL) Chloride 110 mEq/L H (99-109 mEq/L) CO2 26 mEq/L (22-32 mEq/L) Creatinine 0.75 mg/dL (0.64-1.27 mg/dL) eGFR >60 (>60- ) Glucose 125 mg/dL H (70-100 mg/dL) Potassium 3.4 mEq/L L (3.6-5.1 mEq/L) Sodium 141 mEq/L (136-144 mEq/L) Anion Gap 5 (3-20 ) LAB--CHEMISTRY from 04/19/2013 6:32 AMAnion Gap 8 (3-20 ) BUN 2 mg/dL L (4-20 mg/dL) Calcium 8.4 mg/dL L (8.6-10.0 mg/dL) Chloride 104 mEq/L (99-109 mEq/L) CO2 29 mEq/L (22-32 mEq/L) Creatinine 0.80 mg/dL (0.64-1.27 mg/dL) eGFR >60 (>60- ) Glucose 101 mg/dL H (70-100 mg/dL) Potassium 3.3 mEq/L L (3.6-5.1 mEq/L) Magnesium 1.6 mg/dL L (1.8-2.5 mg/dL) Sodium 141 mEq/L (136-144 mEq/L) C-Reactive Protein (CRP) <0.5 mg/dL (0.0-0.9 mg/dL) LAB--CHEMISTRY from 04/20/2013 5:29 AMBUN 3 mg/dL L (4-20 mg/dL) Calcium 8.6 mg/dL (8.6-10.0 mg/dL) Chloride 101 mEq/L (99-109 mEq/L) CO2 29 mEq/L (22-32 mEq/L) Creatinine 0.82 mg/dL (0.64-1.27 mg/dL) eGFR >60 (>60- ) Glucose 167 mg/dL H (70-100 mg/dL) Potassium 4.0 mEq/L (3.6-5.1 mEq/L) Magnesium 2.0 mg/dL (1.8-2.5 mg/dL) Sodium 137 mEq/L (136-144 mEq/L) Phosphorus 2.5 mg/dL (2.4-4.7 mg/dL) Albumin 3.0 g/dL L (3.5-4.8 g/dL) Anion Gap 7 (3-20 ) LAB--CHEMISTRY from 04/20/2013 2:02 PMTroponin <0.05 ng/mL (-<0.06 ng/mL) LAB--CHEMISTRY from 04/20/2013 2:03 PMLipase 20 (8-48 ) LAB--CHEMISTRY from 04/20/2013 9:33 PMTroponin <0.05 ng/mL (-<0.06 ng/mL) LAB--CHEMISTRY from 04/21/2013 5:59 AMBUN 4 mg/dL (4-20 mg/dL) Calcium 8.3 mg/dL L (8.6-10.0 mg/dL) Chloride 103 mEq/L (99-109 mEq/L) CO2 28 mEq/L (22-32 mEq/L) Creatinine 0.83 mg/dL (0.64-1.27 mg/dL) eGFR >60 (>60- ) Glucose 165 mg/dL H (70-100 mg/dL) Potassium 3.0 mEq/L L (3.6-5.1 mEq/L) Sodium 137 mEq/L (136-144 mEq/L) Anion Gap 6 (3-20 ) Troponin <0.05 ng/mL (-<0.06 ng/mL) Cholesterol 102 mg/dL (0-200 mg/dL) Cardiac Risk 2.3 (0.0-5.7 ) HDL Cholesterol 44 mg/dL (>40- mg/dL) LDL Cholesterol 47 mg/dL (0-100 mg/dL) Triglycerides 54 mg/dL (0-150 mg/dL) VLDL Cholesterol 11 mg/dL (0-30 mg/dL) LAB--CHEMISTRY from 04/21/2013 7:14 PMTroponin <0.05 ng/mL (-<0.06 ng/mL) LAB--CHEMISTRY from 04/22/2013 6:52 AMCO2 29 mEq/L (22-32 mEq/L) Creatinine 0.90 mg/dL (0.64-1.27 mg/dL) eGFR >60 (>60- ) Glucose 137 mg/dL H (70-100 mg/dL) Potassium 2.8 mEq/L L (3.6-5.1 mEq/L) Magnesium 1.8 mg/dL (1.8-2.5 mg/dL) Sodium 140 mEq/L (136-144 mEq/L) Chloride 102 mEq/L (99-109 mEq/L) Calcium 8.5 mg/dL L (8.6-10.0 mg/dL) BUN 8 mg/dL (4-20 mg/dL) Albumin 3.0 g/dL L (3.5-4.8 g/dL) Anion Gap 9 (3-20 ) Phosphorus 3.6 mg/dL (2.4-4.7 mg/dL) LAB--CHEMISTRY from 04/22/2013 2:47 PMTroponin <0.05 ng/mL (-<0.06 ng/mL) LAB--CHEMISTRY from 04/22/2013 7:45 PMChloride 101 mEq/L (99-109 mEq/L) CO2 30 mEq/L (22-32 mEq/L) eGFR >60 (>60- ) Potassium 3.7 mEq/L (3.6-5.1 mEq/L) Sodium 137 mEq/L (136-144 mEq/L) Glucose 99 mg/dL (70-100 mg/dL) Creatinine 0.74 mg/dL (0.64-1.27 mg/dL) Calcium 8.1 mg/dL L (8.6-10.0 mg/dL) BUN 4 mg/dL (4-20 mg/dL) Anion Gap 6 (3-20 ) LAB--CHEMISTRY from 04/22/2013 10:42 PMTroponin <0.05 ng/mL (-<0.06 ng/mL) LAB--CHEMISTRY from 04/23/2013 7:54 AMCKMB Mass 1.1 ng/ml (0.0-6.3 ng/ml) Creatine Kinase (CPK) 35 U/L L (49-397 U/L) Potassium 2.8 mEq/L L (3.6-5.1 mEq/L) Magnesium 1.7 mg/dL L (1.8-2.5 mg/dL) Sodium 140 mEq/L (136-144 mEq/L) Glucose 95 mg/dL (70-100 mg/dL) eGFR >60 (>60- ) Creatinine 0.69 mg/dL (0.64-1.27 mg/dL) CO2 33 mEq/L H (22-32 mEq/L) Chloride 99 mEq/L (99-109 mEq/L) Calcium 8.4 mg/dL L (8.6-10.0 mg/dL) BUN 5 mg/dL (4-20 mg/dL) Albumin 2.9 g/dL L (3.5-4.8 g/dL) Anion Gap 8 (3-20 ) Phosphorus 4.7 mg/dL (2.4-4.7 mg/dL) Troponin <0.05 ng/mL (-<0.06 ng/mL) LAB--CHEMISTRY from 04/23/2013 11:07 AMTroponin <0.05 ng/mL (-<0.06 ng/mL) LAB--CHEMISTRY from 04/23/2013 3:52 PMBUN 5 mg/dL (4-20 mg/dL) Calcium 8.4 mg/dL L (8.6-10.0 mg/dL) Chloride 100 mEq/L (99-109 mEq/L) CO2 30 mEq/L (22-32 mEq/L) Creatinine 0.85 mg/dL (0.64-1.27 mg/dL) eGFR >60 (>60- ) Glucose 144 mg/dL H (70-100 mg/dL) Potassium 3.1 mEq/L L (3.6-5.1 mEq/L) Sodium 138 mEq/L (136-144 mEq/L) Anion Gap 8 (3-20 ) Troponin <0.05 ng/mL (-<0.06 ng/mL) Normetanephrine, Free <0.20 nmol/L (-<0.90 nmol/L) Metanephrine, Free <0.20 nmol/L (-<0.50 nmol/L) LAB--CHEMISTRY from 04/23/2013 7:52 PMTroponin <0.05 ng/mL (-<0.06 ng/mL) LAB--CHEMISTRY from 04/24/2013 12:06 AMTroponin <0.05 ng/mL (-<0.06 ng/mL) LAB--CHEMISTRY from 04/24/2013 3:56 AMAnion Gap 6 (3-20 ) Albumin 3.0 g/dL L (3.5-4.8 g/dL) Alkaline Phosphatase 56 U/L (26-104 U/L) ALT (SGPT) 63 U/L (17-63 U/L) AST (SGOT) 72 U/L H (15-41 U/L) Bilirubin Total 0.4 mg/dL (0.2-1.2 mg/dL) BUN 4 mg/dL (4-20 mg/dL) Calcium 8.4 mg/dL L (8.6-10.0 mg/dL) Chloride 100 mEq/L (99-109 mEq/L) CO2 31 mEq/L (22-32 mEq/L) Creatinine 0.90 mg/dL (0.64-1.27 mg/dL) eGFR >60 (>60- ) Globulin 2.2 g/dL (1.9-4.3 g/dL) Glucose 98 mg/dL (70-100 mg/dL) Potassium 2.9 mEq/L L (3.6-5.1 mEq/L) Magnesium 2.0 mg/dL (1.8-2.5 mg/dL) Sodium 137 mEq/L (136-144 mEq/L) Phosphorus 4.5 mg/dL (2.4-4.7 mg/dL) Protein 5.2 g/dL L (6.1-7.9 g/dL) LAB--CHEMISTRY from 04/25/2013 7:12 AMAnion Gap 7 (3-20 ) Albumin 2.9 g/dL L (3.5-4.8 g/dL) BUN 4 mg/dL (4-20 mg/dL) Calcium 8.3 mg/dL L (8.6-10.0 mg/dL) Chloride 97 mEq/L L (99-109 mEq/L) CO2 34 mEq/L H (22-32 mEq/L) Creatinine 0.88 mg/dL (0.64-1.27 mg/dL) eGFR >60 (>60- ) Glucose 94 mg/dL (70-100 mg/dL) Potassium 3.4 mEq/L L (3.6-5.1 mEq/L) Magnesium 2.0 mg/dL (1.8-2.5 mg/dL) Sodium 138 mEq/L (136-144 mEq/L) Phosphorus 4.4 mg/dL (2.4-4.7 mg/dL) LAB--HEMATOLOGY from 04/16/2013 4:54 PMHGB 13.4 g/dl L (14.0-18.0 g/dl) HCT 39.8 % L (42.0-52.0 %) LAB--HEMATOLOGY from 04/16/2013 10:47 PMHGB 14.0 g/dl (14.0-18.0 g/dl) HCT 40.7 % L (42.0-52.0 %) LAB--HEMATOLOGY from 04/17/2013 6:37 AMAbsolute Basophils 0.01 THOUS (0.00-0.20 THOUS) Absolute Eosinophils 0.00 THOUS (0.00-0.50 THOUS) Absolute Lymphocytes 0.71 THOUS L (0.80-3.30 THOUS) Absolute Monocytes 0.78 THOUS (0.30-1.00 THOUS) Absolute Neutrophils 13.99 THOUS H (1.90-7.00 THOUS) HCT 38.3 % L (42.0-52.0 %) HGB 12.9 g/dl L (14.0-18.0 g/dl) MCH 26.6 pg L (27.0-32.0 pg) MCHC 33.7 g/dL (32.0-36.0 g/dL) MCV 79.0 fL L (82.0-99.0 fL) MPV 11.3 fL (9.4-12.3 fL) Platelet Count 238 K/uL (150-400 K/uL) RBC 4.85 M/uL (4.60-6.20 M/uL) RDW 16.2 % H (11.5-14.5 %) WBC 15.6 K/uL H (4.8-10.8 K/uL) Basophils 0 % (0-2 %) Eosinophils 0 % (0-4 %) Immature Granulocytes 0.4 % (0.0-1.0 %) Lymphocytes 5 % L (20-46 %) Monocytes 5 % (4-11 %) Nucleated RBC Automated 0.0 /100 WBC (0 /100 WBC) Neutrophils 90 % H (51-75 %) LAB--HEMATOLOGY from 04/17/2013 6:38 AMSedimentation Rate 3 mm/hr (0-15 mm/hr) LAB--HEMATOLOGY from 04/17/2013 11:05 AMHCT 37.8 % L (42.0-52.0 %) HGB 12.2 g/dl L (14.0-18.0 g/dl) LAB--HEMATOLOGY from 04/17/2013 9:03 PMHGB 12.3 g/dl L (14.0-18.0 g/dl) HCT 37.4 % L (42.0-52.0 %) LAB--HEMATOLOGY from 04/18/2013 5:38 AMAbsolute Basophils 0.00 THOUS (0.00-0.20 THOUS) Absolute Eosinophils 0.00 THOUS (0.00-0.50 THOUS) Absolute Lymphocytes 1.09 THOUS (0.80-3.30 THOUS) Absolute Monocytes 0.64 THOUS (0.30-1.00 THOUS) Absolute Neutrophils 11.04 THOUS H (1.90-7.00 THOUS) HCT 35.4 % L (42.0-52.0 %) HGB 11.5 g/dl L (14.0-18.0 g/dl) MCH 26.6 pg L (27.0-32.0 pg) MCHC 32.5 g/dL (32.0-36.0 g/dL) MCV 81.9 fL L (82.0-99.0 fL) MPV 11.8 fL (9.4-12.3 fL) Platelet Count 214 K/uL (150-400 K/uL) RBC 4.32 M/uL L (4.60-6.20 M/uL) RDW 16.4 % H (11.5-14.5 %) WBC 12.8 K/uL H (4.8-10.8 K/uL) Basophils 0 % (0-2 %) Eosinophils 0 % (0-4 %) Immature Granulocytes 0.2 % (0.0-1.0 %) Lymphocytes 9 % L (20-46 %) Monocytes 5 % (4-11 %) Nucleated RBC Automated 0.0 /100 WBC (0 /100 WBC) Neutrophils 86 % H (51-75 %) LAB--HEMATOLOGY from 04/19/2013 6:32 AMHCT 37.3 % L (42.0-52.0 %) HGB 12.3 g/dl L (14.0-18.0 g/dl) MCH 26.6 pg L (27.0-32.0 pg) MCHC 33.0 g/dL (32.0-36.0 g/dL) MCV 80.6 fL L (82.0-99.0 fL) MPV 11.2 fL (9.4-12.3 fL) Platelet Count 228 K/uL (150-400 K/uL) RBC 4.63 M/uL (4.60-6.20 M/uL) RDW 16.1 % H (11.5-14.5 %) WBC 12.6 K/uL H (4.8-10.8 K/uL) LAB--HEMATOLOGY from 04/20/2013 5:29 AMHCT 37.9 % L (42.0-52.0 %) HGB 12.7 g/dl L (14.0-18.0 g/dl) MCH 26.8 pg L (27.0-32.0 pg) MCHC 33.5 g/dL (32.0-36.0 g/dL) MCV 80.0 fL L (82.0-99.0 fL) MPV 11.6 fL (9.4-12.3 fL) Platelet Count 229 K/uL (150-400 K/uL) RBC 4.74 M/uL (4.60-6.20 M/uL) RDW 16.2 % H (11.5-14.5 %) WBC 9.2 K/uL (4.8-10.8 K/uL) LAB--HEMATOLOGY from 04/21/2013 5:59 AMHCT 38.3 % L (42.0-52.0 %) HGB 12.8 g/dl L (14.0-18.0 g/dl) MCH 26.5 pg L (27.0-32.0 pg) MCHC 33.4 g/dL (32.0-36.0 g/dL) MCV 79.3 fL L (82.0-99.0 fL) MPV 11.5 fL (9.4-12.3 fL) Platelet Count 242 K/uL (150-400 K/uL) RBC 4.83 M/uL (4.60-6.20 M/uL) RDW 16.2 % H (11.5-14.5 %) WBC 11.2 K/uL H (4.8-10.8 K/uL) LAB--HEMATOLOGY from 04/22/2013 6:52 AMAbsolute Basophils 0.01 THOUS (0.00-0.20 THOUS) Absolute Eosinophils 0.07 THOUS (0.00-0.50 THOUS) Absolute Lymphocytes 2.17 THOUS (0.80-3.30 THOUS) Absolute Monocytes 0.69 THOUS (0.30-1.00 THOUS) Absolute Neutrophils 9.41 THOUS H (1.90-7.00 THOUS) HCT 39.6 % L (42.0-52.0 %) HGB 13.0 g/dl L (14.0-18.0 g/dl) MCH 26.5 pg L (27.0-32.0 pg) MCHC 32.8 g/dL (32.0-36.0 g/dL) MCV 80.8 fL L (82.0-99.0 fL) MPV 11.0 fL (9.4-12.3 fL) Platelet Count 228 K/uL (150-400 K/uL) RBC 4.90 M/uL (4.60-6.20 M/uL) RDW 16.3 % H (11.5-14.5 %) WBC 12.4 K/uL H (4.8-10.8 K/uL) Basophils 0 % (0-2 %) Eosinophils 1 % (0-4 %) Immature Granulocytes 0.5 % (0.0-1.0 %) Lymphocytes 18 % L (20-46 %) Monocytes 6 % (4-11 %) Nucleated RBC Automated 0.0 /100 WBC (0 /100 WBC) Neutrophils 76 % H (51-75 %) LAB--HEMATOLOGY from 04/23/2013 7:54 AMAbsolute Basophils 0.00 THOUS (0.00-0.20 THOUS) Absolute Eosinophils 0.04 THOUS (0.00-0.50 THOUS) Absolute Lymphocytes 1.56 THOUS (0.80-3.30 THOUS) Absolute Monocytes 0.64 THOUS (0.30-1.00 THOUS) Absolute Neutrophils 6.39 THOUS (1.90-7.00 THOUS) HCT 38.0 % L (42.0-52.0 %) HGB 12.8 g/dl L (14.0-18.0 g/dl) MCH 26.9 pg L (27.0-32.0 pg) MCHC 33.7 g/dL (32.0-36.0 g/dL) MCV 80.0 fL L (82.0-99.0 fL) MPV 11.2 fL (9.4-12.3 fL) Platelet Count 232 K/uL (150-400 K/uL) RBC 4.75 M/uL (4.60-6.20 M/uL) RDW 16.2 % H (11.5-14.5 %) WBC 8.7 K/uL (4.8-10.8 K/uL) Basophils 0 % (0-2 %) Eosinophils 1 % (0-4 %) Immature Granulocytes 0.3 % (0.0-1.0 %) Lymphocytes 18 % L (20-46 %) Monocytes 7 % (4-11 %) Nucleated RBC Automated 0.0 /100 WBC (0 /100 WBC) Neutrophils 74 % (51-75 %) LAB--HEMATOLOGY from 04/24/2013 3:56 AMHGB 12.4 g/dl L (14.0-18.0 g/dl) MCH 27.4 pg (27.0-32.0 pg) MCHC 34.3 g/dL (32.0-36.0 g/dL) MCV 79.7 fL L (82.0-99.0 fL) MPV 11.5 fL (9.4-12.3 fL) Platelet Count 235 K/uL (150-400 K/uL) RBC 4.53 M/uL L (4.60-6.20 M/uL) RDW 16.4 % H (11.5-14.5 %) WBC 11.2 K/uL H (4.8-10.8 K/uL) HCT 36.1 % L (42.0-52.0 %) LAB--HEMATOLOGY from 04/25/2013 7:12 AMWBC 9.8 K/uL (4.8-10.8 K/uL) RDW 16.4 % H (11.5-14.5 %) RBC 4.53 M/uL L (4.60-6.20 M/uL) Platelet Count 262 K/uL (150-400 K/uL) MPV 11.8 fL (9.4-12.3 fL) MCV 82.1 fL (82.0-99.0 fL) MCHC 32.3 g/dL (32.0-36.0 g/dL) MCH 26.5 pg L (27.0-32.0 pg) HGB 12.0 g/dl L (14.0-18.0 g/dl) HCT 37.2 % L (42.0-52.0 %) LAB--MICROBIOLOGY from 04/20/2013 10:20 PMFecal Leucocyte Stain (Stool WBC) A Source: Stool Collected: 04/20/13 22:20 Site: Received : 04/20/13 22:26 Order#: [id number] Fecal Leucocyte Stain FINAL 04/20/13 22:37 Moderate white blood cells present DENIS FOR RESULTS: * - NEW RESULT - RESULT WAS MODIFIED AFTER FINAL STATUS SET LAB--SERODIAGNOSIS from 04/23/2013 9:32 AMHepatitis B Surface Antibody (HBSAB) Negative Hepatitis B Surface Antigen (HBSAG) Negative Quantiferon TB Test Negative (Negative ) LAB--URINE TESTS from 04/26/2013 7:55 AMAppearance Clear Bilirubin Negative (Negative ) Blood Negative (Negative ) Color Lt Yellow Glucose Negative (Negative ) Ketones, Urine Negative (Negative ) Leukocytes Esterase Negative (Negative ) Nitrites Negative (Negative ) pH, Urine 7.0 (5.0-8.0 ) Protein Negative (Negative ) Specific [place] 1.005 (1.003-1.030 ) Collection Type: Clean Catch Urobilinogen Negative mg/dL (-<1.0 mg/dL)
[2016-12-15 00:18] VITALS: TEMP 98.7; Ht 175.3 cm; Wt 76.9 kg
--- NOTE | 2016-12-15 00:37 | ERPDOC ---
Departure Disposition Decision Date: December 15, 2016 Disposition Decision Time: 02:51 Disposition: 01 DISCHARGED HOME, SELF-CARE Impression Impression Impression: Primary Impression: Exacerbation of Crohn's disease Digestive disease complication type: with rectal bleeding Qualified Codes: K50.911 - Crohn's disease, unspecified, with rectal bleeding Severity: Severe Condition: Improved Seen By: Physician only Referrals: VERONA ADAME MD (PCP) Problems/Meds/Labs Reviewed?: Yes Medications reviewed and manag: Yes Additional Instructions: Zofran 4 mg, one tablet every 6 hours as needed for nausea Follow up with [facility], [facility] in [place], or [facility] in [place]. Follow up care ordered?: Yes Mental Status: Alert Scripts Ondansetron (Zofran Odt) 4 Mg Tab.rapdis 4 MG PO Q6HR, #20 TAB Oral disintegrating tablet Prov: ELENA HECTOR MD 12/15/16 HPI - Abdominal Pain General Chief Complaint: Abdominal Pain Stated Complaint: ABD PAIN Time Seen by Provider: 00:32 Source: patient, family History/Exam Limitations: no limitations HPI - Abdominal Pain Initial Comments 3 day history of abdominal pain, bloody diarrhea, and vomiting. Patient states this is normal for his Crohn's, with the exception that normally he has bloody stools once a while, but only when he has a severe exacerbation as he get bloody stools every day. Patient states he is only taking Asacol. Patient has no primary physician has no director security risk management, and despite being seen in multiple ERs throughout the region and multiple referrals to indigent care, the patient has not done so. Patient states that he was seen one appointment, which seems highly suspect. Occurred At: home Onset: Gradual Quality: cramping, sharpness, stabbing Location: periumbilical Radiation: no radiation Associated Symptoms: nausea/vomiting, DENIES: back pain, chest pain, diaphoresis, fatigue, fever/chills, headache, heartburn, rash, shortness of breath, swelling/mass in abdomen, syncope, weakness Hx of Similar Symptoms: Yes Allergies: Coded Allergies: heparin (Verified Allergy, Unknown, SWELLING, 12/15/16) hydrocodone (Verified Allergy, Unknown, 12/15/16) ketorolac (Verified Allergy, Unknown, DYSPNEA, 12/15/16) metoclopramide (Unverified Allergy, Unknown, ITCHING, 12/15/16) PT STATES "I GET RESTLESS AND CONFUSED AND ITCHY" morphine (Verified Allergy, Unknown, HIVES, ITCHING, 12/15/16) prochlorperazine (Verified Allergy, Unknown, 12/15/16) Past History Patient Surgical History 2012 bowel resection 05-18-2014 Colonoscopy, 05-18-2014 EGD "small" right hip fracture Past Medical History GI: crohn's Surgical History General: EGD, colonoscopy, other Family History Family PMH: FOUND: hypertension Vaccines Hx Influenza Vaccination: No Hx Pneumococcal Vaccination: No Social History Smoking Status: Never smoker Does patient use chewing tobac: No Second Hand Exposure: No Substance Use Type: does not use Alcohol Intake: none Review of Systems Constitutional Constitutional: DENIES: appetite decrease, appetite increase, chills, dizziness , fever, weakness ENMT Ears: DENIES: pain Hearing: DENIES: hearing loss, tinnitus Balance: DENIES: vertigo Mouth/Throat: DENIES: change in swallowing, change in voice, hoarsness, painful swallowing, sore throat Cardiovascular Cardiac: DENIES: chest pain, dyspnea on exertion Rhythm/Rate: DENIES: irregular beat, palpitations, tachycardia Vascular: DENIES: pedal edema Pulmonary Respiratory: DENIES: cough, dyspnea, pleuritic chest pain GI Upper Abdomen: nausea, pain, DENIES: dysphagia, food intolerances, heartburn/ indigestion, hematemesis, vomiting Lower Abdomen: blood in stool, diarrhea, pain, DENIES: lawanda-colored stools, constipation, melena, painful BM General: DENIES: burning, dysuria, frequency, pain, urgency Musculoskeletal General: DENIES: cramps, joint pain, joint swelling, pain, weakness Integumentary Skin: DENIES: rash, sores Neurological General: DENIES: headache, numbness, tingling, vertigo, weakness Psychiatric Psychiatric: DENIES: anxiety, depression, nervousness Physical Exam General General Nourishment: well nourished, well developed, appears stated age, no acute distress General Body Habitus: well groomed Vitals and Pain First Documented Vital Signs Date Time Temp Pulse Resp B/P Pulse Ox O2 Delivery O2 Flow Rate FiO2 12/15/16 00:18 98.7 101 12 141/83 97 Room Air Weight: Kilograms: Height (feet): 5 Height (inches): 9.00 Triage Pain Scale: RN VS reviewed by Provider: Yes Normal Exams: Head: Normocephalic w/o trauma Eyes: Pupils are PERRLA w/ EOMI, No scleral icterus, irritation, or foreign bodies noted ENMT: No facial trauma, nasal exudates, pharyngeal erythema, or exudates are noted Neck: Full range of motion, without adenopathy, JVD, bruits or thyromegaly Chest/Resp: Clear all mckoy, with good airflow, and symmetry bilaterally CV: Regular rate and rhythm, without murmur or gallop, Pulses 2+ all extremities, capillary refill, <2 seconds all ext., no pedal edema noted Lymphatic: No lymphadenopathy, or lymphedema noted Musculoskeletal: No tenderness, or deformity noted, good range of motion, all extremities Integumentary: No rashes, hives, or bruising noted, hair and nails, without abnormality Neurologic: Patient is alert, and oriented, cranial nerves, motor/sensory/ cerebellar, exams w/o gross deficits, to observation Psychiatric: Patient exhibits, appropriate attention, emotion and affect Abdomen (brief) Abdominal Brief: FOUND: soft, tender (mild diffuse tenderness, no guarding no rebounding), NOT FOUND: bowel normo active x4 (decreased throughout), distended , hepatosplenomegaly Progress Results/Orders Orders Procedure Category Date Status Time Iv Lock (Ed Only) EDM 12/15/16 Transmitted 00:32 Cbc W/Auto LAB 12/15/16 Complete Diff-Reflex Manual Cmp - Comprehensive LAB 12/15/16 Complete Metabolic Lipase LAB 12/15/16 Complete Hydromorphone PHA 12/15/16 Complete (Dilaudid) 00:45 Prochlorperazine PHA 12/15/16 Complete (Compazine) 00:45 Dexamethasone Inj PHA 12/15/16 Complete (Decadron) 00:45 Normal Saline (Normal PHA 12/15/16 Complete Saline Iv) 00:45 Ondansetron Inj PHA 12/15/16 Complete (Zofran) 01:30 Hydromorphone PHA 12/15/16 In Process (Dilaudid) 03:00 Ondansetron Odt PHA 12/15/16 Transmitted (Prepack) (Zofran Odt 03:00 Lab Results Laboratory Tests Test 12/15/16 02:02 White Blood Count 7.6T/MM3 Red Blood Count 4.47M/MM3 Hemoglobin 11.7GM/DL Hematocrit 34.7% Mean Corpuscular Volume 77.6UM3 Mean Corpuscular Hemoglobin 26.2UUG Mean Corpuscular Hemoglobin Concent 33.7GM/DL RDW Standard Deviation 48.6FL Platelet Count 247T/MM3 Mean Platelet Volume 10.9UM3 Immature Granulocyte % (Auto) 0.1% Neutrophils (%) (Auto) 65.7% Lymphocytes (%) (Auto) 22.0% Monocytes (%) (Auto) 11.0% Eosinophils (%) (Auto) 0.9% Basophils (%) (Auto) 0.3% Absolute Immature Granulocyte (auto 0.01T/MM3 Absolute Neutrophils (auto) 5.0T/MM3 Absolute Lymphocytes (auto) 1.7T/MM3 Absolute Monocytes (auto) 0.8T/MM3 Absolute Eosinophils (auto) 0.1T/MM3 Absolute Basophils (auto) 0.0T/MM3 Turbidity < 20 Sodium Level 145MEQ/L Potassium Level 3.5MEQ/L Chloride Level 105MEQ/L Carbon Dioxide Level 27MEQ/L Anion Gap 13MEQ/L Blood Urea Nitrogen 9.0MG/DL Creatinine 0.7MG/DL Glomerular Filtration Rate Calc 134 BUN/Creatinine Ratio 13RATIO Glucose Level 96MG/DL Calculated Osmolality 278MOSM/KG Calcium Level 9.1MG/DL Total Bilirubin 0.40MG/DL Icterus Index < 2 Aspartate Amino Transf (AST/SGOT) 14U/L Alanine Aminotransferase (ALT/SGPT) 33U/L Alkaline Phosphatase 81U/L Total Protein 6.7G/DL Albumin 4.0G/DL Globulin 2.7G/DL Albumin/Globulin Ratio 1.5RATIO Lipase 31U/L Chemistry Specimen Hemolysis 20 Medications Current ED Medications Hydromorphone HCl (Dilaudid) 1 mg O ONCE IV Last administered on 12/15/16 02: 02; Start 12/15/16 at 00:45; Stop 12/15/16 at 00:46; Status DC Prochlorperazine Edisylate (Compazine) 10 mg O ONCE IV ; Start 12/15/16 at 00: 45; Stop 12/15/16 at 00:46; Status DC Dexamethasone Sodium Phosphate 8 mg 8 mg O ONCE IV Last administered on 02:03; Start 12/15/16 at 00:45; Stop 12/15/16 at 00:46; Status DC Sodium Chloride (Normal Saline IV) 1,000 ml @ 0 mls/hr Q0M ONCE IV Last administered on 12/15/16 02:02; Start 12/15/16 at 00:45; Stop 12/15/16 at 00:46 ; Status DC Ondansetron HCl (Zofran) 4 mg O ONCE IV Last administered on 12/15/16 02:03; Start 12/15/16 at 01:30; Stop 12/15/16 at 01:31; Status DC Hydromorphone HCl (Dilaudid) 1 mg O ONCE IV ; Start 12/15/16 at 03:00; Stop at 03:01 Progress Progress Patient given 1 L normal saline IV fluid bolus, Dilaudid 1 mg, Compazine 10 mg, and dexamethasone 8 mg IV - some improvement, however patient continues to complain of "severe abdominal pain," no apparent distress, normal vital signs, and no diarrhea or bloody stools during the ER visit. She was given one additional dose of Dilaudid 1 mg, Zofran pack for home, and referrals to alternate indigent care clinics. CBC - normal CMP/L - normal ELENA EHCTOR MD December 15, 2016 00:37
--- OUTSIDE RECORDS SUMMARY | 2016-12-15 00:38 | XMS REPORT ---
Author Author [place]/[facility], [facility] - Organization Unknown Address Unknown Phone [...]
--- OUTSIDE RECORDS SUMMARY | 2016-12-15 00:39 | XMS REPORT ---
Author Author [place]/[facility], [facility] - Organization Unknown Address [...]
--- OUTSIDE RECORDS SUMMARY | 2016-12-15 00:41 | XMS REPORT ---
Author Author [employer], SYSTEM Organization Unknown Address Unknown Phone Unavailable Care Team Providers Care In Home Tutor Name Role Phone UNASSIGNED DOCTOR MD WOJCIECH DOCTOR PP [phone] Reason For Visit Reason for Visit from [...] MG/DL (65-99 MG/DL) *GFR EST NON AFR QATARI >90 ML/MIN *GFRA EST AFR AMER >90 [...] MG/DL (65-99 MG/DL) *GFR EST NON AFR QATARI >90 ML/MIN *GFRA EST AFR AMER >90 [...] MG/DL (65-99 MG/DL) *GFR EST NON AFR QATARI >90 ML/MIN *GFRA EST AFR AMER >90 [...] H (65-99 MG/DL) *GFR EST NON AFR QATARI >90 ML/MIN *GFRA EST AFR AMER >90 [...] 10:45 AM * Address # 1 : [facility]: [address] [place]- [phone] or Treatment Plan from 07/01/2015 3:38 PM:* [...] the responsibility of the patient or patient medical claims representative to confirm the list of medications [...]
--- OUTSIDE RECORDS SUMMARY | 2016-12-15 00:42 | XMS REPORT | CCD ---
Author Author [place]/[facility], [facility] - Organization Unknown Address Unknown Phone Unavailable [...] (5.0-8.0 ) Protein Negative (Negative ) Specific [place] 1.013 (1.003-1.030 ) Collection Type: Clean Catch Urobilinogen Negative mg/dL (-<1.0 mg/dL)
--- OUTSIDE RECORDS SUMMARY | 2016-12-15 00:43 | XMS REPORT ---
Author Author [place]/[facility], [facility] - Organization Unknown Address Unknown Phone Unavailable [...] (5.0-8.0 ) Protein Negative (Negative ) Specific [place] 1.014 (1.003-1.030 ) Collection Type: Clean Catch Urobilinogen Negative mg/dL (-<1.0 mg/dL)
--- OUTSIDE RECORDS SUMMARY | 2016-12-15 00:43 | XMS REPORT ---
Author Author [place]/[facility], [facility] - Organization Unknown Address Unknown Phone [...] (5.0-8.0 ) Protein Negative (Negative ) Specific [place] >=1.045 A (1.003-1.030 ) Collection Type: Clean Catch Urobilinogen 4.0 mg/dL A (-<1.0 mg/dL)
--- OUTSIDE RECORDS SUMMARY | 2016-12-15 00:44 | XMS REPORT ---
Author Author [employer], SYSTEM Organization Unknown Address Unknown Phone Unavailable Care Team Providers Care Custodial Engineer Name Role Phone UNASSIGNED DOCTOR , DOCTOR PP [phone] Reason For Visit Chief Complaint ABD PAIN [...] MG/DL (65-99 MG/DL) *GFR EST NON AFR PANAMANIAN >90 ML/MIN *GFRA EST AFR AMER >90 [...] 07/02/2015 12:43 PM * Completed Procedure Code: 2GL81MG Procedure Name: not valued, on 07/02/2015 12:00 AM * Completed Procedure Code: [id number] Procedure Name: not valued, on 06/28/2015 12:00 [...]
--- OUTSIDE RECORDS SUMMARY | 2016-12-15 00:44 | XMS REPORT ---
Author Author [place]/[facility], [facility] - Organization Unknown Address Unknown Phone Unavailable [...]
--- OUTSIDE RECORDS SUMMARY | 2016-12-15 00:44 | XMS REPORT ---
Author Author [place]/[facility], [facility] - [facility] [place] Unknown Address Unknown Phone Unavailable Allergies, Adverse [...] the responsibility of the patient or patient business process representative to confirm the list of medications [...] twice a day during meal * cloNIDine (Ehezeeea-UUP-4) 0.2 mg/24 hour Patch Weekly, Ordered By: [...] Dr. Rome Patricia in 1- 2 weeks ([id number]) * Follow up with Dr. Whipple in [...] 22:20 Site: Received : 04/20/13 22:26 Order#: [id number] Fecal Leucocyte Stain FINAL 04/20/13 22:37 Moderate [...] (5.0-8.0 ) Protein Negative (Negative ) Specific [place] 1.005 (1.003-1.030 ) Collection Type: Clean Catch Urobilinogen Negative mg/dL (-<1.0 mg/dL)
[2016-12-15] MEDS ORDERED: HYDROMORPHONE 2mg/ml INJECTION IV ONE ×2 (00:45→03:00)
[2016-12-15] MEDS ORDERED: NORMAL SALINE 1,000 ML IV ONE (00:45)
[2016-12-15] MEDS ORDERED: DEXAMETHASONE 4mg/ml - 1ml INJECTION IV ONE (00:45)
[2016-12-15] MEDS ORDERED: PROCHLORPERAZINE 10mg/2ml INJECTION IV ONE (00:45)
[2016-12-15] MEDS ORDERED: MESA800T PO (00:55)
[2016-12-15] MEDS ORDERED: ONDANSETRON 4mg/2ml INJECTION IV ONE (01:30)
[2016-12-15 02:06] LABS: BASOPHILS % (AUTO) 0.3 % (0-2); EOSINOPHILS # (AUTO) 0.1 T/MM3 (0-0.5); EOSINOPHILS % (AUTO) 0.9 % (0-4); HCT - HEMATOCRIT 34.7 % (41-53); HGB - HEMOGLOBIN 11.7 GM/DL (13.5-17.5); IMMATURE GRANULOCYTE # (AUTO) 0.01 T/MM3 (0.00-0.03); IMMATURE GRANULOCYTE % (AUTO) 0.1 % (0.0-0.5); LYMPHOCYTES # (AUTO) 1.7 T/MM3 (1-4.8); MEAN CORPUSCULAR HGB 26.2 UUG (26-34); MEAN CORPUSCULAR HGB CONC(MCHC 33.7 GM/DL (31-37); MEAN CORPUSCULAR VOLUME 77.6 UM3 (80-100); MEAN PLATELET VOLUME 10.9 UM3 (9.4-12.4); MONOCYTES # (AUTO) 0.8 T/MM3 (0-0.8); NEUTROPHILS % (AUTO) 65.7 % (33-66); RED BLOOD COUNT 4.47 M/MM3 (4.50-5.90); WBC - WHITE BLOOD COUNT 7.6 T/MM3 (4.5-11.0)
[2016-12-15 02:15] LABS: ALBUMIN/GLOBULIN RATIO 1.5 RATIO (1.1-2.2); ALKALINE PHOSPHATASE 81 U/L (38-126); ALT (SGPT) 33 U/L (21-72); ANION GAP 13 MEQ/L (5-15); AST (SGOT) 14 U/L (17-59); BUN/CREATININE RATIO 13 RATIO (6-26); CALCIUM 9.1 MG/DL (8.4-10.2); CHLORIDE 105 MEQ/L (98-107); CO2 - CARBON DIOXIDE 27 MEQ/L (22-30); CREATININE 0.7 MG/DL (0.8-1.5); GLOMERULAR FILTRATION RATE 134; GLUCOSE 96 MG/DL (75-110); LIPASE 31 U/L (23-300); POTASSIUM 3.5 MEQ/L (3.6-5); SODIUM 145 MEQ/L (134-144); TOTAL PROTEIN 6.7 G/DL (6.3-8.2)
--- NOTE | 2016-12-15 02:50 | NUR ---
STATUS PROVIDER IN ROOM, PT IS RESTING IN BED, NO S/S OF ACUTE DISTRESS NOTED, VSS. PT REPORTS HIS PAIN IS MINIMALLY IMPROVED BUT THAT HE IS STILL HAVING "A LOT OF PAIN".
[2016-12-15] MEDS ORDERED: ONDA4TAB7 PO (02:52)
[2016-12-15] MEDS ORDERED: ONDANSETRON ODT 4mg #3 (PrePack) SENT HOME ONE (03:00)
[2016-12-15 03:35] VITALS: BP 126/69; PULSE 67; RESP 12; O2SAT 97
--- NOTE | 2016-12-15 03:35 | NUR ---
DEPART PT IS DISCHARGED AT THIS TIME, INSTRUCTIONS ARE REVIEWED AND UNDERSTANDING IS VOICED. PT LEAVES AMBULATORY WITH FAMILY AT THIS TIME.
== END 2016-12-15 03:35 | disposition home or self-care (01) ==
LOC: ED 23:54
DX: K50.911 Crohn's disease, unspecified, with rectal bleeding (principal)
CPT/HCPCS: 80053; 83690; 85025; 96374; 96375; 96376; 99284; J1100; J1170; J2405; J7030